=== PATIENT | female | born 1945 | race Caucasian/White ===

== ENCOUNTER 2019-09-15 01:25 | Day surgery (SDC) | payer MEDICARE, OTHER, SELFPAY ==
[2019-08-30 09:57] VITALS: BMI 25.4
[2019-09-15 08:01] VITALS: BP 116/76; PULSE 60; RESP 20; TEMP 36.4; O2SAT 60
[2019-09-15] MEDS: LACTATED RINGERS 1,000 ML 150 ML IV CONT (08:12)
--- NOTE | 2019-09-15 08:28 | WPDANESEPPF ---
Anes - Initial Pre Proc Eval Procedure: Operation Date: 09/15/19 08:30 Proposed Procedures p Esophagogastroduodenoscopy - Jacobo Singletary DO Date/Time: 09/15/19 08:28 Surgeon: Jacobo Singletary DO Pre Op Diagnosis: esophageal obstruction Patient Data Age: 74 Gender: F Height: 5 ft 3 in Weight: 65 kg Last Vital Signs Temp 36.4 C 09/15/19 08:01 Pulse 60 09/15/19 08:01 Resp 20 09/15/19 08:01 BP 116/76 09/15/19 08:01 Pulse Ox 60 L 09/15/19 08:01 Allergies Allergy/AdvReac Type Severity Reaction Status Date / Time Sulfa (Sulfonamide Allergy Unknown brake out Verified 08/30/19 09:59 Antibiotics) in sores in the mouth Home Medications Medication Instructions Recorded Confirmed Type adalimumab 40 mg/0.8 mL 40 mg SUB-Q ONCE 06/01/19 09/15/19 History subcutaneous syringe kit albuterol sulfate 90 mcg/actuation 1 inhalation INHALATION Q4H 06/01/19 09/15/19 History aerosol inhaler cyanocobalamin (vitamin B-12) 500 500 mcg PO 3XW 06/01/19 09/15/19 History mcg tablet folic acid 1 mg tablet 1 mg PO DAILY 06/01/19 09/15/19 History loratadine 10 mg tablet 10 mg PO DAILY PRN 06/01/19 09/15/19 History meloxicam 15 mg tablet 15 mg PO DAILY PRN 06/01/19 09/15/19 History pyridoxine (vitamin B6) 100 mg 100 mg PO DAILY 06/01/19 09/15/19 History tablet rosuvastatin 10 mg tablet 10 mg PO DAILY 06/01/19 09/15/19 History fluticasone 250 mcg-salmeterol 50 1 inhalation INHALATION BID #60 06/22/19 09/15/19 Rx mcg/dose blistr powdr for each inhalation tiotropium bromide 18 mcg capsule 1 cap INHALATION DAILY #60 06/22/19 09/15/19 Rx with inhalation device inhalation omeprazole 40 mg PO QAM 08/30/19 09/15/19 History albuterol sulfate 2.5 mg INHALATION BID 09/12/19 09/15/19 History methotrexate sodium 10 mg PO WEEKLY 09/12/19 09/15/19 History Patient hx anesthesia problems: none Family hx anesthesia problems: none PMFSH Family History Family History Father Family history of diabetes mellitus in first degree relative Sibling Family history of renal cell carcinoma Social History Social History Years smoked: 40 Smoking status: Former smoker Smoking end date: 07/20/04 Alcohol intake: never Gender identity (if verbalized by the patient): Female Anes - Eval Final PreProcedure Day of Procedure 09/15/19 08:28 Patient weight: normal Heart: regular rate and rhythm Lungs: clear to auscultation Airway: Mallampati scale class II Neurological: alert and oriented Last oral intake: >/= 8 hours ASA classification: III Emergent: no Anesthetic plan: proceed Anesthesia type and monitoring: general GIVS and standard monitoring Informed Consent: The patient's anesthetic plan and its attendant risks and benefits were discussed with the patient/family/POA. Questions were solicited and answers provided to the satisfaction of the patient/family/POA.
--- NOTE | 2019-09-15 08:35 | PM.IMHP ---
H&P: HPI History of Present Illness Chief complaint: esophageal obstruction Narrative: Cassie Bone is a 74 year old female presents for EGD today. She reports dysphagia near her gibbs apple to pills and solids for the last two months. She said she can stick her finger in the back of her throat and feel pills to bring it back up. She has hx of esopahegal webbing and stricture in the past. She also reports heartburn despite being on PPI. Denies abnormal weigh tloss, fever or chills Last colonoscopy 2009 and had polyp. She is set up for a colonoscopy. she denies any bowel habit changes, diarrhea, constipation, melena, hematochezia or abdominal pain. Review of Systems Review of Systems: All systems reviewed & are unremarkable except as noted in HPI and below Gastrointestinal: Gastrointestinal: Reports dysphagia and Reports heartburn [facility] Past Medical History Medical History (Updated 09/15/19 @ 08:40 by Karen Napier, [employer] SALES REPRESENTATIVE) Dysphagia GERD (gastroesophageal reflux disease) History of esophageal stricture Hx of adenomatous colonic polyps Osteoporosis Surgical History Surgical History (Updated 09/15/19 @ 08:40 by Karen Napier, [employer] SALES REPRESENTATIVE) Hx of rotator cuff surgery Family History Family History Father Family history of diabetes mellitus in first degree relative Sibling Family history of renal cell carcinoma Social History Social History Years smoked: 40 Smoking status: Former smoker Smoking end date: 07/20/04 Alcohol intake: never Gender identity (if verbalized by the patient): Female Meds Home Medications and Allergies Home Medications Medication Instructions Recorded Confirmed Type adalimumab 40 mg/0.8 mL 40 mg SUB-Q ONCE 06/01/19 09/15/19 History subcutaneous syringe kit albuterol sulfate 90 mcg/actuation 1 inhalation INHALATION Q4H 06/01/19 09/15/19 History aerosol inhaler cyanocobalamin (vitamin B-12) 500 500 mcg PO 3XW 06/01/19 09/15/19 History mcg tablet folic acid 1 mg tablet 1 mg PO DAILY 06/01/19 09/15/19 History loratadine 10 mg tablet 10 mg PO DAILY PRN 06/01/19 09/15/19 History meloxicam 15 mg tablet 15 mg PO DAILY PRN 06/01/19 09/15/19 History pyridoxine (vitamin B6) 100 mg 100 mg PO DAILY 06/01/19 09/15/19 History tablet rosuvastatin 10 mg tablet 10 mg PO DAILY 06/01/19 09/15/19 History fluticasone 250 mcg-salmeterol 50 1 inhalation INHALATION BID #60 06/22/19 09/15/19 Rx mcg/dose blistr powdr for each inhalation tiotropium bromide 18 mcg capsule 1 cap INHALATION DAILY #60 06/22/19 09/15/19 Rx with inhalation device inhalation omeprazole 40 mg PO QAM 08/30/19 09/15/19 History albuterol sulfate 2.5 mg INHALATION BID 09/12/19 09/15/19 History methotrexate sodium 10 mg PO WEEKLY 09/12/19 09/15/19 History Allergies Allergy/AdvReac Type Severity Reaction Status Date / Time Sulfa (Sulfonamide Allergy Unknown brake out Verified 09/15/19 08:31 Antibiotics) in sores in the mouth Vital Signs Vital Signs - 24 hr 09/15/19 08:01 Temperature 36.4 C Pulse Rate 60 Respiratory Rate 20 Blood Pressure 116/76 Pulse Oximetry 60 L Exam Const: General: cooperative, healthy appearing, comfortable, alert and awake Nutritional Appearance: average body habitus Orientation/consciousness: oriented to person, oriented to place, oriented to time and patient oriented x3 Limitations: no limitations HENMT: Head: normal to inspection and normocephalic Mouth: Yes Normal oral and palatal mucosa present and Yes moist mucous membranes Neck: Neck: normal visual inspection, supple and no JVD Carotids: no bruits Resp: Effort & Inspection: normal respiratory effort and no respiratory distress Auscultation: diminished lung sounds Cardio: Rate: regular rate Rhythm: regular rhythm Heart sounds: S1 normal heart sound present, S2 normal heart sound presen
[2019-09-15 09:35] VITALS: BP 120/49; PULSE 66; RESP 17; O2SAT 100
[2019-09-15 09:45] VITALS: BP 128/58; PULSE 55; RESP 19; O2SAT 100
[2019-09-15 09:51] VITALS: BP 141/58; PULSE 50; RESP 15; O2SAT 100
== END 2019-09-15 10:05 | disposition home or self-care (01) ==
PROVIDERS: PCP Nurse Practitioner Adult Health; Visit Provider Internal Medicine Gastroenterology
PROC: 0DJ08ZZ Inspection of Upper Intestinal Tract, Via Natural or Artificial Opening Endoscopic (ICD-10-PCS; CPT 43235; principal; 2019-09-15 08:30)
DX: K21.9 Gastro-esophageal reflux disease without esophagitis (principal); K22.2 Esophageal obstruction; K44.9 Diaphragmatic hernia without obstruction or gangrene; M81.0 Age-related osteoporosis without current pathological fracture; Z87.891 Personal history of nicotine dependence
CPT/HCPCS: 43239; 43249; 87081; 88305; C1726; J2704; J7120

== ENCOUNTER 2019-09-22 01:31 | Day surgery (SDC) | payer MEDICARE, OTHER, SELFPAY ==
[2019-09-16 11:29] VITALS: BMI 24.8
[2019-09-22 06:39] VITALS: BP 129/79; PULSE 69; RESP 18; TEMP 36.4; O2SAT 98; BMI 24.5
--- NOTE | 2019-09-22 06:46 | P.PNAN_ITS ---
Anes - Initial Pre Proc Eval Procedure: Operation Date: 09/22/19 07:30 Proposed Procedures p Screening Colonoscopy - Jacobo Singletary DO Date/Time: 09/22/19 06:46 Surgeon: Jacobo Singletary DO Pre Op Diagnosis: neoplasm screening Patient Data Age: 74 Gender: F Height: 1.6 m Weight: 63 kg Last Vital Signs Temp 36.4 C 09/22/19 06:39 Pulse 69 09/22/19 06:39 Resp 18 09/22/19 06:39 BP 129/79 09/22/19 06:39 Pulse Ox 98 09/22/19 06:39 Allergies Allergy/AdvReac Type Severity Reaction Status Date / Time Sulfa (Sulfonamide Allergy Unknown brake out Verified 09/22/19 06:35 Antibiotics) in sores in the mouth Home Medications Medication Instructions Recorded Confirmed Type adalimumab 40 mg/0.8 mL 40 mg SUB-Q ONCE 06/01/19 09/16/19 History subcutaneous syringe kit albuterol sulfate 90 mcg/actuation 1 inhalation INHALATION Q4H 06/01/19 09/16/19 History aerosol inhaler cyanocobalamin (vitamin B-12) 500 500 mcg PO 3XW 06/01/19 09/16/19 History mcg tablet folic acid 1 mg tablet 1 mg PO DAILY 06/01/19 09/16/19 History loratadine 10 mg tablet 10 mg PO DAILY PRN 06/01/19 09/16/19 History meloxicam 15 mg tablet 15 mg PO DAILY PRN 06/01/19 09/16/19 History pyridoxine (vitamin B6) 100 mg 100 mg PO DAILY 06/01/19 09/16/19 History tablet rosuvastatin 10 mg tablet 10 mg PO DAILY 06/01/19 09/16/19 History fluticasone 250 mcg-salmeterol 50 1 inhalation INHALATION BID #60 06/22/19 09/16/19 Rx mcg/dose blistr powdr for each inhalation tiotropium bromide 18 mcg capsule 1 cap INHALATION DAILY #60 06/22/19 09/16/19 Rx with inhalation device inhalation omeprazole 40 mg PO QAM 08/30/19 09/16/19 History albuterol sulfate 2.5 mg INHALATION BID 09/12/19 09/16/19 History methotrexate sodium 10 mg PO WEEKLY 09/12/19 09/16/19 History esomeprazole magnesium [Nexium] 40 mg PO BID #60 cap 09/15/19 09/16/19 Rx esomeprazole magnesium [Nexium] 40 mg PO DAILY #30 cap 09/15/19 09/16/19 Rx Patient hx anesthesia problems: none Family hx anesthesia problems: none [facility] Past Medical History Medical History (Updated 09/21/19 @ 13:44 by Surjit Liz, DO) 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 Dysphagia GERD (gastroesophageal reflux disease) History of esophageal stricture Hx of adenomatous colonic polyps Lung nodules SHOLA (obstructive sleep apnea) Osteoporosis Rheumatoid arthritis involving multiple sites Surgical History Surgical History (Updated 09/15/19 @ 08:40 by Karen Napier, SPECIAL LIBRARIAN) Hx of rotator cuff surgery Social History Social History Years smoked: 40 Smoking status: Former smoker Smoking end date: 07/20/04 Alcohol intake: never Gender identity (if verbalized by the patient): Female Anes - Eval Final PreProcedure Day of Procedure 09/22/19 06:46 Informed Consent: The patient's anesthetic plan and its attendant risks and benefits were discussed with the patient/family/POA. Questions were solicited and answers provided to the satisfaction of the patient/family/POA.
[2019-09-22] MEDS: LACTATED RINGERS 1,000 ML 150 ML IV CONT (07:25)
--- NOTE | 2019-09-22 07:34 | PM.IMHP ---
H&P: HPI History of Present Illness Chief complaint: neoplasm screening Narrative: This very pleasant lady's being evaluated for screening and surveillance colonoscopy. The patient's history adenomatous colon polyps. Patient's GI review systems only remarkable for rare blood on the tissue during preparation. Allergies sulfa. Past medical history: Hyperlipidemia. Rheumatoid arthritis. COPD. Obstructive sleep apnea. Osteoporosis. GERD. Adenomatous colon polyps. Physical exam revealed a very pleasant lady in no acute distress. General: very pleasant patient in no acute distress. HEENT: Head was normocephalic sclerae is clear mouth without masses neck was supple. Heart: Rate rhythm regular without S3 or S4. Lungs: Decreased breath sounds bilaterally. Forced expiration was prolonged. Abdomen: Soft with no guarding or rigidity. Bowel sounds were active. Neurologic: Cranial nerves 2 through 12 intact. No focal defects. No clonus. Musculoskeletal system: Revealed no joint tenderness or swelling no muscle atrophy. Extremities: Reveal no significant edema. Skin: Warm and dry with normal turgor. Mental status: intact. Patient is alert and oriented. Impression: Colon cancer polyp screening and surveillance. The patient has history adenomatous colon polyps. Per past medical history. Recommendation: Colonoscopy. 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 Dysphagia GERD (gastroesophageal reflux disease) History of esophageal stricture Hx of adenomatous colonic polyps Lung nodules SHOLA (obstructive sleep apnea) Osteoporosis Rheumatoid arthritis involving multiple sites Surgical History Surgical History (Updated 09/15/19 @ 08:40 by Karen Napier, ONCOLOGY ADMIN) Hx of rotator cuff surgery Social History Social History Years smoked: 40 Smoking status: Former smoker Smoking end date: 07/20/04 Alcohol intake: never Gender identity (if verbalized by the patient): Female Meds Home Medications and Allergies Home Medications Medication Instructions Recorded Confirmed Type adalimumab 40 mg/0.8 mL 40 mg SUB-Q ONCE 06/01/19 09/22/19 History subcutaneous syringe kit albuterol sulfate 90 mcg/actuation 1 inhalation INHALATION Q4H 06/01/19 09/16/19 History aerosol inhaler cyanocobalamin (vitamin B-12) 500 500 mcg PO 3XW 06/01/19 09/16/19 History mcg tablet folic acid 1 mg tablet 1 mg PO DAILY 06/01/19 09/22/19 History loratadine 10 mg tablet 10 mg PO DAILY PRN 06/01/19 09/16/19 History meloxicam 15 mg tablet 15 mg PO DAILY PRN 06/01/19 09/22/19 History pyridoxine (vitamin B6) 100 mg 100 mg PO DAILY 06/01/19 09/22/19 History tablet rosuvastatin 10 mg tablet 10 mg PO DAILY 06/01/19 09/22/19 History tiotropium bromide 18 mcg capsule 1 cap INHALATION DAILY #60 06/22/19 09/22/19 Rx with inhalation device inhalation omeprazole 40 mg PO QAM 08/30/19 09/22/19 History albuterol sulfate 2.5 mg INHALATION BID 09/12/19 09/22/19 History methotrexate sodium 10 mg PO WEEKLY 09/12/19 09/22/19 History fluticasone propion-salmeterol INHALATION 09/22/19 History [Advair Diskus] Allergies Allergy/AdvReac Type Severity Reaction Status Date / Time Sulfa (Sulfonamide Allergy Unknown brake out Verified 09/22/19 06:35 Antibiotics) in sores in the mouth Vital Signs Vital Signs - 24 hr 09/22/19 06:39 Temperature 36.4 C Pulse Rate 69 Respiratory Rate 18 Blood Pressure 129/79 Pulse Oximetry 98
[2019-09-22 07:55] VITALS: BP 103/48; PULSE 62; RESP 16; O2SAT 98
[2019-09-22 08:05] VITALS: BP 106/50; PULSE 59; RESP 18; O2SAT 100
[2019-09-22 08:15] VITALS: BP 111/57; PULSE 56; RESP 18; O2SAT 97
== END 2019-09-22 08:26 | disposition home or self-care (01) ==
PROVIDERS: PCP Nurse Practitioner Adult Health; Visit Provider Internal Medicine Gastroenterology
PROC: 0DJD8ZZ Inspection of Lower Intestinal Tract, Via Natural or Artificial Opening Endoscopic (ICD-10-PCS; CPT 45378; principal; 2019-09-22 07:30)
DX: Z12.11 Encounter for screening for malignant neoplasm of colon (principal); D12.0 Benign neoplasm of cecum; D12.2 Benign neoplasm of ascending colon; K57.30 Diverticulosis of large intestine without perforation or abscess without bleeding; K64.8 Other hemorrhoids; J44.9 Chronic obstructive pulmonary disease, unspecified; K21.9 Gastro-esophageal reflux disease without esophagitis; E78.5 Hyperlipidemia, unspecified; G47.33 Obstructive sleep apnea (adult) (pediatric); M81.0 Age-related osteoporosis without current pathological fracture; M06.9 Rheumatoid arthritis, unspecified; Z87.891 Personal history of nicotine dependence
CPT/HCPCS: 45380; 88305; J2704; J7120

== ENCOUNTER 2019-11-02 09:23 | Outpatient (CLI) | payer MEDICARE, OTHER, SELFPAY ==
--- NOTE | ~2019-11-02 | CT_ITS ---
EXAMINATION:CT chest wo con DATE: 11/02/2019 09:49 INDICATION: Lung nodule. TECHNIQUE: Computed tomography (CT) of the chest was performed without intravenous contrast. Automate d exposure control and iterative reconstruction technique were employed. The dose-length product (DLP ) was 72.76 mGy-cm. COMPARISON: Chest CT 05/04/2019 FINDINGS: There is mild scarring at the lung apices. There is mild emphysema. Calcified pulmonary nod ules and calcified hilar and mediastinal lymph nodes are consistent with old granulomatous disease. T here is mild atelectasis in the lungs bilaterally. There are scattered nodules in the lungs measuring up to 4 mm, some of which are new. No pleural effusion. The heart size is normal. No pericardial eff usion. There are suture anchors in right humeral head. There are old healed right rib fractures. Ther e is mild thoracic spondylosis. There is a chronic burst fracture of T11. IMPRESSION: 1. Pulmonary nodules measuring up to 4 mm, some of which are new, probably benign. Noncontrast low-do se chest CT is recommended in 6 months. 2. Mild emphysema. Reviewed, dictated and finalized at location A. IMPRESSION: 1. Pulmonary nodules measuring up to 4 mm, some of which are new, probably don gn. Noncontrast low-dose chest CT is recommended in 6 months. 2. Mild emphysema.
== END 2019-11-02 09:24 | disposition home or self-care (01) ==
PROVIDERS: PCP Nurse Practitioner Adult Health; Visit Provider Nurse Practitioner Family
DX: R91.1 Solitary pulmonary nodule (principal); J43.9 Emphysema, unspecified
CPT/HCPCS: 71250

== ENCOUNTER 2020-01-16 07:57 | Outpatient (CLI) | payer MEDICARE, OTHER, SELFPAY ==
--- NOTE | ~2020-01-16 | CT_ITS ---
EXAMINATION: CT chest wo con EXAM DATE: 01/16/2020 08:20 INDICATION: Lung nodules. COPD. Shortness of breath. TECHNIQUE: Spiral CT of the chest without contrast. Axial, coronal and sagittal images were reviewe d. Coronal maximum intensity pixel images of chest reviewed. The dose-length product (DLP) for this examination was 142.39 mGy-cm. The exposure was tailored according to patient size (auto mA exposur e control), and iterative reconstruction (ASIR) was used as additional dose reduction technique. Comp arison is made to prior examination from 11/02/2019. FINDINGS: Biapical scarring. Bibasilar linear opacities with improvement in the lingula. Scattered sm all nodules, reticulonodular opacities are unchanged and consistent with postinfectious residua. No n ew or suspicious pulmonary nodules. There is mild emphysema. There are no pleural or pericardial eff usions. Tracheobronchial tree is patent. There is no mediastinal, hilar or axillary lymphadenopat hy. There is no pneumothorax. Heart normal in size. There is mild coronary arterial calcificati on, arterial sclerosis. Upper abdomen is unremarkable. There is thoracic spondylosis without osteo blastic or osteolytic lesions identified. Mild chronic compression fractures at superior endplate o f T11 and T9 and T5 IMPRESSION: 1. Stable post infectious residua. 2. Mild emphysema. Reviewed, dictated and finalized at location B.
== END 2020-01-16 07:58 | disposition home or self-care (01) ==
PROVIDERS: PCP Nurse Practitioner Adult Health; Visit Provider Internal Medicine Critical Care Medicine
DX: J44.9 Chronic obstructive pulmonary disease, unspecified (principal); R91.8 Other nonspecific abnormal finding of lung field; J43.9 Emphysema, unspecified
CPT/HCPCS: 71250

== ENCOUNTER 2020-04-09 09:42 | Outpatient (CLI) | payer MEDICARE, OTHER, SELFPAY ==
--- NOTE | ~2020-04-09 | DEXA_ITS ---
Bone Density Report Name: Cassie Bone Age: 75 Sex: Female Ethnicity: White Date of : 1945 Indication: osteopenia; monitoring treatment; height loss; prior fracture; cancer; asthma or emphysema; rheumatoid arthritis; postmenopausal Referring Provider: Aria, Myrna Paige Study: Bone densitometry was performed. Exam Date: April 09, 2020 Accession number: [id number] Bone Density: Region BMD T-score Z-score Classification AP Spine (L1, L2, L3) 0.896 -1.1 1.1 Osteopenia Femoral Neck (Left) 0.540 -2.8 -0.8 Osteoporosis Total Hip (Left) 0.875 -0.5 1.1 Normal Total Hip Bilateral Avg 0.869 -0.6 1.1 Normal Femoral Neck (Right) 0.571 -2.5 -0.5 Osteoporosis Total Hip (Right) 0.861 -0.7 1.0 Normal World Health Organization criteria for BMD impression classify patients as: Normal (T-score at or above -1.0), Osteopenia (T-score between -1.0 and -2.5), or Osteoporosis (T-score at or below -2.5). 10-year Fracture Risk: FRAX not reported because: Some T-score for Spine Total or Hip Total or Femoral Neck at or below -2.5 Treated for osteoporosis Previous Exams: Region Exam Age BMD T-score BMD Change BMD Change Date g/cm2 vs Baseline vs Previous AP Spine(L1, L2, L3) 04/09/2020 75 0.896 -1.1 0.146(19.4%)# 0.014(1.6%) 07/30/2017 72 0.882 -1.2 0.131(17.5%)# 0.019(2.2%) 05/04/2015 70 0.863 -1.4 0.113(15.0%)# 0.016(1.9%)# 12/22/2012 67 0.847 -1.6 0.097(12.9%)# 0.021(2.5%)# 11/19/2010 65 0.827 -1.7 0.076(10.2%)* 0.029(3.6%)* 11/17/2008 63 0.798 -2.0 0.048(6.4%)* 0.001(0.2%) 11/09/2006 61 0.797 -2.0 0.046(6.2%)* 0.046(6.2%)* 06/05/2004 59 0.750 -2.4 Total Hip(Left) 04/09/2020 75 0.875 -0.5 0.141(19.2%)# 0.004(0.5%) 07/30/2017 72 0.871 -0.6 0.137(18.6%)# 0.034(4.1%)* 05/04/2015 70 0.836 -0.9 0.102(13.9%)# 0.004(0.4%)# 12/22/2012 67 0.833 -0.9 0.099(13.4%)# 0.017(2.0%)# 11/19/2010 65 0.816 -1.0 0.082(11.2%)* 0.034(4.4%)* 11/17/2008 63 0.782 -1.3 0.048(6.5%)* -0.019(-2.4%) 11/09/2006 61 0.801 -1.2 0.067(9.1%)* 0.067(9.1%)* 06/05/2004 59 0.734 -1.7 Total Hip(Right) 04/09/2020 75 0.861 -0.7 0.143(19.8%)# -0.036(-4.0%)* 07/30/2017 72 0.897 -0.4 0.179(24.9%)# 0.051(6.0%)* 05/04/2015 70 0.846 -0.8 0.128(17.8%)# 0.017(2.0%)# 12/22/2012 67 0.829 -0.9 0.111(15.4%)# 0.035(4.5%)# 11/19/2010 65 0.794 -1.2 0.075(10.5%)* -0.001(-0.2%) 11/17/2008 63 0.795 -1.2 0.077(10.7%)* 0.023(3.0%) 11/09/2006 61 0.772 -1.4 0.053(7.4%)* 0.053(7.4%)* 06/05/2004 59 0.718 -1.8
== END 2020-04-09 09:43 | disposition home or self-care (01) ==
LOC: ANHIMG 09:46
PROVIDERS: PCP Nurse Practitioner Adult Health; Visit Provider Internal Medicine Rheumatology
DX: M81.0 Age-related osteoporosis without current pathological fracture (principal)
CPT/HCPCS: 77080

== ENCOUNTER 2020-07-17 09:05 | Outpatient (CLI) | payer MEDICARE, OTHER, SELFPAY ==
--- NOTE | ~2020-07-17 | MM_ITS ---
EXAMINATION: MM screening kristy BI w jennifer HISTORY: Screening TECHNIQUE: Craniocaudal and mediolateral oblique 3-D tomosynthesis images were obtained and synthetic 2-D images were generated. CAD analysis was submitted and interpreted. COMPARISON: Comparison to multiple prior studies sequentially, with oldest reviewed study dated 2014. BREAST PARENCHYMAL COMPOSITION: There are scattered areas of fibroglandular density. FINDINGS: There is no evidence of suspicious mass, calcification, or architectural distortion to sugg est malignancy in either breast. There has been no suspicious interval change. IMPRESSION: 1. No mammographic evidence of malignancy. 2. Recommend routine screening mammography in one year. BI-RADS Category 1: Negative Reviewed, dictated and finalized at location A. OPERATOR
== END 2020-07-17 09:06 | disposition home or self-care (01) ==
LOC: ANHIMG 09:08
PROVIDERS: PCP Nurse Practitioner Adult Health; Visit Provider Nurse Practitioner Adult Health
DX: Z12.31 Encounter for screening mammogram for malignant neoplasm of breast (principal)
CPT/HCPCS: 77063; 77067

== ENCOUNTER 2020-08-06 03:50 | Outpatient (CLI) | payer MEDICARE, OTHER, SELFPAY ==
[2020-08-06 16:31] LABS: SARS-CoV-2 RNA PCR Negative
== END 2020-08-06 03:51 | disposition home or self-care (01) ==
LOC: ANHCOVIDDT 03:50
PROVIDERS: PCP Nurse Practitioner Adult Health; Visit Provider Internal Medicine Gastroenterology
DX: Z01.812 Encounter for preprocedural laboratory examination (principal); Z20.822 Contact with and (suspected) exposure to COVID-19
CPT/HCPCS: C9803; U0003; U0005

== ENCOUNTER 2020-08-09 01:35 | Day surgery (SDC) | payer MEDICARE, OTHER, SELFPAY ==
[2020-07-27 10:32] VITALS: BMI 26.5
[2020-08-09 07:50] VITALS: BP 134/68; PULSE 66; RESP 22; TEMP 36.2; O2SAT 97
[2020-08-09] MEDS: LACTATED RINGERS 1,000 ML 150 ML IV CONT (08:02)
--- NOTE | 2020-08-09 08:41 | PM.IMHP ---
H&P: HPI History of Present Illness Date/Time: 08/09/20 08:41 Chief Complaint: Patient here for EGD. Narrative: Reason for visit is EGD. This very pleasant lady's here at the request of the primary physician. Impression: Your very pleasant lady with history esophageal stricture. She does have underlying GERD. There is some concern of the eosinophilic esophagitis. However, the number of eosinophils has never been overly impressive. She may have a next GERD/eosinophilic esophagitis. She has developed recurrent dysphagia. Adenomatous colon polyps. COPD. Rheumatoid arthritis. Lung nodules. SHOLA. Osteoporosis. Recommendation: EGD. History: This very pleasant lady has a history of esophageal stricture. Clinically it appears that she has underlying eosinophilic esophagitis. The number of eosinophils has not been unimpressive. She has responded to dilation. She has developed recurrent stricture formation. She has a history adenomatous colon polyps. She is here for EGD. Physical examination: General: very pleasant patient in no acute distress. HEENT: Head was normocephalic sclerae is clear mouth without masses neck was supple. Heart: Rate rhythm regular without S3 or S4. Lungs: CTA. Abdomen: Soft with no guarding or rigidity. Bowel sounds were active. Neurologic: Cranial nerves 2 through 12 intact. No focal defects. No clonus. Musculoskeletal system: Revealed no joint tenderness or swelling no muscle atrophy. Extremities: Reveal no significant edema. Skin: Warm and dry with normal turgor. Mental status: intact. Patient is alert and oriented. 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 Esophageal stricture GERD (gastroesophageal reflux disease) History of esophageal stricture Lung nodules SHOLA (obstructive sleep apnea) Osteoporosis Rheumatoid arthritis involving multiple sites Surgical History Surgical History (Updated 08/09/20 @ 08:41 by Jacobo Singletary DO) Hx of colonoscopy Hx of esophagogastroduodenoscopy Hx of rotator cuff surgery Family History Family History Father Family history of diabetes mellitus in first degree relative Sibling Family history of renal cell carcinoma Social History Social History Years smoked: 40 Smoking status: Former smoker Tobacco type: cigarettes Smoking end date: 07/20/04 Alcohol intake: never Substance use: never Substance use type: does not use, former substance user, marijuana, crack/cocaine, heroin, amphetamines, hallucinogens, tranquilizers, sedatives, opiates, painkillers, club/exhibit designer drugs, inhalants, IV drugs, methamphetamine, prescription drug, unknown and other Living arrangements: with family Gender identity (if verbalized by the patient): Female Meds Home Medications and Allergies Home Medications Medication Instructions Recorded Confirmed Type adalimumab 40 mg/0.8 mL See Rx Instructions .ROUTE .COMPLEX 06/01/19 08/06/20 History subcutaneous syringe kit albuterol sulfate 90 mcg/actuation 1 inhalation INHALATION Q4H PRN 06/01/19 08/06/20 History aerosol inhaler cyanocobalamin (vitamin B-12) 500 500 mcg PO 3XW 06/01/19 08/06/20 History mcg tablet folic acid 1 mg tablet 1 mg PO DAILY 06/01/19 08/06/20 History meloxicam 15 mg tablet 15 mg PO DAILY PRN 06/01/19 08/06/20 History pyridoxine (vitamin B6) 100 mg 100 mg PO DAILY 06/01/19 08/06/20 History tablet rosuvastatin 10 mg tablet 10 mg PO DAILY 06/01/19 08/06/20 History omeprazole 40 mg PO QAM 08/30/19 08/06/20 History albuterol sulfate 2.5 mg INHALATION BID PRN 09/12/19 08/06/20 History methotrexate sodium 1
--- NOTE | 2020-08-09 09:23 | WPDANESEPPF ---
Anes - Initial Pre Proc Eval Procedure: Operation Date: 08/09/20 09:00 Proposed Procedures p Esophagogastroduodenoscopy - Jacobo Singletary DO Date/Time: 08/09/20 09:23 Surgeon: Jacobo Singletary DO Pre Op Diagnosis: dysphagia Patient Data Age: 75 Gender: F Height: 5 ft 3 in Weight: 70.4 kg Last Vital Signs Temp 97.2 F L 08/09/20 07:50 Pulse 66 08/09/20 07:50 Resp 22 H 08/09/20 07:50 BP 134/68 08/09/20 07:50 Pulse Ox 97 08/09/20 07:50 Allergies Allergy/AdvReac Type Severity Reaction Status Date / Time Sulfa (Sulfonamide Allergy Unknown brake out Verified 08/09/20 07:47 Antibiotics) in sores in the mouth Home Medications Medication Instructions Recorded Confirmed Type adalimumab 40 mg/0.8 mL See Rx Instructions .ROUTE .COMPLEX 06/01/19 08/06/20 History subcutaneous syringe kit albuterol sulfate 90 mcg/actuation 1 inhalation INHALATION Q4H PRN 06/01/19 08/06/20 History aerosol inhaler cyanocobalamin (vitamin B-12) 500 500 mcg PO 3XW 06/01/19 08/06/20 History mcg tablet folic acid 1 mg tablet 1 mg PO DAILY 06/01/19 08/06/20 History meloxicam 15 mg tablet 15 mg PO DAILY PRN 06/01/19 08/06/20 History pyridoxine (vitamin B6) 100 mg 100 mg PO DAILY 06/01/19 08/06/20 History tablet rosuvastatin 10 mg tablet 10 mg PO DAILY 06/01/19 08/06/20 History omeprazole 40 mg PO QAM 08/30/19 08/06/20 History albuterol sulfate 2.5 mg INHALATION BID PRN 09/12/19 08/06/20 History methotrexate sodium 10 mg PO WEEKLY 09/12/19 08/06/20 History Bittermelon PO 02/01/20 08/06/20 History fluticasone 250 mcg-salmeterol 50 1 inhalation INHALATION BID #60 02/01/20 08/06/20 Rx mcg/dose blistr powdr for each inhalation potassium chloride 10 mEq 10 meq PO .3x weekly cap 02/01/20 08/06/20 History capsule,extended release tiotropium bromide 18 mcg capsule 1 cap INHALATION DAILY #60 02/01/20 08/06/20 Rx with inhalation device inhalation montelukast 10 mg PO PRN PRN 07/27/20 08/06/20 History Patient hx anesthesia problems: none Family hx anesthesia problems: none [facility] Past Medical History Medical History (Updated 08/09/20 @ 08:41 by Jacobo Singletary DO) Adenomatous colon polyp 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 Esophageal stricture GERD (gastroesophageal reflux disease) History of esophageal stricture Lung nodules SHOLA (obstructive sleep apnea) Osteoporosis Rheumatoid arthritis involving multiple sites Surgical History Surgical History (Updated 08/09/20 @ 08:41 by Jacobo Singletary DO) Hx of colonoscopy Hx of esophagogastroduodenoscopy Hx of rotator cuff surgery Family History Family History Father Family history of diabetes mellitus in first degree relative Sibling Family history of renal cell carcinoma Social History Social History Years smoked: 40 Smoking status: Former smoker Tobacco type: cigarettes Smoking end date: 07/20/04 Alcohol intake: never Substance use: never Substance use type: does not use, former substance user, marijuana, crack/cocaine, heroin, amphetamines, hallucinogens, tranquilizers, sedatives, opiates, painkillers, club/communications designer drugs, inhalants, IV drugs, methamphetamine, prescription drug, unknown and other Living arrangements: with family Gender identity (if verbalized by the patient): Female Anes - Eval Final PreProcedure Day of Procedure 08/09/20 09:23 Patient weight: normal Heart: regular rate and rhythm Lungs: clear to auscultation Airway: Mallampati scale class II Neurological: alert and oriented Last oral intake: >/= 8 hours ASA classification: III Emergent: no Anesthetic plan: proceed Anesthesia type and monitoring: general GIVS and standard monitoring Informed Consent: The patient's anesthetic plan and its attendant risks and benefits were discussed with the patient/family/POA. Questions were solicite
[2020-08-09 09:42] VITALS: BP 110/58; PULSE 55; RESP 18; O2SAT 100
[2020-08-09 09:52] VITALS: BP 109/66; PULSE 57; RESP 21; O2SAT 100
[2020-08-09 10:02] VITALS: BP 118/70; PULSE 53; RESP 17; O2SAT 100
== END 2020-08-09 10:16 | disposition home or self-care (01) ==
PROVIDERS: PCP Nurse Practitioner Adult Health; Visit Provider Internal Medicine Gastroenterology
PROC: 0DJ08ZZ Inspection of Upper Intestinal Tract, Via Natural or Artificial Opening Endoscopic (ICD-10-PCS; CPT 43235; principal; 2020-08-09 09:00)
DX: K22.2 Esophageal obstruction (principal); K21.00 Gastro-esophageal reflux disease with esophagitis, without bleeding; K31.7 Polyp of stomach and duodenum; K29.80 Duodenitis without bleeding; J44.9 Chronic obstructive pulmonary disease, unspecified; M06.9 Rheumatoid arthritis, unspecified; R91.8 Other nonspecific abnormal finding of lung field; G47.33 Obstructive sleep apnea (adult) (pediatric); M81.0 Age-related osteoporosis without current pathological fracture; Z87.891 Personal history of nicotine dependence
CPT/HCPCS: 43239; 43249; 88305; C1726; J2001; J2704; J7120

== ENCOUNTER → 2020-09-24 00:13 | Outpatient (CLI) | payer MEDICARE, SELFPAY ==
[2020-09-24 18:03] LABS: SARS-CoV-2 RNA PCR Negative
== END ==
PROVIDERS: PCP Nurse Practitioner Adult Health; Visit Provider Internal Medicine Gastroenterology
DX: Z01.812 Encounter for preprocedural laboratory examination (principal); Z20.822 Contact with and (suspected) exposure to COVID-19
CPT/HCPCS: C9803; U0003; U0005

== ENCOUNTER 2020-09-27 01:04 | Day surgery (SDC) | payer MEDICARE, OTHER, SELFPAY ==
[2020-08-28 14:03] VITALS: BMI 28.2
[2020-09-13 10:45] VITALS: BMI 26.2
[2020-09-27 07:44] VITALS: BP 128/68; PULSE 62; RESP 16; TEMP 36.8; O2SAT 95
[2020-09-27] MEDS: LACTATED RINGERS 1,000 ML 150 ML IV CONT (08:01)
--- NOTE | 2020-09-27 08:34 | WPDGICN ---
GI Consult Note Consult date/time: 09/27/20 08:34 HPI: Reason for visit is EGD. This very pleasant lady seen in consultation request of the primary physician. Impression: GERD with esophageal stricture. Adenomatous colon polyps. Lung nodules. SHOLA. Osteoporosis. RA. COPD. Recommendation: EGD. History: This very pleasant lady has a history reflux disease and esophageal stricture. She had noticed a little bit improvement after last dilation. She is here for further dilation. She is asymptomatic with respect to heartburn. She has a history adenomatous colon polyps. Physical examination: General: very pleasant patient in no acute distress. HEENT: Head was normocephalic sclerae is clear mouth without masses neck was supple. Heart: Rate rhythm regular without S3 or S4. Lungs: CTA. Abdomen: Soft with no guarding or rigidity. Bowel sounds were active. Neurologic: Cranial nerves 2 through 12 intact. No focal defects. No clonus. Musculoskeletal system: Revealed no joint tenderness or swelling no muscle atrophy. Extremities: Reveal no significant edema. Skin: Warm and dry with normal turgor. Mental status: intact. Patient is alert and oriented. 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 Esophageal stricture GERD (gastroesophageal reflux disease) History of esophageal stricture Lung nodules SHOLA (obstructive sleep apnea) Osteoporosis Rheumatoid arthritis involving multiple sites Surgical History Surgical History (Updated 08/09/20 @ 08:41 by Jacobo Singletary DO) Hx of colonoscopy Hx of esophagogastroduodenoscopy Hx of rotator cuff surgery Family History Family History Father Family history of diabetes mellitus in first degree relative Sibling Family history of renal cell carcinoma Social History Social History Years smoked: 40 Smoking status: Former smoker Tobacco type: cigarettes Smoking end date: 07/20/04 Alcohol intake: former Substance use: never Substance use type: does not use Living arrangements: with family Gender identity (if verbalized by the patient): Female Spiritual care concerns: No Meds Home Medications and Allergies Home Medications Medication Instructions Recorded Confirmed Type adalimumab 40 mg/0.8 mL See Rx Instructions .ROUTE .COMPLEX 06/01/19 09/27/20 History subcutaneous syringe kit albuterol sulfate 90 mcg/actuation 1 inhalation INHALATION Q4H PRN 06/01/19 09/27/20 History aerosol inhaler cyanocobalamin (vitamin B-12) 500 500 mcg PO 3XW 06/01/19 09/27/20 History mcg tablet folic acid 1 mg tablet 1 mg PO DAILY 06/01/19 09/27/20 History meloxicam 15 mg tablet 15 mg PO DAILY PRN 06/01/19 08/28/20 History pyridoxine (vitamin B6) 100 mg 100 mg PO DAILY 06/01/19 09/27/20 History tablet rosuvastatin 10 mg tablet 10 mg PO DAILY 06/01/19 09/27/20 History omeprazole 40 mg PO QAM 08/30/19 09/27/20 History albuterol sulfate 2.5 mg INHALATION BID PRN 09/12/19 08/28/20 History methotrexate sodium 10 mg PO WEEKLY 09/12/19 09/27/20 History Bittermelon PO 02/01/20 08/06/20 History fluticasone 250 mcg-salmeterol 50 1 inhalation INHALATION BID #60 02/01/20 09/27/20 Rx mcg/dose blistr powdr for each inhalation potassium chloride 10 mEq 10 meq PO .3x weekly cap 02/01/20 09/27/20 History capsule,extended release tiotropium bromide 18 mcg capsule 1 cap INHALATION DAILY #60 02/01/20 09/27/20 Rx with inhalation device inhalation montelukast 10 mg PO PRN PRN 07/27/20 08/28/20 History cholecalciferol (vitamin D3) 10 mcg PO DAILY 08/28/20 09/27/20 History [Vitamin D3] Allergies A
--- NOTE | 2020-09-27 09:17 | WPDANESEPPF ---
Anes - Initial Pre Proc Eval Procedure: Operation Date: 09/27/20 09:00 Proposed Procedures p Esophagogastroduodenoscopy - Jacobo Singletary DO Date/Time: 09/27/20 09:17 Surgeon: Jacobo Singletary DO Pre Op Diagnosis: Esophageal Stricture Patient Data Age: 75 Gender: F Height: 5 ft 3 in Weight: 71.7 kg Last Vital Signs Temp 98.2 F 09/27/20 07:44 Pulse 62 09/27/20 07:44 Resp 16 09/27/20 07:44 BP 128/68 09/27/20 07:44 Pulse Ox 95 09/27/20 07:44 Allergies Allergy/AdvReac Type Severity Reaction Status Date / Time Sulfa (Sulfonamide Allergy Unknown brake out Verified 09/27/20 07:43 Antibiotics) in sores in the mouth Home Medications Medication Instructions Recorded Confirmed Type adalimumab 40 mg/0.8 mL See Rx Instructions .ROUTE .COMPLEX 06/01/19 09/27/20 History subcutaneous syringe kit albuterol sulfate 90 mcg/actuation 1 inhalation INHALATION Q4H PRN 06/01/19 09/27/20 History aerosol inhaler cyanocobalamin (vitamin B-12) 500 500 mcg PO 3XW 06/01/19 09/27/20 History mcg tablet folic acid 1 mg tablet 1 mg PO DAILY 06/01/19 09/27/20 History meloxicam 15 mg tablet 15 mg PO DAILY PRN 06/01/19 08/28/20 History pyridoxine (vitamin B6) 100 mg 100 mg PO DAILY 06/01/19 09/27/20 History tablet rosuvastatin 10 mg tablet 10 mg PO DAILY 06/01/19 09/27/20 History omeprazole 40 mg PO QAM 08/30/19 09/27/20 History albuterol sulfate 2.5 mg INHALATION BID PRN 09/12/19 08/28/20 History methotrexate sodium 10 mg PO WEEKLY 09/12/19 09/27/20 History Bittermelon PO 02/01/20 08/06/20 History fluticasone 250 mcg-salmeterol 50 1 inhalation INHALATION BID #60 02/01/20 09/27/20 Rx mcg/dose blistr powdr for each inhalation potassium chloride 10 mEq 10 meq PO .3x weekly cap 02/01/20 09/27/20 History capsule,extended release tiotropium bromide 18 mcg capsule 1 cap INHALATION DAILY #60 02/01/20 09/27/20 Rx with inhalation device inhalation montelukast 10 mg PO PRN PRN 07/27/20 08/28/20 History cholecalciferol (vitamin D3) 10 mcg PO DAILY 08/28/20 09/27/20 History [Vitamin D3] Patient hx anesthesia problems: none Family hx anesthesia problems: none PMFSH Past Medical History Medical History (Updated 08/09/20 @ 08:41 by Jacobo Singletary DO) Adenomatous colon polyp 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 Esophageal stricture GERD (gastroesophageal reflux disease) History of esophageal stricture Lung nodules SHOLA (obstructive sleep apnea) Osteoporosis Rheumatoid arthritis involving multiple sites Surgical History Surgical History (Updated 08/09/20 @ 08:41 by Jacobo Singletray DO) Hx of colonoscopy Hx of esophagogastroduodenoscopy Hx of rotator cuff surgery Family History Family History Father Family history of diabetes mellitus in first degree relative Sibling Family history of renal cell carcinoma Social History Social History Years smoked: 40 Smoking status: Former smoker Tobacco type: cigarettes Smoking end date: 07/20/04 Alcohol intake: former Substance use: never Substance use type: does not use Living arrangements: with family Gender identity (if verbalized by the patient): Female Spiritual care concerns: No Anes - Eval Final PreProcedure Day of Procedure 09/27/20 09:17 Patient weight: normal Heart: regular rate and rhythm Lungs: clear to auscultation Airway: Mallampati scale class III Neurological: unresponsive Last oral intake: >/= 8 hours ASA classification: III Emergent: no Anesthetic plan: proceed Anesthesia type and monitoring: general GIVS and standard monitoring Informed Consent: The patient's anesthetic plan and its attendant risks and benefits were discussed with the patient/family/POA. Questions were solicited and answers provided to the satisfaction of the patient/family/POA.
[2020-09-27 09:50] VITALS: BP 116/61; PULSE 57; RESP 19; O2SAT 99
[2020-09-27 10:00] VITALS: BP 125/64; PULSE 60; RESP 20; O2SAT 100
[2020-09-27 10:10] VITALS: BP 147/81; PULSE 57; RESP 19; O2SAT 100
== END 2020-09-27 10:20 | disposition home or self-care (01) ==
PROVIDERS: PCP Nurse Practitioner Adult Health; Visit Provider Internal Medicine Gastroenterology
PROC: 0DJ08ZZ Inspection of Upper Intestinal Tract, Via Natural or Artificial Opening Endoscopic (ICD-10-PCS; CPT 43235; principal; 2020-09-27 09:00)
DX: K22.2 Esophageal obstruction (principal); K44.9 Diaphragmatic hernia without obstruction or gangrene; K21.9 Gastro-esophageal reflux disease without esophagitis; J44.9 Chronic obstructive pulmonary disease, unspecified; R91.8 Other nonspecific abnormal finding of lung field; G47.33 Obstructive sleep apnea (adult) (pediatric); M81.0 Age-related osteoporosis without current pathological fracture; M06.89 Other specified rheumatoid arthritis, multiple sites; Z87.891 Personal history of nicotine dependence; Z79.51 Long term (current) use of inhaled steroids
CPT/HCPCS: 43249; C1726; J2704; J7120

== ENCOUNTER → 2020-10-29 03:00 | Outpatient (CLI) | payer MEDICARE, OTHER, SELFPAY ==
[2020-10-29 19:42] LABS: SARS-CoV-2 RNA PCR Negative
== END ==
PROVIDERS: PCP Nurse Practitioner Adult Health; Visit Provider Internal Medicine Gastroenterology
DX: Z01.812 Encounter for preprocedural laboratory examination (principal); Z20.822 Contact with and (suspected) exposure to COVID-19
CPT/HCPCS: C9803; U0003; U0005

== ENCOUNTER 2020-11-01 01:05 | Day surgery (SDC) | payer MEDICARE, OTHER, SELFPAY ==
[2020-10-22 13:28] VITALS: BMI 26.5
[2020-11-01 07:50] VITALS: BP 129/77; PULSE 64; RESP 20; TEMP 36.2; O2SAT 96; BMI 27.9
--- NOTE | 2020-11-01 07:59 | WPDANESEPPF ---
Anes - Initial Pre Proc Eval Procedure: Operation Date: 11/01/20 09:00 Proposed Procedures p Esophagogastroduodenoscopy - Jacobo Singletary DO Date/Time: 11/01/20 07:59 Surgeon: Jacobo Singletary DO Pre Op Diagnosis: esophageal stricture Patient Data Age: 75 Gender: F Height: 5 ft 3 in Weight: 71.5 kg Last Vital Signs Temp 97.1 F L 11/01/20 07:50 Pulse 64 11/01/20 07:50 Resp 20 11/01/20 07:50 BP 129/77 11/01/20 07:50 Pulse Ox 96 11/01/20 07:50 Allergies Allergy/AdvReac Type Severity Reaction Status Date / Time Sulfa (Sulfonamide Allergy Unknown brake out Verified 11/01/20 07:45 Antibiotics) in sores in the mouth Home Medications Medication Instructions Recorded Confirmed Type adalimumab 40 mg/0.8 mL See Rx Instructions .ROUTE .COMPLEX 06/01/19 10/22/20 History subcutaneous syringe kit albuterol sulfate 90 mcg/actuation 1 inhalation INHALATION Q4H PRN 06/01/19 09/27/20 History aerosol inhaler folic acid 1 mg tablet 1 mg PO DAILY 06/01/19 11/01/20 History meloxicam 15 mg tablet 15 mg PO DAILY PRN 06/01/19 10/22/20 History pyridoxine (vitamin B6) 100 mg 100 mg PO DAILY 06/01/19 10/22/20 History tablet rosuvastatin 10 mg tablet 10 mg PO DAILY 06/01/19 10/22/20 History omeprazole 40 mg PO QAM 08/30/19 10/22/20 History albuterol sulfate 2.5 mg INHALATION BID PRN 09/12/19 10/22/20 History methotrexate sodium 10 mg PO WEEKLY 09/12/19 10/22/20 History Bittermelon PO 02/01/20 08/06/20 History fluticasone 250 mcg-salmeterol 50 1 inhalation INHALATION BID #60 02/01/20 10/22/20 Rx mcg/dose blistr powdr for each inhalation potassium chloride 10 mEq 10 meq PO .3x weekly cap 02/01/20 10/22/20 History capsule,extended release tiotropium bromide 18 mcg capsule 1 cap INHALATION DAILY #60 02/01/20 10/22/20 Rx with inhalation device inhalation montelukast 10 mg PO PRN PRN 07/27/20 10/22/20 History cholecalciferol (vitamin D3) 10 mcg PO DAILY 08/28/20 10/22/20 History [Vitamin D3] calcium carbonate [Caltrate 600] 600 mg PO DAILY 10/22/20 10/22/20 History pyridoxine (vitamin B6) [Vitamin 100 mg PO DAILY 11/01/20 11/01/20 History B-6] Patient hx anesthesia problems: none Family hx anesthesia problems: none PMFSH Past Medical History Medical History (Updated 08/09/20 @ 08:41 by Jacobo Singletary DO) Adenomatous colon polyp 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 Esophageal stricture GERD (gastroesophageal reflux disease) History of esophageal stricture Lung nodules SHOLA (obstructive sleep apnea) Osteoporosis Rheumatoid arthritis involving multiple sites Surgical History Surgical History (Updated 08/09/20 @ 08:41 by Jacobo Singletary DO) Hx of colonoscopy Hx of esophagogastroduodenoscopy Hx of rotator cuff surgery Family History Family History Father Family history of diabetes mellitus in first degree relative Sibling Family history of renal cell carcinoma Social History Social History Years smoked: 40 Smoking status: Former smoker Tobacco type: cigarettes Smoking end date: 07/20/04 Alcohol intake: never Substance use: former Substance use type: does not use Living arrangements: with family Gender identity (if verbalized by the patient): Female Spiritual care concerns: No Anes - Eval Final PreProcedure Day of Procedure 11/01/20 07:59 Patient weight: overweight Heart: regular rate and rhythm Lungs: clear to auscultation Airway: Mallampati scale class II Neurological: alert and oriented Last oral intake: >/= 8 hours ASA classification: III Emergent: no Anesthetic plan: proceed Anesthesia type and monitoring: general GIVS and standard monitoring Informed Consent: The patient's anesthetic plan and its attendant risks and benefits were discussed with the patient/family/POA. Questions were solicited and answers provided to t
[2020-11-01] MEDS: LACTATED RINGERS 1,000 ML 150 ML IV CONT (08:08)
--- NOTE | 2020-11-01 08:19 | WPDGICN ---
GI Consult Note Consult date/time: 11/01/20 08:19 HPI: HPI: Reason for visit is EGD. This very pleasant lady seen in consultation request of the primary physician. Impression: GERD with esophageal stricture. Adenomatous colon polyps. Lung nodules. SHOLA. Osteoporosis. RA. COPD. Recommendation: EGD. History: This very pleasant lady has a history reflux disease and esophageal stricture. She had noticed a little bit improvement after last dilation. She is here for further dilation. She is asymptomatic with respect to heartburn. She has a history adenomatous colon polyps. Physical examination: General: very pleasant patient in no acute distress. HEENT: Head was normocephalic sclerae is clear mouth without masses neck was supple. Heart: Rate rhythm regular without S3 or S4. Lungs: CTA. Abdomen: Soft with no guarding or rigidity. Bowel sounds were active. Neurologic: Cranial nerves 2 through 12 intact. No focal defects. No clonus. Musculoskeletal system: Revealed no joint tenderness or swelling no muscle atrophy. Extremities: Reveal no significant edema. Skin: Warm and dry with normal turgor. Mental status: intact. Patient is alert and oriented. 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 Esophageal stricture GERD (gastroesophageal reflux disease) History of esophageal stricture Lung nodules SHOLA (obstructive sleep apnea) Osteoporosis Rheumatoid arthritis involving multiple sites Surgical History Surgical History (Updated 08/09/20 @ 08:41 by Jacobo Singletary DO) Hx of colonoscopy Hx of esophagogastroduodenoscopy Hx of rotator cuff surgery Family History Family History Father Family history of diabetes mellitus in first degree relative Sibling Family history of renal cell carcinoma Social History Social History Years smoked: 40 Smoking status: Former smoker Tobacco type: cigarettes Smoking end date: 07/20/04 Alcohol intake: never Substance use: former Substance use type: does not use Living arrangements: with family Gender identity (if verbalized by the patient): Female Spiritual care concerns: No Meds Home Medications and Allergies Home Medications Medication Instructions Recorded Confirmed Type adalimumab 40 mg/0.8 mL See Rx Instructions .ROUTE .COMPLEX 06/01/19 10/22/20 History subcutaneous syringe kit albuterol sulfate 90 mcg/actuation 1 inhalation INHALATION Q4H PRN 06/01/19 09/27/20 History aerosol inhaler folic acid 1 mg tablet 1 mg PO DAILY 06/01/19 11/01/20 History meloxicam 15 mg tablet 15 mg PO DAILY PRN 06/01/19 10/22/20 History pyridoxine (vitamin B6) 100 mg 100 mg PO DAILY 06/01/19 10/22/20 History tablet rosuvastatin 10 mg tablet 10 mg PO DAILY 06/01/19 10/22/20 History omeprazole 40 mg PO QAM 08/30/19 10/22/20 History albuterol sulfate 2.5 mg INHALATION BID PRN 09/12/19 10/22/20 History methotrexate sodium 10 mg PO WEEKLY 09/12/19 10/22/20 History Bittermelon PO 02/01/20 08/06/20 History fluticasone 250 mcg-salmeterol 50 1 inhalation INHALATION BID #60 02/01/20 10/22/20 Rx mcg/dose blistr powdr for each inhalation potassium chloride 10 mEq 10 meq PO .3x weekly cap 02/01/20 10/22/20 History capsule,extended release tiotropium bromide 18 mcg capsule 1 cap INHALATION DAILY #60 02/01/20 10/22/20 Rx with inhalation device inhalation montelukast 10 mg PO PRN PRN 07/27/20 10/22/20 History cholecalciferol (vitamin D3) 10 mcg PO DAILY 08/28/20 10/22/20 History [Vitamin D3] calcium carbonate [Caltrate 600] 600 mg PO DAILY 10/22/20 10/22/20 History pyridoxine (vitamin B6) [Vitamin 100 mg PO
[2020-11-01 08:52] VITALS: BP 120/63; PULSE 55; RESP 21; O2SAT 98
[2020-11-01 09:02] VITALS: BP 120/63; PULSE 54; RESP 16; O2SAT 99
[2020-11-01 09:12] VITALS: BP 141/77; PULSE 51; RESP 15; O2SAT 99
== END 2020-11-01 09:22 | disposition home or self-care (01) ==
PROVIDERS: PCP Nurse Practitioner Adult Health; Visit Provider Internal Medicine Gastroenterology
PROC: 0DJ08ZZ Inspection of Upper Intestinal Tract, Via Natural or Artificial Opening Endoscopic (ICD-10-PCS; CPT 43235; principal; 2020-11-01 09:00)
DX: K21.9 Gastro-esophageal reflux disease without esophagitis (principal); K22.2 Esophageal obstruction; K44.9 Diaphragmatic hernia without obstruction or gangrene; J44.9 Chronic obstructive pulmonary disease, unspecified; G47.33 Obstructive sleep apnea (adult) (pediatric); M06.9 Rheumatoid arthritis, unspecified; R91.8 Other nonspecific abnormal finding of lung field; M81.0 Age-related osteoporosis without current pathological fracture; Z87.891 Personal history of nicotine dependence; Z79.51 Long term (current) use of inhaled steroids
CPT/HCPCS: 43249; C1726; J2704; J7120

== ENCOUNTER 2020-12-13 14:03 | Outpatient (CLI) | payer MEDICARE, OTHER, SELFPAY ==
--- NOTE | ~2020-12-13 | US_ITS ---
EXAMINATION: US art doppler w press LE BI DATE: 12/13/2020 15:40 INDICATION: Peripheral vascular disease with right lower limb pain TECHNIQUE: Segmental pressures and plethysmographic and Doppler waveforms of the brachial and lower e xtremity arteries were obtained. COMPARISON: None. FINDINGS: Right and left brachial artery pressures of 146 mm Hg and 142 mm Hg, respectively, are concordant (no rmal difference <= 30 mmHg). The right and left high-thigh pressure indices are 1.22 and 1.02, respec tively (normal > 1.2). The right ankle-brachial index (PERCY) is 1.05 (normal >= 0.9-1). The right great toe-brachial index (T BI) is 0.82 (normal >= 0.6-0.8). The right lower extremity segmental pressure gradients are increased between the right dorsalis pedis artery and the right [id number] popliteal artery (normal gradie nts <= 20-30 mmHg between adjacent levels on the same leg or the same levels on the two legs). Arteri al waveforms are biphasic with brisk systolic upstrokes throughout. The left PERCY is 1.10. The left TBI is 0.96. The left lower extremity segmental pressure gradients are increased between the left dorsalis pedis artery and the left [id number] popliteal artery and th e left posterior tibial artery at the same level in the contralateral right dorsalis pedis artery. Ar terial waveforms are biphasic with brisk systolic upstrokes throughout. IMPRESSION: 1. Normal PERCY's and TBI's bilaterally. No significant occlusive disease. Reviewed, dictated and finalized at location A.
== END 2020-12-13 14:04 | disposition home or self-care (01) ==
PROVIDERS: PCP Nurse Practitioner Adult Health; Visit Provider Nurse Practitioner Adult Health
DX: I73.9 Peripheral vascular disease, unspecified (principal)
CPT/HCPCS: 93923

== ENCOUNTER → 2021-01-07 00:38 | Outpatient (CLI) | payer MEDICARE, OTHER, SELFPAY | PROVIDERS: PCP Nurse Practitioner Adult Health; Visit Provider Internal Medicine Gastroenterology | DX: Z01.812 Encounter for preprocedural laboratory examination (principal); Z20.822 Contact with and (suspected) exposure to COVID-19 | CPT/HCPCS: C9803; U0003; U0005 ==

== ENCOUNTER 2021-01-08 14:30 | Outpatient (CLI) | payer MEDICARE, OTHER, SELFPAY ==
[2021-01-08 12:36] LABS: EDCOVIDSCREEN Negative (Negative)
== END 2021-01-08 14:31 | disposition home or self-care (01) ==
LOC: ANHLAB 01-15 16:30
PROVIDERS: PCP Nurse Practitioner Adult Health; Visit Provider Internal Medicine Gastroenterology
DX: Z01.812 Encounter for preprocedural laboratory examination (principal); Z20.822 Contact with and (suspected) exposure to COVID-19
CPT/HCPCS: 36415; 87426; C9803

== ENCOUNTER 2021-01-10 00:49 | Day surgery (SDC) | payer MEDICARE, OTHER, SELFPAY ==
[2020-12-21 15:39] VITALS: BMI 26.5
[2021-01-10 07:19] VITALS: BMI 27.7
[2021-01-10 07:36] VITALS: BP 135/76; PULSE 68; RESP 16; TEMP 36; O2SAT 98
[2021-01-10] MEDS: LACTATED RINGERS 1,000 ML 150 ML IV CONT (07:38)
--- NOTE | 2021-01-10 08:03 | WPDGICN ---
GI Consult Note Consult date/time: 01/10/21 08:03 HPI: Reason for visit EGD. This very pleasant lady seen in consultation request the primary physician. Impression: Here of a lady with a history of GERD and esophageal stricture. She is here for further dilation. Adenomatous colon polyps. COPD. RA. SHOLA. Osteoporosis. Lung nodules. Recommendation: EGD. This very pleasant lady has a history of a proximal and distal esophageal stricture. She is considerably improved, however she does feel things are slow going down at times. She denies any increasing reflux. Physical examination: General: very pleasant patient in no acute distress. HEENT: Head was normocephalic sclerae is clear mouth without masses neck was supple. Heart: Rate rhythm regular without S3 or S4. Lungs: CTA. Abdomen: Soft with no guarding or rigidity. Bowel sounds were active. Neurologic: Cranial nerves 2 through 12 intact. No focal defects. No clonus. Musculoskeletal system: Revealed no joint tenderness or swelling no muscle atrophy. Extremities: Reveal no significant edema. Skin: Warm and dry with normal turgor. Mental status: intact. Patient is alert and oriented. 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 Esophageal stricture GERD (gastroesophageal reflux disease) History of esophageal stricture Lung nodules SHOLA (obstructive sleep apnea) Osteoporosis Rheumatoid arthritis involving multiple sites Surgical History Surgical History (Updated 08/09/20 @ 08:41 by Jacobo Singletary DO) Hx of colonoscopy Hx of esophagogastroduodenoscopy Hx of rotator cuff surgery Family History Family History Father Family history of diabetes mellitus in first degree relative Sibling Family history of renal cell carcinoma Social History Social History Smoking packs per day: 1.5 Smoking cigarettes per day: 30.0 Years smoked: 40 Smoking pack-years: 60.00 Smoking status: Former smoker Tobacco type: cigarettes Smoking end date: 07/20/04 Alcohol intake: former Substance use: former Substance use type: does not use Living arrangements: with family Gender identity (if verbalized by the patient): Female Spiritual care concerns: No Meds Home Medications and Allergies Home Medications Medication Instructions Recorded Confirmed Type adalimumab 40 mg/0.8 mL See Rx Instructions .ROUTE .COMPLEX 06/01/19 12/21/20 History subcutaneous syringe kit albuterol sulfate 90 mcg/actuation 1 inhalation INHALATION Q4H PRN 06/01/19 12/21/20 History aerosol inhaler folic acid 1 mg tablet 1 mg PO DAILY 06/01/19 12/21/20 History pyridoxine (vitamin B6) 100 mg 100 mg PO DAILY 06/01/19 12/21/20 History tablet rosuvastatin 10 mg tablet 10 mg PO DAILY 06/01/19 12/21/20 History omeprazole 40 mg PO QAM 08/30/19 12/21/20 History methotrexate sodium 10 mg PO WEEKLY 09/12/19 12/21/20 History Bittermelon 2 cap PO DAILY 02/01/20 12/21/20 History fluticasone 250 mcg-salmeterol 50 1 inhalation INHALATION BID #60 02/01/20 12/21/20 Rx mcg/dose blistr powdr for each inhalation potassium chloride 10 mEq 10 meq PO .3x weekly cap 02/01/20 12/21/20 History capsule,extended release tiotropium bromide 18 mcg capsule 1 cap INHALATION DAILY #60 02/01/20 12/21/20 Rx with inhalation device inhalation montelukast 10 mg PO PRN PRN 07/27/20 12/21/20 History cholecalciferol (vitamin D3) 10 mcg PO DAILY 08/28/20 12/21/20 History [Vitamin D3] calcium carbonate [Caltrate 600] 600 mg PO DAILY 10/22/20 12/21/20 History mirabegron [Myrbetriq] 50 mg PO DAILY 12/21/20 12/21/20 History Allergie
--- NOTE | 2021-01-10 08:22 | WPDANESEPPF ---
Anes - Initial Pre Proc Eval Procedure: Operation Date: 01/10/21 08:30 Proposed Procedures p Esophagogastroduodenoscopy - Jacobo Singletary DO Date/Time: 01/10/21 08:22 Surgeon: Jacobo Singletary DO Pre Op Diagnosis: esophageal stricture Patient Data Age: 76 Gender: F Height: 1.6 m Weight: 71 kg Last Vital Signs Temp 36.0 C L 01/10/21 07:36 Pulse 68 01/10/21 07:36 Resp 16 01/10/21 07:36 BP 135/76 01/10/21 07:36 Pulse Ox 98 01/10/21 07:36 Allergies Allergy/AdvReac Type Severity Reaction Status Date / Time Sulfa (Sulfonamide Allergy Unknown brake out Verified 01/10/21 07:17 Antibiotics) in sores in the mouth Home Medications Medication Instructions Recorded Confirmed Type adalimumab 40 mg/0.8 mL See Rx Instructions .ROUTE .COMPLEX 06/01/19 12/21/20 History subcutaneous syringe kit albuterol sulfate 90 mcg/actuation 1 inhalation INHALATION Q4H PRN 06/01/19 12/21/20 History aerosol inhaler folic acid 1 mg tablet 1 mg PO DAILY 06/01/19 12/21/20 History pyridoxine (vitamin B6) 100 mg 100 mg PO DAILY 06/01/19 12/21/20 History tablet rosuvastatin 10 mg tablet 10 mg PO DAILY 06/01/19 12/21/20 History omeprazole 40 mg PO QAM 08/30/19 12/21/20 History methotrexate sodium 10 mg PO WEEKLY 09/12/19 12/21/20 History Bittermelon 2 cap PO DAILY 02/01/20 12/21/20 History fluticasone 250 mcg-salmeterol 50 1 inhalation INHALATION BID #60 02/01/20 12/21/20 Rx mcg/dose blistr powdr for each inhalation potassium chloride 10 mEq 10 meq PO .3x weekly cap 02/01/20 12/21/20 History capsule,extended release tiotropium bromide 18 mcg capsule 1 cap INHALATION DAILY #60 02/01/20 12/21/20 Rx with inhalation device inhalation montelukast 10 mg PO PRN PRN 07/27/20 12/21/20 History cholecalciferol (vitamin D3) 10 mcg PO DAILY 08/28/20 12/21/20 History [Vitamin D3] calcium carbonate [Caltrate 600] 600 mg PO DAILY 10/22/20 12/21/20 History mirabegron [Myrbetriq] 50 mg PO DAILY 12/21/20 12/21/20 History Patient hx anesthesia problems: none Family hx anesthesia problems: none [facility] Past Medical History Medical History Adenomatous colon polyp 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 Esophageal stricture GERD (gastroesophageal reflux disease) History of esophageal stricture Lung nodules SHOLA (obstructive sleep apnea) Osteoporosis Rheumatoid arthritis involving multiple sites Surgical History Surgical History Hx of colonoscopy Hx of esophagogastroduodenoscopy Hx of rotator cuff surgery Family History Family History Father Family history of diabetes mellitus in first degree relative Sibling Family history of renal cell carcinoma Social History Social History Smoking packs per day: 1.5 Smoking cigarettes per day: 30.0 Years smoked: 40 Smoking pack-years: 60.00 Smoking status: Former smoker Tobacco type: cigarettes Smoking end date: 07/20/04 Alcohol intake: former Substance use: former Substance use type: does not use Living arrangements: with family Gender identity (if verbalized by the patient): Female Spiritual care concerns: No Anes - Eval Final PreProcedure Day of Procedure 01/10/21 08:22 Patient weight: normal Heart: regular rate and rhythm Lungs: decreased breath sounds Airway: Mallampati scale class II Neurological: alert and oriented Last oral intake: >/= 8 hours ASA classification: IV Emergent: no Anesthetic plan: proceed Anesthesia type and monitoring: general GIVS and standard monitoring Informed Consent: The patient's anesthetic plan and its attendant risks and benefits were discussed with the patient/family/POA. Questions were solicited and answers provided to the satisfaction of the patient/family/POA.
[2021-01-10 09:07] VITALS: BP 134/59; PULSE 60; RESP 17; O2SAT 100
[2021-01-10 09:17] VITALS: BP 141/70; PULSE 62; RESP 18; O2SAT 97
[2021-01-10 09:27] VITALS: BP 142/62; PULSE 57; RESP 22; O2SAT 100
== END 2021-01-10 09:27 | disposition home or self-care (01) ==
PROVIDERS: PCP Nurse Practitioner Adult Health; Visit Provider Internal Medicine Gastroenterology
PROC: 0DJ08ZZ Inspection of Upper Intestinal Tract, Via Natural or Artificial Opening Endoscopic (ICD-10-PCS; CPT 43235; principal; 2021-01-10 08:30)
DX: K22.2 Esophageal obstruction (principal); K44.9 Diaphragmatic hernia without obstruction or gangrene; J44.9 Chronic obstructive pulmonary disease, unspecified; M06.9 Rheumatoid arthritis, unspecified; G47.33 Obstructive sleep apnea (adult) (pediatric); M81.0 Age-related osteoporosis without current pathological fracture; K21.9 Gastro-esophageal reflux disease without esophagitis; Z87.891 Personal history of nicotine dependence; Z79.51 Long term (current) use of inhaled steroids
CPT/HCPCS: 43249; 36415; 87426; C1726; C9803; J2704; J7120

== ENCOUNTER → 2021-03-15 10:35 | Outpatient (CLI) | payer MEDICARE, OTHER, SELFPAY ==
--- NOTE | ~2021-03-15 | CT_ITS ---
EXAMINATION: CT diagnostic chest wo con DATE: 03/15/2021 10:51 INDICATION: R91.8 - Other nonspecific abnormal finding of lung field. Multiple pulmonary nodules. TECHNIQUE: Computed tomography (CT) of the chest was performed without intravenous contrast. Addition al 3D reconstructions utilizing coronal maximum intensity projection (MIP) were performed. Automated exposure control and iterative reconstruction technique were employed. The dose-length product was 24 4.63 mGy-cm. COMPARISON: 01/16/2020 FINDINGS: Again seen is mild emphysema with mild biapical pleural-parenchymal scarring. Unchanged scattered mil d linear discoid atelectasis/scarring in the lingula, right upper, right middle and left lower lobes. No appreciable interval change in size or number of numerous <4 mm scattered calcified and noncalcif ied pulmonary nodules which along with calcified right hilar and mediastinal lymph nodes and a few sc attered hepatic and splenic calcifications are all are likely sequela of old granulomatous disease. N o new or enlarging pulmonary nodules identified. No pneumonia, pulmonary edema or pleural effusion. H eart size is normal. No pericardial effusion. Thoracic aorta is normal in caliber. Mild thoracic dext rocurvature with mild spondylosis. Unchanged mild chronic compression fractures at T5, T9 and T11. IMPRESSION: 1. Mild emphysema with no interval change in multiple tiny calcified and noncalcified pulmonary nodul es consistent with old granulomatous disease. Reviewed, dictated and finalized at location B. IMPRESSION: 1. Mild emphysema with no interval change in multiple tiny calcified and noncal cified pulmonary nodules consistent with old granulomatous disease.
== END ==
PROVIDERS: PCP Nurse Practitioner Adult Health; Visit Provider Nurse Practitioner Family
DX: R91.8 Other nonspecific abnormal finding of lung field (principal); J43.9 Emphysema, unspecified
CPT/HCPCS: 71250

== ENCOUNTER → 2021-05-23 09:32 | Outpatient (CLI) | payer MEDICARE, OTHER, SELFPAY ==
[2021-05-23 22:24] LABS: SARS-CoV-2 RNA PCR Negative
== END ==
PROVIDERS: PCP Nurse Practitioner Adult Health; Visit Provider Nurse Practitioner Adult Health
DX: J44.1 Chronic obstructive pulmonary disease with (acute) exacerbation (principal); Z20.822 Contact with and (suspected) exposure to COVID-19
CPT/HCPCS: C9803; U0003; U0005

== ENCOUNTER 2021-08-05 09:19 | Outpatient (CLI) | payer MEDICARE, OTHER, SELFPAY ==
--- NOTE | ~2021-08-05 | MM_ITS ---
EXAMINATION: MM screening kristy BI w jennifer HISTORY: Screening TECHNIQUE: Craniocaudal and mediolateral oblique 3-D tomosynthesis images were obtained and synthetic 2-D images were generated. CAD analysis was submitted and interpreted. COMPARISON: Comparison to multiple prior studies sequentially, with oldest reviewed study dated 01/02. BREAST PARENCHYMAL COMPOSITION: There are scattered areas of fibroglandular density. FINDINGS: There is no evidence of suspicious mass, calcification, or architectural distortion to sugg est malignancy in either breast. There has been no suspicious interval change. IMPRESSION: 1. No mammographic evidence of malignancy. 2. Recommend routine screening mammography in one year. BI-RADS Category 1: Negative Reviewed, dictated and finalized at location B. AB DEVELOPER
== END 2021-08-05 09:20 | disposition home or self-care (01) ==
LOC: ANHIMG 09:21
PROVIDERS: PCP Nurse Practitioner Adult Health; Visit Provider Nurse Practitioner Obstetrics & Gynecology
DX: Z12.31 Encounter for screening mammogram for malignant neoplasm of breast (principal)
CPT/HCPCS: 77063; 77067

== ENCOUNTER 2021-09-03 08:02 | Outpatient (RCR) | payer MEDICARE, OTHER, SELFPAY ==
[2021-09-03 13:38] VITALS: BP 136/61; PULSE 73; TEMP 37; O2SAT 100
[2021-09-03] MEDS: ACETAMINOPHEN 325 MG TABLET 650 MG PO (13:54)
[2021-09-03] MEDS: FAMOTIDINE 20 MG TABLET PO (13:55)
[2021-09-03] MEDS: diphenhydrAMINE HCl CAP 25 MG CAPSULE PO (13:55)
[2021-09-03 15:24] VITALS: BP 133/63; PULSE 64; O2SAT 97
== END 2021-09-03 16:20 ==
LOC: AMCINF 08:02
PROVIDERS: PCP Nurse Practitioner Adult Health; Referring Provider Nurse Practitioner Adult Health; Visit Provider Internal Medicine Hematology & Oncology
DX: U07.1 COVID-19 (principal); J44.9 Chronic obstructive pulmonary disease, unspecified; D84.9 Immunodeficiency, unspecified
CPT/HCPCS: A9270; M0247; Q0247

== ENCOUNTER 2022-06-03 09:52 | Outpatient (CLI) | payer MEDICARE, OTHER, SELFPAY ==
--- NOTE | ~2022-06-03 | DEXA_ITS ---
Bone Density Report Name: RHIANNON NOLAN Age: 77 Sex: Female Ethnicity: White Date of : 1945 Indication: osteopenia; monitoring treatment; height loss; asthma or emphysema; rheumatoid arthritis; postmenopausal Referring Provider: UNKNOWN, UNKNOWN Study: Bone densitometry was performed. Exam Date: June 03, 2022 Accession number: [id number] Bone Density: Region BMD T-score Z-score Classification AP Spine(L1, L2, L3) 0.930 -0.8 1.6 Normal Femoral Neck (Left) 0.600 -2.2 -0.1 Osteopenia Total Hip (Left) 0.871 -0.6 1.2 Normal Femoral Neck (Right) 0.558 -2.6 -0.5 Osteoporosis Total Hip (Right) 0.852 -0.7 1.1 Normal Total Hip Mean 0.862 -0.7 1.2 Normal World Health Organization criteria for BMD impression classify patients as: Normal (T-score at or above -1.0), Osteopenia (T-score between -1.0 and -2.5), or Osteoporosis (T-score at or below -2.5). 10-year Fracture Risk: FRAX not reported because: Some T-score for Spine Total or Hip Total or Femoral Neck at or below -2.5 Treated for osteoporosis Previous Exams: Region Exam Age BMD T-score BMD Change BMD Change Date g/cm2 vs Baseline vs Previous AP Spine (L1-L3) 06/03/2022 77 0.930 -0.8 0.083 (9.8%)# 0.034 (3.8%)* 04/09/2020 75 0.896 -1.1 0.049 (5.8%)# 0.014 (1.6%) 07/30/2017 72 0.882 -1.2 0.035 (4.1%)# 0.019 (2.2%) 05/04/2015 70 0.863 -1.4 0.016 (1.9%)# 0.016 (1.9%)# 12/22/2012 67 0.847 -1.6 Total Hip(Left) 06/03/2022 77 0.871 -0.6 0.039 (4.6%)# -0.004 (-0.4%) 04/09/2020 75 0.875 -0.5 0.043 (5.1%)# 0.004 (0.5%) 07/30/2017 72 0.871 -0.6 0.038 (4.6%)# 0.034 (4.1%)* 05/04/2015 70 0.836 -0.9 0.004 (0.4%)# 0.004 (0.4%)# 12/22/2012 67 0.833 -0.9 Total Hip(Right) 06/03/2022 77 0.852 -0.7 0.023 (2.8%)# -0.009 (-1.0%) 04/09/2020 75 0.861 -0.7 0.032 (3.8%)# -0.036 (-4.0%) 07/30/2017 72 0.897 -0.4 0.068 (8.2%)# 0.051 (6.0%)* 05/04/2015 70 0.846 -0.8 0.017 (2.0%)# 0.017 (2.0%)# 12/22/2012 67 0.829 -0.9 *Denotes significance at 95% confidence level, LSC for AP Spine = 0.022 g/cm2, LSC for Total Hip = 0.027 g/cm2 # Denotes dissimilar scan types or analysis methods Clinical Information Provided by Patient: Has rheumatoid arthritis Is being treated for osteoporosis Has used the following medications: Vitamin D, Calcium Has the following medical conditions: Asthma or Emphysema Patient maximum height was 64 Menopause Age: 44 Drinks caffeinated beverage
== END 2022-06-03 09:53 | disposition home or self-care (01) ==
PROVIDERS: PCP Nurse Practitioner Adult Health
DX: M81.0 Age-related osteoporosis without current pathological fracture (principal); M85.852 Other specified disorders of bone density and structure, left thigh
CPT/HCPCS: 77080

== ENCOUNTER 2022-07-28 08:54 | Outpatient (CLI) | payer MEDICARE, OTHER, SELFPAY ==
--- NOTE | 2022-07-28 09:12 | ECG_ITS ---
Measurements Intervals [place] Rate: 56 P: 57 MO: 171 QRS: 34 QRSD: 90 T: 34 QT: 420 QTc: 408 Interpretive Statements SINUS BRADYCARDIA MINIMAL Q WAVES- INFERIOR LEADS BASELINE ARTIFACT- I, II, AVR, AVL, AVF, V1-V6 BORDERLINE ECG NO PREVIOUS ECG AVAILABLE FOR COMPARISON Electronically Signed On 07-28-2022 9:55:40 [employer]EL CE[employer] BU[employer]DER by Walt Norwood D.O.
[2022-07-28 09:44] LABS: Hematocrit 39.6 % (37.0-47.0); Hemoglobin 12.7 g/dL (12.0-15.0); Mean Corpuscular HGB Conc 32.1 g/dl (32-36); Mean Corpuscular Hemoglobin 30.9 pg (26-34); Mean Corpuscular Volume 96.4 fl (80-100); Mean Platelet Volume 10.6 fl (7.4-10.4); Platelet Count Result 339 k/mm3 (150-375); Red Blood Count 4.11 M/mm3 (4.2-5.4); White Blood Count 5.4 K/mm3 (4.5-10.0)
[2022-07-28 09:48] LABS: Alanine Aminotransferase 25 U/L (6-35); Albumin Level 4.1 g/dL (3.5-5.1); Alkaline Phosphatase 71 U/L (38-126); Anion Gap 5 mmol/L (8-16); Aspartate Amino Transferase 26 U/L (14-36); Bilirubin,Total 0.5 mg/dL (0.2-1.3); Blood Urea Nitrogen 13 mg/dL (7-17); Calcium 8.6 mg/dL (8.4-10.2); Carbon Dioxide 31 mmol/L (22-30); Chloride 103 mmol/L (98-107); Estimated Glomerular Filt Rate > 60; Glucose 113 mg/dL (65-110); Potassium 3.8 mmol/L (3.4-5.0); Sodium 139 mmol/L (137-145)
== END 2022-07-28 08:55 | disposition home or self-care (01) ==
PROVIDERS: PCP Family Medicine; Visit Provider Obstetrics & Gynecology
DX: D06.9 Carcinoma in situ of cervix, unspecified (principal); E78.00 Pure hypercholesterolemia, unspecified; Z01.818 Encounter for other preprocedural examination
CPT/HCPCS: 36415; 80053; 85027; 86850; 86900; 86901; 93005

== ENCOUNTER 2022-07-29 00:10 | Day surgery (SDC) | payer MEDICARE, OTHER, SELFPAY ==
[2022-07-25 11:40] VITALS: BMI 26.5
--- NOTE | 2022-07-25 12:20 | PC.NURSE ---
Report to the Outpatient Waiting Room, entrance under the green pavilion located off [facility], at time __6:00AM on date ___07/29/22____. Planned Procedure Time: __7:30AM . Time changes happen often and if your time is changed the preop area will call you the afternoon before. - You and your visitor will be asked to self-screen and do not enter if you have any COVID symptoms. - Only one visitor is requested with a max of two and NO children visitors are allowed at this time. - The patient visitor may be requested to leave or wait in car when not with patient due to distancing restrictions. - A mask is optional within the hospital. Patients may have clear liquids (water, carbonated beverages, clear teas, apple juice) until 3 hours prior to surgery with a maximum of 20 ounces. - No food from midnight until time of surgery Take the following medications with a SIP of water the morning of surgery: ____SPIRIVA INHALER, ADVAIR DISCUS; ALBUTEROL INHALER NEEDED Medications to discontinue per physician HOLD ALL VITAMINS/SUPPLEMENTS 3 DAYS PRE-OP Date to take last dose___07/25/22 Please no make-up, nail armenian, hairspray, perfume, deodorant, or body powder the day of surgery. No jewelry (including any body piercings) or valuables the day of surgery, leave them at home. Please take a shower or bath the night before, or the morning of, surgery with an antibacterial soap. Wear comfortable, loose fitting clothing. Children are encouraged to wear pajamas. - Jewelry must be removed prior to entering the operating room. Rings and piercings that are not removed may be cut off. - The hospital will not accept responsibility for valuables. - Please leave all valuables, including medications, at home the day of surgery. If you are going home after surgery, a licensed commercial trailer truck driver must drive you home. - NO public transportation without another adult if you receive anesthesia. - We recommend that an adult stay with you for 24 hours following discharge. - We also recommend that you do not drive, make important decision, drink alcoholic beverages, or take any drugs that were not prescribed by your health care provider for at least 24 hours after your discharge time. Follow any additional instructions given to you from your surgeon. If you or anyone in your household have experienced Covid symptoms in the past week, please notify your surgeon or the nurse liaison at the phone number below for possible testing. Telephone instructions given to __PATIENT and asked if any additional questions and then verbalized understanding. Patient advised to call surgeon office or pre surgery nurse liaison [phone] if any additional questions.
[2022-07-29] VITALS (9 sets, daily range): BP systolic 117–148; BP diastolic 47–73; PULSE 45–68; RESP 12–20; TEMP 36.4–37.2; O2SAT 96–100
[2022-07-29] MEDS: ACETAMINOPHEN 500 MG TABLET 1000 MG PO (06:40)
[2022-07-29] MEDS: LACTATED RINGERS 1,000 ML 30 ML IV CONT ×2 (06:55→10:09)
[2022-07-29] MEDS: KETOROLAC 15 MG/ML VIAL (*BKC) IV PUSH (07:00)
--- NOTE | 2022-07-29 07:26 | WPDANESEPPF ---
Anes - Initial Pre Proc Eval Procedure: Operation Date: 07/29/22 08:30 Proposed Procedures p Total Laparoscopic Hysterectomy with Bilateral Salpingo-Oophorectomy - Kristin Jones MD Date/Time: 07/29/22 07:26 Surgeon: Kristin Jones MD Pre Op Diagnosis: regina grade 3, severe dysplasia Patient Data Age: 77 Gender: F Height: 1.6 m Weight: 68 kg Allergies Allergy/AdvReac Type Severity Reaction Status Date / Time Sulfa (Sulfonamide Allergy Unknown MOUTH/LIP Verified 07/29/22 06:42 Antibiotics) SORES Home Medications Medication Instructions Recorded Confirmed Type adalimumab 40 mg/0.8 mL See Rx Instructions .Route .COMPLEX 06/01/19 07/25/22 History subcutaneous syringe kit (Humira) albuterol sulfate 90 mcg/actuation 1 inhalation inhalation Q4H PRN 06/01/19 07/25/22 History aerosol inhaler (ProAir HFA) Shortness Of Breath folic acid 1 mg tablet 1 mg PO DAILY 06/01/19 07/25/22 History pyridoxine (vitamin B6) 100 mg 100 mg PO 3XW 06/01/19 07/25/22 History tablet rosuvastatin 10 mg tablet (Crestor) 10 mg PO DAILY 06/01/19 07/25/22 History omeprazole 40 mg capsule,delayed 40 mg PO QAM 08/30/19 07/25/22 History release methotrexate sodium 2.5 mg tablet 10 mg PO WEEKLY 09/12/19 07/25/22 History Bittermelon 2 cap PO DAILY 02/01/20 07/25/22 History potassium chloride 10 mEq 10 meq PO .3x weekly 02/01/20 07/25/22 History capsule,extended release cholecalciferol (vitamin D3) 10 10 mcg PO DAILY 08/28/20 07/25/22 History mcg (400 unit) tablet (Vitamin D3) calcium carbonate 600 mg calcium 600 mg PO DAILY 10/22/20 07/25/22 History (1,500 mg) tablet tumeric 100 mg-osman 150 mg-olive 1 cap PO DAILY 12/18/21 07/25/22 History 50 mg-oreg 150 mg-caprylate capsule fluticasone 250 mcg-salmeterol 50 1 inh inhalation BID #60 ea 05/26/22 07/25/22 Rx mcg/dose blistr powdr for inhalation (Advair Diskus) montelukast 10 mg tablet 10 mg PO QHS PRN Sinus Symptoms 07/25/22 07/25/22 History tiotropium bromide 18 mcg capsule 1 cap inhalation QAM 07/25/22 07/29/22 History with inhalation device (Spiriva with HandiHaler) fluticasone 250 mcg-salmeterol 50 1 inh inhalation DAILY 07/29/22 07/29/22 History mcg/dose blistr powdr for inhalation (Advair Diskus) Patient hx anesthesia problems: none Family hx anesthesia problems: none Results Review: All pre-operative results and documents have been reviewed as part of the pre-operative evaluation. [facility] Past Medical History Medical History Adenomatous colon polyp 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 Esophageal stricture GERD (gastroesophageal reflux disease) History of esophageal stricture Lung nodules SHOLA (obstructive sleep apnea) Osteoporosis Rheumatoid arthritis involving multiple sites Surgical History Surgical History Hx of colonoscopy Hx of esophagogastroduodenoscopy Hx of rotator cuff surgery Family History Family History Father Family history of diabetes mellitus in first degree relative Sibling Family history of renal cell carcinoma Social History Social History Smoking packs per day: 1.5 Smoking cigarettes per day: 30.0 Years smoked: 40 Smoking pack-years: 60.00 Smoking status: Former smoker Tobacco type: cigarettes Smoking end date: 01/17/05 Alcohol intake: former Alcohol use details: QUIT 2001 Substance use: never Substance use type: does not use Living arrangements: alone Gender identity (if verbalized by the patient): Female Spiritual care concerns: No Anes - Eval Final PreProcedure Day of Procedure 07/29/22 07:26 Patient weight: overweight Heart: regular rate and rhythm Lungs: clear to auscultation Airway: Mallampati scale class II Neurological: alert and oriented Last
--- NOTE | 2022-07-29 08:25 | WPDHPUPDATE1 ---
History and Physical Update Update Date/Time: 07/29/22 08:25 History and Physical has been reviewed, including an updated exam of the patient. There are NO changes in the patient's condition. Risks, benefits, and alternatives have been discussed and questions answered. Patient agrees to proceed with procedure.
[2022-07-29] MEDS: ceFAZolin 2 GM/D5W 50 ML 2 GM/50 ML BAG IVPB (08:30)
--- NOTE | 2022-07-29 10:20 | W.PM.PROC2 ---
Procedure Note - Detailed Date of Procedure 07/29/22 Pre-op Diagnosis regina grade 3, severe dysplasia Post-op Diagnosis Same Procedure Performed Total laparoscopic hysterectomy and bilateral salpingo-oophorectomy. Surgeon Kristin Jones MD Anesthesia General Description of Procedure This patient was taken to the operating room. She was prepped and draped in the dorsal lithotomy position after induction of general anesthesia. The uterine manipulator and Roderick cup were placed. This was done with a speculum and tenaculum. The speculum was placed. The cervix was grasped with a tenaculum. The stay sutures were placed at 3 and 9:00 a.m.. The stay sutures of 0 Vicryl were brought through the appropriately sized Roderick cup. The tip of the GLADYS manipulator was placed in the intrauterine cavity. The cup was slid into place around the cervix and into the fornices. It was locked into place. The sutures were then wrapped around the handle and tied under tension. A 5 mm skin incision was made in the left upper quadrant the abdomen. A 5 mm trocar was inserted into the intrauterine cavity under direct visualization of the scope. Pneumoperitoneum was achieved. A left lower quadrant 11 mm incision was made with scalpel. An 11 mm trocar was inserted into the anterior abdominal cavity under direct visualization the scope. A 5 mm infraumbilical incision was made with a scalpel and a 5 mm trocar was inserted the intra-abdominal cavity under direct visualization of the scope. Bilateral ureteral lysis was performed. This was done from the pelvic brim down to the uterine artery. This was done with careful dissection using sharp and blunt dissection. The infundibulopelvic ligaments were isolated after identification of the ureters bilaterally. These infundibulopelvic ligaments were cauterized and transected with LigaSure cautery. The para ovarian tissue was cauterized and transected with LigaSure cautery bilaterally. Moving around the ovary into the broad ligament the tissue was cauterized transected with LigaSure cautery. The round ligaments were cauterized transected with LigaSure cautery this was all done in a bilateral fashion. In a stepwise fashion along the lateral aspects of the uterus the round ligament and broad ligaments were cauterized transected down to the level of the uterine arteries. A bladder flap was created in the bladder was moved distally to the end of the cervix and over the Roderick cup. The bilateral uterine arteries were cauterized and transected. Colpotomy was then performed. In a circumferential fashion the vagina was transected using unipolar cautery. The incision was made down on the Roderick cup. The uterus, cervix, fallopian tubes and ovaries were taken out through the vagina. A pneumo occluder was placed in the vagina. The vaginal cuff was closed with a 0 V lock suture in a running fashion. The pelvis was irrigated with copious amounts antibiotic irrigation. The ureters were again examined and found to be intact and flowing freely under the uterine arteries into the bladder. The bladder was intact. It was examined directly. The vagina was irrigated with Betadine solution after removal of the Pneumo occluder. The patient was taken to recovery room. She was stable condition. Sponge lap and needle counts were correct x2. Estimated Blood Loss -50.0 Urine Output -50.0 Drains Yes Packing No Pathology Yes Complications No immediate complications Condition Stable Disposition Floor
[2022-07-29] MEDS: fentaNYL CITRATE INJ (*CRX) 100 MCG/2 ML VIAL 25 MCG IV PUSH (10:38)
--- NOTE | 2022-07-29 11:25 | PC.NURSE ---
This patient, Cassie Bone, was received from PACU on 07/29/22 at 1125. Patient/family oriented to unit policies and routines
[2022-07-29] MEDS: DEXTROSE 5%/0.45% SOD CHL 1,000 ML 125 ML IV CONT (12:03)
[2022-07-29] MEDS: KETOROLAC 30 MG/ML VIAL (*BKC) IV PUSH (12:03)
[2022-07-30 05:05] VITALS: BP 122/49; PULSE 59; RESP 16; TEMP 36.8
--- NOTE | 2022-07-30 07:35 | PM.GYNPNOP ---
VOICE AND DATA TECHNICIAN - A/P Postoperative Procedures: Procedures Operation Date: 07/29/22 08:30 Actual Procedure Side Surgeon p Total Laparoscopic Hysterectomy with Bilateral Salpingo-Oophorectomy Bilateral Kristin Jones MD Postoperative day: 1 Postoperative status: doing well Postoperative plan: see orders Time Spent With Patient Time: Total time spent is greater than 50% in coordination of care (as documented) at patient's floor/unit and/or counseling patient: Time with patient: less than 15 minutes VOICE AND DATA TECHNICIAN- PN:Subj Post-Op Subjective Date/time seen: 07/30/22 07:35 Subjective: patient reports feeling better, patient has no complaints and pain is well controlled Exam Const: General: healthy appearing, comfortable and no acute distress Resp: Auscultation: clear to auscultation bilaterally, no rales, no rhonchi and no wheezes Cardio: Rate: regular rate Heart sounds: no click, no murmurs and no rubs GI: Inspection: non-distended Auscultation: normal bowel sounds Extrem: General: normal to inspection, no pedal edema and no calf tenderness VOICE AND DATA TECHNICIAN - PN: Obj Data Vital Signs Vital Signs: Vital Signs - 24 hr 07/29/22 10:09 07/29/22 10:20 07/29/22 10:35 Temperature 98.9 F Pulse Rate 68 53 L 55 L Respiratory Rate 14 14 16 Blood Pressure 148/73 H 143/59 H 138/57 L Pulse Oximetry 100 100 100 Oxygen Delivery Simple Face Mask Simple Face Mask Nasal Cannula Oxygen Flow Rate 6 6 2 07/29/22 10:50 07/29/22 11:05 07/29/22 11:30 Temperature 97.9 F Pulse Rate 45 L 48 L 51 L Respiratory Rate 12 14 16 Blood Pressure 119/48 L 117/49 L 121/47 L Pulse Oximetry 100 100 100 Oxygen Delivery Nasal Cannula Nasal Cannula Oxygen Flow Rate 2 2 07/29/22 11:30 07/29/22 16:30 07/29/22 16:30 Temperature 98.3 F Pulse Rate 55 L 55 L Respiratory Rate 16 16 Blood Pressure 135/61 Pulse Oximetry 100 98 98 Oxygen Delivery Nasal Cannula Nasal Cannula Oxygen Flow Rate 2.0 2.0 07/29/22 19:40 07/30/22 05:05 Temperature 97.6 F 98.2 F Pulse Rate 57 L 59 L Respiratory Rate 16 16 Blood Pressure 139/62 122/49 L Pulse Oximetry 99 Oxygen Delivery Oxygen Flow Rate Intake/Output Intake/Output: Intake & Output 07/27/22 07/28/22 07/29/22 07/30/22 23:59 23:59 23:59 23:59 Intake Total 1100 Output Total 1080 Balance 20 Meds/Results Medications: Active Medications Generic Name Dose Route Start Last Admin Trade Name Freq PRN Reason Stop Dose Admin Hydrocodone Bitart/Acetaminophen 1 tab 07/29/22 11:12 Hydrocodone/Acetaminophen (*Crx) 5-325 Mg Tablet PO Q3H PRN Pain Rated 5 or Less Hydrocodone Bitart/Acetaminophen 1 tab 07/29/22 11:12 Hydrocodone/Acetaminophen (*Crx) 10-325 Mg Tablet PO Q3H PRN Pain Rated 6 or Greater Albuterol 1 puff 07/29/22 11:12 Albuterol Sulfate (*Sp) Aerosol 1 Puff INHALATION Q4H PRN Shortness Of Breath Calcium Carbonate 500 mg 07/30/22 09:00 Calcium Carbonate (Oscal) 500 Mg Tablet PO 08/29/22 08:59 DAILY ARON Ibuprofen 600 mg 07/29/22 11:12 Ibuprofen 600 Mg Tablet PO Q6H PRN Cramping Ketorolac Tromethamine 30 mg 07/29/22 11:12 07/29/22 12:03 Ketorolac 30 Mg/Ml Vial (*Bkc) IV PUSH 08/03/22 11:11 30 mg Q6H PRN Administration Pain Rated 4-6 Methotrexate 10 mg 08/05/22 09:00 Methotrexate 2.5 Mg Tab (*Chemo) PO WEEKLY ARON Montelukast Sodium 10 mg 07/29/22 11:12 Montelukast Sodium 10 Mg Tablet PO QHS PRN Sinus Symptoms Naloxone HCl 0.1 mg 07/29/22 11:12 Naloxone Hcl 0.4 Mg/Ml Vial IV PUSH Q2M PRN Respiratory rate less than 10 Ondansetron HCl 4 mg 07/29/22 11:12 Ondansetron Inj 4 Mg/2 Ml Vial IV PUSH Q6H PRN Nausea And Vomiting Pyridoxine HCl 100 mg 07/30/22 09:00 Pyridoxine Hcl 50 Mg Tablet PO [id number] ARON Fluticasone/Salmeterol 2 puff 07/29/22 20:00 Fluticasone/Salmeterol 115-21 Mcg Inhaler 1 Puff INHALATION
[2022-07-30 07:50] VITALS: BP 127/62; PULSE 60; RESP 18; TEMP 36.5; O2SAT 97
[2022-07-30] MEDS: HYDROcodone/acetaminophen (*CRX) 5-325 MG TABLET 1 TAB PO (08:20)
[2022-07-30] MEDS: CALCIUM CARBONATE (OSCAL) 500 MG TABLET PO (08:20)
[2022-07-30] MEDS: PYRIDOXINE HCL 50 MG TABLET 100 MG PO (08:20)
[2022-07-30] MEDS: FLUTICASONE/SALMETEROL 115-21 MCG INHALER 1 PUFF 2 PUFF INHALATION (09:53)
[2022-07-30] MEDS: UMECLIDINIUM BROMIDE 62.5 MCG ELLIPTA 1 PUFF INHALATION (09:54)
== END 2022-07-30 12:57 | disposition home or self-care (01) ==
LOC: ANHSURGERY 05:57 → ANHOB2 11:13
PROVIDERS: PCP Family Medicine; Visit Provider Obstetrics & Gynecology
PROC: 0UT9FZZ Resection of Uterus, Via Natural or Artificial Opening With Percutaneous Endoscopic Assistance (ICD-10-PCS; CPT 58571; principal; 2022-07-29 08:30)
DX: N87.9 Dysplasia of cervix uteri, unspecified (principal); D25.1 Intramural leiomyoma of uterus; N83.292 Other ovarian cyst, left side; N83.291 Other ovarian cyst, right side; N83.8 Other noninflammatory disorders of ovary, fallopian tube and broad ligament; J44.9 Chronic obstructive pulmonary disease, unspecified; Z99.81 Dependence on supplemental oxygen; K21.9 Gastro-esophageal reflux disease without esophagitis; G47.33 Obstructive sleep apnea (adult) (pediatric); M81.0 Age-related osteoporosis without current pathological fracture; M06.9 Rheumatoid arthritis, unspecified; Z87.891 Personal history of nicotine dependence; Z79.51 Long term (current) use of inhaled steroids; Z79.620 Long term (current) use of immunosuppressive biologic
CPT/HCPCS: 58571; 88307; 99199; A9270; J0690; J1100; J1170; J1885; J2405; J2704; J2710; J3010; J7030; J7120

== ENCOUNTER 2022-08-14 09:41 | Outpatient (CLI) | payer MEDICARE, OTHER, SELFPAY ==
[2022-08-14 11:20] LABS: Basophils Absolute Auto 0.1 K/mm3 (0.0-0.1); Basophils Percent Auto 0.6 % (0.2-1.2); Eosinophils Absolute Auto 0.3 K/mm3 (0-0.3); Eosinophils Percent Auto 3.6 % (0-4.4); Hematocrit 40.1 % (37.0-47.0); Hemoglobin 12.9 g/dL (12.0-15.0); Immature Granulocyte Absolute 0.04 K/mm3 (0.00-0.031); Immature Granulocyte Percent A 0.5 % (0-0.5); Lymphocytes Absolute Auto 1.89 K/mm3 (0.9-3.2); Lymphocytes Percent Auto 21.9 % (18.3-44.2); Mean Corpuscular HGB Conc 32.2 g/dl (32-36); Mean Corpuscular Volume 93.3 fl (80-100); Mean Platelet Volume 10.5 fl (7.4-10.4); Monocytes Absolute Auto 0.7 K/mm3 (0.1-0.6); Monocytes Percent Auto 8.4 % (2.6-8.5); Neutrophils Absolute Auto 5.6 K/mm3 (1.3-6.7); Platelet Count Result 340 k/mm3 (150-375); White Blood Count 8.6 K/mm3 (4.5-10.0)
[2022-08-14 11:33] LABS: Hemoglobin A1C 6.2 % (<5.7)
[2022-08-14 11:36] LABS: Urine Cotinine NEGATIVE
== END 2022-08-14 09:42 | disposition home or self-care (01) ==
PROVIDERS: PCP Family Medicine; Visit Provider Orthopaedic Surgery
DX: Z01.812 Encounter for preprocedural laboratory examination (principal); M06.9 Rheumatoid arthritis, unspecified
CPT/HCPCS: 80307; 83036; 85025; 86850; 86900; 86901; 87081

== ENCOUNTER 2022-08-27 00:39 | Day surgery (SDC) | payer MEDICARE, OTHER, SELFPAY ==
[2022-08-14 10:21] VITALS: BP 129/71; PULSE 69; RESP 18; TEMP 37.1; O2SAT 99; BMI 27.3
--- NOTE | 2022-08-14 10:33 | PC.NURSE ---
Report to the Outpatient Waiting Room, entrance under the green pavilion located off [facility], at time __10:00AM on date ___08/27/22____. Planned Procedure Time: _12:00PM . Time changes happen often and if your time is changed the preop area will call you the afternoon before. - You and your visitor will be asked to self-screen and do not enter if you have any COVID symptoms. - Only one visitor is requested with a max of two and NO children visitors are allowed at this time. - The patient visitor may be requested to leave or wait in car when not with patient due to distancing restrictions. - A mask is optional within the hospital at this time. Patients may have clear liquids (water, carbonated beverages, clear teas, apple juice) until 3 hours prior to surgery with a maximum of 20 ounces. - No food from midnight until time of surgery Take the following medications with a SIP of water the morning of surgery: __ADVAIR DISKUS, SPIRIVA, HYDROCODONE NEEDED DO NOT STOP ANY OF YOUR OTHER PRESCRIPTION MEDICATIONS PRIOR TO SURGERY ?EXCEPT THE FOLLOWING Medications to discontinue per physician ___HOLD ALL VITAMINS/SUPPLEMENTS 7 DAYS PRE-OP PER DR MARSHALL(PER PATIENT), HOLD MELOXICAM 7 DAYS PRE-OP- LAST DOSE 08/20/22 HOLDING HUMIRA & METHOTREXATE-PER DR MARSHALL/WINDOW MACHINE OPERATOR Please no make-up, nail luxembourgish, hairspray, perfume, deodorant, or body powder the day of surgery. No jewelry (including any body piercings) or valuables the day of surgery, leave them at home. Please take a shower or bath the night before, or the morning of, surgery with an antibacterial soap. Wear comfortable, loose fitting clothing. Children are encouraged to wear pajamas. - Jewelry must be removed prior to entering the operating room. Rings and piercings that are not removed may be cut off. - The hospital will not accept responsibility for valuables. - Please leave all valuables, including medications, at home the day of surgery. If you are going home after surgery, a licensed van cdl driver must drive you home. - NO public transportation without another adult if you receive anesthesia. - We recommend that an adult stay with you for 24 hours following discharge. - We also recommend that you do not drive, make important decision, drink alcoholic beverages, or take any drugs that were not prescribed by your health care provider for at least 24 hours after your discharge time. Follow any additional instructions given to you from your surgeon. If you or anyone in your household have experienced Covid symptoms in the past week, please notify your surgeon or the nurse liaison at the phone number below for possible testing. Telephone instructions given to _PATIENT__and asked if any additional questions and then verbalized understanding. Patient advised to call surgeon office or pre surgery nurse liaison [phone] if any additional questions.
[2022-08-27] VITALS (15 sets, daily range): BP systolic 119–159; BP diastolic 53–77; PULSE 58–100; RESP 14–22; TEMP 36.1–37.4; O2SAT 97–100
--- NOTE | ~2022-08-27 | XR_ITS ---
EXAMINATION: XR knee RT 2V DATE: 08/27/2022 16:17 INDICATION: Total right knee arthroplasty. Postop. TECHNIQUE: 2 views of right knee were obtained. COMPARISON: None. FINDINGS: There is a total right knee arthroplasty with patellar resurfacing. No fracture. There is g as in the knee joint and soft tissues, consistent with recent surgery. IMPRESSION: 1. Total right knee arthroplasty in near-anatomic alignment. Reviewed, dictated and finalized at location A. GLUER
--- NOTE | 2022-08-27 08:14 | PM.IMHP ---
H&P: HPI History of Present Illness Date/Time: 08/27/22 08:14 Chief Complaint: Right knee DJD Narrative: 77-year-old female patient of Dr. Thakur who presents today for right total knee arthroplasty. Patient has a history of rheumatoid arthritis. She has severe osteoarthritis in the medial compartment of the right knee superimposed with rheumatoid arthritis. She has had injections in the past. She has had cortisone as well as viscosupplementation injections in the past all with minimal improvement. She has tried bracing. She is also been on medication for her rheumatoid arthritis. Unfortunately nonsurgical treatment has not worked well for her. Patient feels this point she is ready to proceed with total knee arthroplasty rather continue nonsurgical treatment. Review of Systems Review of Systems: All systems reviewed & are unremarkable except as noted in HPI and below PMFSH Past Medical History Medical History Adenomatous colon polyp 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 Esophageal stricture GERD (gastroesophageal reflux disease) History of esophageal stricture Lung nodules SHOLA (obstructive sleep apnea) Osteoporosis Rheumatoid arthritis involving multiple sites Surgical History Surgical History Hx of colonoscopy Hx of esophagogastroduodenoscopy Hx of rotator cuff surgery Family History Family History Father Family history of diabetes mellitus in first degree relative Sibling Family history of renal cell carcinoma Social History Social History Smoking packs per day: 1.5 Smoking cigarettes per day: 30.0 Years smoked: 40 Smoking pack-years: 60.00 Smoking status: Former smoker Tobacco type: cigarettes Smoking end date: 01/17/05 Alcohol intake: former Alcohol use details: QUIT 2001 Substance use: never Substance use type: does not use Living arrangements: alone Gender identity (if verbalized by the patient): Female Spiritual care concerns: No Meds Home Medications and Allergies Home Medications Medication Instructions Recorded Confirmed Type adalimumab 40 mg/0.8 mL See Rx Instructions .Route .COMPLEX 06/01/19 08/14/22 History subcutaneous syringe kit (Humira) albuterol sulfate 90 mcg/actuation 1 inhalation inhalation Q4H PRN 06/01/19 08/14/22 History aerosol inhaler (ProAir HFA) Shortness Of Breath folic acid 1 mg tablet 1 mg PO DAILY 06/01/19 08/14/22 History pyridoxine (vitamin B6) 100 mg 100 mg PO 3XW 06/01/19 08/14/22 History tablet rosuvastatin 10 mg tablet (Crestor) 10 mg PO DAILY 06/01/19 08/14/22 History omeprazole 40 mg capsule,delayed 40 mg PO QAM 08/30/19 08/14/22 History release methotrexate sodium 2.5 mg tablet 10 mg PO WEEKLY 09/12/19 08/14/22 History Bittermelon 1 cap PO DAILY 02/01/20 08/14/22 History potassium chloride 10 mEq 10 meq PO .3x weekly 02/01/20 08/14/22 History capsule,extended release calcium carbonate 600 mg calcium 600 mg PO DAILY 10/22/20 08/14/22 History (1,500 mg) tablet tumeric 100 mg-osman 150 mg-olive 1 cap PO DAILY 12/18/21 08/14/22 History 50 mg-oreg 150 mg-caprylate capsule fluticasone 250 mcg-salmeterol 50 1 inh inhalation BID #60 ea 05/26/22 08/14/22 Rx mcg/dose blistr powdr for inhalation (Advair Diskus) montelukast 10 mg tablet 10 mg PO QHS PRN Sinus Symptoms 07/25/22 08/14/22 History tiotropium bromide 18 mcg capsule 1 cap inhalation QAM 07/25/22 08/14/22 History with inhalation device (Spiriva with HandiHaler) hydrocodone 5 mg-acetaminophen 325 1 tablet PO Q4H PRN pain #25 tabs 07/30/22 08/14/22 Rx mg tablet benzonatate 200 mg capsule 200 mg PO HS PRN Cough 08/14/22 08/14/22 History cholecalciferol (vitamin D3) 25 25 mcg PO DAILY 08/14/22 08/14/22 History mcg (1,000 unit) tablet me
[2022-08-27] MEDS: ACETAMINOPHEN 500 MG TABLET 1000 MG PO ×2 (10:05→18:30)
[2022-08-27] MEDS: LACTATED RINGERS 1,000 ML 30 ML IV CONT ×2 (10:20→15:59)
--- NOTE | 2022-08-27 11:06 | WPDANESEPPF ---
Anes - Initial Pre Proc Eval Procedure: Operation Date: 08/27/22 12:00 Proposed Procedures p Right Total Knee Arthroplasty - Ferny Crooks MD Date/Time: 08/27/22 11:06 Surgeon: Ferny Crooks MD Pre Op Diagnosis: Rheumatoid Arthritis Rt Knee Patient Data Age: 77 Gender: F Height: 1.6 m Weight: 70.3 kg Last Vital Signs Temp 36.1 C L 08/27/22 10:10 Pulse 65 08/27/22 10:10 Resp 16 08/27/22 10:10 BP 149/64 H 08/27/22 10:10 Pulse Ox 100 08/27/22 10:10 O2 Del Method Room Air 08/27/22 10:10 Allergies Allergy/AdvReac Type Severity Reaction Status Date / Time Sulfa (Sulfonamide Allergy Unknown MOUTH/LIP Verified 08/14/22 10:09 Antibiotics) SORES Home Medications Medication Instructions Recorded Confirmed Type adalimumab 40 mg/0.8 mL See Rx Instructions .Route .COMPLEX 06/01/19 08/14/22 History subcutaneous syringe kit (Humira) albuterol sulfate 90 mcg/actuation 1 inhalation inhalation Q4H PRN 06/01/19 08/14/22 History aerosol inhaler (ProAir HFA) Shortness Of Breath folic acid 1 mg tablet 1 mg PO DAILY 06/01/19 08/14/22 History pyridoxine (vitamin B6) 100 mg 100 mg PO 3XW 06/01/19 08/14/22 History tablet rosuvastatin 10 mg tablet (Crestor) 10 mg PO DAILY 06/01/19 08/14/22 History omeprazole 40 mg capsule,delayed 40 mg PO QAM 08/30/19 08/14/22 History release methotrexate sodium 2.5 mg tablet 10 mg PO WEEKLY 09/12/19 08/14/22 History Bittermelon 1 cap PO DAILY 02/01/20 08/14/22 History potassium chloride 10 mEq 10 meq PO .3x weekly 02/01/20 08/14/22 History capsule,extended release calcium carbonate 600 mg calcium 600 mg PO DAILY 10/22/20 08/14/22 History (1,500 mg) tablet tumeric 100 mg-osman 150 mg-olive 1 cap PO DAILY 12/18/21 08/14/22 History 50 mg-oreg 150 mg-caprylate capsule fluticasone 250 mcg-salmeterol 50 1 inh inhalation BID #60 ea 05/26/22 08/14/22 Rx mcg/dose blistr powdr for inhalation (Advair Diskus) montelukast 10 mg tablet 10 mg PO QHS PRN Sinus Symptoms 07/25/22 08/14/22 History tiotropium bromide 18 mcg capsule 1 cap inhalation QAM 07/25/22 08/14/22 History with inhalation device (Spiriva with HandiHaler) hydrocodone 5 mg-acetaminophen 325 1 tablet PO Q4H PRN pain #25 tabs 07/30/22 08/14/22 Rx mg tablet benzonatate 200 mg capsule 200 mg PO HS PRN Cough 08/14/22 08/14/22 History cholecalciferol (vitamin D3) 25 25 mcg PO DAILY 08/14/22 08/14/22 History mcg (1,000 unit) tablet meloxicam 15 mg tablet 15 mg PO DAILY PRN Pain 08/14/22 08/14/22 History Patient hx anesthesia problems: none Family hx anesthesia problems: none Results Review: All pre-operative results and documents have been reviewed as part of the pre-operative evaluation. [facility] Past Medical History Medical History Adenomatous colon polyp 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 Esophageal stricture GERD (gastroesophageal reflux disease) History of esophageal stricture Lung nodules SHOLA (obstructive sleep apnea) Osteoporosis Rheumatoid arthritis involving multiple sites Surgical History Surgical History Hx of colonoscopy Hx of esophagogastroduodenoscopy Hx of rotator cuff surgery Family History Family History Father Family history of diabetes mellitus in first degree relative Sibling Family history of renal cell carcinoma Social History Social History Smoking packs per day: 1.5 Smoking cigarettes per day: 30.0 Years smoked: 40 Smoking pack-years: 60.00 Smoking status: Former smoker Tobacco type: cigarettes Smoking end date: 01/17/05 Alcohol intake: former Alcohol use details: QUIT 2001 Substance use: never Substance use type: does not use Living arrangements: alone Gender identity (if verbalized by the patient):
[2022-08-27] MEDS: TRANEXAMIC ACID 1,000MG/ISO100 1,000 MG/100 ML BAG 200 MG IVPB (11:30)
--- NOTE | 2022-08-27 11:54 | WPDHPUPDATE1 ---
History and Physical Update Update Date/Time: 08/27/22 11:54 History and Physical has been reviewed, including an updated exam of the patient. There are NO changes in the patient's condition. Risks, benefits, and alternatives have been discussed and questions answered. Patient agrees to proceed with procedure.
[2022-08-27] MEDS: ceFAZolin 2 GM/D5W 50 ML 2 GM/50 ML BAG IVPB (12:00)
[2022-08-27] MEDS: ceFAZolin SODIUM 1 GM VIAL 3 GM (12:45)
[2022-08-27] MEDS: TRANEXAMIC ACID 1,000 MG/10 ML AMPUL 1000 MG IV PUSH (15:02)
[2022-08-27] MEDS: ceFAZolin SODIUM 1 GM VIAL IV PUSH (15:02)
--- NOTE | 2022-08-27 15:55 | W.PM.PROC2 ---
Procedure Note - Detailed Date of Procedure 08/27/22 Pre-op Diagnosis Rheumatoid Arthritis Rt Knee Post-op Diagnosis Same Procedure Performed Right total knee arthroplasty Surgeon Ferny Crooks MD [employer] Sprayer William Anesthesia General Description of Procedure Patient was brought to the operating and general anesthesia was administered. She received 2 g Ancef weight based vancomycin 1 g of tranexamic acid preoperatively in the right knee prepped draped usual fashion. Limb was exsanguinated tourniquet elevated to 250 mmHg. A 6 in longitudinal midline incision was used in a vastus medialis splitting approach utilized. Infrapatellar and suprapatellar fat pads were excised a quadriceps synovectomy carried out. The patella measured 23 mm in thickness was cut to 16.5 mm. Bone quality was good. Protector cap was applied. Guide moses was inserted down the femoral canal after aspiration of canal contents using the 5 degree valgus cutting bushing, 9 mm of bone removed the distal femur. Next the tibial plateau was cut perpendicular to the axis of the tibia which removed 1 mm of bone from the low point of the posteromedial tibial plateau where there was an area of full-thickness cartilage loss. This removed the majority the anteromedial osteophyte. The medial femoral osteophyte was removed as well. Meniscal remnants were excised the PCL recessed. The flexion gap measured 12 mm medially and 14 mm laterally. The femoral sizing guide was applied set at 3? of external rotation which matched [place] line. Posterior referencing pinholes were placed. We applied the size 62.5 cutting block which was the appropriate with that this was going to notch. We applied the 65 made the anterior cut. This confirmed that the 62.5 would notch. We introduced a couple of degrees of flexion the distal femoral cut reapplied the 62.5 cutting block and made the anterior cut. Posterior chamfer cuts were made. The 62.5 fit nicely flush with the anterior cortex and line to line medial to lateral. The tibia was sized to a 67 vanguard placed at proper rotation which gave line to line fit posterolateral to anteromedial referenced off the medial 1/3 of the tibial tubercle and anterior cortex of the tibia. This was punched and we trialed and with the 12 insert the knee and a positive bounce almost coming to full extension with no play mediolaterally. This was a little bit loose though at 90? and 13 was trialed and this seemed very appropriate at 90? with 1 mm medial 2 mm lateral joint space opening with a 13 at 90?. An additional 2 mm of bone removed from the distal femur and chamfer cuts revisited and we trialed again with a 13 insert which had still a barely positive bounce with 1 1/2 mm medial and lateral opening. We trialed with a 12 and the still had a fairly positive bounce but increased play medially laterally so was clear that a posterior capsular release would be necessary and this was performed with this done we trialed with a 13 in the came out to full extension with negative bounce again 1/2 mm medial lateral opening in extension appropriate stability in all positions. [place] flexion was to 135. We had removed little bit of posterior femoral osteophyte medially. Lug holes were drilled. The patella was sized to a 31 thin which restored patella thickness to 23 mm. We had put the tourniquet down earlier at 90 minutes and we re-exsanguinated the limb and we elevated the tourniquet at this time. The bony surfaces were thoroughly irrigated and dried. Step drill was used to make multiple perforations in the medial tibial bone which was dense was this was a skim cut as well as distal femoral surfaces. Bony surfaces were thoroughly irrigated and dried. Two batches of methylmethacrylate were mixed bone gentamicin powder. Cement was applied the 67 tibia and then the 62.5 right CR femoral component cement applied tibia pressurized tibial component fully seated cement applied fe
[2022-08-27] MEDS: fentaNYL CITRATE INJ (*CRX) 100 MCG/2 ML VIAL 25 MCG IV PUSH ×3 (16:37→16:54)
--- NOTE | 2022-08-27 17:18 | SUR.PHASEI ---
Patient meets PACU discharge criteria, unit bed unavailable at this time. Patient placed in extended recovery status at 1715.
[2022-08-27] MEDS: SODIUM CHLORIDE 0.9% IV 1,000 ML 125 ML IV CONT (18:04)
--- NOTE | 2022-08-27 18:12 | ADMGEN ---
This patient, Cassie Bone, was admitted to 2 Medical Room 240-01. Patient/family oriented to hospital policies and general routines including ID bracelet, bed and alarms, visiting hours, pain management, procedures, bathroom and other care routines, personal items, smoking policy, room service/diet, and visiting hours. Information on how to activate the Rapid Response Team has been discussed. Patient/Family are encouraged to report perceived risks to care and to ask questions if they do not understand what they are told or what they should do.
[2022-08-27] MEDS: SENNA/DOCUSATE SODIUM TABLET 2 TAB PO (18:30)
[2022-08-27] MEDS: oxyCODONE HCL (*CRX) 5 MG TAB IR PO ×2 (18:30→22:08)
[2022-08-27] MEDS: KETOROLAC 15 MG/ML VIAL (*BKC) 7.5 MG IV PUSH (20:10)
[2022-08-28] MEDS: ACETAMINOPHEN 500 MG TABLET 1000 MG PO ×3 (00:26→12:57)
[2022-08-28] MEDS: oxyCODONE HCL (*CRX) 5 MG TAB IR PO ×4 (01:54→13:00)
[2022-08-28] MEDS: KETOROLAC 15 MG/ML VIAL (*BKC) 7.5 MG IV PUSH (01:55)
[2022-08-28 03:27] VITALS: BP 120/55; PULSE 58; RESP 21; TEMP 36.4; O2SAT 100
--- NOTE | 2022-08-28 04:25 | PC.NURSE ---
Pt got up to the chair this shift- tolerated well for 2 hours. Ambulated to the bathroom with assist/ walker Tolerated well. Pain medication providing tolerable pain levels. Good sensation to R foot/knee / leg/ neurovascular checks good. Drsg to right knee intact no drainage. Instructions began post op procedure Pt attentive, cooperative.
[2022-08-28 05:33] LABS: Basophils Percent Auto 0.1 % (0.2-1.2); Hematocrit 32.9 % (37.0-47.0); Hemoglobin 10.3 g/dL (12.0-15.0); Immature Granulocyte Percent A 0.7 % (0-0.5); Lymphocytes Absolute Auto 1.21 K/mm3 (0.9-3.2); Lymphocytes Percent Auto 8.6 % (18.3-44.2); Mean Corpuscular HGB Conc 31.3 g/dl (32-36); Mean Corpuscular Hemoglobin 30.8 pg (26-34); Mean Corpuscular Volume 98.5 fl (80-100); Monocytes Absolute Auto 1.4 K/mm3 (0.1-0.6); Monocytes Percent Auto 9.6 % (2.6-8.5); Neutrophils Absolute Auto 11.4 K/mm3 (1.3-6.7); Platelet Count Result 264 k/mm3 (150-375); Red Blood Count 3.34 M/mm3 (4.2-5.4); Red Cell Distribution Width 14.3 % (11.5-14.5); White Blood Count 14.1 K/mm3 (4.5-10.0)
[2022-08-28 05:40] LABS: Anion Gap 4 mmol/L (8-16); Blood Urea Nitrogen 15 mg/dL (7-17); Calcium 7.4 mg/dL (8.4-10.2); Carbon Dioxide 28 mmol/L (22-30); Chloride 105 mmol/L (98-107); Estimated CRCL calculation 65 ml/min; Estimated Glomerular Filt Rate > 60; Glucose 140 mg/dL (65-110); Potassium 4.2 mmol/L (3.4-5.0); Sodium 137 mmol/L (137-145)
[2022-08-28 06:02] VITALS: BP 117/57; PULSE 67; RESP 20; TEMP 36.5; O2SAT 99
--- NOTE | 2022-08-28 07:21 | PM.PNORT ---
Subjective Subjective Date/Time Seen: 08/28/22 07:21 postop day 1 patient is alert. Afebrile vital signs are stable. Neurovascularly she is intact. She has [id number] swelling at the knee. No drainage on the incision. She is able do a straight leg raise. Pain overall is well controlled. Patient has been up multiple times overnight to the restroom. Is having a slight bit of nausea this morning. No bouts of emesis. Plan will be to have the patient work with physical therapy this morning as well as this afternoon and if she continues to do well we will plan on discharging her home this afternoon. Morning labs are noted Objective Data Vital Signs Vital Signs: Vital Signs - 24 hr 08/27/22 10:10 08/27/22 15:59 08/27/22 16:15 Temperature 36.1 C L 37.4 C Pulse Rate 65 100 71 Respiratory Rate 16 14 22 H Blood Pressure 149/64 H 143/69 H 126/58 L Pulse Oximetry 100 97 99 Oxygen Delivery Room Air Simple Face Mask Simple Face Mask Oxygen Flow Rate 6 6 08/27/22 16:30 08/27/22 16:45 08/27/22 17:00 Temperature Pulse Rate 63 62 71 Respiratory Rate 20 16 16 Blood Pressure 129/66 136/60 119/53 L Pulse Oximetry 99 98 100 Oxygen Delivery Simple Face Mask Nasal Cannula Nasal Cannula Oxygen Flow Rate 8 2 2 08/27/22 17:15 08/27/22 17:40 08/27/22 18:21 Temperature Pulse Rate 65 59 L Respiratory Rate 20 15 Blood Pressure 133/57 L 139/60 Pulse Oximetry 100 100 97 Oxygen Delivery Nasal Cannula Nasal Cannula Nasal Cannula Oxygen Flow Rate 2 2 2 08/27/22 17:46 08/27/22 18:01 08/27/22 18:31 Temperature 36.2 C L 37.2 C Pulse Rate 76 81 89 Respiratory Rate 18 18 18 Blood Pressure 143/71 H 159/68 H 143/77 H Pulse Oximetry 99 99 99 Oxygen Delivery Oxygen Flow Rate 08/27/22 20:26 08/27/22 20:00 08/27/22 23:31 Temperature 36.4 C 36.4 C Pulse Rate 63 58 L Respiratory Rate 20 21 H Blood Pressure 146/58 H 120/55 L Pulse Oximetry 99 99 100 Oxygen Delivery Nasal Cannula Oxygen Flow Rate 2 08/28/22 03:27 Temperature 36.4 C Pulse Rate 58 L Respiratory Rate 21 H Blood Pressure 120/55 L Pulse Oximetry 100 Oxygen Delivery Oxygen Flow Rate Intake/Output Intake/Output: Intake & Output 08/25/22 08/26/22 08/27/22 08/28/22 23:59 23:59 23:59 23:59 Intake Total 1270 1500 Output Total 250 Balance 1020 1500 Meds/Results Medications: Active Medications Generic Name Dose Route Start Last Admin Trade Name Freq PRN Reason Stop Dose Admin Acetaminophen 1,000 mg 08/27/22 18:00 08/28/22 05:47 Acetaminophen 500 Mg Tablet PO 1,000 mg Q6H ARON Administration Albuterol 1 puff 08/27/22 17:46 Albuterol Sulfate (*Sp) Aerosol 1 Puff INHALATION Q4H PRN Shortness Of Breath Apixaban 2.5 mg 08/28/22 09:00 Apixaban 2.5 Mg Tablet PO Q12HR ARON Benzonatate 200 mg 08/27/22 17:46 Benzonatate 100 Mg Capsule PO HS PRN Cough Doxycycline Hyclate 100 mg 08/28/22 13:00 Doxycycline Hyclate 100 Mg Tablet PO 09/09/22 12:59 Q12HR ARON Folic Acid 1 mg 08/28/22 09:00 Folic Acid 1 Mg Tablet PO DAILY ARON Cefazolin Sodium 1 gm in 50 mls @ 100 mls/hr 08/27/22 23:00 08/28/22 05:48 Ancef 1 Gm/D5w 50 Ml Pm IVPB 08/28/22 15:29 100 mls/hr Q8H ARON Administration Vancomycin HCl 1,000 mg in 250 mls @ 250 mls/hr 08/27/22 22:00 08/27/22 23:10 Vancomycin 1,000 Mg/D5w 250 Ml IVPB 08/28/22 10:59 Infused Q12H [facility] Infusion Meloxicam 7.5 mg 08/28/22 08:00 Meloxicam 7.5 Mg Tablet PO DAILY@0800 ARON Montelukast Sodium 10 mg 08/27/22 17:46 Montelukast Sodium 10 Mg Tablet PO QHS PRN Sinus Symptoms Morphine Sulfate 2 mg 08/27/22 17:46 Morphine Sulfate (*Crx) 2 Mg/Ml Inj IV PUSH Q1H PRN Pain Rated 7-10 Naloxone HCl 0.1 mg 08/27/22 17:46 Naloxone Hcl 0.4 Mg/Ml Vial IV PUSH Q2M PRN Opiate Reversal Oxycodone HCl 5 mg 08/27/22 18:00 08/28/22 05:47 Oxycodone
--- NOTE | 2022-08-28 07:26 | PM.DS ---
DS: Admitting Diagnosis Discharge Date 08/28 Admitting Diagnosis Right knee DJD DS: Discharge Diagnosis Discharge Diagnosis (1) Right knee DJD: Code(s): M17.11 - Unilateral primary osteoarthritis, right knee Status: Acute DS: Summary Hospital Course Hospital Course: 77-year-old female underwent right total knee arthroplasty on 08/27. Underwent the procedure without complications. Postoperatively she is afebrile vital signs are stable. Neurovascularly she is intact. Her pain is well controlled with scheduled Tylenol as well as oxycodone 5 mg. She is also on meloxicam 7.5 mg. She was up the day of surgery to the restroom multiple times tolerating this well. Her dressing is dry and intact. She does have [id number] swelling at the knee. The patient will be discharged home on 08/28. She was advised to keep leg elevated with the foot higher than the heart to prevent swelling. She should limit sitting in the chair for no more than 30 minutes at a time 3 or 4 times a day. She should her exercises on hourly basis. She has outpatient therapy starting next Thursday. Patient will hold her Humira and methotrexate for another 2 weeks before restarting knees. She is on Eliquis for DVT prophylaxis. She will also go home on a 2 week course of doxycycline. She will also go home on Senokot and MiraLax. Patient was advised any questions or concerns when she goes home she should call the office otherwise we will see her at her appointed dates Time Spent with Patient Time attestation: Total time spent providing and/or coordinating discharge services: DS: Data Data Completed and Pending Labs on day of discharge: Labs from last 24 hours 08/28/22 08/28/22 04:48 04:48 WBC 14.1 H RBC 3.34 L Hgb 10.3 L Hct 32.9 L MCV 98.5 MCH 30.8 MCHC 31.3 L RDW 14.3 Plt Count 264 MPV 11.0 H Immature Gran % (Auto) 0.7 H Neut % (Auto) 81.0 H Lymph % (Auto) 8.6 L [place] % (Auto) 9.6 H Eos % (Auto) 0.0 Baso % (Auto) 0.1 L Lymph # (Auto) 1.21 [place] # (Auto) 1.4 H Eos # (Auto) 0.0 Baso # (Auto) 0.0 Abs Immat Gran (auto) 0.10 H Absolute Neuts (auto) 11.4 H Absolute Nucleated RBC 0.0 Nucleated RBC % 0.0 Sodium 137 Potassium 4.2 Chloride 105 Carbon Dioxide 28 Anion Gap 4 L BUN 15 Creatinine 0.60 L Estim Creat Clear Calc 65 Estimated GFR > 60 Glucose 140 H Calcium 7.4 L Discharge Plan Discharge Patient Disposition: Home, Self-Care Discharge Instructions: VEDA MARSHALL M.D [facility], [place] [address] [address] [place] [id number] POST-OPERATIVE DISCHARGE INSTRUCTIONS TOTAL KNEE ARTHROPLASTY 1. When resting, lie on back with leg elevated above heart to minimize swelling. Significant swelling could indicate a blood clot and if this occurs call the office (or go to the ER) to have a venous ultrasound. 2. Do exercise 5 times a day. 3. Do not sit with leg down except for meals. 4. Wound Care: Nursing will give additional dressings at discharge. Patient to change dressing at home 1 week from surgery, then maintain until seen in office. 5. May shower with dressing in place. 6. Follow weight bearing status instructions. IMPORTANT: Remember not to sit in the chair for more than 30 minutes at a time. As a rule, during the first 14 days after surgery, only sit in the chair to work on the chair knee bending stretch exercise, for meals or for use of the restroom. Sitting in the chair promotes significant swelling in the knee and leg which will make the knee stiff and more painful and which simulates having a blood clot in the veins of the leg. If this type of significant diffuse swelling occurs, an ultrasound at the hospital will be necessary to rule out a blood clot. Be up walking around with the walker for a few minutes every hour while awake and then rest laying on your back on the couch or in bed wit
--- NOTE | 2022-08-28 07:59 | PM.IMCN ---
Assessment and Plan Assessment and plan (1) Right knee DJD: Qualifiers: Osteoarthritis type: primary Qualified Code(s): M17.11 - Unilateral primary osteoarthritis, right knee Code(s): M17.11 - Unilateral primary osteoarthritis, right knee Status: Acute Assessment and Plan: POD1 total knee arthroplasty Management per Ortho Pain management with oral analgesics PT/OT evals Eliquis for DVT prophylaxis. (2) GERD (gastroesophageal reflux disease): Qualifiers: Esophagitis presence: without esophagitis Qualified Code(s): K21.9 - Gastro-esophageal reflux disease without esophagitis Code(s): K21.9 - Gastro-esophageal reflux disease without esophagitis Status: Chronic Assessment and Plan: c/o indigestion with nausea and epigastric pain on exam. GI cocktail x1 Continue PPI PRN mylanta (3) Rheumatoid arthritis involving multiple sites: Qualifiers: Rheumatoid factor presence: unspecified presence Qualified Code(s): M06.9 - Rheumatoid arthritis, unspecified Code(s): M06.9 - Rheumatoid arthritis, unspecified Status: Chronic Assessment and Plan: Chronic, continue pain management as above Holding methotrexate and Humira 2 weeks before and after surgery for wound healing. (4) COPD mixed type: Code(s): J44.9 - Chronic obstructive pulmonary disease, unspecified Status: Chronic Assessment and Plan: chronic, not in acute exacerbation. She wears 2L O2 at HS. Continue home inhalers. Monitor respiratory status. (5) Lung nodules: Code(s): R91.8 - Other nonspecific abnormal finding of lung field Status: Chronic Assessment and Plan: Chronic, patient reports lung nodules for more than 20 years and being monitored with yearly/every other year CT scans. Stable. (6) Hyperlipidemia: Code(s): E78.5 - Hyperlipidemia, unspecified Status: Chronic Assessment and Plan: Chronic, continue statin HPI Data of Consult Consult date: 08/28/22 Requesting Physician: Ferny Crooks MD Primary Care Provider: Patt CurtisMD Consult Narrative Narrative: Cassie Bone is a 77 year old female with COPD on 1L home oxygen therapy, Rheumatoid arthritis, GERD, hyperlipidemia and history of esophageal stricture. She presented to the hospital for elective right total knee arthroplasty on 08/27/[address] Crooks. She reports persistent right knee pain despite conservative management with NSAIDs and steroid injects. This morning, she complains of acid reflux, nausea and one episode of emesis overnight. She has moderate pain to her right knee, as well as swelling. She endorses mild paresthesia to her right foot that she attributes to edema. No paralysis or pallor. No chest pain, SOB, cough, sputum, diarrhea, constipation, or dysuria. Review of Systems Review of Systems: All systems reviewed & are unremarkable except as noted in HPI and below PMFSH Past Medical History Medical History (Updated 08/28/22 @ 14:03 by Geraldine Sharif, TIMBER REPAIRER) Adenomatous colon polyp 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 Esophageal stricture GERD (gastroesophageal reflux disease) Hemorrhoids History of esophageal stricture History of perforated ear drum History of tobacco abuse Hyperlipidemia Intolerance of continuous positive airway pressure (CPAP) ventilation Lung nodules SHOLA (obstructive sleep apnea) Osteoporosis Precancerous changes of the cervix s/p total hysterectomy. Rheumatoid arthritis involving multiple sites Right knee DJD Surgical History Surgical History (Updated 08/28/22 @ 13:41 by Geraldine Sharif, TIMBER REPAIRER) Hx of colonoscopy Hx of esophagogastroduodenoscopy with esophageal dilation x11 Hx of rotator cuff surgery S/P ART-BSO (total abdominal hysterectomy and bilateral salpingo-oophorectomy) 07/2022 Family History Family History (Updated 08/28/22 @ 13:41 by Geraldine Sharif, TIMBER REPAIRER)
[2022-08-28] MEDS: polyethylene glycoL 3350 17 GM POWD.PACK PO (08:12)
[2022-08-28] MEDS: SENNA/DOCUSATE SODIUM TABLET 2 TAB PO (08:12)
[2022-08-28] MEDS: FOLIC ACID 1 MG TABLET PO (08:12)
[2022-08-28] MEDS: CHOLECALCIFEROL 1,000 UNITS TABLET 1000 UNITS PO (08:13)
[2022-08-28] MEDS: MELOXICAM 7.5 MG TABLET PO (08:13)
[2022-08-28] MEDS: PANTOPRAZOLE 40 MG TABLET PO (08:13)
[2022-08-28] MEDS: APIXABAN 2.5 MG TABLET PO (08:14)
[2022-08-28] MEDS: ROSUVASTATIN 10 MG TABLET PO (08:14)
[2022-08-28] MEDS: FLUTICASONE/SALMETEROL 115-21 MCG INHALER 1 PUFF 2 PUFF INHALATION (08:47)
[2022-08-28] MEDS: UMECLIDINIUM BROMIDE 62.5 MCG ELLIPTA 1 PUFF INHALATION (08:56)
[2022-08-28 08:57] VITALS: O2SAT 92
[2022-08-28] MEDS: BELLADONNA ALK/PHENOB ELIX 10 ML, MAG HYDROX/ALUMINUM HYD/SIMETH 30 ML, LIDOCAINE HCL 2... PO (09:37)
[2022-08-28] MEDS: ONDANSETRON INJ 4 MG/2 ML VIAL IV PUSH (09:44)
[2022-08-28 11:31] VITALS: BP 131/69; PULSE 59; RESP 18; TEMP 36.3; O2SAT 99
[2022-08-28] MEDS: DOXYCYCLINE HYCLATE 100 MG TABLET PO (12:57)
[2022-08-28 14:04] VITALS: BP 142/61; PULSE 68; RESP 18; TEMP 36.7; O2SAT 98
== END 2022-08-28 14:58 | disposition home or self-care (01) ==
LOC: ANHSURGERY 09:49 → ANH2MED 17:48
PROVIDERS: PCP Family Medicine; Visit Provider Orthopaedic Surgery
PROC: (CPT 27447; principal; 2022-08-27 12:00)
DX: M06.861 Other specified rheumatoid arthritis, right knee (principal); J44.9 Chronic obstructive pulmonary disease, unspecified; G47.33 Obstructive sleep apnea (adult) (pediatric); K21.9 Gastro-esophageal reflux disease without esophagitis; M81.0 Age-related osteoporosis without current pathological fracture; Z87.891 Personal history of nicotine dependence; Z79.620 Long term (current) use of immunosuppressive biologic
CPT/HCPCS: 27447; 36415; 73560; 80048; 85025; 94640; 97110; 97116; 97161; 97165; 97530; 97535; A9270; C1713; C1776; J0171; J0690; J1100; J1170; J1885; J2270; J2405; J2704; J2710; J2795; J3010; J3370; J7030; J7120

== ENCOUNTER 2022-09-04 09:59 | Outpatient (CLI) | payer MEDICARE, OTHER, SELFPAY ==
--- NOTE | ~2022-09-04 | US_ITS ---
EXAMINATION: US venous doppler [facility] DATE: 09/04/2022 10:50 INDICATION: Shortness of breath TECHNIQUE: Grayscale ultrasound images without and with compression and Doppler ultrasound images of the bilateral lower extremity veins were obtained. COMPARISON: None. FINDINGS: The visualized portions of right common femoral vein, profunda (deep) femoral vein, femoral vein, pop liteal vein, posterior tibial veins, peroneal veins, gastrocnemius vein and greater saphenous vein ou tflow are patent. The visualized portions of left common femoral vein, profunda femoral vein, femoral vein, popliteal v ein, posterior tibial veins, peroneal veins, gastrocnemius vein and greater saphenous vein outflow ar e patent. IMPRESSION: 1. No deep venous thrombosis in either lower limb. Reviewed, dictated and finalized at location D. 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
== END 2022-09-04 10:00 | disposition home or self-care (01) ==
PROVIDERS: PCP Family Medicine; Visit Provider Physician Assistant
DX: R06.02 Shortness of breath (principal); G89.18 Other acute postprocedural pain; R60.0 Localized edema
CPT/HCPCS: 93970

== ENCOUNTER 2022-09-11 08:26 | Outpatient (CLI) | payer MEDICARE, OTHER, SELFPAY ==
--- NOTE | ~2022-09-11 | CT_ITS ---
Clinical Indication: Shortness of breath, recent surgery CT Scan of the Chest with Contrast: Technique: Contiguous sections were acquired throughout the chest after intravenous administration of 100 cc of Omnipaque 350. Dose reduction technique was used on this scan by utilizing automated expos ure control and iterative reconstruction technique. The dose-length product (DLP) was 257.27 mGy-cm. COMPARISON: 03/15/2021 Findings: There is no evidence of any significant mediastinal, hilar or axillary lymphadenopathy. There is no f illing defect in the pulmonary arterial tree to suggest pulmonary embolus. There is no evidence of ao rtic dissection or aneurysm. There is no evidence of pleural or pericardial effusion. There is suggestion of minimal mosaic attenuation pattern of the lungs. No suspicious pulmonary nodul e. Mild emphysema noted. Images through the upper abdomen reveal no abnormalities. Impression: No evidence of pulmonary embolus, aortic dissection, or aortic aneurysm. Minimal mosaic attenuation pattern in the lungs. Correlate for hypoventilatory change, bronchiolitis, hypersensitivity pneumonitis, or chronic interstitial disease. Mild emphysema. Reviewed, dictated and finalized at location . 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 Minimal mosaic attenuation pattern in the lungs. Correlate for hypoventilatory change, bronchiolitis, hypersensitivity pneumonitis, or chronic interstitial di sease. Mild emphysema.
== END 2022-09-11 08:27 | disposition home or self-care (01) ==
PROVIDERS: PCP Family Medicine; Visit Provider Physician Assistant
DX: R06.02 Shortness of breath (principal); J43.9 Emphysema, unspecified
CPT/HCPCS: 71275; Q9967

== ENCOUNTER 2022-10-02 14:59 | Outpatient (CLI) | payer MEDICARE, OTHER, SELFPAY ==
--- NOTE | ~2022-10-02 | MM_ITS ---
EXAMINATION: MM screening kristy BI w jennifer HISTORY: Screening mammogram TECHNIQUE: Craniocaudal and mediolateral oblique 3-D tomosynthesis images were obtained and synthetic 2-D images were generated. CAD analysis was submitted and interpreted. COMPARISON: 08/05/2021, 07/17/2020, 04/07/2019 bilateral screening mammogram examinations BREAST PARENCHYMAL COMPOSITION: There are scattered areas of fibroglandular density. FINDINGS: There is no evidence of suspicious mass, calcification, or architectural distortion to sugg est malignancy in either breast. There has been no suspicious interval change. IMPRESSION: 1. No mammographic evidence of malignancy. 2. Recommend routine screening mammography in one year. BI-RADS Category 1: Negative Reviewed, dictated and finalized at location A.
== END 2022-10-02 15:00 | disposition home or self-care (01) ==
PROVIDERS: PCP Family Medicine; Visit Provider Nurse Practitioner Obstetrics & Gynecology
DX: Z12.31 Encounter for screening mammogram for malignant neoplasm of breast (principal)
CPT/HCPCS: 77063; 77067

== ENCOUNTER 2023-05-20 10:16 | Outpatient (CLI) | payer MEDICARE, OTHER, SELFPAY ==
[2023-05-20 10:20] VITALS: PULSE 67; O2SAT 97
[2023-05-20 10:25] VITALS: PULSE 81; O2SAT 85
[2023-05-20 10:30] VITALS: PULSE 84; O2SAT 88
[2023-05-20 10:35] VITALS: PULSE 85; O2SAT 91
[2023-05-20 10:50] VITALS: PULSE 68; O2SAT 96
--- NOTE | 2023-05-20 11:14 | HOMEO2EVAL ---
Evaluation was performed at [facility] Home Oxygen Evaluation RC: Home Oxygen (O2) Evaluation Start: 05/20/23 11:10 Freq: Status: Active Protocol: RPE Activity Type Activity Date Activity User E-sign Co-sign Detail Recorded Client Recorded Date Recorded By Document 05/20/23 10:20 [email or web address] [email or web address] 05/20/23 11:14 DJO Document 05/20/23 10:25 [email or web address] [email or web address] 05/20/23 11:14 DJO Document 05/20/23 10:30 [email or web address] [email or web address] 05/20/23 11:14 DJO Document 05/20/23 10:35 [email or web address] [email or web address] 05/20/23 11:14 DJO Document 05/20/23 10:50 [email or web address] [email or web address] 05/20/23 11:14 DJO 05/20/23 05/20/23 05/20/23 10:20 10:25 10:30 Home O2 Evaluation [Oxygen] -Test Phase Resting Exercise Exercise -Oxygen Delivery Room Air Room Air Nasal Cannula -Oxygen Flow Rate (L/min) 1 [Pulse Oximetry] -Pulse Oximetry (90-100 %) 97 85 L 88 L [Pulse Rate] -Pulse Rate (60-100 beats/min) 67 81 84 [Evaluation] -Activity Tolerance [Charges] -Treatment Charges O2 Evaluation - Outpatient 05/20/23 05/20/23 10:35 10:50 Home O2 Evaluation [Oxygen] -Test Phase Exercise Resting -Oxygen Delivery Nasal Cannula Room Air -Oxygen Flow Rate (L/min) 2 [Pulse Oximetry] -Pulse Oximetry (90-100 %) 91 96 [Pulse Rate] -Pulse Rate (60-100 beats/min) 85 68 [Evaluation] -Activity Tolerance Good [Charges] -Treatment Charges
--- NOTE | 2023-05-20 17:34 | WPDPFTINT ---
PFT Procedure Performed PFT Procedure Performed Spirometry with Pre/Post Bronchodilator Plethysmography (Lung Vol) Diffusing Cap (DLCO) Flow Vol Loop PFT Interpretation This is a pulmonary function test with pre and post-bronchodilator spirometry, plethysmography and diffusing capacity. The test was performed and results interpreted in accordance with the 2019 and 2005 ATS/ERS Task Force guidelines respectively using the Global Lung Function Initiative-2012 reference equations. Patient demonstrated good effort and cooperation. Reproducibility criteria were met. The quality of the pre bronchodilator spirometry maneuver was Grade B and post bronchodilator spirometry maneuver was Grade A. Findings: Spirometry: There is decreased maximal expiratory airflow at all lung volumes with concave expiratory flow tracing. The contour the inspiratory flow tracing is normal. The pre bronchodilator FVC is 2.00 L, 78% predicted. The pre bronchodilator FEV1 is 1.05 L, 53% predicted. The pre bronchodilator FEV1: FVC ratio is 52%. The post bronchodilator FVC is 2.35 L, representing an 18% increase. The post bronchodilator FEV1 is 0.97 L, representing an 8% decrease. The post bronchodilator FEV1: FVC ratio is 41%. Plethysmography: The total lung capacity is 7.17 L, 146% predicted. The functional residual capacity is 5.82 L, 207% predicted. The residual volume is 5.17 L, 229% predicted. Diffusing capacity: The diffusing capacity unadjusted for hemoglobin and carboxyhemoglobin is 8.0, 41% predicted. The diffusing capacity adjusted for alveolar volume is 3.81, 90% predicted. In comparison to previous pulmonary function testing on 06/22/2017 the post bronchodilator FVC has decreased from 2.84 L to 2.35 L. The post bronchodilator FEV1 is decreased from 1.61 L to 0.97 L. the total lung capacity is unchanged from 6.92 L to 7.17 L. The functional residual capacity has increased from 5.06 L to 5.82 L. The residual volume has increased from 4.13 L to 5.17 L. The diffusing capacity unadjusted for hemoglobin and carboxyhemoglobin as decreased from 9.5 to 8.0. The diffusing capacity adjusted for alveolar volume is unchanged from 3.63 to 3.81. Impression: There is a moderately severe obstructive abnormality with significant improvement after inhaling a single dose of albuterol. The increase in residual volume is consistent with air trapping from an obstructive abnormality. Hyperinflation is present as demonstrated by the increase in functional residual capacity and total lung capacity and is consistent with an obstructive abnormality. The diffusing capacity unadjusted for hemoglobin and carboxyhemoglobin is moderately decreased and normalizes when adjusted for alveolar volume. When compared to previous pulmonary function testing on 06/22/2017 there has been a greater than anticipated time dependent decrease in the FVC, FEV1 and diffusing capacity unadjusted for hemoglobin and carboxyhemoglobin. There has been a greater than anticipated time dependent increase in the total lung capacity, functional residual capacity and residual volume with no significant change in the diffusing capacity adjusted for alveolar volume. Clinical correlation is recommended.
== END 2023-05-20 10:17 | disposition home or self-care (01) ==
PROVIDERS: PCP Family Medicine; Visit Provider Physician Assistant
DX: J44.9 Chronic obstructive pulmonary disease, unspecified (principal)
CPT/HCPCS: 94060; 94618; 94726; 94729

== ENCOUNTER 2023-07-10 10:26 | Outpatient (CLI) | payer MEDICARE, OTHER, SELFPAY ==
--- NOTE | ~2023-07-10 | MR_ITS ---
MRI of the left shoulder Technique: Axial proton-density fat-sat images, coronal proton density fat-sat and T2 fat-sat images, and sagittal T1-weighted and T2 fat-sat images were acquired. Clinical History: Pain Findings: There is mild AC joint degenerative change. Coracoclavicular, coracoacromial, and coracohum eral ligaments are probably intact. There is complete, full-thickness tear involving essentially the entire supraspinatus tendon. Infrasp inatus tendon appears to be intact, with mild to moderate distal tendinosis. Subscapularis tendon is completely torn and retracted to the level of the glenohumeral joint. There is complete medial disloc ation of the biceps tendon. No definite labral tear identified. Inferior glenohumeral ligament is intact. There is minimal glenohumeral joint effusion. No degenerati ve change of the glenohumeral joint seen. No muscle atrophy or edema evident. Impression: Complete, full-thickness tears of the supraspinatus and subscapularis tendons. Medial dislocation of the biceps tendon. Mild AC joint degenerative change. Reviewed, dictated and finalized at location . GER IMMUNOLOGY Impression: Complete, full-thickness tears of the supraspinatus and subscapularis tendons. Medial dislocation of the biceps tendon. Mild AC joint degenerative change.
== END 2023-07-10 10:27 | disposition home or self-care (01) ==
PROVIDERS: PCP Family Medicine; Visit Provider Orthopaedic Surgery
DX: M75.122 Complete rotator cuff tear or rupture of left shoulder, not specified as traumatic (principal); M19.012 Primary osteoarthritis, left shoulder
CPT/HCPCS: 73221

== ENCOUNTER 2023-12-09 08:40 | Outpatient (CLI) | payer MEDICARE, OTHER, SELFPAY ==
--- NOTE | ~2023-12-09 | MM_ITS ---
EXAMINATION: MM screening kristy BI w jennifer HISTORY: Screening TECHNIQUE: Craniocaudal and mediolateral oblique 3-D tomosynthesis images were obtained and synthetic 2-D images were generated. CAD analysis was submitted and interpreted. COMPARISON: Comparison to multiple prior studies sequentially, with oldest reviewed study dated 03/10. BREAST PARENCHYMAL COMPOSITION: Not dense: There are scattered areas of fibroglandular density. FINDINGS: There is no evidence of suspicious mass, calcification, or architectural distortion to sugg est malignancy in either breast. There has been no suspicious interval change. IMPRESSION: 1. No mammographic evidence of malignancy. 2. Recommend routine screening mammography in one year. BI-RADS Category 1: Negative Reviewed, dictated and finalized at location A.
== END 2023-12-09 08:41 | disposition home or self-care (01) ==
PROVIDERS: PCP Family Medicine; Visit Provider Obstetrics & Gynecology
DX: Z12.31 Encounter for screening mammogram for malignant neoplasm of breast (principal)
CPT/HCPCS: 77063; 77067

== ENCOUNTER 2024-01-10 08:36 | Emergency (ER) | payer MEDICARE, OTHER, SELFPAY ==
--- NOTE | 2024-01-10 08:52 | ED.GENADULT ---
HPI - General Adult General Chief complaint: Upper Respiratory Infection Stated complaint: Covid-19 symptoms Time Seen by Provider: 01/10/24 08:52 Source: patient Mode of arrival: ambulatory Limitations: no limitations History of Present Illness HPI narrative: 79-year-old female patient presents to the [facility] with complaints of COVID. Started having symptoms yesterday of a cough, fever of 101-102 and just overall not feeling well. Patient states she took COVID test last night that it was but it did come back positive patient does have history of RA and is on immunosuppressant drugs as well as COPD. Patient states that her of COVID. Patient states she is on oxygen that she wears during exertion due to her COPD. Patient states she just overall is not feeling well. Denies any current shortness of breath or chest pain at this time. Related Data Home Medications Medication Instructions Recorded Confirmed adalimumab 40 mg/0.8 mL See Rx Instructions .Route .COMPLEX 06/01/19 01/10/24 subcutaneous syringe kit (Humira) folic acid 1 mg tablet 1 mg PO DAILY 06/01/19 01/10/24 pyridoxine (vitamin B6) 100 mg 100 mg PO 3XW 06/01/19 01/10/24 tablet rosuvastatin 10 mg tablet (Crestor) 10 mg PO DAILY 06/01/19 01/10/24 omeprazole 40 mg capsule,delayed 40 mg PO QAM 08/30/19 01/10/24 release potassium chloride 10 mEq 10 meq PO .3x weekly 02/01/20 01/10/24 capsule,extended release calcium carbonate 600 mg PO DAILY 10/22/20 01/10/24 cholecalciferol (vitamin D3) 25 25 mcg PO DAILY 08/14/22 01/10/24 mcg (1,000 unit) tablet methotrexate sodium 2.5 mg tablet 10 mg PO WEEKLY 12/17/22 01/10/24 ciprofloxacin HCl 500 mg tablet 500 mg PO BID 01/10/24 01/10/24 fluticasone 250 mcg-salmeterol 50 2 inh inhalation DAILY 01/10/24 01/10/24 mcg/dose blistr powdr for inhalation (Wixela Inhub) Allergies Allergy/AdvReac Type Severity Reaction Status Date / Time Sulfa (Sulfonamide Allergy Mild MOUTH/LIP Verified 01/10/24 09:17 Antibiotics) SORES Review of Systems Review of Systems: CONSTITUTIONAL: Positive fever, denieschills, or sweats. EYES: Denies visual changes, redness, or discharge. ENT: positive rhinorrhea, congestion, denies sore throat, or otalgia. CARDIOVASCULAR: Denies chest pain, palpitations, or edema. RESPIRATORY: positive cough , denies dyspnea. GASTROINTESTINAL: Denies abdominal pain, nausea, vomiting, or diarrhea. GENITOURINARY: Denies dysuria or hematuria. SKIN: Denies rash or itching. MUSCULOSKELETAL: Denies back pain, joint pain, positive myalgia. NEUROLOGIC: Denies headache, numbness, or weakness. PSYCHIATRIC: Denies anxiety or depression. [facility] Past Medical History Medical History Adenomatous colon polyp 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 Esophageal stricture GERD (gastroesophageal reflux disease) Hemorrhoids History of esophageal stricture History of perforated ear drum History of tobacco abuse Hyperlipidemia Intolerance of continuous positive airway pressure (CPAP) ventilation Lung nodules SHOLA (obstructive sleep apnea) Osteoporosis Precancerous changes of the cervix s/p total hysterectomy. Rheumatoid arthritis involving multiple sites Right knee DJD Surgical History Surgical History History of total right knee replacement Hx of colonoscopy Hx of esophagogastroduodenoscopy with esophageal dilation x11 Hx of rotator cuff surgery S/P ART-BSO (total abdominal hysterectomy and bilateral salpingo-oophorectomy) 07/2022 Family History Family History Father Family history of diabetes mellitus in first degree relative Sibling Family history of renal cell carcinoma Mother Cerebrovascular accident Other Cerebrovascular accident Social History Social History (Reviewed 01/10/24 @ 08:53 by YRN Humphrey
[2024-01-10 09:19] VITALS: BP 110/54; PULSE 88; RESP 20; TEMP 37.4; O2SAT 95
== END 2024-01-10 09:32 | disposition home or self-care (01) ==
PROVIDERS: Emergency Provider Nurse Practitioner Family; Referring Provider Emergency Medicine
DX: U07.1 COVID-19 (principal); Z87.891 Personal history of nicotine dependence; J44.9 Chronic obstructive pulmonary disease, unspecified; K21.9 Gastro-esophageal reflux disease without esophagitis; E78.5 Hyperlipidemia, unspecified; M81.0 Age-related osteoporosis without current pathological fracture; M06.9 Rheumatoid arthritis, unspecified; M17.11 Unilateral primary osteoarthritis, right knee; Z96.651 Presence of right artificial knee joint
CPT/HCPCS: 99213; G0463

== ENCOUNTER 2024-05-31 13:12 | Outpatient (CLI) | payer MEDICARE, OTHER, SELFPAY ==
--- NOTE | ~2024-05-31 | XR_ITS ---
CHEST RADIOGRAPH, PA AND LATERAL CLINICAL HISTORY: COPD/SOB . COMPARISON: Reference is made to a CTA of the chest dated 09/11/2022 TECHNIQUE: PA and lateral views of the chest. FINDINGS The cardiomediastinal silhouette is unremarkable. The lungs are clear. Visualized osseous structures and soft tissues are unremarkable. IMPRESSION: No focal infiltrate or effusion. Reviewed, dictated and finalized at location A. 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
[2024-05-31 14:13] LABS: Influenza A QL RT-PCR Negative (Negative); Influenza B QL RT-PCR Negative (Negative); RSV RNA, RT-PCR Positive (Negative); SARS-CoV-2 RNA PCR Negative (Negative)
== END 2024-05-31 13:13 | disposition home or self-care (01) ==
PROVIDERS: Visit Provider Physician Assistant
DX: J44.9 Chronic obstructive pulmonary disease, unspecified (principal)
CPT/HCPCS: 71046; 87637

== ENCOUNTER 2024-11-30 10:09 | Outpatient (CLI) | payer MEDICARE, OTHER, SELFPAY ==
--- NOTE | ~2024-11-30 | DEXA_ITS ---
Bone Density Report Name: RHIANNON NOLAN Age: 79 Sex: Female Ethnicity: White Date of : 1945 Indication: osteopenia; monitoring treatment; height loss; asthma or emphysema; hysterectomy; rheumatoid arthritis; Referring Provider: HENRIQUE, KRISTEN Paige Study: Bone densitometry was performed. Exam Date: November 30, 2024 Accession number: [id number] Bone Density: Region BMD T-score Z-score Classification AP Spine(L1-L4) 1.010 -0.3 2.2 Normal Femoral Neck (Left) 0.672 -1.6 0.6 Osteopenia Total Hip (Left) 0.933 -0.1 1.9 Normal Femoral Neck (Right) 0.626 -2.0 0.2 Osteopenia Total Hip (Right) 0.877 -0.5 1.4 Normal Total Hip Mean 0.905 -0.3 1.7 Normal World Health Organization criteria for BMD impression classify patients as: Normal (T-score at or above -1.0), Osteopenia (T-score between -1.0 and -2.5), or Osteoporosis (T-score at or below -2.5). 10-year Fracture Risk: FRAX not reported because: Treated for osteoporosis Previous Exams: Region Exam Age BMD T-score BMD Change BMD Change Date g/cm2 vs Baseline vs Previous AP Spine (L1-L4) 11/30/2024 79 1.010 -0.3 0.083 (9.0%)# 0.083 (9.0%)# 12/22/2012 67 0.927 -1.1 Total Hip(Left) 11/30/2024 79 0.933 -0.1 0.100 (12.0%)# 0.061 (7.0%)* 06/03/2022 77 0.871 -0.6 0.039 (4.6%)# -0.004 (-0.4%) 04/09/2020 75 0.875 -0.5 0.043 (5.1%)# 0.004 (0.5%) 07/30/2017 72 0.871 -0.6 0.038 (4.6%)# 0.034 (4.1%)* 05/04/2015 70 0.836 -0.9 0.004 (0.4%)# 0.004 (0.4%)# 12/22/2012 67 0.833 -0.9 Total Hip(Right) 11/30/2024 79 0.877 -0.5 0.048 (5.8%)# 0.025 (2.9%) 06/03/2022 77 0.852 -0.7 0.023 (2.8%)# -0.009 (-1.0%) 04/09/2020 75 0.861 -0.7 0.032 (3.8%)# -0.036 (-4.0%) 07/30/2017 72 0.897 -0.4 0.068 (8.2%)# 0.051 (6.0%)* 05/04/2015 70 0.846 -0.8 0.017 (2.0%)# 0.017 (2.0%)# 12/22/2012 67 0.829 -0.9 *Denotes significance at 95% confidence level, LSC for AP Spine = 0.022 g/cm2, LSC for Total Hip = 0.027 g/cm2 # Denotes dissimilar scan types or analysis methods Clinical Information Provided by Patient: Has rheumatoid arthritis Is being treated for osteoporosis Has used the following medications: Vitamin D, Calcium Has the following medical conditions: Asthma or Emphysema, Hysterectomy Patient maximum height was 64 Menopause Age: 44 No regular weight bearing exercise Onset of menses at age 17 Number of children 0 Impression: The patient has low bone mass, based on the Right Femoral Neck T-score. No significant bone loss was observed. Discussion: PATIENT UNDER TREATMENT WITH NO SIGNIFICANT BMD LOSS SINCE LAST EXAM. In an untreated patient, BMD typically declines with age. A lack of decline or gain is usually a sign that treatment is efficacious and fracture risk is reduced. It is important to ask patients whether they are taking their medications and to encourage continued and appropriate compliance with their osteoporosis therapies to reduce fracture risk. It is also important to review their risk factors and encourage appropriate calcium and vitamin D intakes, exercise, fall prevention and other lifestyle measures. Follow-Up: Consider a repeat BMD and Vertebral Fracture Assessment (VFA) exam in 2 years or sooner if medically necessary, to reassess this patient's status. Reported by: SERA on 11/30/2024 10:56:00 AM. Reviewed, dictated and finalized at location A.
--- OUTSIDE RECORDS SUMMARY | 2024-11-30 10:43 | XMS_ITS | Data Portability ---
Author Organization [facility] [place] Address [address] [place] [address] [place] [address] Care Team Providers Care Residential Housekeeper Name Role Phone PATT RIZVI Primary Care Provider Assessment Encounter Date Assessment Date Assessment LastModified by Organization Details LastModified Time 05/15/2023 05/15/2023 Annual gynecological exam performed. Patient will come back in a year unless there are new symptoms. [facility] 05/15/2023 11:29:08 Plan of Treatment Reminders Order Date Submit Date Provider Last Modified By Organization Details Last Modified Time Details Appointments None recorded. Lab None recorded. Referral None recorded. Procedures None recorded. Surgeries None recorded. Imaging MAMMO, screening, digital, bilateral 2022 023 [facility], [address], [place], [address], 4 05:01:15 Medication Orders estradiol 0.5 mg tablet 2022 023 [facility], [address] [place] [address], [address], 3 11:30:34 Patient TargetsNo targets recorded. Patient InstructionsNo instructions recorded. Reason for Referral None Reported. Results Created Date Observation Date Name Description Value Unit Range Abnormal Flag Note LastModifiedBy Organization Detail LastModifiedTime 05/15/2005/15/2023 IMAGE GUIDE D PAP AND HPV REGAR DLESS image guided Pap, HPV regardless of Pap result SEE RESULT S BELOW abnormal CASE REPOR T: Cytol ogy Gynec ologi geraldo Repor t Case: [id number] Autho dre brissa Provi joshua: Rosibel Colon NP Colle cted: 05/15 1426 Order ing Locat ion: [place] Patho logy Recei pao: 05/16 0318 First Scree n: Pascual Humphreys, CT Patho logis t: Mejia Hughes MD Speci men: Shelli sylvester Pap - Image d, Vagin a STATE MENT OF ADEQU ACY: Satis facto ry for evalu ation FINAL DIAGN OSIS: Epith elial Cell Abnor malit y, Squam ous Cell: Atypi geraldo Squam ous Cells of Undet ermin ed Signi viktoriya ce (ASC- US). Elect deni kim by Mejia Hughes MD on 2022 at 10:28 AM ----- ----- ----- ----- ----- ----- ----- ----- ----- ----- ----- ----- ----- ----- ----- ----- ----- ---- HPV RESUL TS: HPV mRNA E6/E7 : Posit genesis - HPV mRNA Detec aníbal HPV GENOT YPE 16 (MICHAEL) : Not Detec aníbal HPV GENOT YPE 18/45 (MICHAEL) : Detec aníbal NOTE: This high risk HPV mRNA assay detec ts fourt een high- risk HPV types (16, 18, 31, 33, 35, 39, 45, 51, 52, 56, 58, 59, 66, 68) witho ut diffe renti ation . This assay can diffe renti ate HPV 16 from HPV 18/45 , but does not diffe renti ate betwe en HPV 18 and HPV 45. A negat genesis HPV 16, 18/45 genot ype assay resul t does not exclu de the possi bilit y of cytol ogic abnor malit ies or of futur e or under lying REGINA 1, REGINA 3 or cance r. COMME NT: This speci men was revie wed by a Cytot echno logis t and/o r Patho logis t (as indic ated in this repor t) after evalu ation using the Thinp rep Imagi ng Syste m. CLINI GERALDO INFOR MATIO N: Menst rual Statu s: LMP (if appli cable ): Clini geraldo Histo ry/Pr eviou s Pap: Type of Neopl krystina (if appli cable ): Signi fican t Clini geraldo Findi ngs: Other Histo ry: Hormo leo (if appli cable ): SHAQUILLE ARROYO FOLLO W-UP: Follo w up as warra nted, based on curre nt guide lines and indiv idual patie nt consi derat ions. Not Available 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 Elect deni kim by Syd Palacios MD on 06/10 at 10:39 AM ----- ----- ----- ----- ----- ----- ----- ----- ----- ----- ----- ----- ----- ----- ----- ----- ----- ---- COMME NT: The patie nt's histo ry of ASCUS on previ ous Pap smear is noted . A p16 immun ohist ochem ical stain , perfo rmed to evalu ate the degre e of dyspl krystina, shows patch y posit ivity and suppo rts above diagn osis. The speci men also shows a liche noid patte rn of derma titis . GMS stain is negat genesis for funga l organ isms. Diagn ostic consi derat ions inclu de liche n planu s, and evolv ing liche n scler osis. Clini geraldo corre latio n is requi red. This case was seen in intra depar tment al revie w with agree ment on the above diagn osis on 06/10. CLINI GERALDO INFOR MATIO N: r87.6 29 MICRO SCOPI C DESCR IPTIO N: A micro scopi c exami natio n was perfo rmed. This test was devel oped and its perfo rmanc e jazzmine cteri stics deter mined by [facility]. It has not been clear ed or appro pao by the U. S. Food and Drug Admin istra tion. The FDA has deter mined that such clear ance or appro rukhsana is not neces ramiro. This test may be used for clini geraldo purpo se. It shoul d not be regar ded as inves tigat ional or for resea rch. This labor atory is certi fied under the Clini geraldo Labor atory Impro vemen t Amend ments of 1987 (CLIA ) as quali fied to perfo rm high compl exity clini geraldo labor atory testi ng. In cases which have decal cifie d tissu es, the resul ts shoul d be inter prete d with cauti on given the possi bilit y of false negat christianne. The posit genesis contr ols demon strat e appro priat e posit genesis stain ing. The known tissu e negat genesis contr ols are negat genesis. The non-i mmune serum contr ol was non-r eacti ve. GROSS DESCR IPTIO N: A. Vagin al Cuff. The speci men is label ed with the patie nt's name, demog lg cs and vagi nal cuff biops y . Recei pao in forma martine is a 0.4 and a 0.6 cm piece of white -arellano tissu e. The entir e speci men is submi tted in one casse tte. Gross ed by John Urias ll Not Available [facility] (Lab) [address], [place], [address], 06/10/2023 11:43:21 10/04/19 23 10/02/2022 MAMMO , scree nga, bilat eral No observ ation record ed. [address], [address], 10/27/2022 05:29:51 12/09/19 24 12/09/2023 MAMMO , scree nga, tomos ynthe sis, bilat eral No observ ation record ed. [address], [place], [address], 10/25/2024 17:06:09 Result Notes None recorded. Problems Name Problem SNOMED Code Status Onset Date Resolution Date Notes Provider Name and Address Organization Details Recorded Time Human papillom avirus deoxyrib onucleic acid detected , high risk on cervical specimen 385040312 Completed 201805/27/2021 Cervical high risk HPV DNA test positive ;Recorde d Elsewher e: No Locat ion: [facility] S ource: EHR Show Jumping Instructor jaci: N Tiffany ce ID: 0001 Ambrose lable Time: 11:07:09 AM Mayela blue [facility] 17:59:21 Screenin g for malignan t neoplasm of rectum Completed 201005/27/2021 Screenin g for malignan t neoplasm s of the rectum;R ecorded Elsewher e: No Locat ion: [facility] S ource: EHR Show Jumping Instructor jaci: N Practi ce ID: 0001 Ambrose lable Time: 08:30:00 AM Mayela Tipton [facility] 1 17:59:59 Evaluati on finding Completed 201805/27/2021 Unsp abnormal cytolog findings in specmn from cervix uteri;Re corded Elsewher e: No Locat ion: [facility] S ource: EHR Show Jumping Instructor jaci: N Practi ce ID: 0001 Ambrose lable Time: 11:00:00 AM Mayela Tipton [facility] 17:59:17 Speciali zed medical examinat ion Completed 201005/27/2021 Gynecolo gical Examinat ion;Jorge rded Elsewher e: No Locat ion: [facility] S ource: EHR Show Jumping Instructor jaci: N Korinati ce ID: 0001 Ambrose lable Time: 08:30:00 AM Mayela [facility] 18:00:[address] Concept Completed 201705/27/2021 Encntr for general adult medical exam w/o abnormal findings ;Recorde d Elsewher e: No Locat ion: [facility] S ource: EHR Show Jumping Instructor jaci: N Practi ce ID: 0001 Ambrose lable Time: 08:30:00 AM Mayela Tipton [facility] 1 18:00:00 Low grade squamous intraepi thelial lesion on cervical Papanico laou smear [id number] 105 Completed 201605/27/2021 Low grade intrepit h lesion cyto smr crvx (LGSIL); Recorded Elsewher e: No Locat ion: [facility] S ource: EHR Show Jumping Instructor jaci: N Practi ce ID: 0001 Ambrose lable Time: 10:45:00 AM Mayela Tipton [facility] 17:59:27 Postmeno pausal bleeding 05632920 Completed 201605/27/2021 Postmeno pausal bleeding ;Recorde d Elsewher e: No Locat ion: [facility] S ource: EHR Show Jumping Instructor jaci: N Korinati ce ID: 0001 Ambrose lable Time: 12:00:00 PM Mayela Tipton [facility] 17:59:28 Atypical squamous cells of undeterm ined signific ance on cervical Papanico laou smear [id number] Completed 201905/27/2021 Atypical squamous cells of undeterm ined signific ance on cytologi c smear of cervix (ASC-US) ;Recorde d Elsewher e: No Locat ion: [facility] S ource: Alta Bates Campuso jaci: N Practi ce ID: 0001 Ambrose lable Time: 09:15:00 AM Mayela Tipton [facility] 17:59:09 Blood leukocyt e number above referenc e range [id number] Completed 201805/27/2021 Elevated white blood cell count, unspecif ied;Jorge rded Elsewher e: No Locat ion: [facility] S ource: Alta Bates Campuso jaci: N Korinati ce ID: 0001 Ambrose lable Time: 10:00:00 AM Mayela Tipton [facility] 1 17:59:25 Screenin g for malignan t neoplasm of cervix Completed 201805/27/2021 Encounte r for screenin g for malignan t neoplasm of cervix;R ecorded Elsewher e: No Locat ion: [facility] S ource: Alta Bates Campuso jaci: N Practi ce ID: 0001 Ambrose lable Time: 09:30:00 AM Mayela Tipton [facility] 17:59:57 Pregnanc y test negative [id number] Completed 201105/27/2021 Pregnanc y examinat ion or test, negative result;R ecorded Elsewher e: No Locat ion: [facility] S ource: EHR Show Jumping Instructor jaci: N Practi ce ID: 0001 Ambrose lable Time: 05:45:00 PM Mayela Tipton [facility] 1 17:59:30 Evaluati on finding Completed 201705/27/2021 Hematuri a, unspecif ied;Jorge rded Elsewher e: No [facility] S ource: EHR Show Jumping Instructor jaci: N Practi ce ID: 0001 Ambrose lable Time: 08:30:00 AM Mayela Tipton [facility] 17:59:16 Dyspareu fermin [id number] Completed 201005/27/2021 Dyspareu fermin;Jorge rded Elsewher e: No Locat ion: [facility] S ource: EHR Show Jumping Instructor jaci: N Practi ce ID: 0001 Ambrose lable Time: 08:30:00 AM Mayela Tipton [facility] 17:59:14 Imaging result abnormal [id number] Completed 201605/27/2021 Abnormal findings on diagnost ic imaging of body structur es;Recor ded Elsewher e: No Locat ion: [facility] S ource: EHR Show Jumping Instructor jaci: N Practi ce ID: 0001 Ambrose lable Time: 02:00:00 PM Mayela Tipton [facility] 17:59:[address] Concept Completed 201805/27/2021 Encntr for face boss exam (general ) (routine ) w/o abn findings ;Recorde d Elsewher e: No Locat ion: [facility] S ource: EHR Show Jumping Instructor jaci: N Practi ce ID: 0001 Ambrose lable Time: 10:00:00 AM Mayela Tipton [facility] 18:00:02 Adult health examinat ion Completed 201005/27/2021 Routine Medical Exam;Rec orded Elsewher e: No Locat ion: [facility] S ource: EHR Show Jumping Instructor jaci: N Practi ce ID: 0001 Ambrose lable Time: 08:30:00 AM [facility] 17:59:06 Human papillom avirus deoxyrib onucleic acid detected , high risk on anal specimen 26464858902 9102 Completed 201805/27/2021 Anal high risk human papillom avirus (HPV) DNA test positive ;Recorde d Elsewher e: No Locat ion: [facility] S ource: EHR Show Jumping Instructor jaci: N Practi ce ID: 0001 Ambrose lable Time: 04:20:50 PM Mayela Tipton [facility] 17:59:19 Low risk human papillom avirus deoxyrib onucleic acid detected in specimen from cervix [id number] 642309 Completed 201705/27/2021 Cervical low risk HPV DNA test positive ;Recorde d Elsewher e: No Locat ion: [facility] S ource: EHR Show Jumping Instructor jaci: N Practi ce ID: 0001 Ambrose lable Time: 09:00:00 AM Mayela Tipton [facility] 17:59:22 Atypical squamous cells on cervical Papanico laou smear cannot exclude high grade squamous intraepi thelial lesion 428124879 Completed 201005/27/2021 Pap Abnormal ASCH;Pra ctice ID: 0001 Mayela Tipton [facility] 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 17:59:[address] Concept Completed 201705/27/2021 Encounte r for general adult medical exam w abnormal findings ;Practic e ID: 0001 Mayela Tipton [facility] 17:59:31 At risk - finding [id number] Completed 201805/27/2021 Oth personal risk factors, not elsewher kathe carson ed;Pract ice ID: 0001 Mayela Tipton su [facility] 17:59:07 Problem Notes None recorded. Procedures Surgical History Date Name Laterality Status Provider Name and Address Organization Details Recorded Time 06/05/20 23 Colposcopy completed Shivam Jones MD [address], [place], [address], [facility] 06/06/2023 10:45:32 06/05/20 23 Colposcopy completed Felicitas Levin [facility] 06/05/2023 12:25:59 09/18/19 23 Date of Last Mammogram completed Esther Ellison [facility] 05/15/2023 11:33:54 07/29/19 23 ROBOTIC ASSISTED HYSTERECTOMY W/BILATERAL SALPINGO-OOPHOREC MORIAH (SURG) completed Desire Sky [facility] 07/30/2022 11:09:39 01/08/20 22 Colposcopy completed Shivam Jones MD [address], [place], [address], [facility] 01/07/2022 12:34:50 01/08/20 22 Colposcopy completed Felicitas Levin [facility] 01/07/2022 12:38:35 07/20/19 22 Most Recent Bone Density completed Esther Ellison [facility] 05/15/2023 11:34:18 06/20/20 21 Colposcopy completed Shivam Jones MD [address], [place], [address], [facility] 06/20/2021 12:28:21 06/20/20 21 Colposcopy completed Felicitas [facility] 06/20/2021 12:04:11 06/20/20 21 Colposcopy completed Felicitas [facility] 01/07/2022 12:38:21 03/20/20 21 Other completed Connie Gibson [facility] [address], [place], [address], [facility] 05/28/2021 12:26:45 12/19/19 21 dual energy X-ray absorptiometry completed Connie Gibson [facility] [address], [place], [address], [facility] 05/28/2021 12:28:24 08/18/19 20 Colposcopy completed Connie Gibson [facility] [address], [place], [address], [facility] 05/28/2021 12:40:02 05/20/20 14 colonoscopy completed Connie Gibson [facility] [address], [place], [address], [facility] 05/28/2021 12:25:25 05/20/19 80 grafting to skin completed Connie Gibson [facility] [address], [place], [address], [facility] 05/28/2021 12:43:57 Other completed Felicitas [facility] 01/07/2022 11:56:46 Imaging Results Imaging Date Name Status LastModified by Organiz ation Details LastModified Time 10/02/2022 MAMMO, screening, bilateral active [place] [id number], [place], [address], 10/27/2022 05:29:51 12/09/2023 MAMMO, screening, tomosynthesis, bilateral completed [place] [id number], [place], [address], 10/25/2024 17:06:09 Procedure Notes None recorded. Medical Equipment None Reported. Allergies Allergen ID Allergen Name Allergen Category Reaction Reaction Severity Criticality Documentation Date Start Date Code Code System Note Provider Name and Address Organization Details Recorded Time 9917 Substance with sulfonami de structure and antibacte rial mechanism of action (substanc e) medicatio n Not available Not available Not available 07/06/2020 34175 8003 SNOMED Comme nt: [facility]; Not Available [facility] 14:14:45 Medications Name Sig Start Date Stop Date Status Note LastModified by Organization Details LastModified Time doxycycli ne hyclate 100 mg capsule 05/15 completed Not Available Not Available Not Available albuterol sulfate 2.5 mg/3 mL (0.083 %) solution for nebulizat ion 05/15 completed Not Available Not Available Not Available azithromy regina 250 mg tablet 2022 active Not Available Not Available Not Avai lable benzonata te 200 mg capsule 05/15 completed Not Available Not Available Not Available hydrocodo ne 5 mg-acetam inophen 325 mg tablet TAKE 1 TABLET BY MOUTH EVERY 6 HOURS 05/15 completed Not Available Not Available Not Available meloxicam 15 mg tablet Take 1 tablet every day by oral route. 05/15 completed Not Available Not Available Not Available fluoroura cil 5 % topical cream 05/15 completed Not Available Not Available Not Available folic acid 20 mg capsule 05/28 completed Prescrib ed Elsewher e: Yes Loca tion: Tim archuleta [facility] odify By: moose galvezunter DateTime : 06/30/20 18 09:00:00 AM Not Available Not Available Not Available Advair Diskus 100 mcg-50 mcg/dose powder for inhalatio n inhale 1 puff by inhalati on route 2 times every day in the morning and evening approxim ately 12 hours apart 05/15 completed Prescrib ed Elsewher e: Yes Loca tion: Tim archuleta [facility] odify By: ami oleary DateTime : 04/28/20 11 02:16:22 PM Not Available Not Available Not Available omeprazol e 40 mg capsule,d elayed release Take 1 capsule every day by oral route. active Not Available Not Available No t Available Nexium 20 mg capsule,d elayed release take 1 capsule by oral route every day 07/06 completed Prescrib ed Elsewher e: Yes [facility] odify By: moose silva DateTime : 01/20/20 17 02:00:00 PM Not Available Not Available Not Available meloxicam 7.5 mg tablet TAKE 1 TABLET BY MOUTH EVERY DAY 05/15 completed Not Available Not Available Not Available oxycodone -acetamin ophen 5 mg-325 mg tablet Take 1 tablet every 6 hours by oral route. 05/15 completed Not Available Not Available Not Available Premarin 0.625 mg/g vaginal cream Insert by vaginal route. 05/15 completed Not Available Not Available Not Available omeprazol e 10 mg capsule,d elayed release take 2 capsule by oral route every day before a meal 01/19 completed Prescrib ed Elsewher e: Yes [facility]oca [facility]ion[facility] odify By: norris silva DateTime : 11/25/19 12 11:45:00 AM Not Available Not Available Not Available methotrex ate sodium 2.5 mg tablet take 1 tablet by oral route every 12 hours for 3 doses given as a course once weekly 05/15 completed Not Available Not Available Not Available aspirin 81 mg chewable tablet chew 1 tablet by oral route every day 12/30 completed Prescrib ed Elsewher e: Yes Loca tion: [facility] odify By: amjames silva DateTime : 01/20/20 17 02:00:00 PM Not Available Not Available Not Available folic acid 1 mg tablet Take 1 tablet every day by oral route. active Not Available Not Available No t Available monteluka st 10 mg tablet Take 1 tablet every day by oral route. 05/15 completed Not Available Not Available Not Available estradiol 0.5 mg tablet Take 1 tablet every day by oral route. 05/15 completed Not Available Not Available Not Available methylpre dnisolone 4 mg tablets in a dose pack 05/15 completed Not Available Not Available Not Available albuterol sulfate HFA 90 mcg/actua tion aerosol inhaler 05/15 completed Not Available Not Available Not Available doxycycli ne hyclate 100 mg tablet TAKE 1 TABLET BY MOUTH EVERY 12 HOURS 05/15 completed Not Available Not Available Not Available Tums 200 mg (as calcium carbonate 500 mg) chewable tablet 11/24 completed Prescrib ed Elsewher e: Yes Loca tion: [facility] odify By: lui silva DateTime : 04/28/20 11 02:16:22 PM Not Available Not Available Not Available oxycodone 5 mg tablet TAKE 1 TABLET BY MOUTH EVERY 4 HOURS NEEDED 05/15 completed Not Available Not Available Not Available Premarin 0.625 mg/gram vaginal cream insert (1G) by vaginal route every day cyclical ly, 3 weeks on and 1 week off 05/15 completed Not Available Not Available Not Available rosuvasta tin 10 mg tablet active Not Available Not Available Not Available Crestor 20 mg tablet take 1 tablet (20MG) by oral route every day active Prescrib ed Elsewher e: Yes Loca tion: [facility] odify By: bert fleming DateTime : 04/29/20 11 08:30:00 AM Not Available Not Available Not Available Fosamax 70 mg/75 mL oral solution take 75 millilit er (70MG) by oral route every week in the morning, at least 30 minutes before the first food, beverage , or medicati on of the day 11/24 completed Prescrib ed Elsewher e: No Locat ion: [facility] odify By: lui silva DateTime : 04/28/20 11 02:16:22 PM Not Available Not Available Not Available Spiriva with [employer] r 18 mcg and inhalatio n capsules inhale 1 capsule (18MCG) by inhalati on route every day active Not Available Not Available No t Available nitrofura ntoin monohydra te/macroc rystals 100 mg capsule 05/15 completed Not Available Not Available Not Available methotrex ate 05/15 completed Not Available Not Available Not Available Humira Pen 40 mg/0.8 mL subcutane ous kit 05/15 completed Not Available Not Available Not Available Humira 20 mg/0.4 mL subcutane ous syringe kit inject 0.8 millilit er by subcutan eous route every 2 weeks 05/15 completed Prescrib ed Elsewher e: Yes Loca tion: Tim archuleta [facility] odify By: ami oleary DateTime : 04/28/20 11 02:16:22 PM Not Available Not Available Not Available Myrbetriq 50 mg tablet,ex tended release active Not Available Not Available Not Available Eliquis 2.5 mg tablet TAKE 1 TABLET BY MOUTH EVERY 12 HOURS 05/15 completed Not Available Not Available Not Available Stimulant Laxative Plus 8.6 mg-50 mg tablet TAKE 2 TABLETS BY MOUTH TWICE DAILY. 05/15 completed Not Available Not Available Not Available Spiriva Respimat 1.25 mcg/actua tion solution for inhalatio n active Not Available Not Available Not Available Trelegy Ellipta 100 mcg-62.5 mcg-25 mcg powder for inhalatio n 05/15 completed Not Available Not Available Not Available Humira(CF ) Pen 40 mg/0.4 mL subcutane ous kit 05/15 completed Not Available Not Available Not Available Wixela Inhub 250 mcg-50 mcg/dose powder for inhalatio n active Not Available Not Available Not Available Vitals Date Recorded Body height Body mass index (BMI) Body weight Systolic blood pressure Diastolic blood pressure Provider Name and Address Organization Details Last Updated DateTime 07/22/2022 157.48 cm 28.2 kg/m2 06640.22 g 138 mm[Hg] 81 mm[Hg] [facility] 3 12:10:16 Date Recorded Body height Body mass index (BMI) Body weight Systolic blood pressure Diastolic blood pressure Provider Name and Address Organization Details Last Updated DateTime 08/05/2022 157.48 cm 28 kg/m2 47923.63 g 147 mm[Hg] 79 mm[Hg] [facility] 3 11:30:13 Date Recorded Body height Body mass index (BMI) Body weight Systolic blood pressure Diastolic blood pressure Provider Name and Address Organization Details Last Updated DateTime 05/15/2023 157.48 cm 28.7 kg/m2 89758 g 144 mm[Hg] 71 mm[Hg] Esther Ellison [facility] 3 11:29:17 Date Recorded Body height Body mass index (BMI) Body weight Systolic blood pressure Diastolic blood pressure Provider Name and Address Organization Details Last Updated DateTime 06/05/2023 157.48 cm 28.7 kg/m2 86471 g 144 mm[Hg] 77 mm[Hg] Felicitas Levin [facility] 3 12:25:35 Social History Question Answer Notes LastModified by Organizat ion Details LastModified Time Tobacco Smoking Status Never [facility]oker [facility] 06/05/2023 11:36:49 Do You Have An Advance Directive? No Information n ot available 01/07/2022 Are You Blind Or Do You Have Difficulty Seeing? No Information n ot available 05/27/2021 What Is Your Level Of Caffeine Consumption? Moderate Information not available 01/07/2022 In The 14 Days Before Symptom Onset, Have You Had Close Contact With A Laboratory-confirm ed COVID-19 While That Case Was Ill? No Information n ot available 01/07/2022 In The 14 Days Before Symptom Onset, Have You Had Close Contact With A Person Who Is Under Investigation For COVID-19 While That Person Was Ill? No Information not available 01/07/2022 Have You Been To An Area Known To Be High Risk For COVID-19? No Information not available 01/07/2022 Are You Deaf Or Do You Have Serious Difficulty Hearing? Yes Information not available 01/07/2022 What Type Of Diet Are You Following? REGULAR Information n ot available 05/27/2021 What Is The Highest Grade Or Level Of School You Have Completed Or The Highest Degree You Have Received? [id number] Information not available 01/07/2022 Do You Use Protection During Sex? No Information not available 01/07/2022 Do You Use Your Seat Belt Or Car Seat Routinely? Yes Information not available 05/27/2021 Do You Have Smoke And Carbon Monoxide Detectors In Your Home? Yes Information not available 05/27/2021 How Much Tobacco Do You Smoke? No Information not available 01/07/2022 Do You Use Sunscreen Routinely? No Information not available 01/07/2022 How Many Years Have You Smoked Tobacco? 40 Information not available 01/07/2022 Have You Used IV Drugs? No Information not available 01/07/2022 Sex: Unknown Functional Status Question Answer Note LastModified by Organizat ion Details LastModified Time Do you use any illicit or recreational drugs? No Information not available 05/27/2021 What is your level of alcohol consumption? None Information not available 01/07/2022 Are you able to walk? YESASSIST Information not available 01/07/2022 What is your occupation? Retired Information not available 01/07/2022 What is your exercise level? Occasional Information not available 05/27/2021 Mental Status Question Answer Note LastModified by Organization D etails LastModified Time Do you feel stressed (tense, restless, nervous, or anxious, or unable to sleep at night)? [id number] Information not available 05/27/2021 Family History Relationship Description Onset Age of this Age Resolved Age Notes LastModified by Organization Details LastModified Time Brother Malignant neoplasm of lung Not available 2020 18:00:18 Brother Malignant tumor of kidney Not available 2022 11:37:07 Brother Diabetes mellitus Not available 2020 18:00:40 Father Diabetes mellitus Not available 2020 18:00:51 Father Heart disease Not available 2020 18:01:09 Mother Diabetes mellitus Not available 2020 18:00:59 Mother Cerebrovascu lar accident Not available 02/2021 18:01:23 Sister Malignant tumor of cervix Not available 2020 [id number]|2024-11-30 10:43:00|2024-11-30 10:42:00|XMS_ITS|BKG DAEMON|External Medical Summaries|[id number]|" Encounter Summary Created on: November 30, 2024 Cassie Bone : 1945 Sex: Female Author Organization [facility] Address [facility] [place] [address] Care Team Providers Care Residential Housekeeper Name Role Phone Alena Thakur Primary Care Provider + Patt Curtis MD Primary Care Provider Myrna Knapp MD Unavailable [phone] Encounter Details Date Type Department Care Team (Late st Contact Info) Description 06/05/2022 Lab Requisition [facility] [address] [place] [id number] David Sagastume MD [address] [place] [address] Social History Tobacco Use Types Packs/Day Years Used Date Smoking Tobacco: Former Cigarettes 1 40 Smokeless Tobacco: Never Comments:QUIT Aug, Alcohol Use Standard Drinks/Week Comments No 0 (1 standard drink = 0.6 oz pur e alcohol) QUIT IN 2001 PHQ-2 Answer Date Recorded PHQ2 TOTAL SCORE 0 05/07/2021 Comments No Sex and Gender Information Value Date Recorded Sex Assigned at Not on file Legal Sex Female 6:03 AM FRAME BANDER Gender Identity Not on file Sexual Orientation Not on file documented as of this encounter Plan of Treatment Upcoming Encounters Date Type Department Care Team (Late st Contact Info) Description 12/14/2024 12:40 PM CDT Office Visit [facility] - Rheumatology [address] [facility] [place] [id number] Myrna Knapp MD [address] [place] [phone] 05/10/2025 11:30 AM CDT Office Visit [facility] - PEST CONTROL APPLICATOR [address] [facility] [address] [place] [address] Aldo Muller MD [address] [facility] [address] [place] [address] documented as of this encounter Procedures Procedure Name Priority Date/Time Associated Diagnosis Comments DERMATOPATHOLOGY Routine 06/04/2022 12:0 0 AM FRAME BANDER documented in this encounter Results * DERMATOPATHOLOGY (06/04/2022 12:00 AM FRAME BANDER) Case Report Dermatopathology Report Case: [id number] Authorizing Provider: David Sagastume MD Collected: 06/04/2022 12:00 AM Ordering Location: [facility] Received: 06/05/2022 01:42 PM Pathologist: Sam Wills MD Specimens: A) - Skin, right mid extensor forearm B) - Skin, right distal mid extensor forearm 2 4:36 PM [facility] D[facility]MAT[facility]Y [facility]AT[facility] Final Diagnosis Specimen A. SKIN, right mid extensor forearm: DERMAL SCAR (L90.5) (see microscopic description) Specimen B. SKIN, right distal mid extensor forearm: ACTINIC KERATOSIS, LICHENOID (L57.0) 2 4:36 PM [facility]MAT[facility] Clinical History A-B: R/O BCC, SCC 2 4:36 PM [facility] DERMAT[facility] Gross Description Specimen A: Received is one formalin filled container labeled with the patient's name and designated right mid extensor forearm. The specimen consists of a shave biopsy measuring [id number]. Jar 0. Specimen B: Received is one formalin filled container labeled with the patient's name and designated right distal mid extensor forearm. The specimen consists of a shave biopsy measuring [id number]. Jar 0. 2 4:36 PM [facility] DERMATOPATH[facility]Y [facility]ORY Microscopic Description Specimen A. SKIN, right mid extensor forearm: There are fibroblasts and collagen bundles oriented parallel to the skin surface with elongated blood vessels, some of which are oriented perpendicular to the skin surface. Squamatization of eccrine glands is present. There is no evidence of epithelial dysplasia or malignancy in multiple deeper sections examined. Specimen B. SKIN, right distal mid extensor forearm: There is focal parakeratosis. The lower half of the epidermis shows disorderly maturation of keratinocytes with nuclear pleomorphism. The dermis shows a band-like, chronic inflammatory infiltrate with occasional apoptotic keratinocytes and some basal vacuolar alteration. 2 4:36 PM [facility] DERMATOPATHOLOGY [facility]ORATORY Disclaimer An external and internal positive and negative controls are appropriate for the histochemical, immunohistochemical and immunofluorescence stain(s) in this case (if any), except where stated explicitly. The performance characteristics of the stain(s) cited in this report were developed and its performance characteristic determined by the Dermatopathology Laboratory at [facility], directed by Dr. Donald Wills. These tests need not be, and therefore are not, approved by the [place] Food and Drug Administration. The tests are used for clinical purposes. Billing Codes Specimen Charges Stain Charges 48870 58910 1 1 2 4:36 PM [facility] D[facility]MAT[facility]Y LABORATORY Embedded Images 2 4:36 PM [facility] DERMATOPATH[facility]Y LABOR[facility]ORY Pathology/Cytology TISSUE SPECIMEN FROM SKIN / Unknown 06/04/2022 06/05/2022 1:42 PM FRAME BANDER Miscellaneous samples (specimen) TISSUE SPECIMEN FROM SKIN / Unknown 06/04/2022 06/05/2022 1:42 PM FRAME BANDER David Sagastume MD LAB - PATHOLOGY/CYTOLOGY ORD ERABLES Final Result DERMATOPATHOLOGY LABORATORY [facility] - Department of Dermatology [facility] [address] [facility] [place] [address], [facility] [phone] documented in this encounter Visit Diagnoses Not on filedocumented in this encounter Care Teams Residential Housekeeper Relationship Specialty Start Date End Date Alena Thakur APRN-HOUSEKEEPING ROOM INSPECTOR [address] [phone] PCP - General 02/17/18 08/06/22 Patt Curtis MD [facility] [place] [phone] PCP - General 08/07/22 Myrna Knapp MD [address] [place] [address] [place] [address] Steam Shovel Operating Engineer Rheumatology 05/18/23 documented as of this encounter "
--- OUTSIDE RECORDS SUMMARY | 2024-11-30 10:43 | XMS_ITS | Clinical Summary ---
Author Organization [facility] Address [address] [place] [id number] Care Team Providers Care Veneer Glue Spreader Name Role Phone Alena Thakur NP Primary Care Provider [phone] Social History Tobacco Use Types Packs/Day Years Used Date Smoking Tobacco: Never Assessed Comments Unknown Sex and Gender Information Value Date Recorded Sex Assigned at Not on file Legal Sex Female 7:10 PM CDT Gender Identity Not on file Sexual Orientation Not on file Plan of Treatment Health Maintenance Due Date Last Done Comments Hepatitis C 1963 Zoster Vaccines (2 of 3) 09/14/2009 07/20/2009 Annual Medicare Wellness Visit 01/07/2012 Dexa Scan (General) 01/07/2012 DTaP, Tdap and Td Vaccines (2 - Td or Tdap) 06/05/2020 06/05/2010 RSV Immunization or 60+ Years (1 - 1-dose 75+ series) 2022 COVID-19 Vaccine ( season) 2024 Pneumococcal Vaccine: 50+ Years Completed 06/13/2019, 08/02/2018, 07/19/2013, Additional history exists Meningococcal B Vaccine Aged Out No l onger eligible based on patient's age to complete this topic Meningococcal Vaccine Aged Out No valente earl eligible based on patient's age to complete this topic RSV Immunizations Under 20 Months Aged Out No longer eligible based on patient's age to complete this topic Insurance MEDICARE [facility] Care Teams Veneer Glue Spreader Relationship Specialty Start Date End Date Alena Thakur NP [facility] [place] [address] PCP - General NURSE PRACTITIONER 12/09/21
--- OUTSIDE RECORDS SUMMARY | 2024-11-30 10:43 | XMS_ITS | Continuity of Care Document ---
Author Name [facility] Organization [facility] Care Team Providers Care Systems Architect Name Role Phone [facility] Unavailable Unavailable Problems Combined list of problems from Department of Defense and Veterans Affairs facilities. It does not include entries that were removed or entered in error. 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 Medication Details Route Status Patient Instructions Prescription Expires Prescription Number Last Dispense Date Ordering Provider Order Date Order Qty Source adalimumab (CF) 40 mg/0.4 mL pen-kit [2PENS] See Instruct ions, # 4 EA, 4 total refill(s ), Hard Stop Ordered 04/06/2025 5 2024 4.0 Ambulat ory Pharmac y adalimumab/ CF 40 MG/0.4 SQ [1 PEN KIT] Obtain advice for OTCs.ref rigerate Check with your doctor before becoming . 09/21/2024 [id number] 4 2023 4 [facility] albuterol 2.5mg/3mL (0.083%) inhalation soln (3mL) See Instruct ions, # 150 mL, 3 total refill(s ), Acute Complet ed 12/17/2023 3 2023 150.0 Ambulat ory Pharmac y albuterol 90 mcg inhaler [8.5g] See Instruct ions, # 8.5 g, 3 total refill(s ), Acute Complet ed 12/17/2023 4 2023 8.5 Ambulat ory Pharmac y albuterol 90 mcg inhaler [8.5g] = 1 puff(s), Inhale, every 4 hr, # 8.5 g, 3 total refill(s ), Hard Stop Inhala tion (breat he in) Ordered 06/08/2025 4 2023 8.5 Ambulat ory Pharmac y azithromyci n 250 mg tablet (6EA) See Instruct ions, # 6 EA, 0 total refill(s ), Hard Stop Complet ed 06/07/2024 3 2023 6.0 Ambulat ory Pharmac y benzonatate 200 mg capsule See Instruct ions, # 30 EA, 2 total refill(s ), Acute Complet ed 07/21/2023 3 2023 30.0 Ambulat ory Pharmac y betamethaso ne dipropionat e 0.05% lotion [60mL] See Instruct ions, # 60 mL, 0 total refill(s ), Hard Stop Complet ed 09/13/2024 4 2024 60.0 Ambulat ory Pharmac y Betamethaso ne Lotion 0.05% Topical For external use. 09/13/2024 [id number] 4 2023 60 [facility] ([facility] ciprofloxac in 500 mg tablet 500 mg, Oral, # 3 EA, 0 total refill(s ), Hard Stop Oral (given by mouth) Complet ed 11/10/2024 4 2024 3.0 Ambulat ory Pharmac y clobetasol 0.05% ointment [30g] See Instruct ions, # 30 g, 2 total refill(s ), Hard Stop Ordered 06/08/2025 4 2023 30.0 Ambulat ory Pharmac y estradiol 0.1 mg/g vaginal cream [42.5g] See Instruct ions, # 42.5 g, 1 total refill(s ), Soft Stop Ordered 5 2024 42.5 Ambulat ory Pharmac y estradiol 0.1 mg/g vaginal cream [42.5g] = 1 appl(s), 0, # 42.5 g, 3 total refill(s ), Hard Stop Complet ed 07/26/2024 4 2024 42.5 Ambulat ory Pharmac y estradiol 0.5 mg oral tablet TAKE ONE TABLET DAILY, # 30 EA, 11 total refill(s ), Acute Complet ed 08/04/20232023 30.0 Ambulat ory Pharmac y fluorouraci l 5% cream [40g] See Instruct ions, # 40 g, 0 total refill(s ), Hard Stop Complet ed 01/27/2024 3 2023 40.0 Ambulat ory Pharmac y fluticasone -salmeterol 250 mcg-50 mcg inhalation powder INHALE 1 PUFF BY MOUTH TWICE A DAY, # 60 EA, 8 total refill(s ), Acute Complet ed 05/25/2023 3 2022 60.0 Ambulat ory Pharmac y folic acid 1 mg tablet See Instruct ions, # 90 EA, 1 total refill(s ), Acute Complet ed 04/29/2023 3 2022 90.0 Ambulat ory Pharmac y folic acid 1 mg tablet 1 mg, Oral, # 90 EA, 3 total refill(s ), Hard Stop Oral (given by mouth) Complet ed 05/05/2024 4 2023 90.0 Ambulat ory Pharmac y folic acid 1 mg tablet = 1 tab(s), Oral, # 90 EA, 3 total refill(s ), Hard Stop Oral (given by mouth) Ordered 04/06/2025 5 2024 90.0 Ambulat ory Pharmac y FORTEO (TERIPARATI DE), 20MCG/DOSE, PEN INJCTR, SUB-Q, NEGRA EULA & CO., 2.4 ml SYRINGE Cancele d [id number] : 2023 0 Pharmac y Data Transac tion Service Facilit y Gemtesa 75 mg tablet = 1 tab(s), Oral, Daily, # 90 EA, 1 total refill(s ), Hard Stop Oral (given by mouth) Ordered 06/22/2025 4 2023 90.0 Ambulat ory Pharmac y Humira (CF) 40 mg/0.4 mL [2PENS] See Instruct ions, # 4 EA, 3 total refill(s ), Hard Stop Discont inued 08/04/2024 4 2024 4.0 Ambulat ory Pharmac y Humira (CF) 40 mg/0.4 mL [2PENS] See dose instruct ions in comments , # 4 EA, 3 total refill(s ), Acute Complet ed 11/04/2023 3 2023 4.0 Ambulat ory Pharmac y HUMIRA(CF) PEN (adalimumab ), 40MG/0.4ML, PEN IJ KIT, SUBCUT, netFactor, 2 ea. KIT Cancele d [id number] : 2023 0 Pharmac y Data Transac tion Service Facilit y HUMIRA(CF) PEN (adalimumab ), 40MG/0.4ML, PEN IJ KIT, SUBCUT, netFactor, 2 ea. KIT Cancele d [id number] : 2023 0 Pharmac y Data Transac tion Service Facilit y HUMIRA(CF) PEN (adalimumab ), 40MG/0.4ML, PEN IJ KIT, SUBCUT, netFactor, 2 ea. KIT Cancele d [id number] : 2023 0 Pharmac y Data Transac tion Service Facilit y HUMIRA(CF) PEN (adalimumab ), 40MG/0.4ML, PEN IJ KIT, SUBCUT, netFactor, 2 ea. KIT Active [id number] 4 2023 4 Pharmac y Data Transac tion Service Facilit y HUMIRA(CF) PEN (adalimumab ), 40MG/0.4ML, PEN IJ KIT, SUBCUT, netFactor, 2 ea. KIT Active [id number] 4 2023 4 Pharmac y Data Transac tion Service Facilit y ketorolac 0.5% eye drops [5mL] See Instruct ions, # 5 mL, 1 total refill(s ), Soft Stop Ordered 5 2024 5.0 Ambulat ory Pharmac y meloxicam 15 mg oral tablet TAKE ONE TABLET BY MOUTH EVERY DAY, # 90 EA, 3 total refill(s ), Acute Complet ed 04/29/2023 2 2022 90.0 Ambulat ory Pharmac y meloxicam 15 mg oral tablet TAKE ONE TABLET DAILY, # 90 EA, 1 total refill(s ), Acute Complet ed 11/04/2023 3 2023 90.0 Ambulat ory Pharmac y meloxicam 15 mg tablet 15 mg, Oral, Daily, # 30 EA, 2 total refill(s ), Hard Stop Oral (given by mouth) Complet ed 07/14/2024 3 2023 30.0 Ambulat ory Pharmac y methotrexat e 2.5 mg tablet See dose instruct ions in comments , # 48 EA, 1 total refill(s ), Acute Complet ed 04/29/2023 3 2022 48.0 Ambulat ory Pharmac y methotrexat e 2.5 mg tablet 10 mg, Oral, every 7 days, # 48 EA, 2 total refill(s ), Hard Stop Oral (given by mouth) Complet ed 05/05/2024 4 2023 48.0 Ambulat ory Pharmac y methotrexat e 2.5 mg tablet See Instruct ions, # 48 EA, 2 total refill(s ), Hard Stop Ordered 04/06/2025 5 2024 48.0 Ambulat ory Pharmac y montelukast 10 mg tablet See Instruct ions, # 30 EA, 5 total refill(s ), Acute Complet ed 12/17/2023 4 2023 30.0 Ambulat ory Pharmac y nitrofurant oin macrocrysta l monohydrate 100mg cap See Instruct ions, Oral, # 10 EA, 0 total refill(s ), Hard Stop Oral (given by mouth) Complet ed 07/05/2024 3 2023 10.0 Ambulat ory Pharmac y NITROFURANT OIN MONO-MACRO (nitrofuran toin monohydrate /macrocryst als), 100 MG, CAPSULE, ORAL, HARIS HYATT HI, 100 ea. BOTTLE Cancele d [id number] : 2023 0 Pharmac y Data Transac tion Service Facilit y ofloxacin 0.3% eye drops [5mL] See Instruct ions, # 5 mL, 1 total refill(s ), Soft Stop Ordered 5 2024 5.0 Ambulat ory Pharmac y Omeprazole (Prilosec Eq.) Capsule Conventiona l 40 mg Oral Take or use exactly as directed .Obtain advice for OTCs.Swa amanw whole. 04/13/2024 [id number] 3 2023 90 [facility] omeprazole DR 40 mg capsule 40 mg, Oral, Daily, # 90 EA, 3 total refill(s ), Hard Stop Oral (given by mouth) Complet ed 04/13/2024 4 2023 90.0 Ambulat ory Pharmac y om[address]ole [address] 40 mg capsule See dose instruct ions in comments , # 90 EA, 1 total refill(s ), Acute Complet ed 01/28/2023 3 2022 90.0 Ambulat ory Pharmac y omep[address]ole [address] 40 mg capsule = 1 cap(s), Oral, Daily, # 90 EA, 3 total refill(s ), Hard Stop Oral (given by mouth) Ordered 05/05/2025 5 2024 90.0 Ambulat ory Pharmac y PAXLOVID (nirmatrelv ir/ritonavi r), 300-100 MG, TAB DS PK, ORAL, PFIZER LABS., 30 ea. BLIST PACK Active [id number] 4 2023 30 Pharmac y Data Transac tion Service Facilit y Paxlovid 300 mg-100 mg Dose Pack [30] See Instruct ions, # 30 EA, 0 total refill(s ), Hard Stop Complet ed 06/08/2024 3 2023 30.0 Ambulat ory Pharmac y prednisoLON E acetate 1% eye drops (suspension ) [5mL] See Instruct ions, Instill 1 drop 3 times per day into surgical eye, starting AFTER surgery, continui ng for 3 weeks, # 5 mL, 1 total refill(s ), Soft Stop Ordered 5 2024 5.0 Ambulat ory Pharmac y rosuvastati n 10 mg tablet 10 mg, Oral, Daily, # 90 EA, 3 total refill(s ), Hard Stop Oral (given by mouth) Complet ed 04/08/2024 4 2023 90.0 Ambulat ory Pharmac y rosuvastati n 10 mg tablet See dose instruct ions in comments , # 90 EA, 1 total refill(s ), Acute Complet ed 05/04/2023 3 2022 90.0 Ambulat ory Pharmac y rosuvastati n 10 mg tablet See Instruct ions, # 90 EA, 3 total refill(s ), Hard Stop Ordered 05/11/2025 5 2024 90.0 Ambulat ory Pharmac y Spiriva Respimat 1.25 mcg inhaler (4g) = 2 puff(s), Inhale, Daily, # 4 g, 5 total refill(s ), Hard Stop Inhala tion (breat he in) Complet ed 02/23/2024 4 2023 4.0 Ambulat ory Pharmac y TIOTROPIUM (MIST) 1.25 MCG INH [4 GM] For inhalati on.Check with your doctor before becoming . 11/22/2024 [id number] 4 2023 12 [facility] tiotropium 1.25 mcg inhaler (4g, 60 inh) = 2 puff(s), Inhale, Daily, # 12 g, 3 total refill(s ), Hard Stop Inhala tion (breat he in) Complet ed 11/22/2024 5 2024 12.0 Ambulat ory Pharmac y tiotropium 18 mcg inhalation capsule INHALE THE CONTENTS OF ONE CAPSULE (USING 2 INHALATI ONS) VIA HANDIHAL ER EVERY DAY DIRECTED , # 90 EA, 1 total refill(s ), Acute Complet ed 02/23/20232022 90.0 Ambulat ory Pharmac y Trelegy Ellipta 100 mcg-62.5 mcg-25 mcg inh [60EA] See dose instruct ions in comments , # 60 EA, 5 total refill(s ), Acute Complet ed 12/17/2023 3 2023 60.0 Ambulat ory Pharmac y Wixela Inhub 250-50 mcg inhaler (60EA) = 1 puff(s), Inhale, BID, # 60 EA, 5 total refill(s ), Hard Stop Inhala tion (breat he in) Complet ed 02/23/2024 4 2023 60.0 Ambulat ory Pharmac y Allergies, Adverse Reactions, Alerts Combined list of allergies from Department of Defense and Veterans Affairs facilities. It does not include entries that were removed or entered in error. Substance Category Reaction Severity Reaction type Status Date Reported Comments Source HYDROCODONE BIT Drug allergy (disorder) active [address] [place] [address] HYDROcodone Propensity to adverse reactions to drug Active NAUSEA
Reactio n(s): Unknown; Note: NAUSEA Unknown Organizati on sulfa drugs Propensity to adverse reactions to drug Active RASH AROUND MOUTH<br/ >Reaction (s): Unknown; Note: RASH AROUND MOUTH Unknown Organizati on SULFA-DRUGS Drug allergy (disorder) active [address] [place] [address] Encounters Combined list of: 1) Encounters from Department of Veterans Affairs facilities going backup to the last 18 months, not all VA inpatient encounters are included; 2) Encounters from the Department of Defense facilities going backup to 280 months. Location Location Details Encounter Type Encounter Number Reason For Visit Attending Provider ADM Date DC Date Status Disposition Source [address] [place] [address] [facility] [facility]Opt ometry) OUTPATIENT [id number] annual TOYIN GRIFFITHS 08/18 Released w/o Limitations [address] [place] [address] [employer] [facility] ([facility]O ptometr y) [facility] OUTPATIENT [id number] [place] needs additio nal testing , aleciain g list. TOYIN GRIFFITHS 12/20 Released w/o Limitations [facility] [employer] ([facility]O ptometr y) [address] [place], [place] [address]B ([facility]Opt ometry) OUTPATIENT [id number] annual exam TOYIN GRIFFITHS 05/31 Released w/o Limitations [facility] [employer] ([facility]O ptometr y) [address] [place], [place] [address]B ([facility]Opt ometry) OUTPATIENT [id number] annual eye exam - [id number] YVETTE CALDERON 03/21 Released w/o Limitations [address] [place], [place] [address]B ([facility]O ptometr y) Procedures Combined list of: 1) Procedures from Department of Veterans Affairs facilities going back up to [facility] 18 months, not all VA non-surgical procedures are included; 2) All procedures from the Department of Defense facilities. Procedure Procedure Type Code Date Perfomer Comments [facility] e Scanning Computerized Ophthalmic Diagnostic Imaging Retina Scanning Computerized Ophthalmic Diagnostic Imaging Retina 05494 015 YVETTE CALDERON DoD Determination Of Refractive State Determination Of Refractive State [id number] 015 YVETTE CALDERON DoD Ophthalmological Prior Patient Start Comprehensive Care Ophthalmological Prior Patient Start Comprehensive Care 97384 015 YVETTE CALDERON DoD Determination Of Refractive State Determination Of Refractive State 70328 013 TOYIN GRIFFITHS DoD Visual Delaney Test Intermediate Examination Visual Delaney Test Intermediate Examination 74519 013 TOYIN GRIFFITHS DoD Scanning Computerized Ophthalmic Diagnostic Imaging Retina Scanning Computerized Ophthalmic Diagnostic Imaging Retina 69291 013 TOYIN GRIFFITHS DoD Ophthalmological Prior Patient Start Comprehensive Care Ophthalmological Prior Patient Start Comprehensive Care 52310 013 TOYIN GRIFFITHS A DoD Scanning Computerized Ophthalmic Diagnostic Imaging Retina Scanning Computerized Ophthalmic Diagnostic Imaging Retina 51240 013 TOYIN GRIFFITHS A DoD Visual Delaney Test Extended Examination Visual Delaney Test Extended Examination 20001 013 TOYIN GRIFFITHS DoD Ophthalmological Prior Patient Start Intermediate Level Care Ophthalmological Prior Patient Start Intermediate Level Care 70209 013 TOYIN GRIFFITHS [facility] Determination Of Refractive State Determination Of Refractive State [address] TOYIN GRIFFITHS [facility] Scanning Computerized Ophthalmic Diagnostic Imaging Retina Scanning Computerized Ophthalmic Diagnostic Imaging Retina 24923 TOYIN GRIFFITHS [facility] Visual Delaney Test Intermediate Examination Visual Delaney Test Intermediate Examination 38861 TOYIN GRIFFITHS Ophthalmological New Patient Start Comprehensive Care Ophthalmological New Patient Start Comprehensive Care 34337 TOYIN GRIFFITHS [facility] OPHTHALMOLOGICAL SERVICES: MEDICAL EXAMINATION AND EVALUATION, WITH INITIATION OR CONTINUATION OF DIAGNOSTIC AND TREATMENT PROGRAM; COMPREHENSIVE, ESTABLISHED PATIENT, 1 OR MORE VISITS [facility] DETERMINATION OF REFRACTIVE STATE [facility] SCANNING COMPUTERIZED OPHTHALMIC DIAGNOSTIC IMAGING, POSTERIOR SEGMENT, WITH INTERPRETATION AND REPORT, UNILATERAL OR BILATERAL; RETINA [facility] DETERMINATION OF REFRACTIVE STATE [facility] No data available for this section Ambulato ry Pharmacy Social History Combined list of available smoking, tobacco, and other social history from Department of Defense and Veterans Affairs facilities. Social History Type Response Date Comment Sourc e This section is an empty social history section. DoD Assessment and Plan Combined list of future care activities from Department of Defense and Veterans Affairs facilities (e.g., assessment and plan notes, appointments, orders, and referrals). Additional future care activities may be listed in the Plan of Care section. Result Assessment and Plan Date Source Assessment and Plan No data available for this section 11/30/2024 Ambulatory Pharmacy Functional Status Combined list of recent functional and cognitive assessments recorded at Department of Defense and Veterans Affairs (VA).VA Functional [place] Measurement (FIM) Scale: 1 = Total Assistance (Subject = 0% +), 2 = Maximal Assistance (Subject = 25% +), 3 = Moderate Assistance (Subject = 50% +), 4 = Minimal Assistance (Subject = 75% +), 5 = Supervision, 6 = Modified [place] (Device), 7 = Complete [place] (Timely, Safely). Assessment Date/Time Source Assessment Type Assessment Skill Assessment Score Assessment Details No data available for this section
--- OUTSIDE RECORDS SUMMARY | 2024-11-30 10:43 | XMS_ITS | Clinical Summary ---
Author Organization [facility] Address [address] [place] [address] Phone Care Team Providers Care Ethical Hacker Name Role Phone Unavailable Primary Care Provider Unavailabl e Medications omeprazole (PriLOSEC) [address] capsule 1 qday 0 08/01/2018 Active tiotropium (SPIRIVA HANDIHALER) 18 MCG per inhalation capsule 1 qday 0 08/01/2018 Active montelukast (SINGULAIR) 10 MG tablet 1 qday 0 08/01/2018 Active fluticasone-salm eterol (ADVAIR DISKUS) 250-50 MCG/DOSE diskus inhaler 1 puff bid 0 08/01/2018 Active folic acid (FOLVITE) 1 MG tablet 1 qday 0 08/01/2018 Active adalimumab (HUMIRA PEN) 40 MG/0.8ML Pen-injector Kit twice a month 0 08/01/2018 Active rosuvastatin (CRESTOR) 10 MG tablet 1 qday 0 08/01/2018 Active Active Problems Problem Noted Date Diagnosed Date Other abnormal findings in urine 08/01/2018 Calculus of kidney 08/01/2018 Other specified rheumatoid arthritis of multiple sites 08/01/2018 Gastro-esophageal reflux disease without esophag itis 08/01/2018 Mixed hyperlipidemia 08/01/2018 Obstructive sleep apnea 08/01/2018 Chronic obstructive pulmonary disease 08/01/2018 Hyperglycemia 08/01/2018 Other specified depressive episode 08/01/2018 Immunizations Immunization Administration Dates Next Due Influenza TIV (IM) 08/02/2018 Pneumococcal Conjugate 13-Valent 08/02/2018 Family History Medical History Relation Comments Diabetes mellitus Father Heart disease Father Cerebrovascular accident Mother Malignant neoplastic disease Relative Malignant neoplastic disease Sibling Kidney disease Neg Hx Kidney stone Neg Hx Relation Status Comments Father Mother Relative Sibling Social History Tobacco Use Types Packs/Day Years Used Date Smoking Tobacco: Former Alcohol Use Standard Drinks/Week Comments No 0 (1 standard drink = 0.6 oz pur e alcohol) Comments Unknown Sex and Gender Information Value Date Recorded Sex Assigned at Not on file Legal Sex Female 8:15 AM MST Gender Identity Not on file Sexual Orientation Not on file Last Filed Vital Signs Vital Sign Reading Time Taken Comments Blood Pressure 132/78 09/15/2018 12:01 AM SANE NURSE Pulse - - Temperature 35.5 C (95.9 F) 09/15/2018 12:01 AM SANE NURSE Respiratory Rate - - Oxygen Saturation - - Inhaled Oxygen Concentration - - Weight 70.3 kg (155 lb) 09/15/2018 12:01 AM SANE NURSE Height 157.5 cm (5' 2 ) 09/15/2018 12:01 AM SANE NURSE Body Mass Index 28.35 09/15/2018 12:01 AM SANE NURSE Plan of Treatment Health Maintenance Due Date Last Done Comments Pneumococcal PPSV23/PCV13 65 + Years / Low and Medium Risk (2 of 3 - PPSV23) 08/02/2019 08/02/2018 Influenza Vaccine (Season Ended) 2025 08/02/19 19
--- OUTSIDE RECORDS SUMMARY | 2024-11-30 10:43 | XMS_ITS | Encounter Summary ---
Author Organization [facility] Address [address] [place] [address] Care Team Providers Care Build And Deployment Engineer Name Role Phone Patt Curtis MD Primary Care Provider [phone] Myrna Knapp MD Unavailable [phone] Reason for Visit * Reason Onset Date Comments MEDICATION REFILL 07/03/2023 Encounter Details Date Type Department Care Team (Late Contact Info) Description 07/03/2023 Refill [facility] - Rheumatology [address] [place] [phone] Parker Kennedy MD [address] [place] [phone] MEDICATION REFILL Social History Tobacco Use Types Packs/Day Years Used Date Smoking Tobacco: Former Cigarettes 1 40 Smokeless Tobacco: Never Comments:QUIT Aug, Alcohol Use Standard Drinks/Week Comments No 0 (1 standard drink = 0.6 oz pur e alcohol) QUIT IN 2001 PHQ-2 Answer Date Recorded PHQ2 TOTAL SCORE 0 11/05/2022 Comments No Sex and Gender Information Value Date Recorded Sex Assigned at Not on file Legal Sex Female 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 Gender Identity Not on file Sexual Orientation Not on file documented as of this encounter Plan of Treatment Upcoming Encounters Date Type Department Care Team (Late Contact Info) Description 12/14/2024 12:40 PM CDT Office Visit [facility] - Rheumatology [address] [place] [address], [place] [address] Myrna Knapp MD [address] [place] [address] [address] [place] [phone] 05/10/2025 11:30 AM CDT Office Visit [facility] - RN MATERNITY [address] [place] [phone] Aldo Muller MD [address] [place] [address] documented as of this encounter Visit Diagnoses Not on filedocumented in this encounter Care Teams Build And Deployment Engineer Relationship Specialty Start Date End Date Patt Curtis MD [facility] [place] [phone] PCP - General 08/07/22 Myrna Knapp MD [address] [place] [address] [address] [place] [phone] Hand Lacer Rheumatology 05/18/23 documented as of this encounter
--- OUTSIDE RECORDS SUMMARY | 2024-11-30 10:43 | XMS_ITS | Clinical Summary ---
Author Organization [facility] Address [address] [facility] [place] [address] Care Team Providers Care Social Work Associate Name Role Phone Patt Curtis MD Primary Care Provider [phone] Myrna Knapp MD Unavailable [phone] Source Comments [facility],non-owned Affiliates and Associated Physician Practices is amultiple site organization consisting of ambulatory clinics and hospital sitesin [place] and [place]. This disclosure is being madepursuant to the Care Everywhere program and may not contain all information available regarding this patient. Last updated 18.[facility] Allergies Active Allergy Reactions Criticality Noted Date Comments Sulfa Drugs Rash Medium 07/21/2012 Other reaction(s): Hives RASH AROUND MOUTH
Reaction(s): Unknown; Note: RASH AROUND MOUTH Medications * Be aware that medications may not be up to date on this document. Alwaysverify current medications with the patient. rosuvastatin (CRESTOR) 10 MG tablet Take 1 (one) tablet by mouth once daily Active fluticasone-salm eterol (ADVAIR) 250-50 MCG/DOSE inhaler Inhale by mouth 2 times daily Active montelukast (SINGULAIR) 10 MG tablet Take 1 (one) tablet by mouth as needed Active vitamin D3 (CHOLECALCIFEROL ) 5000 UNITS capsule Take 1 (one) capsule by mouth once daily Active cyanocobalamin (VITAMIN B-12) 100 MCG tablet Take 1 (one) tablet by mouth every 2 days Active Pyridoxine HCl (VITAMIN B-6 PO) Take 200 mg by mouth once daily Active Bitter Melon 10 % POWD Take 2 capsules by mouth once daily Active albuterol-ipratr opium (DUO-NEB) 0.5-2.5 (3) MG/3ML nebulizer solution ipratropium 0.5 mg-albuterol 3 mg (2.5 mg base)/3 mL nebulization soln Inhale 3 mL every day by nebulization route for 1 day. Active omeprazole (PriLOSEC) 40 MG capsule 09/28/19 24 Active Multiple Vitamins-Mineral s (PRESERVISION AREDS 2 PO) Active betamethasone dipropionate 0.05 % lotion For external use. 09/17/19 24 Active Spiriva Respimat 1.25 MCG/ACT AERS 03/24/20 24 Active Mouthwashes (BIOTENE PBF DRY MOUTH MT) Active Cranberry 50 MG Take 1 tablet by mouth once daily Active adalimumab (Humira) 40 MG/0.4ML injectionIndicat ions:Seropositiv e rheumatoid arthritis (HCC) Inject 0.4 mL subcutaneously every 14 days 1.6 mL 4 04/06/20 24 Active methotrexate 2.5 MG tabletIndication s:Seropositive rheumatoid arthritis (HCC),Trochanter ic bursitis of left hip Take 4 (four) tablets by mouth every 7 days 48 tablet 2 04/06/20 24 Active folic acid (Folvite) 1 MG tabletIndication s:Seropositive rheumatoid arthritis (HCC),Trochanter ic bursitis of left hip Take 1 (one) tablet by mouth once daily 90 tablet 3 04/06/20 24 Active albuterol HFA (Proventil; Ventolin; Proair) 108 (90 Base) MCG/ACT inhaler 06/09/20 24 Active benzonatate (Tessalon) 200 MG capsule Take 1 (one) capsule by mouth 3 times daily as needed for cough 07/28/19 25 Active azithromycin (Zithromax) 250 MG tablet 05/31/20 24 Active clobetasol (Temovate) 0.05 % ointment 06/09/20 24 Active miconazole (Micatin) 2 % cream APPLY TO AFFECTED AREA ON SCALP TWICE DAILY FOR 2 WEEKS 06/17/20 24 Active predniSONE (Deltasone) 10 MG tablet 05/31/20 24 Active estradiol (Estrace) 0.1 MG/GM vaginal cream Insert 1 gram into vaginal two nights per week 42.5 g 5 11/03/19 25 Active estradiol (Estrace) 0.1 MG/GM vaginal cream Insert 1 gram into vaginal two nights per week 42.5 g 5 01/25/20 24 025 Discontin ued(Reord er) Active Problems Problem Noted Date Diagnosed Date 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 Fofana/ Aria on 07/07/18 Rheumatoid arthritis 07/13/2018 longterm current use of immunosuppressive drug 07/13/2018 Therapeutic drug monitoring 07/13/2018 Atypical squamous cells of u ndetermined significance on cytologic smear of cervix (ASC-US) 06/30/2018 COPD (chronic obstructive pulmonary disease) 01/2015 Osteoarthrosis 04/06/2013 Osteoporosis 04/06/2013 Encounters Date Type Department Care Team Description 11/02/2024 11:30 AM CDT Office Visit [facility] - RESTAURANT ASSOCIATE [address] [place] [phone] Aldo Muller MD VAIN I (vaginal intraepithelial neoplasia grade I) (Primary Dx) 11/02/2024 Travel 10/26/2024 Orders Only [facility] - Rheumatology [address] [place] [phone] Myrna Knapp MD 09/02/2024 Orders Only [facility] - Rheumatology [address] [place] [phone] Myrna Knapp MD from Last 3 Months Immunizations Immunization Administration Dates Next Due FLU VACCINE TRI IIV3 SPLIT I M (FLUVIRIN) 04/20/2015,04/22/2014,05/06/2013,2011 INFLUENZA VACCINE 04/22/2019,04/16/2018,04/26/20 16 INFLUENZA VACCINE, ADJUVANTE D, QUADR. (FLUAD QUADRIVALENT; 65Y+) (AIIV4) 05/06/2023 INFLUENZA VACCINE, HIGH-DOSE , QUADR. (FLUZONE HIGH-DOSE QUADRIVALENT; 65Y+), 0.7 ML (HD-IIV4) 04/29/2017 PNEUMOCOCCAL PPV VACCINE 07/19/2013 Family History Medical History Relation Name Comments Cancer - Lung Brother 4 72 Relation Name Status Comments Brother 1 81 Alive Brother 2 58 Alive Brother 3 30 AUTOMOBILE ACCI DENT Brother 4 72 Brother 5 58 KIDNEY CA Father 81 Mother 79 Sister 1 83 Alive Sister 2 82 Alive Sister 3 65 Alive Social History Tobacco Use Types Packs/Day Years Used Date Smoking Tobacco: Former Cigarettes 1 40 Smokeless Tobacco: Never Comments:QUIT Aug, Alcohol Use Standard Drinks/Week Comments No 0 (1 standard drink = 0.6 oz pur e alcohol) QUIT IN 2001 PHQ-2 Answer Date Recorded Patient Health Questionnaire-2 Score 0 10/31/2024 Comments No Sex and Gender Information Value Date Recorded Sex Assigned at Not on file Legal Sex Female 6:03 AM CHART CALCULATOR Gender Identity Not on file Sexual Orientation Not on file Last Filed Vital Signs Vital Sign Reading Time Taken Comments Blood Pressure 122/64 11/02/2024 11:28 AM CDT Pulse 70 04/06/2024 12:28 PM CDT Temperature 36.6 C (97.8 F) 04/06/2024 12:28 PM CDT Respiratory Rate 20 05/21/2023 10:21 AM CDT Oxygen Saturation 96% 04/06/2024 12:28 PM CDT Inhaled Oxygen Concentration - - Weight 70.3 kg (155 lb) 11/02/2024 11:28 AM CDT Height 160 cm (5' 3 ) 11/02/2024 11:28 AM CDT Body Mass Index 27.46 11/02/2024 11:28 AM CDT Plan of Treatment Upcoming Encounters Date Type Department Care Team (Late st Contact Info) Description 12/14/2024 12:40 PM CDT Office Visit [facility] - Rheumatology [address] [facility] [place] [address] Myrna Knapp MD [address] [facility] 2L [place] [phone] 05/10/2025 11:30 AM CDT Office Visit [facility] - RESTAURANT ASSOCIATE [address] [place] [phone] Aldo Muller MD [address] [place] [address] Health Maintenance Due Date Last Done Comments BONE DENSITY TESTING 1945 MEDICARE AWV 12 MONTHS 1945 DTAP/TDAP/TD VACCINES (1 - Tdap) 1966 ZOSTER VACCINE (1 of 2) 1997 PNEUMOCOCCAL VACCINE 50+ (2 of 2 - PCV) 07/19/2014 07/19/2013 Respiratory Syncytial Virus (RSV) Vaccine Pt: or over 60 yrs (1 - 1-dose 75+ series) 2022 COVID-19 VACCINE ( - season) 2024 INFLUENZA VACCINE (Season Ended) 2025 05/06/2023, 04/22/2019, 04/16/2018, Additional history exists SCREENING FOR DIABETES 10/27/2027 , 09/02/2024, 07/06/2024, Additional history exists HEPATITIS C SCREENING Completed 05/02/2022 DEPRESSION SCREENING Completed 11/02/2024, 01/25/2024, 11/05/2022 HEPATITIS B VACCINE Aged Out No longe r eligible based on patient's age to complete this topic HIB VACCINE Aged Out No longer eligi ble based on patient's age to complete this topic HPV VACCINE Aged Out No longer eligi ble based on patient's age to complete this topic MENINGOCOCCAL (Group B) VACCINE SHARED DECISION-MAKING Aged Out No longer eligible based on patient's age to complete this topic MENINGOCOCCAL GROUPS A/C/Y/W VACCINE Aged Out No longer eligible based on patient's age to complete this topic Procedures Procedure Name Priority Date/Time Associated Diagnosis Comments PAP IMAGE-GUIDED RFLX HPV Routine 11/02/2024 12:38 PM CDT VAIN I (vaginal intraepithelial neoplasia grade I) C-REACTIVE PROTEIN 10/26/2024 1: 43 PM CDT URINALYSIS W/MICROSCOPIC REFLEX TO CULTURE 10/26/2024 1:43 PM CDT CBC W AUTO DIFFERENTIAL 10/26/2024 1:43 PM CDT ERYTHROCYTE SEDIMENTATION RATE 10/26/2024 1:43 PM CDT COMPREHENSIVE METABOLIC PANEL 10/26/2024 1:43 PM CDT CULTURE URINE REFLEXED III 10/26/2024 1:43 PM CDT C-REACTIVE PROTEIN 09/02/2024 1: 46 PM CHART CALCULATOR URINALYSIS W/MICROSCOPIC REFLEX TO CULTURE 09/02/2024 1:46 PM CHART CALCULATOR CBC W AUTO DIFFERENTIAL 09/02/2024 1:46 PM CHART CALCULATOR ERYTHROCYTE SEDIMENTATION RATE 09/02/2024 1:46 PM CHART CALCULATOR COMPREHENSIVE METABOLIC PANEL 09/02/2024 1:46 PM CHART CALCULATOR CULTURE URINE REFLEXED III 09/02/2024 1:46 PM CHART CALCULATOR HEPATITIS C AB W/RFLX TO HCV RNA QN PCR Routine 05/02/2022 11:28 AM CDT Seropositive rheumatoid arthritis Need for hepatitis B screening test Need for hepatitis C screening test from Last 3 Months or Most Recently Relevant to Health Maintenance Results * PAP IMAGE-GUIDED RFLX HPV (11/02/2024 12:38 PM CDT) Case Report Gynecologic Cytology Report Case: [id number] Authorizing Provider: Aldo Muller MD Collected: 11/02/2024 12:38 PM Ordering Location: [facility] - Received: 11/02/2024 12:38 PM RESTAURANT ASSOCIATE First Screen: Keon Charles CT(ASCP) Pathologist: Jesus Campbell MD Specimen: THINPREP - IMAGE GUIDED, Vagina 11/12/2024 9:24 AM CDT [facility] LMP N/A 11/12/2024 9:24 AM CDT [facility] Menstrual Status Postmenopausal 10/19 9:24 AM CDT [facility] Specimen Adequacy Satisfactory for evaluation. 11/12/2024 9:24 AM CDT [facility] Categorization Epithelial cell abnormality. 11/12/2024 9:24 AM CDT [facility] Interpretation SPLICER HELPER Low grade squamous intraepithelial lesion (LSIL). 11/12/2024 9:24 AM CDT [facility] at 0924 CDT Pap Footnote The Pap Smear is a screening test. False positive and false negative results occur. Negative results do not preclude abnormalities, thus clinical correlation is required. This specimen was evaluated by the ThinPrep Imaging System along with an additional manual rescreening by a hydraulic hammer operator and/or pathologist. 11/12/2024 9:24 AM CDT [facility] Pathology/Cytolo gy ENTIRE VAGINA / Unknown Collection / Unknown 11/02/2024 12:38 PM CDT 11/02/2024 12:38 PM CDT us Aldo Muller MD LAB - PATHOLOGY/CYTOLOGY ORDERAB LES Final Result [facility] [address] [place], [place] [id number] [place] [address] * CULTURE URINE REFLEXED III (10/26/2024 1:43 PM CDT) Only the most recent of2 resultswithin the time period is included. Reflexive Urine Culture See Below [facility] Comment: NO CULTURE INDICATED Test Performed at: [facility] [address] DONNA MAK MD 10/26/2024 1:43 PM CDT 10/26/2024 1:44 PM CDT Myrna Knapp MD LAB - MICROBIOLOGY ORD ERABLES Final Result Performing Organization Address [facility] Co de Phone Number [address] [address] * (ABNORMAL) URINALYSIS W/MICROSCOPIC REFLEX TO CULTURE (10/26/2024 1:43 PM CDT) Only the most recent of2 resultswithin the time period is included. Color UA DARK YELLOW YELLOW [facility] Appearance CLOUDY(A) CLEAR [facility] Specific Weiser UA 1.027 1.001 - 1.035 [facility] pH UA 5.5 5.0 - 8.0 [facility] Glucose UA NEGATIVE NEGATIVE [facility] Bilirubin UA NEGATIVE NEGATIVE [facility] Ketone UA TRACE(A) NEGATIVE [facility] Blood UA NEGATIVE NEGATIVE [facility] Protein UA TRACE(A) NEGATIVE [facility] Nitrite NEGATIVE NEGATIVE [facility] Leukocyte Esterase NEGATIVE NEGATIVE [facility] WBC UA NONE SEEN < OR = 5 /HPF [facility] RBC UA 10-20(A) < OR = 2 /HPF [facility] Epithelial Cell UA 0-5 < OR = 5 /HPF [facility] Bacteria UA FEW(A) NONE SEEN /HPF [facility] Calcium Oxalate Crystals MANY(A) NONE OR FEW /HPF [facility] Hyaline Casts 0-5(A) NONE SEEN /LPF [facility] Note See Below [facility] Comment: This urine was analyzed for the presence of WBC, RBC, bacteria, casts, and other formed elements. Only those elements seen were reported. Test Performed at: [facility] [address] DONNA MAK MD 10/26/2024 1:43 PM CDT 10/26/2024 1:44 PM CDT Myrna Knapp MD LAB - URINALYSIS ORDER PRAVIN Final Result Performing Organization Address [facility]/ZIP Co de Phone Number [address] [address] * C-REACTIVE PROTEIN (10/26/2024 1:43 PM CDT) Only the most recent of2 resultswithin the time period is included. [facility] C-Reactive Protein 3.3 <8.0 mg/L [facility] Comment: Test Performed at: [facility] [facility] [place] [address] DONNA MAK MD 10/26/2024 1:43 PM CDT 10/26/2024 1:44 PM CDT Myrna Knapp MD LAB - CHEMISTRY ORDERA BLES Final Result Performing Organization Address [facility] de Phone Number [facility] [address] [place] [address] * ERYTHROCYTE SEDIMENTATION RATE (10/26/2024 1:43 PM CDT) Only the most recent of2 resultswithin the time period is included. [facility] Erythrocyte Sedimentation Rate Westergren 14 < OR = 30 mm/h [facility] Comment: Test Performed at: [facility] [address] [address] DONNA MAK MD 10/26/2024 1:43 PM CDT 10/26/2024 1:44 PM CDT Myrna Knapp MD LAB - HEMATOLOGY ORDER PRAVIN Final Result Performing Organization Address City/[facility] Co de Phone Number [facility] [address] [place] [address] * CBC WITH DIFFERENTIAL (10/26/2024 1:43 PM CDT) Only the most recent of2 resultswithin the time period is included. Pathologist [facility] White Blood Cell Count 6.8 3.8 - 10.8 Thousand/u L [facility] RBC 4.05 3.80 - 5.10 Million/uL [facility] Hemoglobin 13.0 11.7 - 15.5 g/dL [facility] Hematocrit 38.5 35.0 - 45.0 % [facility] MCV 95.1 80.0 - 100.0 fL [facility] MCH 32.1 27.0 - 33.0 pg [facility] MCHC 33.8 32.0 - 36.0 g/dL [facility] Comment: For adults, a slight decrease in the calculated MCHC value (in the range of 30 to 32 g/dL) is most likely not clinically significant; however, it should be interpreted with caution in correlation with other red cell parameters and the patient's clinical condition. RDW 13.5 11.0 - 15.0 % [facility] Platelet Count 311 140 - 400 Thousand/u L [facility] MPV 11.0 7.5 - 12.5 fL [facility] Neutrophil Absolute 3407 1500 - 7800 cells/uL [facility] Absolute Bands [facility] Metamyelocytes Absolute [facility] Myelocytes Absolute [facility] Absolute Prolymphocytes [facility] Lymphocytes Absolute 2509 850 - 3900 cells/uL [facility] Absolute Monocytes 660 200 - 950 cells/uL [facility] Eosinophils Absolute 184 15 - 500 cells/uL [facility] Basophils Absolute 41 0 - 200 cells/uL [facility] Absolute Blasts [facility] nRBC Absolute [facility] Granulocytes % 50.1 % [facility] Band Neutrophil [facility] Metamyelocytes [facility] Myelocytes [facility] Promyelocytes [facility] Lymphocytes % 36.9 % [facility] Lymphocyte Reactive [facility] Monocytes % 9.7 % [facility] Eosinophils % 2.7 % [facility] Basophils % 0.6 % [facility] Comment: Test Performed at: [facility] [facility] [employer] [facility] [address] DONNA MAK MD Blasts [facility] nRBC [facility] Comments [facility] Comment: Test Performed at: [employer] [address] DONNA MAK MD 10/26/2024 1:43 PM CDT 10/26/2024 1:44 PM CDT Myrna Knapp MD LAB - HEMATOLOGY ORDER PRAVIN Final Result [facility] [id number] [place] [address] * (ABNORMAL) COMPREHENSIVE METABOLIC PANEL (10/26/2024 1:43 PM CDT) Only the most recent of2 resultswithin the time period is included. Glucose 130(H) 65 - 99 mg/dL [facility] Comment: Fasting reference interval For someone without known diabetes, a glucose value >125 mg/dL indicates that they may have diabetes and this should be confirmed with a follow-up test. BUN 17 7 - 25 mg/dL [facility] Creatinine 0.72 0.60 - 1.00 mg/dL [facility] eGFR by Cystatin C 86 > OR = 60 mL/min/1. 73m2 [facility] BUN/Creatinine Ratio SEE NOTE: 6 - 22 (calc) [facility] Comment: Not Reported: BUN and Creatinine are within reference range. Sodium 141 135 - 146 mmol/L [facility] Potassium 3.7 3.5 - 5.3 mmol/L [facility] Chloride 100 98 - 110 mmol/L [facility] CO2 33(H) 20 - 32 mmol/L [facility] Calcium 9.4 8.6 - 10.4 mg/dL [facility] Protein Total 6.7 6.1 - 8.1 g/dL [facility] Albumin 4.1 3.6 - 5.1 g/dL [facility] Globulin Total 2.6 1.9 - 3.7 g/dL (calc) [facility] Albumin/Globulin Ratio 1.6 1.0 - 2.5 (calc) [facility] Bilirubin Total 0.6 0.2 - 1.2 mg/dL [facility] Alkaline Phosphatase 84 37 - 153 U/L [facility] AST 19 10 - 35 U/L [facility] ALT 24 6 - 29 U/L [facility] Comment: Test Performed at: [facility] [address] [place] [address] DONNA MAK MD 10/26/2024 1:43 PM CDT 10/26/2024 1:44 PM CDT Myrna Knapp MD LAB - CHEMISTRY ORDERA BLE Final Result [facility] [address] [place] [address] * HEPATITIS C AB W/RFLX TO HCV RNA QN PCR (05/02/2022 11:28 AM CDT) Hepatitis C Antibody NON-REACTI VE NON-REACT RICARDO [facility] Signal to Cut-Off 0.03 <1.00 [facility] Comment: HCV antibody was non-reactive. There is no laboratory evidence of HCV infection. In most cases, no further action is required. However, if recent HCV exposure is suspected, a test for HCV RNA (test code 02209) is suggested. For additional information please refer to http://education.[employer]/faq/IDE25w8 (This link is being provided for informational/ educational purposes only.) Test Performed at: [facility] [address] [address] SONDRA MURILLO DO,MPH Blood BLOOD SPECIMEN / Unknown 05/02/2022 11:28 AM CDT 05/02/2022 11:31 AM CDT Francisco Drake MD LAB - CHEMISTRY ORDERABLES Final Result [facility] [id number] [place] [address] from Last 3 Months or Most Recently Relevant to Health Maintenance Insurance MEDICARE MEDICARE [facility] Care Teams Social Work Associate Relationship Specialty Start Date End Date Patt Curtis MD [address] [place] [phone] PCP - General 08/07/22 Myrna Knapp MD [address] [address] [employer] Rheumatology 05/18/23
--- OUTSIDE RECORDS SUMMARY | 2024-11-30 10:43 | XMS_ITS | Encounter Summary ---
Author Organization [facility] Address [address] [facility] [facility] [place] [address] Care Team Providers Care Planner/Scheduler Name Role Phone Alena Thakur Primary Care Provider + Patt Curtis MD Primary Care Provider [phone] Myrna Knapp MD Unavailable [phone] Encounter Details Date Type Department Care Team (Late Contact Info) Description 08/09/2021 Lab Requisition [facility] [address] [place] [phone] David Sagastume MD [address] [place] [address] Social History Tobacco Use Types [...] on file Legal Sex Female 6:03 AM HEARING DOG TRAINER Gender Identity Not on file Sexual Orientation Not on file documented as of this encounter Plan of Treatment Upcoming Encounters Date Type Department Care Team (Late Contact Info) Description 12/14/2024 12:40 PM CDT Office Visit [facility] - [place]umatology [address] [facility] [place] [phone] Myrna Knapp MD [address] [facility] 2L [place] [address] 05/10/2025 11:30 AM CDT Office Visit [facility] - EDUCATIONAL INSTITUTION CURATOR [address] [place] [phone] Aldo Muller MD [address] [facility] [address] [place] [address] documented as of this encounter Procedures Procedure Name Priority Date/Time Associated Diagnosis Comments DERMATOPATHOLOGY Routine 08/07/2021 12:0 0 AM HEARING DOG TRAINER documented in this encounter Results * DERMATOPATHOLOGY (08/07/2021 12:00 AM HEARING DOG TRAINER) Case Report Dermatopathology Report Case: [id number] Authorizing Provider: David Sagastume MD Collected: 08/07/2021 12:00 AM Ordering Location: [facility] Received: 08/09/2021 01:05 PM Pathologist: Mitzy Cordoba MD Specimen: Skin, posterior vertex scalp 2 5:15 PM HEARING DOG TRAINER DERMATOPATHOLOGY LABORATORY Final Diagnosis Specimen A. SKIN, posterior vertex scalp: HYPERPLASTIC (HYPERTROPHIC) ACTINIC KERATOSIS, LICHENOID (L57.0) 2 5:15 PM HEARING DOG TRAINER DERMATOPATHOLOGY LABORATORY Clinical History R/O SCC, Youngblood's disease. 2 5:15 PM HEARING DOG TRAINER DERMATOPATHOLOGY LABORATORY Gross Description Specimen A: Received is one formalin filled container labeled with the patient's name and designated posterior vertex scalp. The specimen consists of a shave biopsy measuring [id number]. Jar 0+. 2 5:15 PM HEARING DOG TRAINER DERMATOPATHOLOGY LABORATORY Microscopic Description Specimen A. SKIN, posterior vertex scalp: There is hyperkeratosis alternating with parakeratosis. There is epidermal hyperplasia with disorderly maturation of keratinocytes with nuclear pleomorphism confined to the lower half of the epidermis. The dermis shows a band-like, chronic inflammatory infiltrate with occasional apoptotic keratinocytes and some basal vacuolar alteration. 2 5:15 PM [facility] DERMATOPATHOLOGY LABORATORY Disclaimer An external and internal positive and negative controls are appropriate for the histochemical, immunohistochemical and immunofluorescence stain(s) in this case (if any), except where stated explicitly. The performance characteristics of the stain(s) cited in this report were developed and its performance characteristic determined by the Dermatopathology Laboratory at [facility], directed by Dr. Donald Wills. These tests need not be, and therefore are not, approved by the [place] Food and Drug Administration. The tests are used for clinical purposes. Billing Codes Specimen Charges Stain Charges 31858 1 2 5:15 PM [facility] DERMATOPATHOLOGY LABORATORY Embedded Images 2 5:15 PM [facility] DERMATOPATHOLOGY LABORATORY Pathology/Cytolog y TISSUE SPECIMEN FROM SKIN / Unknown 08/07/2021 08/09/2021 1:05 PM HEARING DOG TRAINER David Sagastume MD LAB - PATHOLOGY/CYTOLOGY ORD ERABLES Final Result DERMATOPATHOLOGY LABORATORY [facility] - Department of Dermatology [address] [phone] documented in this encounter Visit Diagnoses Not on filedocumented in this encounter Care Teams Planner/Scheduler Relationship Specialty Start Date End Date Alena Thakur APRN-AIR CARRIER OPERATIONS INSPECTOR [address] [phone] PCP - General 02/17/18 08/06/22 Patt Curtis MD [address] [place] [address] [address] [place] [phone] PCP - General 08/07/22 Myrna Knapp MD [address] [place] [address] [place] [address] [employer] Rheumatology 05/18/23 documented as of this encounter
--- OUTSIDE RECORDS SUMMARY | 2024-11-30 10:43 | XMS_ITS | Encounter Summary ---
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 - LABORER CEMENT GUN PLACING [address] [facility] [address] [place] [address] Aldo Muller MD [address] [place] [address] documented as of this encounter Procedures Procedure Name Priority Date/Time Associated Diagnosis Comments DERMATOPATHOLOGY Routine 09/08/2023 3:33 AM MACHINE OPERATOR FARMWORKER documented in this encounter Results * DERMATOPATHOLOGY (09/08/2023 3:33 AM MACHINE OPERATOR FARMWORKER) Case Report Dermatopathology Report Case: [id number] Authorizing Provider: David Sagastume MD Collected: 09/08/2023 03:33 AM Ordering Location: [facility] Received: 09/10/2023 07:40 AM Pathologist: Renee Diana MD Specimens: A) - Skin, post vertex scalp B) - Skin, mid vertex scalp C) - Skin, ant vertex scalp 4 2:13 PM MACHINE OPERATOR FARMWORKER DERMATOPATHOLOGY LABORATORY Final Diagnosis Specimen A. SKIN, post vertex scalp: DERMAL SCAR WITH LYMPHOPLASMACYTIC INFLAMMATION AND IMPETIGINIZED SCALE CRUST (L90.5) (see microscopic description and comment) Specimen B. SKIN, mid vertex scalp: DERMAL SCAR WITH LYMPHOPLASMACYTIC INFLAMMATION AND IMPETIGINIZED SCALE CRUST(L90.5) (see microscopic description and comment) Specimen C. SKIN, ant vertex scalp: FIBROSING GRANULATION TISSUE WITH LYMPHOPLASMACYTIC INFLAMMATION AND IMPETIGINIZED SCALE CRUST (L90.5) (see microscopic description and comment) 4 2:13 PM MACHINE OPERATOR FARMWORKER DERMATOPATHOLOGY LABORATORY Clinical History A-C: R/O SCC vs SCCIS vs HAK 4 2:13 PM MACHINE OPERATOR FARMWORKER DERMATOPATHOLOGY LABORATORY Gross Description Specimen A: Received is one formalin filled container labeled with the patient's name and designated post vertex scalp. The specimen consists of a shave biopsy measuring 8x6x2 mm. Jar 0. Specimen B: Received is one formalin filled container labeled with the patient's name and designated mid vertex scalp. The specimen consists of a shave biopsy measuring 8x7x1 mm. Jar 0. Specimen C: Received is one formalin filled container labeled with the patient's name and designated ant vertex scalp. The specimen consists of a shave biopsy measuring 9x8x2 mm. Jar 0. 4 2:13 PM [facility] DERMATOPATHOLOGY LABORATORY Microscopic Description Specimen A. SKIN, post vertex scalp: There are fibroblasts and collagen bundles oriented parallel to the skin surface with elongated blood vessels, some of which are oriented perpendicular to the skin surface. There is a lymphoplasmacytic infiltrate within the dermis. There is overlying serum with parakeratosis and neutrophils. Specimen B. SKIN, mid vertex scalp: There are fibroblasts and collagen bundles oriented parallel to the skin surface with elongated blood vessels, some of which are oriented perpendicular to the skin surface. There is a lymphoplasmacytic infiltrate within the dermis. There is overlying serum with parakeratosis and neutrophils. Specimen C. SKIN, ant vertex scalp: There are an increased number of fibroblasts, dilated blood vessels, and a mixed inflammatory cell infiltrate containing numerous plasma cells in an edematous stroma. There is overlying serum with parakeratosis and neutrophils. COMMENT: Definitive changes of actinic keratosis and carcinoma are not observed in these specimens. These findings could be seen secondary to recently field therapy, if this is relevant. I also considered the possibility of erosive pustular dermatosis of the scalp. Clinicopathologic correlation is recommended. 4 2:13 PM [facility] DERMATOPATHOLOGY LABORATORY Disclaimer An external and internal positive and negative controls are appropriate for the histochemical, immunohistochemical and immunofluorescence stain(s) in this case (if any), except where stated explicitly. The performance characteristics of the stain(s) cited in this report were developed and its performance characteristic determined by the Dermatopathology Laboratory at [facility], directed by Dr. Donald Wills. These tests need not be, and therefore are not, approved by the [place] Food and Drug Administration. The tests are used for clinical purposes. Billing Codes Specimen Charges Stain Charges 05219 [id number] 1 1 1 4 2:13 PM MACHINE OPERATOR FARMWORKER DERMATOPATHOLOGY LABORATORY Embedded Images 4 2:13 PM MACHINE OPERATOR FARMWORKER DERMATOPATHOLOGY LABORATORY Pathology/Cytology TISSUE SPECIMEN FROM SKIN / Unknown 09/08/2023 3:33 AM MACHINE OPERATOR FARMWORKER 09/10/2023 7:40 AM MACHINE OPERATOR FARMWORKER Miscellaneous samples (specimen) TISSUE SPECIMEN FROM SKIN / Unknown 09/08/2023 3:33 AM MACHINE OPERATOR FARMWORKER 09/10/2023 7:40 AM MACHINE OPERATOR FARMWORKER Miscellaneous samples (specimen) TISSUE SPECIMEN FROM SKIN / Unknown 09/08/2023 3:33 AM MACHINE OPERATOR FARMWORKER 09/10/2023 7:40 AM MACHINE OPERATOR FARMWORKER David Sagastume MD LAB - PATHOLOGY/CYTOLOGY ORD ERABLES Final Result DERMATOPATHOLOGY LABORATORY [facility] - Department of Dermatology [facility] Medicine [address] [facility], 3rd Floor [address] [phone] documented in this encounter Visit Diagnoses Not on filedocumented in this encounter Care Teams Ham Stringer Relationship Specialty Start Date End Date Patt Curtis MD [address] [place] [address] [address] [place] [address] PCP - General 08/07/22 Myrna Knapp MD [address] [place] [address] [place] [address] Therapeutic Sales Specialist Rheumatology 05/18/23 documented as of this encounter
--- OUTSIDE RECORDS SUMMARY | 2024-11-30 10:43 | XMS_ITS | Clinical Summary ---
Author Organization [facility] Address [address], [facility] [address] [place] [address] Phone Care Team Providers Care Adolescent Specialist Name Role Phone Alena Thakur APRN Primary Care Provider [phone] Medications pantoprazole (PROTONIX) 40 MG Tablet Delayed Response Take 1 Tab by mouth 2 times daily. 30 Tab 09/16/2019 Active Social History Tobacco Use Types Packs/Day Years Used Date Smoking Tobacco: Never Assessed Comments Unknown Sex and Gender Information Value Date Recorded Sex Assigned at Not on file Legal Sex Female 10:21 PM CDT Gender Identity Not on file Sexual Orientation Not on file Plan of Treatment Health Maintenance Due Date Last Done Comments DEXA Bone Density 1945 Hepatitis C Virus (HCV) Screening 1945 TdaP Immunization 1945 Pneumococcal Immunization (5 0+ years) (1 of 1 - PCV) 1997 Zoster Immunization (1 of 2) 1997 Respiratory Syncytial Virus (RSV) Immunization (Adult) (1 - 1-dose 75+ series) 2022 Influenza Immunization (#1) 2024 SARS-COV-2 Immunization ( - 2023- season) 2024 Colonoscopy High Risk Discontinued 09/22/2019 Colonoscopy Discontinued 09/22/2019 Colorectal Cancer Screening Discontinued Cologuard Discontinued Hepatitis B Immunization Aged Out No longer eligible based on patient's age to complete this topic Immunochemical Fecal Occult Blood Discontinued Meningococcal Immunization (ACWY) Aged Out No longer eligible based on patient's age to complete this topic Rotavirus Immunization Aged Out No lo nger eligible based on patient's age to complete this topic Procedures Procedure Name Priority Date/Time Associated Diagnosis Comments COLONOSCOPY Routine 09/22/2019 from Last 3 Months or Most Recently Relevant to Health Maintenance Results * COLONOSCOPY (09/22/2019) Jacobo Singletary DO PROCEDURE/MINOR SURGICAL ORDERA BLES Final Result from Last 3 Months or Most Recently Relevant to Health Maintenance Insurance MEDICARE [facility] F[employer]print [facility] Care Teams Adolescent Specialist Relationship Specialty Start Date End Date Alena Thakur APRN PCP - General Advanced Practice Nurse 09/16/19
--- OUTSIDE RECORDS SUMMARY | 2024-11-30 10:43 | XMS_ITS | Encounter Summary ---
Author Organization [facility] Address [address] [place] [address] Care Team Providers Care Membership Assistant Name Role Phone Alena Thakur APRN-CURRICULUM SUPERVISOR Primary Care Provider + Patt Curtis MD Primary Care Provider [phone] Myrna Knapp MD Unavailable [phone] Reason for Visit * Reason Onset Date Comments Refill Request 01/21/2022 Encounter Details Date Type Department Care Team (Late st Contact Info) Description 01/21/2022 Refill [facility] [address] [facility], [facility] [place] [address] Marcelle Zafar MD [address] [place] [address] Refill Request Social History Tobacco Use Types Packs/Day Years [...] on file 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 Gender Identity Not on file Sexual Orientation Not on file documented as of this encounter Miscellaneous Notes * Telephone Encounter - Dyan Cano RN - 01/22/2022 8:52 AM CDT Refill Request Cassie Bone MADIE: 05/07/21 NOV scheduled: Visit date not found LRF: Humira (08/06/21), Folic acid (08/09/21), Meloxicam (03/06/20) Qty Disp: Humira (not listed), Folic acid (90 tab), Meloxicam (90 tab) # of refills: Humira (not listed), Folic acid (3), Meloxicam (1) Labs: 12/21/21 Allergies: Allergies Allergen Reactions â€¢ Sulfa Drugs Rash Other reaction(s): Hives â€¢ Hydrocodone-Acetaminophen Nausea and/or Vomiting Only the one with the red specks â€¢ Leflunomide Urticaria With 20 mg; no issues with 10 mg dose Pended Medication Order: Requested Prescriptions Pending Prescriptions Disp Refills â€¢ meloxicam (MOBIC) 15 MG tablet 90 tablet 1 Sig: Take 1 (one) tablet by mouth nightly as needed â€¢ folic acid (FOLVITE) 1 MG tablet 90 tablet 3 Sig: Take 1 (one) tablet by mouth once daily â€¢ HUMIRA PEN 40 MG/0.8ML injection 4.8 mL 1 Sig: Inject 0.8 mL subcutaneously every 14 days * Telephone Encounter - Natalie Andrea - 01/21/2022 3:23 PM CDT Patient called in requesting a Med refill. Drug type: HUMIRA PEN 40 MG/0.8ML injection Patient would like 60 or 90 day supply so she won't have to drive over as much meloxicam (MOBIC) 15 MG tablet folic acid (FOLVITE) 1 MG tablet Pharmacy: [facility] [address] [facility] [place] [address] [phone] Patient call back number: [phone] documented in this encounter Plan of Treatment Upcoming Encounters Date Type Department Care Team (Late st Contact Info) Description 12/14/2024 12:40 PM CDT Office Visit [facility] - Rheumatology [address] [facility], [place] [phone] Myrna Knapp MD [address] [facility] 2L [place] [address] 05/10/2025 11:30 AM CDT 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 [address] [place] [address] documented as of this encounter Visit Diagnoses Diagnosis Seropositive rheumatoid arthritis (HCC) Rheumatoid arthritis Trochanteric bursitis of left hip Enthesopathy of hip region documented in this encounter Care Teams Membership Assistant Relationship Specialty Start Date End Date Alena Thakur APRN-CLAY [address] [address] PCP - General 02/17/18 08/06/22 Patt Curtis MD [address] [place] [address]. [address] [place] [address] PCP - General 08/07/22 Myrna Knapp MD [address] [place] [address] 2L [place] [phone] Turning Machine Set Up Operator Rheumatology 05/18/23 documented as of this encounter
--- OUTSIDE RECORDS SUMMARY | 2024-11-30 10:43 | XMS_ITS | Continuity of Care Document ---
Author Organization [facility] Address [address] [facility] [place] [address] Phone Care Team Providers Care Cripple Worker Name Role Phone Gary Andrews DO Unavailable Unavailable Allergies, Adverse Reactions, Alerts Substance Reaction Status Criticality Sulfa (Sulfonamide Antibiotics) Rash Active No Information Procedures Procedure Date Offic/outpt E&m [place] [address] 6 Advance Directives Directive Yes / No Effective Date File Name No Information Encounters Encounter Description Practice Location Reason(s) For Visit Diagnoses Date Provider Providers Copied on Encounter [facility] , [address] [facility] [address] [facility], [id number], [place] tel:[phone] MISSY Ramirez No Information Darryl Vega. [address], [place] [address], [id number], [place]. tel:[phone] Referring Provider: Gary Irby, [address] [facility] [place] [address], [place], [address] [place] [address]. tel:[phone] Offic/outpt E&m [address] , [address] [place] [address], [place], [id number], [place] tel:[phone] MISSY Ramirez Dysphagia (chief complaint) Esophagitis, unspecified Darryl Vega. [address], [place], [place], [id number], [place]. tel:[phone] Referring Provider: Gary Irby, [address] [place] [address], [address]. tel:[phone] Family History Family Member Type Diagnosis Age At Onset Problem (finding) Family history of alcoh olism Problem (finding) Family history of strok e Problem (finding) Family history of malignant neoplasm of kidney Problem (finding) No family history of Ca ncer, colon Problem (finding) Family history of osteo arthritis Problem (finding) Family history of malignant neoplasm of lung Problem (finding) Family history of diabetes mellitus type 2 Payers Payer name Insurance type Covered republican ID Authoriza tion(s) Medicare Claims Administrators [id number] [employer] [facility] [id number] Social History Type Description Quantity Date Captured Comments Sex Female Smoking Status No Information Chief Complaint And Reason For Visit No Information Reason For Referral Reason For Referral No Information History Of Present Illness Encounter Date Complaint History Of Prese nt Illness Dysphagia (comments) GI doc told them he didn't know what to do and that she should go to [place]. They looked into it here but they wouldn't take her insurance. She takes her PPI only prn and has an extensive immunologic hx of being on multiple immunosuppressants Dysphagia The difficulty i n swallowing began 2 years ago. The symptoms are severe and occur constantly. The symptoms occur with solids and liquids. The patient has a history of reflux. There is no history of Burt's esophagus. The patient is also experiencing food sticking, forced regurgitation and heartburn. The patient denies anorexia, back pain, chest pain, choking, cough, decreased appetite, early satiety, epigastric pain, hoarseness, nausea, sore throat, vomiting or weight loss. Additional information: she had an EGD in 2012 with mild stricture. EE considred but path was neg. Had another EGD Jun 2015 with marked changes. Tight stricturing throughout and scope couldn't be passed. 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 Functional Status Date Functional Assessmen t No Information Instructions Date Instruction Additional Infor mation No Information Assessments Type Assessment Date No Information Patient Care Teams Name Effective Dates (start - stop) Status Members No Information
== END 2024-11-30 10:10 | disposition home or self-care (01) ==
LOC: ANHIMG 10:23
PROVIDERS: PCP Physician Assistant; Visit Provider Internal Medicine Rheumatology
DX: M05.9 Rheumatoid arthritis with rheumatoid factor, unspecified (principal); M70.62 Trochanteric bursitis, left hip; Z79.899 Other long term (current) drug therapy; M81.0 Age-related osteoporosis without current pathological fracture; M85.852 Other specified disorders of bone density and structure, left thigh; M85.851 Other specified disorders of bone density and structure, right thigh
CPT/HCPCS: 77080

== ENCOUNTER 2025-01-04 13:30 | Outpatient (CLI) | payer MEDICARE, OTHER, SELFPAY ==
--- NOTE | ~2025-01-04 | MM_ITS ---
EXAMINATION: MM screening [facility] BI w jennifer HISTORY: Screening TECHNIQUE: Craniocaudal and mediolateral oblique 3-D tomosynthesis images were obtained and synthetic 2-D images were generated. CAD analysis was submitted and interpreted. COMPARISON: Comparison to multiple prior studies sequentially, with oldest reviewed study dated 03/17. BREAST PARENCHYMAL COMPOSITION: Not dense: There are scattered areas of fibroglandular density. FINDINGS: There is no evidence of suspicious mass, calcification, or architectural distortion to sugg est malignancy in either breast. There has been no suspicious interval change. IMPRESSION: 1. No mammographic evidence of malignancy. 2. Recommend routine screening mammography in one year. BI-RADS Category 1: Negative Reviewed, dictated and finalized at location A.
--- OUTSIDE RECORDS SUMMARY | 2025-01-04 15:19 | XMS_ITS | Continuity of Care Document ---
Author Name [facility] Organization [facility] Care Team Providers Care Motion Picture Critic Name Role Phone [facility] Unavailable Unavailable Problems Combined list of problems [...] with your doctor before becoming . 09/21/2024 [id number] 4 2023 [facility] ([facility]) albuterol 2.5mg/3mL (0.083%) inhalation soln (3mL) See [...] 4 2024 60.0 Ambulat ory Pharmac y ciprofloxac in 500 mg tablet 500 mg, [...] & CO., 2.4 ml SYRINGE Cancele d [id number] : 2023 0 Pharmac y Data Transac [...] (adalimumab ), 40MG/0.4ML, PEN IJ KIT, SUBCUT, BookTour, 2 ea. KIT Cancele d [id number] 4 [id number] : 2023 0 Pharmac y Data Transac tion Service Facilit y HUMIRA(CF) PEN (adalimumab ), 40MG/0.4ML, PEN IJ KIT, SUBCUT, BookTour, 2 ea. KIT Cancele d [id number] : 2023 0 Pharmac y Data Transac tion Service Facilit y HUMIRA(CF) PEN (adalimumab ), 40MG/0.4ML, PEN IJ KIT, SUBCUT, BookTour, 2 ea. KIT Cancele d [id number] : 2023 0 Pharmac y Data Transac tion Service Facilit y HUMIRA(CF) PEN (adalimumab ), 40MG/0.4ML, PEN IJ KIT, SUBCUT, BookTour, 2 ea. KIT Active [id number] 4 2023 4 Pharmac y Data Transac tion Service Facilit y HUMIRA(CF) PEN (adalimumab ), 40MG/0.4ML, PEN IJ KIT, SUBCUT, BookTour, 2 ea. KIT Active [id number] 4 2023 4 Pharmac y Data Transac [...] als), 100 MG, CAPSULE, ORAL, HARIS HYATT ND, 100 ea. BOTTLE Cancele d [id number] 4 [id number] : 2023 0 Pharmac y Data Transac tion Service Facilit y ofloxacin 0.3% eye drops [5mL] See Instruct ions, # 5 mL, 1 total refill(s ), Soft Stop Ordered 5 2024 5.0 Ambulat ory Pharmac y omeprazole DR 40 mg capsule 40 mg, [...] [facility]., 30 ea. BLIST PACK Active [id number] 4 2023 30 Pharmac y Data Transac [...] with your doctor before becoming . 11/22/2024 [id number] 4 2023 12 [facility] ([facility]) tiotropium 1.25 mcg inhaler (4g, 60 inh) [...] HYDROCODONE BIT Drug allergy (disorder) active [address] [place] [address] HYDROcodone Propensity to adverse reactions to drug Active NAUSEA
Reactio n(s): Unknown; Note: NAUSEA Unknown Organizati on sulfa drugs Propensity to adverse reactions to drug Active RASH AROUND MOUTH<br/ >Reaction (s): Unknown; Note: RASH AROUND MOUTH Unknown Organizati on SULFA-DRUGS Drug allergy (disorder) active [address] [place] [address] Encounters Combined list of: 1) Encounters from Department of Veterans Affairs facilities going backup to the last 18 months, not all [place] inpatient encounters are included; 2) Encounters from the Department of [facility] facilities going backup to 280 months. Location Location Details Encounter Type Encounter Number Reason For Visit Attending Provider ADM Date DC Date Status Disposition Source [address] [place] [address])(Opt ometry) OUTPATIENT [id number] annual TOYIN GRIFFITHS 08/18 Released w/o Limitations [address] [place] [address]B ([facility])(O ptometr y) [address] [place], [place] [address]B [facility]Opt [place]metry[place] OUTPATIENT [id number] [place], needs additio nal testing , shruthi g list. TOYIN GRIFFITHS 12/20 Released w/o Limitations [address] [place], [place] [address]B ([facility])(O ptometr y) [address] [place], [place] [address]B [facility]Opt ometry) OUTPATIENT [id number] annual exam TOYIN GRIFFITHS 05/31 Released w/o Limitations [employer] ([facility])(O ptometr y) [employer] ([facility])(Opt ometry) OUTPATIENT [id number] annual eye exam - [id number] YVETTE CALDERON 03/21 Released w/o Limitations [employer] [place] ([facility])(O ptometr y) Procedures Combined list of: 1) Procedures from Department of Veterans Affairs facilities [facility], not all [facility] non-surgical procedures are included; 2) All procedures from the Department of Defense facilities. Procedure Procedure Type Code Date Perfomer Comments Sourc e No data available for this section Ambulato ry Pharmacy OPHTHALMOLOGICAL SERVICES: MEDICAL EXAMINATION AND EVALUATION, WITH INITIATION OR CONTINUATION OF DIAGNOSTIC AND TREATMENT PROGRAM; COMPREHENSIVE, ESTABLISHED PATIENT, 1 OR MORE VISITS 015 DoD DETERMINATION OF REFRACTIVE STATE 013 DoD SCANNING COMPUTERIZED OPHTHALMIC DIAGNOSTIC IMAGING, POSTERIOR SEGMENT, WITH INTERPRETATION AND REPORT, UNILATERAL OR BILATERAL; RETINA 013 DoD DETERMINATION OF REFRACTIVE STATE 013 DoD Scanning Computerized Ophthalmic Diagnostic Imaging Retina Scanning Computerized Ophthalmic Diagnostic Imaging Retina 32410 015 YVETTE CALDERON DoD Determination Of Refractive State Determination Of Refractive State 30170 015 YVETTE CALDERON DoD Ophthalmological Prior Patient Start Comprehensive Care Ophthalmological Prior Patient Start Comprehensive Care 07466 015 YVETTE CALDERON DoD Determination Of Refractive State Determination Of Refractive State 57770 013 TOYIN GRIFFITHS A DoD Visual Delaney Test Intermediate Examination Visual Delaney Test Intermediate Examination 31392 013 TOYIN GRIFFITHS A DoD Scanning Computerized Ophthalmic Diagnostic Imaging Retina Scanning Computerized Ophthalmic Diagnostic Imaging Retina 04481 013 TOYIN GRIFFITHS A DoD Ophthalmological Prior Patient Start Comprehensive Care Ophthalmological Prior Patient Start Comprehensive Care 91845 013 TUNDE TOYIN A DoD Scanning Computerized Ophthalmic Diagnostic Imaging Retina Scanning Computerized Ophthalmic Diagnostic Imaging Retina 33379 013 TUNDE TOYIN A DoD Visual Delaney Test Extended Examination Visual Delaney Test Extended Examination 63105 013 TUNDE TOYIN A DoD Ophthalmological Prior Patient Start Intermediate Level Care Ophthalmological Prior Patient Start Intermediate Level Care 31568 TOYIN NIETO A DoD Determination Of Refractive State Determination Of Refractive State 57959 TOYIN NIETO [facility] Scanning Computerized Ophthalmic Diagnostic Imaging Retina Scanning Computerized Ophthalmic Diagnostic Imaging Retina 49063 TOYIN NIETO [facility] Visual Delaney Test Intermediate Examination Visual Delaney Test Intermediate Examination 87601 TOYIN NIETO [place] Ophthalmological New Patient Start Comprehensive Care Ophthalmological New Patient Start Comprehensive Care 23862 TOYIN NIETO [facility] Social History Combined list of available smoking, tobacco, and other social history from Department of Defense and Veterans Affairs facilities. Social History Type Response Date Comment Sourc e This section is an empty social history section. [facility] Assessment and Plan Combined list of future care activities from Department of Defense and Veterans Affairs facilities (e.g., assessment and plan notes, appointments, orders, and referrals). Additional future care activities may be listed in the Plan of Care section. Result Assessment and Plan Date Source Assessment and Plan No data available for this section 01/04/2025 Ambulatory Pharmacy Functional Status Combined list of recent functional and cognitive assessments recorded at Department of Defense and Veterans Affairs (VA).VA Functional [place] Measurement (FIM) Scale: 1 = Total Assistance (Subject = 0% +), 2 = Maximal Assistance (Subject = 25% +), 3 = Moderate Assistance (Subject = 50% +), 4 = Minimal Assistance (Subject = 75% +), 5 = Supervision, 6 = Modified [place] (Device), 7 = Complete [place] (Timely, Safely). Assessment Date/Time Source Assessment Type Assessment Skill Assessment Score Assessment Details No data available for this section
== END 2025-01-04 13:31 | disposition home or self-care (01) ==
PROVIDERS: PCP Physician Assistant; Visit Provider Physician Assistant
DX: Z12.31 Encounter for screening mammogram for malignant neoplasm of breast (principal)
CPT/HCPCS: 77063; 77067

== ENCOUNTER 2025-01-16 12:53 | Outpatient (CLI) | payer MEDICARE, OTHER, SELFPAY ==
--- NOTE | ~2025-01-16 | XR_ITS ---
EXAMINATION: XR chest 2V Exam Date/Time: 01/16/2025 13:07 CDT HISTORY: Seropositive rheumatoid arthritis. ANNUAL CXR Comparison: 05/31/2024. RESULT: Lines, tubes, and devices: Soft tissue anchors in the right humeral head. Lungs and pleura: No focal consolidation, pleural effusion, or pneumothorax. Hemidiaphragm flattenin g as can be seen with emphysematous change. Granulomas calcifications. Cardiomediastinal silhouette: Stable. Calcified nodes. Other: No acute osseous or upper abdominal finding. Old right rib fractures. IMPRESSION: No acute cardiopulmonary process. Reviewed, dictated and finalized at location K.
--- OUTSIDE RECORDS SUMMARY | 2025-01-16 13:14 | XMS_ITS | Encounter Summary ---
Author Organization [facility] Address [address] [place] [address] Care Team Providers Care Seam Stayer Name Role Phone Alena Thakur Primary Care Provider + Patt Curtis MD Primary Care Provider Myrna Knapp MD Unavailable [phone] Encounter Details Date Type Department Care Team (Late st Contact Info) Description 06/05/2022 Lab Requisition [facility] [address] [place] [id number] David Sagastume MD [address] [place] [address] Social History Tobacco Use Types [...] on file Legal Sex Female 6:03 AM AGRICULTURAL ECONOMICS PROFESSOR Gender Identity Not on file Sexual Orientation Not on file documented as of this encounter Plan of Treatment Upcoming Encounters Date Type Department Care Team (Late st Contact Info) Description 05/10/2025 11:30 AM CDT Office Visit [facility] - MEDICAL OFFICE RECEPTIONIST [address] [place] [phone] Aldo Muller MD [address] [place] [address] 06/28/2025 12:20 PM AGRICULTURAL ECONOMICS PROFESSOR Office Visit [facility] - Rheumatology [address] [place] [address], [place] [address] Myrna Knapp MD [facility] [facility] 2L [place] [address] documented as of this encounter Procedures Procedure Name Priority Date/Time Associated Diagnosis Comments DERMATOPATHOLOGY Routine 06/04/2022 12:0 0 AM AGRICULTURAL ECONOMICS PROFESSOR documented in this encounter Results * DERMATOPATHOLOGY (06/04/2022 12:00 AM AGRICULTURAL ECONOMICS PROFESSOR) Case Report Dermatopathology Report Case: [id number] Authorizing Provider: David Sagastume MD Collected: 06/04/2022 12:00 AM Ordering Location: [facility] Received: 06/05/2022 01:42 PM Pathologist: Sam Wills MD Specimens: A) - Skin, right mid extensor forearm B) - Skin, right distal mid extensor forearm 2 4:36 PM AGRICULTURAL ECONOMICS PROFESSOR DERMATOPATHOLOGY LABORATORY Final Diagnosis Specimen A. SKIN, right mid extensor forearm: DERMAL SCAR (L90.5) (see microscopic description) Specimen B. SKIN, right distal mid extensor forearm: ACTINIC KERATOSIS, LICHENOID (L57.0) 2 4:36 PM AGRICULTURAL ECONOMICS PROFESSOR DERMATOPATHOLOGY LABORATORY at [address]36 AGRICULTURAL ECONOMICS PROFESSOR Clinical History A-B: R/O BCC, SCC 2 4:36 PM AGRICULTURAL ECONOMICS PROFESSOR DERMATOPATHOLOGY LABORATORY Gross Description Specimen A: Received is one formalin filled container labeled with the patient's name and designated right mid extensor forearm. The specimen consists of a shave biopsy measuring 8h1x6se. Jar 0. Specimen B: Received is one formalin filled container labeled with the patient's name and designated right distal mid extensor forearm. The specimen consists of a shave biopsy measuring 3m4h1ry. Jar 0. 2 4:36 PM [facility] DERMATOPATHOLOGY LABORATORY Microscopic Description Specimen A. SKIN, [...] some basal vacuolar alteration. 2 4:36 PM [facility] DERMATOPATHOLOGY LABORATORY Disclaimer An external and internal positive and negative controls are appropriate for the histochemical, immunohistochemical and immunofluorescence stain(s) in this case (if any), except where stated explicitly. The performance characteristics of the stain(s) cited in this report were developed and its performance characteristic determined by the Dermatopathology Laboratory at [facility], directed by Dr. Donald Wills. These tests need not be, and therefore are not, approved by the [place] Food and Drug Administration. The tests are used for clinical purposes. Billing Codes Specimen Charges Stain Charges 13908 90568 1 1 2 4:36 PM AGRICULTURAL ECONOMICS PROFESSOR DERMATOPATHOLOGY LABORATORY Embedded Images 2 4:36 PM [facility] DERMATOPATHOLOGY LABORATORY Pathology/Cytology TISSUE SPECIMEN FROM SKIN / Unknown 06/04/2022 06/05/2022 1:42 PM AGRICULTURAL ECONOMICS PROFESSOR Miscellaneous samples (specimen) TISSUE SPECIMEN FROM SKIN / Unknown 06/04/2022 06/05/2022 1:42 PM AGRICULTURAL ECONOMICS PROFESSOR David Sagastume MD LAB - PATHOLOGY/CYTOLOGY ORD ERABLES Final Result DERMATOPATHOLOGY LABORATORY [facility] - Department of Dermatology [address], [address] [phone] documented in this encounter Visit Diagnoses Not on filedocumented in this encounter Care Teams Seam Stayer Relationship Specialty Start Date End Date Alena ThakurETHEL-CLAY [address] [phone] PCP - General 02/17/18 08/06/22 Patt Curtis MD [facility] [place] [phone] PCP - General 08/07/22 Myrna Knapp MD [address] [place] [address] Heat Treat Supervisor Rheumatology 05/18/23 documented as of this encounter
--- OUTSIDE RECORDS SUMMARY | 2025-01-16 13:14 | XMS_ITS | Encounter Summary ---
Author Organization [facility] Address [address] [place] [address] Care Team Providers Care Funeral Prearrangement Counselor Name Role Phone Alena Thakur APRN-POLICYHOLDER INFORMATION CLERK Primary Care Provider + Patt Curtis MD Primary Care Provider [phone] Myrna Knapp MD Unavailable [phone] Reason for Visit * Reason Onset Date Comments Refill Request 01/21/2022 Encounter Details Date Type Department Care Team (Late st Contact Info) Description 01/21/2022 Refill [facility] - Third Level [address] [facility] [place] [address] Marcelle Zafar MD [address] [place] [address] Refill Request Social History Tobacco Use Types [...] on file Legal Sex Female 6:03 AM ECG TECHNICIAN Gender Identity Not on file Sexual Orientation [...] (1) Labs: 12/21/21 Allergies: Allergies Allergen Reactions ??? Sulfa Drugs Rash Other reaction(s): Hives ??? Hydrocodone-Acetaminophen Nausea and/or Vomiting Only the one with the red specks ??? Leflunomide Urticaria With 20 mg; no issues with 10 mg dose Pended Medication Order: Requested Prescriptions Pending Prescriptions Disp Refills ??? meloxicam (MOBIC) 15 MG tablet 90 tablet 1 Sig: Take 1 (one) tablet by mouth nightly as needed ??? folic acid (FOLVITE) 1 MG tablet 90 tablet 3 Sig: Take 1 (one) tablet by mouth once daily ??? HUMIRA PEN 40 MG/0.8ML injection 4.8 mL [...] (FOLVITE) 1 MG tablet Pharmacy: [facility] [address] [place] [address] [phone] Patient call back number: [phone] documented in this encounter Plan of Treatment Upcoming Encounters Date Type Department Care Team (Late st Contact Info) Description 05/10/2025 11:30 AM CDT Office Visit [facility] - SOCIAL SECURITY SPECIALIST [address] [facility] [address] [place] [address] Aldo Muller MD [address] [facility] [address] [place] [address] 06/28/2025 12:20 PM ECG TECHNICIAN Office Visit [facility] - Rheumatology [address] [facility], [place] [phone] Myrna Knapp MD [address] [facility] 2L [place] [address] documented as of this encounter Visit Diagnoses Diagnosis Seropositive rheumatoid arthritis (HCC) Rheumatoid arthritis Trochanteric bursitis of left hip Enthesopathy of hip region documented in this encounter Care Teams Funeral Prearrangement Counselor Relationship Specialty Start Date End Date Alena Thakur APRN-CLAY [address] [phone] PCP - General 02/17/18 08/06/22 Patt Curtis MD [address] [place] [address]. [address] [place] [phone] PCP - General 08/07/22 Myrna Knapp MD [address] [place] [address] [address]L [place] [phone] Director Telemetry Rheumatology 05/18/23 documented as of this encounter
--- OUTSIDE RECORDS SUMMARY | 2025-01-16 13:14 | XMS_ITS | Clinical Summary ---
Author Organization [facility] Address [address] [place] [address] Care Team Providers Care Public Relations Writer Name Role Phone Patt Curtis MD Primary Care Provider [phone] Myrna Knapp MD Unavailable [phone] Source Comments [facility],non-owned Affiliates and Associated Physician Practices is amultiple site organization consisting of ambulatory clinics and hospital sitesin [place], [place], [place] and [place]. This disclosure is being madepursuant to the Care Everywhere program and may not contain all information available regarding this patient. Last updated 18.[facility] Idea Device Allergies Active Allergy Reactions Criticality Noted Date Comments Sulfa Antibiotics Unknown 05/06/2023 Substance with sulfonamide structure and antibacterial mechanism of action (substance) Sulfa Drugs Rash Medium 07/21/2012 Other reaction(s): [...] 1 tablet by mouth once daily Active albuterol HFA (Proventil; Ventolin; Proair) 108 [...] week 42.5 g 5 11/03/19 25 Active ofloxacin (Ocuflox) 0.3 % ophthalmic solution 11/11/19 25 Active prednisoLONE acetate (Pred Forte) 1 % ophthalmic suspension 11/11/19 25 Active ketorolac (Acular) 0.5 % ophthalmic solution 11/11/19 25 Active adalimumab (Humira) 40 MG/0.4ML injectionIndicat ions:Seropositiv e rheumatoid arthritis (HCC) Inject 0.4 mL subcutaneously every 14 days 1.6 mL 4 12/15/19 25 Active folic acid (Folvite) 1 MG tabletIndication s:Seropositive rheumatoid arthritis (HCC),Trochanter ic bursitis of left hip Take 1 (one) tablet by mouth once daily 90 tablet 3 12/15/19 25 Active methotrexate 2.5 MG tabletIndication s:Seropositive rheumatoid arthritis (HCC),Trochanter ic bursitis of left hip Take 4 (four) tablets by mouth every 7 days (once a week) 48 tablet 2 12/15/19 25 Active Active Problems Problem Noted Date Diagnosed Date 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 07/13/2018 Therapeutic drug monitoring 07/13/2018 Atypical squamous cells of u ndetermined significance on cytologic smear of cervix (ASC-US) 06/30/2018 COPD (chronic obstructive pulmonary disease) 01/2015 Osteoarthrosis 04/06/2013 Osteoporosis 04/06/2013 Encounters Date Type Department Care Team Description 12/14/2024 12:40 PM CDT Office Visit [facility] - Rheumatology [address] [place] [address] [place] [id number] Myrna Knapp MD Seropositive rheumatoid arthritis (HCC) (Primary Dx); Trochanteric bursitis of left hip; Screening-pulmonary TB; Encounter for long-term (current) use of high-risk medication; Encounter for therapeutic drug monitoring 12/14/2024 Travel 11/02/2024 11:30 AM CDT Office Visit [facility] - APPLICATION CONSULTANT [address] [facility] [address] [place] [phone] Aldo Muller MD VAIN I (vaginal intraepithelial neoplasia grade I) (Primary Dx) 11/02/2024 Travel 10/26/2024 Orders Only [facility] - Rheumatology [address] [facility] [place] [address] Myrna Knapp MD from Last 3 Months [...] Former Cigarettes 1 40 Smokeless Tobacco: Never Tobacco Cessation:Counseling Given: Not Answered Comments:QUIT Aug, Alcohol Use Standard Drinks/Week Comments No 0 (1 standard drink = 0.6 oz pur e alcohol) QUIT IN 2001 PHQ-2 Answer Date Recorded Patient Health Questionnaire-2 Score 0 10/31/2024 Comments No Sex and Gender Information Value Date Recorded Sex Assigned at Not on file Legal Sex Female 6:03 AM JUNK [employer] Gender Identity Not on file Sexual Orientation Not on file Last Filed Vital Signs Vital Sign Reading Time Taken Comments Blood Pressure 125/64 12/14/2024 12:24 PM CDT Pulse 64 12/14/2024 12:24 PM CDT Temperature 36.1 C (96.9 F) 12/14/2024 12:24 PM CDT Respiratory Rate 20 05/21/2023 10:21 AM CDT Oxygen Saturation 96% 04/06/2024 12:28 PM CDT Inhaled Oxygen Concentration - - Weight 69.9 kg (154 lb 3.2 oz) 12/14/2024 12:24 PM CDT Height 160 cm (5' 2.99) 12/14/2024 12:24 PM CDT Body Mass Index 27.32 12/14/2024 12:24 PM CDT Plan of Treatment Upcoming Encounters Date Type Department Care Team (Late st Contact Info) Description 05/10/2025 11:30 AM CDT Office Visit [facility] - APPLICATION CONSULTANT [address] [place] [phone] Aldo Muller MD [address] [facility] [address] [place] [address] 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 [address] [place] [address] Health Maintenance Due Date Last Done Comments [...] 04/16/2018, Additional history exists SCREENING FOR DIABETES 01/05/2028 , 10/26/2024, 09/02/2024, Additional history exists HEPATITIS C SCREENING Completed [...] Procedure Name Priority Date/Time Associated Diagnosis Comments QUANTIFERON-TB GOLD PLUS 1-TUBE 01/04/2025 1:03 PM CDT URINALYSIS W/MICROSCOPIC REFLEX TO CULTURE Routine 01/04/2025 1:01 PM CDT Seropositive rheumatoid arthritis (HCC) Encounter for long-term (current) use of high-risk medication Encounter for therapeutic drug monitoring ERYTHROCYTE SEDIMENTATION RATE Routine 01/04/2025 1:01 PM CDT Seropositive rheumatoid arthritis (HCC) Encounter for long-term (current) use of high-risk medication Encounter for therapeutic drug monitoring C-REACTIVE PROTEIN Routine 01/04/2025 1: 01 PM CDT Seropositive rheumatoid arthritis (HCC) Encounter for long-term (current) use of high-risk medication Encounter for therapeutic drug monitoring COMPREHENSIVE METABOLIC PANEL Routine 01/04/2025 1:01 PM CDT Seropositive rheumatoid arthritis (HCC) Encounter for long-term (current) use of high-risk medication Encounter for therapeutic drug monitoring CBC W AUTO DIFFERENTIAL Routine 01/04/2025 1:01 PM CDT Seropositive rheumatoid arthritis (HCC) Encounter for long-term (current) use of high-risk medication Encounter for therapeutic drug monitoring CULTURE URINE 01/04/2025 1:01 PM CDT CULTURE URINE REFLEXED II 01/04/2025 1:01 PM CDT PAP IMAGE-GUIDED RFLX HPV Routine 11/02/2024 12:38 PM CDT VAIN I (vaginal intraepithelial neoplasia grade I) C-REACTIVE PROTEIN 10/26/2024 1: 43 PM CDT URINALYSIS W/MICROSCOPIC REFLEX TO CULTURE 10/26/2024 1:43 PM CDT CBC W AUTO DIFFERENTIAL 10/26/2024 1:43 PM CDT ERYTHROCYTE SEDIMENTATION RATE 10/26/2024 1:43 PM CDT COMPREHENSIVE METABOLIC PANEL 10/26/2024 1:43 PM CDT CULTURE URINE REFLEXED III 10/26/2024 1:43 PM CDT HEPATITIS C AB W/RFLX TO HCV RNA QN PCR Routine 05/02/2022 11:28 AM CDT Seropositive rheumatoid arthritis Need for hepatitis B screening test Need for hepatitis C screening test from Last 3 Months or Most Recently Relevant to Health Maintenance Results * QUANTIFERON-TB GOLD PLUS 1-TUBE (01/04/2025 1:03 PM CDT) Pathologist [facility] QuantiFERON TB Gold Plus NEGATIVE NEGATIVE [facility] Comment: Negative test result. M. tuberculosis complex infection unlikely. NIL 0.03 IU/mL [facility] MITOGEN MINUS NIL RESULT 9.23 IU/mL [facility] TB1-NIL 0.02 IU/mL [facility] TB2-NIL 0.01 IU/mL [facility] Comment: The Nil tube value reflects the background interferon gamma immune response of the patient's blood sample. This value has been subtracted from the patient's displayed TB and Mitogen results. Lower than expected results with the Mitogen tube prevent false-negative Quantiferon readings by detecting a patient with a potential immune suppressive condition and/or suboptimal pre-analytical specimen handling. The TB1 Antigen tube is coated with the M. tuberculosis-specific antigens designed to elicit responses from TB antigen primed CD4+ helper T-lymphocytes. The TB2 Antigen tube is coated with the M. tuberculosis-specific antigens designed to elicit responses from TB antigen primed CD4+ helper and CD8+ cytotoxic T-lymphocytes. For additional information, please refer to https://education.MediaLifTV/faq/AXW086 (This link is being provided for informational/ educational purposes only.) REPORT COMMENT: FASTING:NO Test Performed at: [facility] [id number] [place] [address] DONNA MAK MD 01/04/2025 1:03 PM CDT 01/04/2025 1:04 PM CDT Myrna Knapp MD LAB - CHEMISTRY ORDERA BLES Final Result Performing Organization Address [facility] Co de Phone Number [address] [address] * CULTURE URINE REFLEXED II (01/04/2025 1:01 PM CDT) Reflexive Urine Culture See Below [facility] Comment: CULTURE INDICATED - RESULTS TO FOLLOW Test Performed at: [facility] [address] DONNA MAK MD 01/04/2025 1:01 PM CDT 01/04/2025 1:02 PM CDT Myrna Knapp MD LAB - MICROBIOLOGY ORD ERABLES Final Result Performing Organization Address [facility] Co de Phone Number [address] [address] * (ABNORMAL) URINALYSIS W/MICROSCOPIC REFLEX TO CULTURE (01/04/2025 1:01 PM CDT) Only the most recent of2 resultswithin the time period is included. Color UA DARK YELLOW YELLOW [facility] Appearance CLOUDY(A) CLEAR [facility] Specific [place] UA 1.023 1.001 - 1.035 [facility] pH UA 6.5 5.0 - 8.0 [facility] Glucose UA NEGATIVE NEGATIVE [facility] Bilirubin UA NEGATIVE NEGATIVE [facility] Ketone UA TRACE(A) NEGATIVE [facility] Blood UA NEGATIVE NEGATIVE [facility] Protein UA TRACE(A) NEGATIVE [facility] Nitrite NEGATIVE NEGATIVE [facility] Leukocyte Esterase NEGATIVE NEGATIVE [facility] WBC UA 0-5 < OR = 5 /HPF [facility] RBC UA NONE SEEN < OR = 2 /HPF [facility] Epithelial Cell UA 6-10(A) < OR = 5 /HPF [facility] Bacteria UA NONE SEEN NONE SEEN /HPF [facility] Calcium Oxalate Crystals MANY(A) NONE OR FEW /HPF [facility] Hyaline Casts NONE SEEN NONE SEEN /LPF [facility] Yeast FEW(A) NONE SEEN /HPF [facility] Note See Below [facility] Comment: This urine was analyzed for the presence of WBC, RBC, bacteria, casts, and other formed elements. Only those elements seen were reported. Test Performed at: [facility] [address] DONNA MAK MD Urine MID-STREAM URINE SPECIMEN / Unknown 01/04/2025 1:01 PM CDT 01/04/2025 1:02 PM CDT Myrna Knapp MD LAB - URINALYSIS ORDER PRAVIN Final Result Performing Organization Address [facility] Co de Phone Number [address] [address] * (ABNORMAL) C-REACTIVE PROTEIN (01/04/2025 1:01 PM CDT) Only the most recent of2 resultswithin the time period is included. Pathologist [facility] C-Reactive Protein 9.2(H) <8.0 mg/L [facility] Comment: Test Performed at: [facility] [address] [place] [address] DONNA MAK MD Blood BLOOD SPECIMEN / Unknown 01/04/2025 1:01 PM CDT 01/04/2025 1:02 PM CDT Myrna Knapp MD LAB - CHEMISTRY ORDERA BLES Final Result Performing Organization Address City/[facility]/ZIP Co de Phone Number [address] [address] * CULTURE URINE (01/04/2025 1:01 PM CDT) Pathologist [facility] Culture [facility] Comment: CULTURE, URINE, ROUTINE Micro Number: [id number] Test Status: Final Specimen Source: Urine Specimen Quality: Adequate Result: Mixed genital johny isolated. These superficial bacteria are not indicative of a urinary tract infection. No further organism identification is warranted on this specimen. If clinically indicated, recollect clean-catch, mid-stream urine and transfer immediately to Urine Culture Transport Tube. REPORT COMMENT: FASTING:NO Test Performed at: [facility] [address] DONNA MAK MD 01/04/2025 1:01 PM CDT 01/04/2025 1:02 PM CDT Myrna Knapp MD LAB - MICROBIOLOGY ORD ERABLES Final Result Performing Organization Address City/[facility]/ZIP Co de Phone Number [address] [address] * ERYTHROCYTE SEDIMENTATION RATE (01/04/2025 1:01 PM CDT) Only the most recent of2 resultswithin the time period is included. Pathologist [facility] Erythrocyte Sedimentation Rate Westergren 19 < OR = 30 mm/h [facility] Comment: Test Performed at: [facility] [place] [id number] [place] [address] DONNA MAK MD Blood BLOOD SPECIMEN / Unknown 01/04/2025 1:01 PM CDT 01/04/2025 1:02 PM CDT Myrna Knapp MD LAB - HEMATOLOGY ORDER PRAVIN Final Result Performing Organization Address City/[facility]/ZIP Co de Phone Number [address] [address] * CBC WITH DIFFERENTIAL (01/04/2025 1:01 PM CDT) Only the most recent of2 resultswithin the time period is included. White Blood Cell Count 7.5 3.8 - 10.8 Thousand/u L [facility] RBC 4.09 3.80 - 5.10 Million/uL [facility] Hemoglobin 12.8 11.7 - 15.5 g/dL [facility] Hematocrit 39.0 35.0 - 45.0 % [facility] MCV 95.4 80.0 - 100.0 fL [facility] MCH 31.3 27.0 - 33.0 pg [facility] MCHC 32.8 32.0 - 36.0 g/dL [facility] Comment: For adults, a slight decrease in the calculated MCHC value (in the range of 30 to 32 g/dL) is most likely not clinically significant; however, it should be interpreted with caution in correlation with other red cell parameters and the patient's clinical condition. RDW 13.5 11.0 - 15.0 % [facility] Platelet Count 286 140 - 400 Thousand/u L [facility] MPV 11.1 7.5 - 12.5 fL [facility] Neutrophil Absolute 3488 1500 - 7800 cells/uL [facility] Absolute Bands [facility] Metamyelocytes Absolute [facility] Myelocytes Absolute [facility] Absolute Prolymphocytes [facility] Lymphocytes Absolute 2753 850 - 3900 cells/uL [facility] Absolute Monocytes 818 200 - 950 cells/uL [facility] Eosinophils Absolute 383 15 - 500 cells/uL [facility] Basophils Absolute 60 0 - 200 cells/uL [facility] Absolute Blasts [facility] nRBC Absolute [facility] Granulocytes % 46.5 % [facility] Band Neutrophil [facility] Metamyelocytes [facility] Myelocytes [facility] Promyelocytes [facility] Lymphocytes % 36.7 % [facility] Lymphocyte Reactive [facility] Monocytes % 10.9 % [facility] Eosinophils % 5.1 % [facility] Basophils % 0.8 % [facility] Comment: Test Performed at: [facility] [place] [address] DONNA MAK MD Blasts [facility] nRBC [facility] Comments [facility] Comment: Test Performed at: [facility] [place] [address] DONNA MAK MD Blood BLOOD SPECIMEN / Unknown 01/04/2025 1:01 PM CDT 01/04/2025 1:02 PM CDT Myrna Knapp MD LAB - HEMATOLOGY ORDER PRAVIN Final Result [facility] [address] [place] [address] * COMPREHENSIVE METABOLIC PANEL (01/04/2025 1:01 PM CDT) Only the most recent of2 resultswithin the time period is included. Glucose 96 65 - 99 mg/dL [facility] Comment: Fasting reference interval BUN 18 7 - 25 mg/dL [facility] Creatinine 0.82 0.60 - 1.00 mg/dL [facility] eGFR by Cystatin C 74 > OR = 60 mL/min/1. 73m2 [facility] BUN/Creatinine Ratio SEE NOTE: 6 - 22 (calc) [facility] Comment: Not Reported: BUN and Creatinine are within reference range. Sodium 140 135 - 146 mmol/L [facility] Potassium 4.2 3.5 - 5.3 mmol/L [facility] Chloride 100 98 - 110 mmol/L [facility] CO2 31 20 - 32 mmol/L [facility] Calcium 9.5 8.6 - 10.4 mg/dL [facility] Protein Total 6.6 6.1 - 8.1 g/dL [facility] Albumin 4.2 3.6 - 5.1 g/dL [facility] Globulin Total 2.4 1.9 - 3.7 g/dL (calc) [facility] Albumin/Globulin Ratio 1.8 1.0 - 2.5 (calc) [facility] Bilirubin Total 1.1 0.2 - 1.2 mg/dL [facility] Alkaline Phosphatase 79 37 - 153 U/L [facility] AST 22 10 - 35 U/L [facility] ALT 24 6 - 29 U/L [facility] Comment: Test Performed at: [facility] [address] [place] [address] DONNA MAK MD Blood BLOOD SPECIMEN / Unknown 01/04/2025 1:01 PM CDT 01/04/2025 1:02 PM CDT Myrna Knapp MD LAB - CHEMISTRY ORDERA BLE Final Result [facility] [address] [place] [address] * PAP IMAGE-GUIDED RFLX HPV (11/02/2024 12:38 PM CDT) Case Report Gynecologic Cytology Report Case: [id number] Authorizing Provider: Aldo Muller MD Collected: 11/02/2024 12:38 PM Ordering Location: [facility] - Received: 11/02/2024 12:38 PM APPLICATION CONSULTANT First Screen: Keon Charles CT(ASCP) Pathologist: Jesus Campbell MD Specimen: THINPREP - IMAGE GUIDED, Vagina 11/12/2024 9:24 AM CDT [facility] LMP N/A 11/12/2024 9:24 AM CDT [facility] PATH[facility] Menstrual Status Postmenopausal 10/19 9:24 AM CDT U PATH[facility]Y LAB Specimen Adequacy Satisfactory for evaluation. 11/12/2024 9:24 AM CDT [facility] PATH[facility]Y LAB Categorization Epithelial cell abnormality. 11/12/2024 9:24 AM CDT [facility] PATH[facility] LAB Interpretation LINOLEUM TILE FLOOR LAYER Low grade squamous intraepithelial lesion (LSIL). 11/12/2024 9:24 AM CDT [facility] PATHOLOGY LAB at 0924 CDT Pap Footnote The Pap Smear is a screening test. False positive and false negative results occur. Negative results do not preclude abnormalities, thus clinical correlation is required. This specimen was evaluated by the ThinPrep Imaging System along with an additional manual rescreening by a attendant self service store and/or pathologist. 11/12/2024 9:24 AM CDT [facility] PATHOLOGY LAB Pathology/Cytolo gy ENTIRE VAGINA / Unknown Collection / Unknown 11/02/2024 12:38 PM CDT 11/02/2024 12:38 PM CDT Aldo Muller MD LAB - PATHOLOGY/CYTOLOGY ORDERAB LES Final Result Performing Organization Address City/[facility]/ZIP Co de Phone Number [facility] PATHOLOGY LAB [address] [phone] * CULTURE URINE REFLEXED III (10/26/2024 1:43 PM CDT) Pathologist [facility] Reflexive Urine Culture See Below [facility] Comment: NO CULTURE INDICATED Test Performed at: [facility] [address] DONNA MAK MD 10/26/2024 1:43 PM CDT 10/26/2024 1:44 PM CDT Myrna Knapp MD LAB - MICROBIOLOGY ORD ERABLES Final Result [address] [address] * HEPATITIS C AB W/RFLX TO HCV RNA QN PCR (05/02/2022 11:28 AM CDT) Hepatitis C Antibody NON-REACTI VE NON-REACT RICARDO [facility] Signal to Cut-Off 0.03 <1.00 [facility] Comment: HCV antibody was non-reactive. There is no laboratory evidence of HCV infection. In most cases, no further action is required. However, if recent HCV exposure is suspected, a test for HCV RNA (test code 41321) is suggested. For additional information please refer to http://education.MediaLifTV/faq/TZR18h7 (This link is being provided for informational/ educational purposes only.) Test Performed at: [facility] [id number] [place] [address] SONDRA MURILLO DO,MPH Blood BLOOD SPECIMEN / Unknown 05/02/2022 11:28 AM CDT 05/02/2022 11:31 AM CDT Francisco Drake MD LAB - CHEMISTRY ORDERABLES Final Result Performing Organization Address City/State/[facility] Co de Phone Number [phone] [address] [place] [address] from Last 3 Months or Most Recently Relevant to Health Maintenance Insurance MEDICARE MEDICARE Care Teams Public Relations Writer Relationship Specialty Start Date End Date Patt Curtis MD [address] [place] [address] [address] [place] [address] PCP - General 08/07/22 Myrna Knapp MD [address] [address] Security Administrator Rheumatology 05/18/23
--- OUTSIDE RECORDS SUMMARY | 2025-01-16 13:14 | XMS_ITS | Data Portability ---
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 Both of these tears are mid substance which has a much poor prognosis for attempted repair. I feel that rotator cuff repair would give poor results in this patient for these reasons and fact that there is significant fatty infiltration atrophy particularly of the subscapularis. I have discussed with her that reverse shoulder arthroplasty would be an option that would be expected to improve her active for flexion substantially. I discussed how this works. She would rather avoid surgery if possible. Patient would be at increased risk for cortisone shot in the shoulder as she is on immunosuppressive agents therefore has a higher risk of infection with cortisone injections. I would recommend course of physical therapy for her and instituting a prescription of Mobic which she has tolerated in the past to control pain and inflammation while she goes through physical therapy. If this alleviates her pain improves her function little bit she may be satisfied to live with her residual limitations and if not I would recommend referral to a reverse shoulder arthroplasty specialist for additional consideration. I will see her back in 6 weeks to assess her progress. 30 minutes were spent total care this patient with more than half the time spent in [id number] care reviewing her MRI scan with her and discussing options and explaining her situation. Not available 07/15/2023 19:56:14 09/07/2023 09/07/2023 Impression: Mariaa pelayo has done very well with her knee replacement. She is 1 year out. I recommended that she consider having routine surveillance x-rays done every 5 years and of course if she has any problems in the meantime she will call. Not available 09/12/2023 15:35:15 09/09/2023 09/09/2023 HPI: Patient returns. She is here for follow-up of her left shoulder. She with physical therapy. She is not taking meloxicam. She is just dealing with the pain. She thinks that the therapy helped a little bit. She has little better motion and use of left arm is still very limited most part. Physical exam: Patient has active elevation of the left shoulder to 85 external rotation is to 70 active assisted elevation is to 145. She has moderate weakness with abduction there is crepitus with range of motion of the shoulder. She has mild weakness with external rotation. Impression: Patient has chronic mid substance tearing of the rotator cuff tendon left shoulder. At this point she is content to live with the symptoms. We did talk with her last time she was here that the surgical procedure would be a reverse shoulder arthroplasty and she is going to put this off for now. We would refer her to [facility]ic for this if she decided she wanted do surgery. I did recommended she do her exercises on a regular basis to hopefully get as much function in the left arm as possible. We will see her back as needed. 20 minutes was spent in treatment patient more half of this in [id number] conversation [email or web address] Not available 09/09/2023 12:02:33 Plan of Treatment Reminders Order Date Submit Date Provider Last Modified By Organization Details Last Modified Time Details Appointments None recorded. Lab lipid panel, serum 2024 025 [facility], [address] [place], [address], 5 16:21:07 CMP, serum or plasma 2024 025 [facility], [place], [address], 5 16:21:05 TSH, serum or plasma 2024 025 [facility], [place], [address], 5 16:21:08 CBC w/ auto diff 2024 025 [facility], [address], [address], [place], [address], 5 16:21:07 HbA1c (hemoglobi n A1c), blood 2024 025 [facility], [address], [address], [place], [address], 5 16:21:06 vitamin B12 + folate, serum or blood 2024 025 [facility], [address], [address], [place], [address], 5 16:21:09 lipid panel, serum 2023 024 [facility], [address], [address], [place], [address], 4 10:54:16 CMP, serum or plasma 2023 024 [facility], [address], [address], [place], [address], 4 10:54:19 CK (creatine kinase), total, serum 2023 024 [facility], [address], [address], [place], [address], 4 10:54:20 CBC w/ auto diff 2023 024 [facility], [address], [address], [place], [address], 4 10:54:21 TSH, serum or plasma 2023 024 [facility], [address], [address], [place], [address], 4 10:54:22 Referral None recorded. Procedures None recorded. Surgeries None recorded. Imaging US, duplex, carotid artery - Please call patient to schedule. 2024 025 [facility], [address], [place], [address], 5 12:01:18 XR, knee 2023 024 [email or web address] [facility], [address] [facility] [address], [place], [address], 4 10:03:05 Medication Orders famotidine 40 mg tablet 2024 025 [facility], [address] [place] [address], [address], 5 16:19:56 omeprazole 40 mg capsule,de layed release 2023 024 [facility], [address] [place] [address], [address], 5 16:12:10 meloxicam 15 mg tablet 2022 023 [facility], [address] [place] [address], [address], 5 15:38:22 Patient TargetsNo targets recorded. Patient InstructionsNo instructions recorded. Reason for Referral None Reported. Results Created Date Observation Date Name Description Value Unit Range Abnormal Flag Note LastModifiedBy Organization Detail LastModifiedTime 05/07/2005/08/2024 LIPID PANEL (REFL ) cholesterol, total 192 mg/dL <200 normal Not Available [facility] [address] [place], [address], 05/08/2024 10:54:16 05/07/2005/08/2024 LIPID PANEL (REFL ) HDL cholesterol 89 mg/dL > or = 50 normal Not Available [facility] [address] [place], [address], 05/08/2024 10:54:16 05/07/2005/08/2024 LIPID PANEL (REFL ) triglyceride s 98 mg/dL <150 normal Not Available [facility] [address] [place], [address], 05/08/2024 10:54:16 05/07/2005/08/2024 LIPID PANEL (REFL ) LDL-choleste rol 84 mg/dL _(geraldo c) normal Refer ence range : <100 Marques able range <100 mg/dL for prima ry preve ntion ; <70 mg/dL for patie nts with CHD or diabe tic patie nts with > or = 2 CHD risk facto rs. LDL-C is now calcu lated using the Alexandra beckford-Hop kins marivel cortes n, which is a valid ated novel viviano d yvonne joseph bryanna r accur acy than the Fried indio equat ion in the estim ation of LDL-C . Alexandra beckford SS et al. CHRISTINA. 2013; 310(1 9): 2061- 2068 (http ://ed ucati on.[employer] Le[employer]. com/f aq/FA Q164) Not Available [facility] [address] [place], [address], 05/08/2024 10:54:16 05/07/2005/08/2024 LIPID PANEL (REFL ) chol/HDLC ratio 2.2 (calc ) <5.0 normal Not Available [facility] [address] [place], [address], 05/08/2024 10:54:16 05/07/2005/08/2024 LIPID PANEL (REFL ) non HDL cholesterol 103 mg/dL _(geraldo c) <130 normal For patie nts with diabe mraizol plus 1 major ASCVD risk facto r, treat ing to a non-H DL-C goal of <100 mg/dL (LDL- C of <70 mg/dL ) is consi dered a thera peuti c optio n. Not Available [address], [address], 05/08/2024 10:54:16 05/07/20 24 05/08/2024 COMPR EHENS RICARDO METAB OLIC PANEL glucose 106 mg/dL 65-99 high Fasti ng refer ence inter rukhsana For someo ne witho ut known diabe marizol, a gluco se value betwe en 100 and 125 mg/dL is consi stent with predi abete s and shoul d be confi rmed with a follo w-up test. Not Available [address], [address], 05/08/2024 10:54:19 05/07/20 24 05/08/2024 COMPR EHENS RICARDO METAB OLIC PANEL urea nitrogen (BUN) 19 mg/dL 7-25 normal Not Available [address], [address], 05/08/2024 10:54:19 05/07/20 24 05/08/2024 COMPR EHENS RICARDO METAB OLIC PANEL creatinine 0.90 mg/dL 0.60-1 .00 normal Not Available [address], [address], 05/08/2024 10:54:19 05/07/20 24 05/08/2024 COMPR EHENS RICARDO METAB OLIC PANEL eGFR 66 mL/mi n/1.7 3m2 > or = 60 normal Not Available [address], [address], 05/08/2024 10:54:19 05/07/20 24 05/08/2024 COMPR EHENS RICARDO METAB OLIC PANEL BUN/creatini ne ratio SEE NOTE: (calc ) 6-22 Not Repor aníbal: BUN and Creat inine are withi n refer ence range . Not Available [address], [address], 05/08/2024 10:54:19 05/07/2005/08/2024 COMPR EHENS RICARDO METAB OLIC PANEL sodium 141 mmol/ L 135-14 6 normal Not Available [address], [address], 05/08/2024 10:54:19 05/07/2005/08/2024 COMPR EHENS RICARDO METAB OLIC PANEL potassium 4.2 mmol/ L 3.5-5. 3 normal Not Available [address], [address], 05/08/2024 10:54:19 05/07/2005/08/2024 COMPR EHENS RICARDO METAB OLIC PANEL chloride 103 mmol/ L 98-110 normal Not Available [address], [address], 05/08/2024 10:54:19 05/07/20 24 05/08/2024 COMPR EHENS RICARDO METAB OLIC PANEL carbon dioxide 33 mmol/ L 20-32 high Not Available [address], [address], 05/08/2024 10:54:19 05/07/20 24 05/08/2024 COMPR EHENS RICARDO METAB OLIC PANEL calcium 9.0 mg/dL 8.6-10 .4 normal Not Available [address], [address], 05/08/2024 10:54:19 05/07/20 24 05/08/2024 COMPR EHENS RICARDO METAB OLIC PANEL protein, total 6.5 g/dL 6.1-8. 1 normal Not Available [address] [place], [address], 05/08/2024 10:54:19 05/07/20 24 05/08/2024 COMPR EHENS RICARDO METAB OLIC PANEL albumin 4.1 g/dL 3.6-5. 1 normal Not Available [address], [address], 05/08/2024 10:54:19 05/07/20 24 05/08/2024 COMPR EHENS RICARDO METAB OLIC PANEL globulin 2.4 g/dL_ (calc ) 1.9-3. 7 normal Not Available [address], [address], 05/08/2024 10:54:19 05/07/20 24 05/08/2024 COMPR EHENS RICARDO METAB OLIC PANEL albumin/glob ulin ratio 1.7 (calc ) 1.0-2. 5 normal Not Available [address], [address], 05/08/2024 10:54:19 05/07/20 24 05/08/2024 COMPR EHENS RICARDO METAB OLIC PANEL bilirubin, total 0.5 mg/dL 0.2-1. 2 normal Not Available [address], [address], 05/08/2024 10:54:19 05/07/20 24 05/08/2024 COMPR EHENS RICARDO METAB OLIC PANEL alkaline phosphatase 85 U/L 37-153 normal Not Available [address], [address], 05/08/2024 10:54:19 05/07/20 24 05/08/2024 COMPR EHENS RICARDO METAB OLIC PANEL AST 19 U/L 10-35 normal Not Available [address], [address], 05/08/2024 10:54:19 05/07/20 24 05/08/2024 COMPR EHENS RICARDO METAB OLIC PANEL ALT 26 U/L 6-29 normal Not Available [address] [place], [address], 05/08/2024 10:54:19 05/07/2005/08/2024 CREAT INE KINAS E, TOTAL creatine kinase, total 59 U/L 29-143 normal Not Available [address], [address], 05/08/2024 10:54:20 05/07/2005/08/2024 CBC (INCL UDES DIFF/ PLT) white blood cell count 6.2 thous and/u L 3.8-10 .8 normal Not Available [address], [address], 05/08/2024 10:54:21 05/07/2005/08/2024 CBC (INCL UDES DIFF/ PLT) red blood cell count 4.19 laly on/uL 3.80-5 .10 normal Not Available [address], [address], 05/08/2024 10:54:21 05/07/2005/08/2024 CBC (INCL UDES DIFF/ PLT) hemoglobin 13.3 g/dL 11.7-1 5.5 normal Not Available [address], [address], 05/08/2024 10:54:21 05/07/2005/08/2024 CBC (INCL UDES DIFF/ PLT) hematocrit 40.9 % 35.0-4 5.0 normal Not Available [address], [address], 05/08/2024 10:54:21 05/07/2005/08/2024 CBC (INCL UDES DIFF/ PLT) MCV 97.6 fL 80.0-1 00.0 normal Not Available [address], [address], 05/08/2024 10:54:21 10/19/20 24 05/08/2024 CBC (INCL UDES DIFF/ PLT) MCH 31.7 pg 27.0-3 3.0 normal Not Available [address], [address], 05/08/2024 10:54:21 05/07/20 24 05/08/2024 CBC (INCL UDES DIFF/ PLT) MCHC 32.5 g/dL 32.0-3 6.0 normal For adult s, a sligh t decre ase in the calcu lated MCHC value (in the range of 30 to 32 g/dL) is most likel y not clini cem signi viktoriya t; feroz er, it shoul d be inter prete d with cauti on in [facility] n with other red cell kiley eters and the patie nt's clini geraldo condi tion. Not Available [address], [address], 05/08/2024 10:54:21 05/07/20 24 05/08/2024 CBC (INCL UDES DIFF/ PLT) RDW 13.2 % 11.0-1 5.0 normal Not Available [address], [address], 05/08/2024 10:54:21 05/07/20 24 05/08/2024 CBC (INCL UDES DIFF/ PLT) platelet count 321 thous and/u L 140-40 0 normal Not Available [address], [address], 05/08/2024 10:54:21 05/07/20 24 05/08/2024 CBC (INCL UDES DIFF/ PLT) MPV 11.1 fL 7.5-12 .5 normal Not Available [address], [address], 05/08/2024 10:54:21 05/07/20 24 05/08/2024 CBC (INCL UDES DIFF/ PLT) absolute neutrophils 2784 cells /uL 1500-7 800 normal Not Available [address], [address], 05/08/2024 10:54:21 05/07/20 24 05/08/2024 CBC (INCL UDES DIFF/ PLT) absolute lymphocytes 2536 cells /uL 850-39 00 normal Not Available [address], [address], 05/08/2024 10:54:21 05/07/2005/08/2024 CBC (INCL UDES DIFF/ PLT) absolute monocytes 670 cells /uL 200-95 0 normal Not Available [address], [address], 05/08/2024 10:54:21 05/07/20 24 05/08/2024 CBC (INCL UDES DIFF/ PLT) absolute eosinophils 174 cells /uL 15-500 normal Not Available [address], [address], 05/08/2024 10:54:21 05/07/20 24 05/08/2024 CBC (INCL UDES DIFF/ PLT) absolute basophils 37 cells /uL 0-200 normal Not Available [address], [address], 05/08/2024 10:54:21 05/07/20 24 05/08/2024 CBC (INCL UDES DIFF/ PLT) neutrophils 44.9 % normal Not Available [address], [address], 05/08/2024 10:54:21 05/07/2005/08/2024 CBC (INCL UDES DIFF/ PLT) lymphocytes 40.9 % normal Not Available [address] [place], [address], 05/08/2024 10:54:21 05/07/20 24 05/08/2024 CBC (INCL UDES DIFF/ PLT) monocytes 10.8 % normal Not Available [address], [address], 05/08/2024 10:54:21 05/07/20 24 05/08/2024 CBC (INCL UDES DIFF/ PLT) eosinophils 2.8 % normal Not Available [address], [address], 05/08/2024 10:54:21 05/07/20 24 05/08/2024 CBC (INCL UDES DIFF/ PLT) basophils 0.6 % normal Not Available [address], [address], 05/08/2024 10:54:21 05/07/20 24 05/08/2024 TSH W/REF MALICK TO FT4 TSH w/reflex to FT4 1.57 mIU/L 0.40-4 .50 normal Not Available [address], [address], 05/08/2024 10:54:22 06/29/20 23 XR, shoul joshua No observ ation record ed. [email or web address] [facility] [address], [place], [address], 07/14/2023 18:08:48 07/10/20 23 07/10/2023 MRI, shoul joshua, w/o contr ast No observ ation record ed. [facility] (Imaging) [address], [place], [address], 07/29/2023 13:36:52 07/10/20 23 07/10/2023 MRI, shoul joshua, w/o contr ast No observ ation record ed. [email or web address] [facility] [address], [place], [address], 07/10/2023 13:57:16 09/07/19 24 XR, knee No observ ation record ed. [email or web address] [facility] [place] [address] [facility] [facility] [address], [place], [address], 09/12/2023 15:34:44 12/09/19 24 12/09/2023 MAMMO , scree nga, digit al, bilat eral No observ ation record ed. [email or web address], [place], [address], 12/09/2023 11:51:27 12/02/19 25 11/30/2024 DEXA No observ ation record ed. [address], [place], [address], 01/10/2025 16:07:39 01/06/20 25 01/04/2025 MAMMO , scree nga, digit al, bilat eral No observ ation record ed. [address], [place], [address], 01/10/2025 16:07:10 Result Notes None recorded. Problems Name Problem SNOMED Code Status Onset Date Resolution Date Notes Provider Name and Address Organization Details Recorded Time Chronic obstructi ve pulmonary disease 32064356 Active Not Available [facility] 3 17:46:50 Pain in throat 219738202 Completed Not Available [facility] 3 07:43:38 Mammograp hy abnormal 782014305 Completed 01/10/2025 YRN Marquez [address], [place], [address] , [employer] 5 16:04:28 Impacted cerumen 55613121 Completed Not Available [facility] 3 07:43:38 Pneumonia 370887036 Completed 201901/10/2025 YRN Marquez [address], [place], [address] , [employer] [email or web address] 5 16:04:28 Chest pain 33626218 Completed Not Available [facility] 3 07:43:38 Bronchiti s 75656145 Completed Not Available [facility] 3 07:43:38 Dehydrati on 48308996 Completed Not Available [facility] 3 07:43:38 Depressiv e disorder 35771103 Active Not Available [facility] 3 17:46:50 Sinusitis 15605900 Completed Not Available [facility] 3 07:43:39 Disorder of esophagus 28672284 Completed 201701/10/2025 YRN Marquez [address], [place], [address] , [employer] [facility] 5 16:04:28 Neuropath y 222334513 Active 2020 Not Available [facility] 3 17:46:50 Osteoarth ritis 935538512 Active 2022 Not Available [facility] 3 17:46:50 Contact dermatiti s 02837613 Completed Not Available [facility] 3 07:43:39 Dysphagia 63098935 Completed Not Available [facility] 3 07:43:39 Esophagea l dysphagia 05999675 Completed 201901/10/2025 YRN Marquez [address], [place], [address] , [employer] [facility] 5 16:04:28 Seasonal allergy 972131400 Completed 01/10/2025 YRN Marquez [address], [place], [address] , [employer] [facility] 5 16:04:28 Pain of shoulder region 58638995 Completed Not Available [facility] 3 07:43:39 Hyperlipi demia 66624582 Active Not Available [facility] 3 17:46:51 Stricture of esophagus 41205005 Active 2020 Not Available [facility] 3 17:46:51 Osteoporo sis 34454000 Active 2018 Not Available [facility] 3 17:46:51 Polyp of colon 55578976 Completed 01/10/2025 YNR Marquez [address] [facility], [place], [address] , [facility] 5 16:04:28 Rheumatoi d arthritis 80051533 Active Not Available [facility] 3 17:46:51 Sleep apnea 80931491 Active Not Available [facility] 3 17:46:51 Posterior rhinorrhe a 73728333 Completed 01/10/2025 YRN Marquez [address], [place], [address] , [facility] 5 16:04:28 Candidias is of mouth 27484885 Completed Not Available [facility] 3 07:43:40 Hyperglyc emia 67035335 Active 2020 Not Available [facility] 3 17:46:51 COVID-19 837342978 Completed 202101/10/2025 YRN Marquez [address] [place] [address], [place], [address] , [facility] 5 16:04:29 Fatigue 95189358 Completed Not Available [facility] 3 07:43:40 Urge incontine nce of urine 23438449 Active 2020 Not Available [facility] 3 17:46:51 Dependenc e on supplemen zaire oxygen 07963183227 7 Completed 202001/10/2025 YRN Marquez [address], [place], [address] , [facility] 5 16:04:29 Acid reflux 712688691 Active 2022 Not Available [facility] 3 17:46:51 Acute bronchiti s 33476101 Completed 202201/10/2025 YRN Marquez [address], [place], [address] , [facility] 5 16:04:28 Pain of left shoulder joint 64124057401 870574 Completed 202201/10/[address], [place], [address] , [facility] 5 16:04:28 Osteoarth ritis of right knee joint 33542645913 9100 Completed 202301/10/2025 YRN Marquez [address], [place], [address] , [facility] 5 16:04:28 Partial thickness rotator cuff tear 866616421 Completed 202301/10/[address], [place], [address] , [facility] 5 16:04:28 Adult health examinati on Completed 202301/10/2025 YRN Marquez [address], [place], [address] , [facility] 5 16:04:28 Bilateral stenosis of carotid arteries 054222243 Active [address], [place], [address] , [facility] 5 16:09:20 Gastroeso phageal reflux disease without esophagit is 071254961 Active [address], [place], [address] , [facility] 5 16:11:32 Age-relat ed cataract of left eye 03222161674 022343 Active 2024 YRN Marquez [facility] [facility] [address], [place], [address] , [facility] 16:21:09 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 Procedures Surgical History Date Name Laterality Status Provider Name and Address Organization Details Recorded Time 01/05/20 25 Most Recent Bone Density completed Alondra Hummel RN [facility] 01/10/2025 15:52:49 12/05/19 Most Recent Mammogram completed Alondra uHmmel RN [facility] 01/10/2025 15:52:35 Rotator cuff surgery completed Not Available [facility] 09/17/2022 07:41:21 other completed Not Available [facility] 07/2022 07:41:21 Knee Replacement completed Madiha redman [place] [employer] [facility] 06/29/2023 15:52:01 procedure on shoulder completed RADHA Prather [facility] [employer] [facility] 06/29/2023 15:52:13 Hysterectomy completed Naila Severino RN [facility] 05/05/2024 10:58:43 Imaging Results None recorded. Procedure Notes None recorded. Medical Equipment None Reported. Allergies Allergen ID Allergen Name Allergen Category Reaction Reaction Severity Criticality Documentation Date Start Date Code Code System Note Provider Name and Address Organization Details Recorded Time 35758 Substance with sulfonami de structure and antibacte rial mechanism of action (substanc e) medicatio n Not available Not available Not available 09/17/2022 52563 8003 SNOMED Not Available [facility] 3 07:47:05 15142 leflunomi de medicatio n rash Not available Not available 09/17/2022 23011 RxNorm Not Available [facility] 07:47:05 97143 hydrocodo ne Not available vomiting Not available Not available 09/17/2022 5489 RxNorm Not Available [facility] 07:47:05 31049 prednison e medicatio n Not available Not available Not available 01/10/2025 8640 RxNorm Alondra Hummel RN [facility], [facility] 5 15:36:22 Medications Name Sig Start Date Stop Date Status Note LastModified by Organization Details LastModified Time nystatin 100,000 unit/mL oral suspension Take 5 mL 4 times a day by oral route as directed for 15 days. 06/15 completed prn Not Available Not Available Not Available doxycycline hyclate 100 mg capsule Take 1 capsule twice a day by oral route for 10 days. active Not Available Not Available No t Available Plaquenil 200 mg tablet Take 1 tablet twice a day by oral route. 2012 active Not Available Not Available Not Avai lable ipratropium 0.5 mg-albutero l 3 mg (2.5 mg base)/3 mL nebulizatio n soln Inhale 3 mL every day by nebulizat ion route for 1 day. 05/14 completed Not Available Not Available Not Available Depo-Medrol 40 mg/mL suspension for injection Take 1.5 mL every day by injection route for 1 day. active Not Available Not Available No t Available albuterol sulfate 2.5 mg/3 mL (0.083 %) solution for nebulizatio n Inhale 3 mL 3 times a day by nebulizat ion route. active Not Available Not Available No t Available azithromyci n 250 mg tablet TAKE 2 TABLETS (500 MG) BY ORAL ROUTE ONCE DAILY FOR 1 DAY THEN 1 TABLET (250 MG) BY ORAL ROUTE ONCE DAILY FOR 4 DAYS 06/29 completed Not Available Not Available Not Available benzonatate 200 mg capsule Take 1 capsule 3 times a day by oral route. 06/29 completed Not Available Not Available Not Available hydrocodone 5 mg-acetamin ophen 325 mg tablet TAKE 1 TABLET BY MOUTH EVERY 6 HOURS 08/22 completed Not Available Not Available Not Available meloxicam 15 mg tablet Take 1 tablet every day by oral route. 01/10 completed Not Available Not Available Not Available famotidine 40 mg tablet Take 1 tablet every day by oral route as directed for 90 days. 2024 active Not Available Not Available Not Avai lable Tubersol 5 tub. unit/0.1 mL intradermal injection solution Inject 0.1 mL by intraderm al route. 08/26 completed Not Available Not Available Not Available fluorouraci l 5 % topical cream 06/29 completed Not Available Not Available Not Available methylpredn isolone 4 mg tablet 11/23 completed Not Available Not Available Not Available Nexium 40 mg capsule,del ayed release TAKE 1 CAPSULE DAILY active Not Available Not Available No t Available ciprofloxac in 500 mg tablet 05/05 completed Not Available Not Available Not Available omeprazole 40 mg capsule,del ayed release Take 1 capsule every day by oral route for 90 days. 01/10 completed Not Available Not Available Not Available leflunomide 20 mg tablet Take 1 tablet every day by oral route as directed. 2014 active Not Available Not Available Not Avai lable tramadol 50 mg tablet Take 1 tablet twice a day by oral route as needed for 10 days. 05/14 completed Not Available Not Available Not Available meloxicam 7.5 mg tablet Take 1 tablet every day by oral route. 06/29 completed Not Available Not Available Not Available Tessalon Perles 100 mg capsule Take 1 or 2 CAPSULE 3 TIMES A DAY by oral route. as needed for cough active Not Available Not Available No t Available lorazepam 0.5 mg tablet Take 1 tablet PO 30 mins before MRI- may repeat if necessary 09/07 completed Not Available Not Available Not Available methocarbam ol 750 mg tablet Take 1 tablet twice a day by oral route for 30 days. active Not Available Not Available No t Available methotrexat e sodium 2.5 mg tablet 5 tablets once a week active Not Available Not Available No t Available cephalexin 500 mg capsule Take 1 capsule twice a day by oral route for 7 days. 06/13 completed Not Available Not Available Not Available diclofenac 50 mg-misopros margie 200 mcg tablet,imme d.and delayed release 11/13 completed PRN Not Available Not Available Not Available folic acid 1 mg tablet active Not Available Not Available Not Available montelukast 10 mg tablet Take 1 tablet every day by oral route in the evening for 90 days. active Not Available Not Available No t Available estradiol 0.5 mg tablet 08/22 completed Not Available Not Available Not Available Aspir-81 mg tablet,charley yed release Take 1 tablet every day by oral route. 11/23 completed Not Available Not Available Not Available levofloxaci n 500 mg tablet Take 1 tablet every 24 hours by oral route for 7 days. 07/21 completed Not Available Not Available Not Available estradiol 0.01% (0.1 mg/gram) vaginal cream active Not Available Not Available Not Available levofloxaci n 750 mg tablet Take 1 tablet every day by oral route for 5 days. 05/21 completed Not Available Not Available Not Available methylpredn isolone 4 mg tablets in a dose pack Take as directed on pack. Direction s for Medrol Dosepak: day: 2 tablets before breakfast , 1 tablet after lunch and after supper, and 2 tablets at bedtime.2 day: 1 tablet before breakfast . 1 tablet after lunch and after supper, and 2 tablets at bedtime.3 day: 1 tablet before breakfast , after lunch, after supper and at bedtime.4 day: 1 tablet before breakfast , after lunch and at bedtime.5 day: 1 tablet before breakfast and at bedtime.6 day: 1 tablet before breakfast 05/27 completed Not Available Not Available Not Available albuterol sulfate HFA 90 mcg/actuati on aerosol inhaler active Not Available Not Available Not Available cefdinir 300 mg capsule 09/01 completed Not Available Not Available Not Available fluticasone propionate 50 mcg/actuati on nasal spray,suspe nsion Inhale 2 sprays every day by intranasa l route in the morning for 30 days. 05/14 completed PRN Not Available Not Available Not Available betamethaso ne dipropionat e 0.05 % lotion 01/10 completed Not Available Not Available Not Available doxycycline hyclate 100 mg tablet TAKE 1 TABLET BY MOUTH EVERY 12 HOURS 09/24 completed Not Available Not Available Not Available loratadine 10 mg tablet Take 1 tablet every day by oral route in the morning for 30 days. active Not Available Not Available No t Available naproxen 500 mg tablet Take 1 tablet twice a day by oral route. 12/02 completed PRN Not Available Not Available Not Available oxycodone 5 mg tablet TAKE 1 TABLET BY MOUTH EVERY 4 HOURS NEEDED 09/24 completed Not Available Not Available Not Available Humira 40 mg/0.8 mL subcutaneou s syringe kit inject 2x month 2012 active Not Available Not Available Not Avai lable cyclobenzap rine 5 mg tablet Take 1 or 2 TABLET 3 TIMES A DAY by oral route. as needed for muscle spasms active Not Available Not Available No t Available Premarin 0.625 mg/gram vaginal cream Insert 0.5 applicato rsful every week by vaginal route for 90 days. 05/14 completed Not Available Not Available Not Available Crestor 10 mg tablet Take 1 tablet every day by oral route at bedtime. 2023 active Not Available Not Available Not Avai lable Spiriva with HandiHaler 18 mcg and inhalation capsules Inhale 1 capsule every day by inhalatio n route. 06/29 completed Not Available Not Available Not Available nitrofurant oin monohydrate /macrocryst als 100 mg capsule 05/05 completed Not Available Not Available Not Available folic acid 1,000mg daily 2015 active Not Available Not Available Not Avai lable Advair Diskus 1 puff asneeded active Not Available Not Available No t Available Humira Pen 40 mg/0.8 mL subcutaneou s kit 40 mg twice a month active Not Available Not Available No t Available Voltaren 1 % topical gel 05/14 completed Not Available Not Available Not Available Myrbetriq 50 mg tablet,exte nded release Take 1 tablet every day by oral route for 30 days. 05/27 completed Not Available Not Available Not Available Eliquis 2.5 mg tablet Take 1 tablet every 12 hours by oral route. 09/24 completed Not Available Not Available Not Available Stimulant Laxative Plus 8.6 mg-50 mg tablet TAKE 2 TABLETS BY MOUTH TWICE DAILY. 09/24 completed Not Available Not Available Not Available methotrexat e (PF) 4 tablets every 7 days 11/13 completed Not Available Not Available Not Available Spiriva Respimat 1.25 mcg/actuati on solution for inhalation active Not Available Not Available N ot Available Trelegy Ellipta 100 mcg-62.5 mcg-25 mcg powder for inhalation 06/29 completed Not Available Not Available Not Available Humira(CF) Pen 40 mg/0.4 mL subcutaneou s kit 01/10 completed Not Available Not Available Not Available Wixela Inhub 250 mcg-50 mcg/dose powder for inhalation Inhale 1 puff twice a day by inhalatio n route. 01/10 completed Not Available Not Available Not Available Paxlovid 300 mg (150 mg x 2)-100 mg tablets in a dose pack TK 2 NIRMATREL VIR TS AND 1 RITONAVIR T TOGETHER PO BID FOR 5 DAYS 05/05 completed Not Available Not Available Not Available Vitals Date Recorded Body height Provider Name an d Address Organization Details Last Updated DateTime 09/07/2023 157.48 cm Madiha Cool [facility] 09/07/2023 16:36:13 Date Recorded Body height Provider Name an d Address Organization Details Last Updated DateTime 09/09/2023 157.48 cm Madiha Cool [facility] 09/09/2023 11:20:49 Date Recorded Body height Body mass index (BMI) Body weight Body temperature Heart rate Respiratory rate Oxygen saturation Oxygen saturation in Arterial blood by Pulse oximetry Systolic blood pressure Diastolic blood pressure Provider Name and Address Organization Details Last Updated DateTime 157.48 cm 28.4 kg/m2 98335.9 2 g 97.2 [degF] 67 /min 20 /min 94 % 94 % 124 mm[Hg] 60 mm[Hg] Alondra Hummel RN [facility] 15:44:15 Date Recorded Body height Body mass index (BMI) Body weight Body temperature Heart rate Oxygen saturation Oxygen saturation in Arterial blood by Pulse oximetry Systolic blood pressure Diastolic blood pressure Provider Name and Address Organization Details Last Updated DateTime 157.48 cm 28.3 kg/m2 85107.8 2 g 96.3 [degF] 57 /min 97 % 97 % 148 mm[Hg] 76 mm[Hg] Naila Severino RN [facility] 11:06:33 Date Recorded Body height Provider Name an d Address Organization Details Last Updated DateTime 07/15/2023 157.48 cm Madiha Cool [facility] [employer] [facility] 07/15/2023 09:04:21 Social History Question Answer Notes LastModified by Organization Details LastModified Time Tobacco Smoking Status Former Smoker Not Available [facility] 09/17/2022 07:41:16 Do You Have An Advance Directive? No Information not available 01/10/2025 Are You Blind Or Do You Have Difficulty Seeing? Yes Wears Glasses Information not available 01/10/2025 Is Blood Transfusion Acceptable In An Emergency? Yes Information not available 01/10/2025 What Is Your Level Of Caffeine Consumption? Heavy [id number] Information not available 09/17/2022 How Much Tobacco Do You Chew? None [id number] Information not available 09/17/2022 What Is Your Code Status? Full Code Information not available 01/10/2025 In The 14 Days Before Symptom Onset, Have You Had Close Contact With A Laboratory-confi rmed COVID-19 While That Case Was Ill? No Information not available 01/10/2025 In The 14 Days Before Symptom Onset, Have You Had Close Contact With A Person Who Is Under Investigation For COVID-19 While That Person Was Ill? No Information not available 01/10/2025 Are You Deaf Or Do You Have Serious Difficulty Hearing? Yes Has Hearing Aids Information not available 01/10/2025 Which Illicit Or Recreational Drugs Have You Used? None [id number] Information not available 09/17/2022 Have There Been Any Changes To Your Family Or Social Situation? No Information not available 01/10/2025 Do You Use Insect Repellent Routinely? No Information not available 01/10/2025 Where Do You Live? SingleLevelHouse Information not available 01/10/2025 Do You Have A Medical Power Of Electrical Logger? No Information not available 01/10/2025 How Many Children Do You Have? 0 Information not available 01/10/2025 Do You Have Any Pets? Yes Information not available 01/10/2025 What Is Your Relationship Status? Information not available 01/10/2025 Do You Use Your Seat Belt Or Car Seat Routinely? Yes Information not available 01/10/2025 Do You Have Smoke And Carbon Monoxide Detectors In Your Home? Yes Information not available 01/10/2025 Are You Passively Exposed To Smoke? No Information not available 01/10/2025 Are There Any Smokers In Your House? No Information not available 01/10/2025 Do You Participate In Social Media? Yes Information not available 01/10/2025 Do You Use Sunscreen Routinely? Yes Information not available 01/10/2025 Have You Recently Traveled Abroad? No Information not available 01/10/2025 Do You Have Difficulty Walking Or Climbing Stairs? No Information not available 01/10/2025 Sex: Unknown Functional Status Question Answer Note LastModified by Organizat ion Details LastModified Time What is your level of alcohol consumption? None [id number] Information not available 09/17/2022 Do you or have you ever used smokeless tobacco? Never used smokeless tobacco [id number] Information not available 09/17/2022 Are you currently employed? No Information not available 01/10/2025 Do you have transportation difficulties? No Information not available 01/10/2025 Are you able to walk? YESWOREST Information not available 01/10/2025 Do you have difficulty doing errands alone? No Information not available 01/10/2025 Are you able to care for yourself? Yes Information n ot available 01/10/2025 What is your occupation? Retired [id number] Information not available 09/17/2022 Do you have difficulty dressing or bathing? No Information not available 01/10/2025 Do you or have you ever used e-cigarettes or vape? Never used electronic cigarettes [id number] Information not available 09/17/2022 What is your exercise level? Moderate [id number] Information not available 09/17/2022 Mental Status Question Answer Note LastModified by Organizat ion Details LastModified Time Do you feel stressed (tense, restless, nervous, or anxious, or unable to sleep at night)? [id number] Information not available 01/10/2025 Do you have difficulty concentrating, remembering or making decisions? Yes Information no t available 01/10/2025 Family History Relationship Description Onset Age of this Age Resolved Age Notes LastModified by Organization Details LastModified Time Maternal Grandfather Cerebrovascu lar accident [email or web address] Not available 10:43:01 Maternal Grandfather Heart disease [id number] Not available 09/17/2022 07:41:22 Maternal Grandmother Cerebrovascu lar accident [email or web address] Not available 10:43:01 Mother Cerebrovascu lar accident [email or web address] Not available 10:43:01 Mother Dementia [email or web address] Not availab le 05/05/2024 10:43:01 Mother Alzheimer's disease Not available 2024 15:47:29 Father Myocardial infarction [id number] Not available 09/17/2022 07:41:23 Father Diabetes mellitus [id number] Not available 09/17/2022 07:41:23 Brother Alzheimer's disease [email or web address] Not available 05/05 10:43:01 Brother Family history of malignant neoplasm [email or web address] Not available 05/05 10:43:01 Sister Family history of malignant neoplasm [email or web address] Not available 05/05 10:43:01 Sister Blood coagulation disorder [email or web address] Not available 05/05 10:43:01 Sister Alzheimer's disease Not available 2024 15:47:37 Unspecified Relation Alzheimer's disease Not available 2024 15:47:43 Notes:Sister: MCI Nemendy: Mattie brumfield Cancer Medical History Condition Response ALLERGIES/HAYFEVER Y COPD Y HIGH CHOLESTEROL / HYPERLIPIDEMIA Y FEMALE PROBLEMS / INFECTIONS Y OSTEOPOROSIS Y ARTHRITIS Y ASTHMA Y PULMONARY DISEASE Y USE OF NSAIDS Y Gynecological History Statement/Question Response Most Recent Mammogram 12/04/2024 Most Recent Bone Density 01/04/2025 Obstetrics History GPAL:G 0 P 0 0 0 0 Immunizations Vaccine Type Date Status Note Provider Nam e and Address Organization Details Recorded Time Influenza, high-dose, trivalent, PF 7 completed Not Available [facility] 06/15/2023 17:46:51 Influenza, high-dose, trivalent, PF 9 completed Alondra Hummel RN null, [place] [employer] [facility] 01/10/2025 15:31:24 Influenza, split virus, quadrivalent, preservative 0 completed Not Available [facility] 06/15/2023 17:46:51 TST-PPD intradermal 7 completed Not Available [facility] 06/15/2023 17:46:51 Influenza, high-dose, trivalent, PF 6 completed Alondra Hummel RN null, [place] [employer] [facility] [employer] [facility] 01/10/2025 15:31:24 Influenza, split virus, trivalent, preservative 5 completed Not Available [facility] 06/15/2023 17:46:51 Influenza, split virus, trivalent, preservative 4 completed Not Available [facility] 06/15/2023 17:46:51 Influenza, split virus, trivalent, preservative 3 completed Not Available [facility] 06/15/2023 17:46:51 Influenza, split virus, trivalent, preservative 2 completed Not Available [facility] 06/15/2023 17:46:51 pneumococcal polysaccharide PPV23 0 completed Not Available [facility] 06/15/2023 17:46:51 Tdap 0 completed Not Available [facility] 06/15/2023 17:46:51 zoster live 0 completed Alondra Hummel RN null, [place] [employer] [facility] 01/10/2025 15:31:24 pneumococcal polysaccharide PPV23 5 completed Not Available [facility] 06/15/2023 17:46:51 Pneumococcal conjugate PCV 13 9 completed Not Available [facility] 06/15/2023 17:46:51 pneumococcal polysaccharide PPV23 3 completed Not Available [facility] 06/15/2023 17:46:51 Influenza, high-dose, trivalent, PF 4 completed ELIE Mensah [address] [place] [address], [place], [address], [facility] [employer] [facility] 05/30/2024 17:16:21 Past Encounters Encounter ID Performer Location Encounter Start Date Encounter Closed Date Diagnosis/Indication Diagnosis SNOMED-CT Code Diagnosis ICD10 Code Diagnosis Note [id number] [facility] [place] [address] [place] [address] 11/21/2020 00:00:00 11/21/2020 15:39:04 [id number] Patt Curtis MD [facility] [place] [facility] [place] [address] 05/27/2021 00:00:00 05/27/2021 15:56:53 [id number] Patt Curtis MD [facility] [place] [address] [place] [address] [place] [address] 08/28/2021 00:00:00 08/28/2021 14:14:56 [id number] Patt Curtis MD [facility] [place] [facility] [place] [address] 11/14/2021 00:00:00 11/14/2021 16:06:41 [id number] Ferny Crooks MD [facility] [address] [facility] [address] [place] [address] 05/14/2022 00:00:00 05/19/2022 15:07:29 [id number] Patt Curtis MD [facility] [place] [facility] [place] [address] 07/22/2022 00:00:00 07/22/2022 19:48:12 [id number] Ferny Crooks MD [facility] [address] [place] [address] 08/22/2022 00:00:00 08/31/2022 18:08:49 [id number] Ferny Crooks MD [facility] [address] [place] [address] 09/10/2022 00:00:00 09/10/2022 11:11:02 [id number] Ferny Crooks MD [facility] [address] [place] [address] 09/24/2022 08:50:01 09/24/2022 09:20:51 History of right total knee replacement 0479524080 341925 Z96.651 [id number] Ferny Crooks MD [facility] [address] [place] [address] 10/08/2022 10:38:38 10/08/2022 11:26:50 History of right total knee replacement 8979746256 142782 Z96.391 [id number] Ferny Crooks MD [facility] [address] [place] [address] 06/29/2023 14:53:50 07/15/2023 15:11:10 Pain of left shoulder joint 4719737367 9842427 M25.778 [id number] Ferny Crooks MD [facility] [address] [place] [address] 07/15/2023 08:53:27 07/17/2023 11:39:19 Pain of left shoulder joint 0248762980 0551430 M25.962 [id number] Ferny Crooks MD [facility] [address] [place] [address] 09/07/2023 16:29:36 09/14/2023 10:03:05 Osteoarthritis of right knee joint 6140478479 70998 M17.11 [id number] Ferny Crooks MD [facility] [address] [place] [address] 09/09/2023 11:13:10 09/09/2023 12:04:18 Partial thickness rotator cuff tear 948598580 M75.666 [id number] Dmitry aRmos MD [facility] [address] [place] [address] [place] [address] 05/05/2024 10:41:18 05/05/2024 11:35:21 Administration of influenza vaccine 45197982 Z23 Acid reflux 050368919 K2 1.9 Hyperlipidemia 78087633 E78.5 Chronic ob structive pulmonary disease 42291068 J44.9 Adult heal th examination 316170458 Z00.00 Depressive disorder 3548 9007 F32.A Esophageal dysphagia 408 42251 R13.19 Neuropathy 708284420 G62 .9 Osteoarthritis 323064267 M17.11 Osteoporosis 15670402 M8 1.0 Rheumatoid arthritis 698 65578 M06.9 Seasonal allergy 5576480 04 J30.2 Sleep apnea 77526084 G47 .30 Stricture of esophagus 14012701 K22.2 [id number] Dmitry Ramos MD [facility] [address] [address] 01/10/2025 15:17:17 01/10/2025 17:08:29 Bilateral stenosis of carotid arteries 677103051 I65.23 Taking crestor, hx of 50% blockage Gastroesop hageal reflux disease without esophagitis 303436955 K21.9 Will stop omeprazole due to osteoporos is Neuropathy 474522576 G62 .9 Worsening, declines gabapentin Depressive disorder 3548 9007 F32.A Well controlled Age-relate d cataract of left eye 0053719925 4498715 H25.9 Okay for surgery under conscious sedation Health Concerns Section Related Observation LastModified by Organization Detai ls LastModified Time None Recorded Concern Status LastModified by Organization Details LastModified Time None Recorded Advance Directives Directive N: Payers Insurance Date Sequence Insurance Name Policy Number Policy Nguyen Covered Member ID Nguyen Member ID Guarantor Name 01/07/2025 1 [place] Cassie Bone [id number] Cassie Bone 01/07/2025 2 FOR LIFE ( - MEDICARE SUPPLEMENT) Emmanuel Bone [id number] Cassie Bone Notes Date Note Type Note Provider Name and Address Organization Details Recorded Time 07/15/2023 text/html Patient returns after MRI scan of left shoulder. For chief complaint with her left shoulder is difficulty with active forward flexion. Is very weak and she has to use her right shoulder for most activities that involve reaching. She underwent rotator cuff repair of the right shoulder back in 2012 after a fall at [facility]. One of the tendons could not be repaired as it was too troubled she recalls. MRI scan left shoulder demonstrates moderately severe fatty infiltration upper 60% of the subscapularis muscle belly with atrophy. There is a mid substance tear retracted of the upper subscapularis tendon. There is also a full-thickness midsubstance tear of the supraspinatus tendon. The stump attached to the greater tuberosity still at the supraspinatus footprint extends 13.2 mm medial to the medial edge of the footprint of the supraspinatus insertion so the tear is relatively far medial on the supraspinatus tendon. There is ecog-oq-[id number] atrophy of the supraspinatus and mild fatty infiltration of the supraspinatus. Her past medical history is significant for rheumatoid arthritis. She is on Humira and methotrexate. She does get blood work every 6-8 weeks. She sees a power regulator at [facility] [facility] She has used Mobic 15 mg passed her power regulator has described that for her as recently as October of this year. Ferny Crooks MD [address], [place] [address], [place], [address], [employer] 07/15/2023 19:56:30 09/07/2023 text/html Patient returns. She is now 1 year out after her right total knee arthroplasty and has done exceptionally well. The she has did rheumatoid arthritis which is controlled methotrexate. She is able do all of her normal activities without limitation without discomfort in her right knee she is very pleased. Ferny Crooks MD [address], [address], [place], [address], [employer] 09/12/2023 15:35:26 05/05/2024 text/html quit tobacco 2004. ELIE Genao [address], [address], [place], [address], [employer] 05/30/2024 17:20:32 01/10/2025 text/html Cassie Lizandro is a 9 8 year old female patient here today for a pre-operative clearance She is having a left CE removal with IOL placement on 01/24/[address] Arango in [place]. She is overall healthy. She does annual wellness visits here frequently. She does have COPD. This is managed by pulmonology. She is utilizing Spiriva, Advair and Albuterol. She has RA, this is managed by rheumatology. She takes sohail twice per month. She has osteopenia, her power regulator is managing this. She has had reclast infusion. She has carotid artery stenosis. 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
--- OUTSIDE RECORDS SUMMARY | 2025-01-16 13:14 | XMS_ITS | Clinical Summary ---
Author Organization [facility] Address [address] [place] [address] Care Team Providers Care Professor Of Political Science Name Role Phone Alena Thakur NP Primary Care Provider [phone] Social History Tobacco Use Types Packs/Day Years [...] age to complete this topic Insurance MEDICARE [facility] Care Teams Professor Of Political Science Relationship Specialty Start Date End Date Alena Thakur NP [facility] [place] [address] PCP - General NURSE PRACTITIONER 12/09/21
--- OUTSIDE RECORDS SUMMARY | 2025-01-16 13:15 | XMS_ITS | Encounter Summary ---
Author Organization [facility] Address [address] [facility] [place] [address] Care Team Providers Care Dining Room Coordinator Name Role Phone Patt Curtis MD Primary Care Provider [phone] Myrna Knapp MD Unavailable [phone] Encounter Details Date Type Department Care Team (Late st Contact Info) Description 09/10/2023 Lab Requisition [facility] - DermPath Lab [address] [place] [address] David Sagastume MD [address] [place] [address] Social History Tobacco Use Types [...] on file Legal Sex Female 6:03 AM AUTOMATION AND CONTROLS MANAGER Gender Identity Not on file Sexual Orientation Not on file documented as of this encounter Plan of Treatment Upcoming Encounters Date Type Department Care Team (Late st Contact Info) Description 05/10/2025 11:30 AM CDT Office Visit [facility] - BOILER ENGINEER [address] [facility] [address] [place] [address] Aldo Muller MD [address] [facility] [address] [place] [address] 06/28/2025 12:20 PM AUTOMATION AND CONTROLS MANAGER Office Visit [facility] - Rheumatology [address] [facility], [place] [address] Myrna Knapp MD [address] [place] [address] documented as of this encounter Procedures Procedure Name Priority Date/Time Associated Diagnosis Comments DERMATOPATHOLOGY Routine 09/08/2023 3:33 AM AUTOMATION AND CONTROLS MANAGER documented in this encounter Results * DERMATOPATHOLOGY (09/08/2023 3:33 AM AUTOMATION AND CONTROLS MANAGER) Case Report Dermatopathology Report Case: [id number] Authorizing Provider: David Sagastume MD Collected: 09/08/2023 03:33 AM Ordering Location: [facility] DermPath Lab Received: 09/10/2023 07:40 AM Pathologist: Renee Diana MD Specimens: A) - Skin, post vertex scalp B) - Skin, mid vertex scalp C) - Skin, ant vertex scalp 4 2:13 PM AUTOMATION AND CONTROLS MANAGER DERMATOPATHOLOGY LABORATORY Final Diagnosis Specimen A. SKIN, [...] microscopic description and comment) 4 2:13 PM AUTOMATION AND CONTROLS MANAGER DERMATOPATHOLOGY LABORATORY at 1413 AUTOMATION AND CONTROLS MANAGER Clinical History A-C: R/O SCC vs SCCIS vs HAK 4 2:13 PM AUTOMATION AND CONTROLS MANAGER DERMATOPATHOLOGY LABORATORY Gross Description Specimen A: Received [...] 9x8x2 mm. Jar 0. 4 2:13 PM [facility] DERMATOPATHOLOGY LABORATORY Microscopic Description Specimen A. [...] Clinicopathologic correlation is recommended. 4 2:13 PM [facility] DERMATOPATHOLOGY LABORATORY Disclaimer An external and internal positive and negative controls are appropriate for the histochemical, immunohistochemical and immunofluorescence stain(s) in this case (if any), except where stated explicitly. The performance characteristics of the stain(s) cited in this report were developed and its performance characteristic determined by the Dermatopathology Laboratory at [facility], directed by Dr. Donald Wills. These tests need not be, and therefore are not, approved by the [place] Food and Drug Administration. The tests are used for clinical purposes. Billing Codes Specimen Charges Stain Charges 96665 55458 54795 1 1 1 4 2:13 PM AUTOMATION AND CONTROLS MANAGER DERMATOPATHOLOGY LABORATORY Embedded Images 4 2:13 PM AUTOMATION AND CONTROLS MANAGER DERMATOPATHOLOGY LABORATORY Pathology/Cytology TISSUE SPECIMEN FROM SKIN / Unknown 09/08/2023 3:33 AM AUTOMATION AND CONTROLS MANAGER 09/10/2023 7:40 AM AUTOMATION AND CONTROLS MANAGER Miscellaneous samples (specimen) TISSUE SPECIMEN FROM SKIN / Unknown 09/08/2023 3:33 AM AUTOMATION AND CONTROLS MANAGER 09/10/2023 7:40 AM AUTOMATION AND CONTROLS MANAGER Miscellaneous samples (specimen) TISSUE SPECIMEN FROM SKIN / Unknown 09/08/2023 3:33 AM AUTOMATION AND CONTROLS MANAGER 09/10/2023 7:40 AM AUTOMATION AND CONTROLS MANAGER David Sagastume MD LAB - PATHOLOGY/CYTOLOGY ORD ERABLES Final Result DERMATOPATHOLOGY LABORATORY [facility] - Department of Dermatology [facility] Medicine [facility] [facility], [address]rd Floor [address] [phone] documented in this encounter Visit Diagnoses Not on filedocumented in this encounter Care Teams Dining Room Coordinator Relationship Specialty Start Date End Date Patt Curtis MD [address] [place] [address] [address] [place] [address] PCP - General 08/07/22 Myrna Knapp MD [address] [place] [address] [place] [address] Supervisor Industrial Arts Education Rheumatology 05/18/23 documented as of this encounter
--- OUTSIDE RECORDS SUMMARY | 2025-01-16 13:15 | XMS_ITS | Clinical Summary ---
Author Organization [facility] Address [address] [place] [address] Phone Care Team Providers Care Rehabilitation Physician Name Role Phone Unavailable Primary Care Provider [...] Comments Blood Pressure 132/78 09/15/2018 12:01 AM CYLINDER MACHINE OPERATOR Pulse - - Temperature 35.5 C (95.9 F) 09/15/2018 12:01 AM CYLINDER MACHINE OPERATOR Respiratory Rate - - Oxygen Saturation - - Inhaled Oxygen Concentration - - Weight 70.3 kg (155 lb) 09/15/2018 12:01 AM CYLINDER MACHINE OPERATOR Height 157.5 cm (5' 2) 09/15/2018 12:01 AM CYLINDER MACHINE OPERATOR Body Mass Index 28.35 09/15/2018 12:01 AM CYLINDER MACHINE OPERATOR Plan of Treatment Health Maintenance Due Date Last Done Comments Pneumococcal PPSV23/PCV13 65 + Years / Low and Medium Risk (2 of 3 - PCV20 or PCV21) 08/02/2019 08/02/2018 Influenza Vaccine (Season Ended) 2025 08/02/19 19
--- OUTSIDE RECORDS SUMMARY | 2025-01-16 13:15 | XMS_ITS | Continuity of Care Document ---
Author Organization [facility] Address [address] [facility] [place] [address] Phone Care Team Providers Care Product/Device Technologist Name Role Phone Gary Andrews DO Unavailable Unavailable Allergies, Adverse Reactions, Alerts Substance Reaction Status Criticality Sulfa (Sulfonamide Antibiotics) Rash Active No Information Procedures Procedure Date Offic/outpt E&m [place] [address] 6 Advance Directives Directive Yes / No Effective Date File Name No Information Encounters Encounter Description Practice Location Reason(s) For Visit Diagnoses Date Provider Providers Copied on Encounter [facility] , [address] [facility] [place] [facility], [place], [id number], [place] tel:[phone] MISSY Ramirez No Information Darryl Vega. [address] [facility] [place], [place] [address], [place], [id number], [place]. tel:[phone] Referring Provider: Gary Irby, [address] [facility] [place] [place] [address], [place], [address] [place] [address]. tel:[phone] Offic/outpt E&m [address] , [address], [place], [id number], [place] tel:[phone] MISSY Ramirez Dysphagia (chief complaint) Esophagitis, unspecified Darryl Vega. [address], [address], [place], [place], [id number], [place]. tel:[phone] Referring Provider: Gary Irby, [address] [place] [address], [place], [address]. tel:[phone] Family History Family Member Type Diagnosis Age [...] republican ID Authoriza tion(s) Medicare Claims Administrators [id number] [facility] [id number] Social History Type Description Quantity Date Captured Comments Sex Female Smoking Status No Information Chief Complaint And Reason For Visit No Information Reason For Referral Reason For Referral No Information History Of Present Illness Encounter Date Complaint History Of Prese nt Illness Dysphagia (comments) GI doc told them he didn't know what to do and that she should go to [place]. They looked into it here but they [...]
--- OUTSIDE RECORDS SUMMARY | 2025-01-16 13:15 | XMS_ITS | Encounter Summary ---
Author Organization [facility] Address [address] [facility] [place] [address] Care Team Providers Care Boiler Operator Helper Name Role Phone Alena Thakur Primary Care Provider + Patt Curtis MD Primary Care Provider [phone] Myrna Knapp MD Unavailable [phone] Encounter Details Date Type Department Care Team (Late st Contact Info) Description 08/09/2021 Lab Requisition [facility] Care DermPath Lab [address] [place] [id number] David Sagastume MD [address] [place] [address] Social History Tobacco Use Types [...] on file Legal Sex Female 6:03 AM MEDICAL AFFAIRS SPECIALIST Gender Identity Not on file Sexual Orientation Not on file documented as of this encounter Plan of Treatment Upcoming Encounters Date Type Department Care Team (Late st Contact Info) Description 05/10/2025 11:30 AM CDT Office Visit [facility] - FLOOR MECHANIC [address] [place] [address] Aldo Muller MD [address] [facility] [address] [place] [address] 06/28/2025 12:20 PM MEDICAL AFFAIRS SPECIALIST Office Visit [facility] Group - Rheumatology [address] [place] [address], [place] [address] Myrna Knapp MD [address] [place] [address] [address] [place] [address] documented as of this encounter Procedures Procedure Name Priority Date/Time Associated Diagnosis Comments DERMATOPATHOLOGY Routine 08/07/2021 12:0 0 AM MEDICAL AFFAIRS SPECIALIST documented in this encounter Results * DERMATOPATHOLOGY (08/07/2021 12:00 AM MEDICAL AFFAIRS SPECIALIST) Case Report Dermatopathology Report Case: [id number] Authorizing Provider: David Sagastume MD Collected: 08/07/2021 12:00 AM Ordering Location: [facility] DermPath Lab Received: 08/09/2021 01:05 PM Pathologist: Mitzy Cordoba MD Specimen: Skin, posterior vertex scalp 2 5:15 PM MEDICAL AFFAIRS SPECIALIST DERMATOPATHOLOGY LABORATORY Final Diagnosis Specimen A. SKIN, posterior vertex scalp: HYPERPLASTIC (HYPERTROPHIC) ACTINIC KERATOSIS, LICHENOID (L57.0) 2 5:15 PM MEDICAL AFFAIRS SPECIALIST DERMATOPATHOLOGY LABORATORY at 4[address] MEDICAL AFFAIRS SPECIALIST Clinical History R/O SCC, Youngblood's disease. 2 5:15 PM MEDICAL AFFAIRS SPECIALIST DERMATOPATHOLOGY LABORATORY Gross Description Specimen A: Received is one formalin filled container labeled with the patient's name and designated posterior vertex scalp. The specimen consists of a shave biopsy measuring 23d4x1qk. Jar 0+. 2 5:15 PM MEDICAL AFFAIRS SPECIALIST DERMATOPATHOLOGY LABORATORY Microscopic Description Specimen A. SKIN, posterior vertex scalp: There is hyperkeratosis alternating with parakeratosis. There is epidermal hyperplasia with disorderly maturation of keratinocytes with nuclear pleomorphism confined to the lower half of the epidermis. The dermis shows a band-like, chronic inflammatory infiltrate with occasional apoptotic keratinocytes and some basal vacuolar alteration. 2 5:15 PM [facility] DERMATOPATHOLOGY LABORATORY Disclaimer An external and internal positive and negative controls are appropriate for the histochemical, immunohistochemical and immunofluorescence stain(s) in this case (if any), except where stated explicitly. The performance characteristics of the stain(s) cited in this report were developed and its performance characteristic determined by the Dermatopathology Laboratory at [facility], directed by Dr. Donald Wills. These tests need not be, and therefore are not, approved by the [place] Food and Drug Administration. The tests are used for clinical purposes. Billing Codes Specimen Charges Stain Charges 18016 1 2 5:15 PM [facility] DERMATOPATHOLOGY LABORATORY Embedded Images 2 5:15 PM [facility] DERMATOPATHOLOGY LABORATORY Pathology/Cytolog y TISSUE SPECIMEN FROM SKIN / Unknown 08/07/2021 08/09/2021 1:05 PM MEDICAL AFFAIRS SPECIALIST David Sagastume MD LAB - PATHOLOGY/CYTOLOGY ORD ERABLES Final Result DERMATOPATHOLOGY LABORATORY [facility] Department of Dermatology [address], [address] [phone] documented in this encounter Visit Diagnoses Not on filedocumented in this encounter Care Teams Boiler Operator Helper Relationship Specialty Start Date End Date Alena Thakur APRN-ORACLE SQL DEVELOPER [address] [phone] PCP - General 02/17/18 08/06/22 Patt Curtis MD [address] [place] [address] [address] [place] [address] PCP - General 08/07/22 Myrna Knapp MD [address] [place] [address] [place] [address] Bush Regenerator Rheumatology 05/18/23 documented as of this encounter
--- OUTSIDE RECORDS SUMMARY | 2025-01-16 13:15 | XMS_ITS | Clinical Summary ---
Author Organization [facility] Address [address], [facility] [address] [place] [address] Phone Care Team Providers Care Nurse Midwife/Clinical Instructor Name Role Phone Alena Thakur APRN Primary Care Provider [phone] Medications pantoprazole (PROTONIX) 40 MG Tablet Delayed [...] Immunization ( - 2023- season) 2024 Colonoscopy Discontinued 09/22/2019 Colorectal Cancer Screening Discontinued Retired - Colonoscopy High Risk Discontinued 0 Cologuard Discontinued Hepatitis B Immunization Aged Out [...] Health Maintenance Results * COLONOSCOPY (09/22/2019) Jacobo Swathi Singletary DO PROCEDURE/MINOR SURGICAL ORDERA BLES Final Result from Last 3 Months or Most Recently Relevant to Health Maintenance Insurance MEDICARE [facility] [employer] Care Teams Nurse Midwife/Clinical Instructor Relationship Specialty Start Date End Date Alena Thakur APRN PCP - General Advanced Practice Nurse 09/16/19
--- OUTSIDE RECORDS SUMMARY | 2025-01-16 13:15 | XMS_ITS | Encounter Summary ---
Author Organization [facility] Address [address] [facility] [place] [address] Care Team Providers Care Computer Lab Assistant Name Role Phone Patt Curtis MD Primary Care Provider [phone] Myrna Knapp MD Unavailable [phone] Reason for Visit * Reason Onset Date Comments MEDICATION REFILL 07/03/2023 Encounter Details Date Type Department Care Team (Late Contact Info) Description 07/03/2023 Refill [facility] - Rheumatology [address] [place] [address] Parker Kennedy MD [address] [place] [address] MEDICATION REFILL Social History Tobacco Use [...] on file Legal Sex Female 6:03 AM DIRECTOR AGRICULTURAL SERVICES Gender Identity Not on file Sexual Orientation Not on file documented as of this encounter Plan of Treatment Upcoming Encounters Date Type Department Care Team (Late Contact Info) Description 05/10/2025 11:30 AM CDT Office Visit [facility] - REINFORCING ROD LAYER [address] [place] [phone] Aldo Muller MD [address] [facility] [address] [place] [address] 06/28/2025 12:20 PM DIRECTOR AGRICULTURAL SERVICES Office Visit [facility] - Rheumatology [address] [facility], [place] [address] [place] [address] [place] [address] [address] [place] [address] documented as of this encounter Visit Diagnoses Not on filedocumented in this encounter Care Teams Computer Lab Assistant Relationship Specialty Start Date End Date Patt Curtis MD [facility]. [address] [place] [phone] PCP - General 08/07/22 Myrna Knapp MD [address] [facility] [address]L [place] [address] Shell Plater Rheumatology 05/18/23 documented as of this encounter
== END 2025-01-16 12:54 | disposition home or self-care (01) ==
PROVIDERS: Visit Provider Internal Medicine Rheumatology
DX: Z11.1 Encounter for screening for respiratory tuberculosis (principal); M05.9 Rheumatoid arthritis with rheumatoid factor, unspecified; Z79.899 Other long term (current) drug therapy; Z51.81 Encounter for therapeutic drug level monitoring
CPT/HCPCS: 71046

== ENCOUNTER 2025-02-08 14:25 | Outpatient (CLI) | payer MEDICARE, OTHER, SELFPAY ==
--- NOTE | ~2025-02-08 | US_ITS ---
EXAMINATION: US carotid duplex BI DATE: 02/08/2025 15:17 INDICATION: Carotid occlusion. TECHNIQUE: Grayscale, color Doppler, and pulsed Doppler images of the cervical carotid arteries were obtained. The degree of vessel stenosis is placed in one of the following categories: normal, <50%, 5 0-69%, >=70% but less than near-occlusion, near-occlusion, or total occlusion. Note that percent sten osis relative to normal distal artery lumen diameter is indirectly measured from velocity measurement s as described by Manjit, et al. Radiology 2003; 229:340-346. Notes: Normal: Peak systolic velocity <125 centimeters/sec and no plaque <50%. Peak systolic velocity <125 ( EDV <40; ICA/CCA PSV ratio <2.0; used these factors only a tandem lesions or low cardiac output or co ntralateral disease) 50-69 %: PSV 125-230 (EDV 40-100; ratio 2-4) >= 70% but less than near occlusion: PSV greater than 230 (EDV > 100; ratio> 4.0) Near Occlusion: PSV that is variable; markedly narrowed lumen Occlusion: Absent flow on color/spectral Doppler and no lumen on joseph scale. COMPARISON: None. FINDINGS: RIGHT: The right common carotid artery (CCA) peak systolic velocity (PSV) is 95 cm/s. The right internal car otid artery (ICA) PSV is 97 cm/s. The right ICA end-diastolic velocity (EDV) is 31 cm/s. The right IC A/CCA PSV ratio is 1.0. The external carotid artery (ECA) PSV is 93 cm/s. There is antegrade flow in the right vertebral artery. LEFT: The left CCA PSV is 92 cm/s. The left ICA PSV is 151 cm/s. The left ICA EDV is 42 cm/s. The left ICA/ CCA PSV ratio is 90. The ECA PSV is 8 cm/s. There is antegrade flow in the left vertebral artery. IMPRESSION: 1. Less than 50% stenosis in the right internal carotid artery by sonographic criteria. 2. 50-69% stenosis in the left internal carotid artery by sonographic criteria. Reviewed, dictated and finalized at location A. IMPRESSION: 1. Less than 50% stenosis in the right internal carotid artery by sonographic c riteria. 2. 50-69% stenosis in the left internal carotid artery by sonographic criteria.
--- OUTSIDE RECORDS SUMMARY | 2025-02-08 14:36 | XMS_ITS | Continuity of Care Document ---
Author Name [facility] Organization [facility] Care Team Providers Care Long Distance Billing Operator Name Role Phone [facility] Unavailable Unavailable Problems Combined list of problems [...] with your doctor before becoming . 09/21/2024 [id number] 4 2023 4 [facility] ([facility]) albuterol 2.5mg/3mL (0.083%) inhalation soln (3mL) See Instruct ions, # 180 mL, 3 total refill(s ), Soft Stop Ordered 5 2024 180.0 Ambulat ory Pharmac y albuterol 2.5mg/3mL (0.083%) inhalation soln (3mL) See [...] Hard Stop Inhala tion (breat he in) Discont inued 02/07/2025 4 2024 8.5 Ambulat ory Pharmac y albuterol 90 mcg inhaler [8.5g] See Instruct ions, # 8.5 g, 5 total refill(s ), Soft Stop Ordered 5 2024 8.5 Ambulat ory Pharmac y azithromyci n [...] ed 08/04/20232023 30.0 Ambulat ory Pharmac y famotidine 40 mg tablet = 1 tab(s), Oral, Daily, # 90 EA, 3 total refill(s ), Soft Stop Oral (given by mouth) Ordered 5 2024 90.0 Ambulat ory Pharmac y fluorouraci l 5% [...] 3 2022 60.0 Ambulat ory Pharmac y fluticasone -salmeterol 250-50 mcg inhaler (60EA) See Instruct ions, # 60 EA, 11 total refill(s ), Soft Stop Ordered 5 2024 60.0 Ambulat ory Pharmac y folic acid [...] 5 2024 90.0 Ambulat ory Pharmac y Gemtesa 75 mg tablet = 1 [...] (adalimumab ), 40MG/0.4ML, PEN IJ KIT, SUBCUT, Datamars, 2 ea. KIT Cancele d [id number] : 2023 0 Pharmac y Data Transac tion Service Facilit y HUMIRA(CF) PEN (adalimumab ), 40MG/0.4ML, PEN IJ KIT, SUBCUT, Datamars, 2 ea. KIT Cancele d [id number] : 2023 0 Pharmac y Data Transac tion Service Facilit y HUMIRA(CF) PEN (adalimumab ), 40MG/0.4ML, PEN IJ KIT, SUBCUT, Datamars, 2 ea. KIT Cancele d [id number] : 2023 0 Pharmac y Data Transac [...] montelukast 10 mg tablet See Instruct ions, Oral, # 30 EA, 5 total refill(s ), Soft Stop Oral (given by mouth) Ordered 5 2024 30.0 Ambulat ory Pharmac y montelukast 10 mg tablet See Instruct ions, # 30 EA, 5 total refill(s ), Acute Complet ed 12/17/2023 4 2023 30.0 Ambulat ory Pharmac y nitrofurant oin macrocrysta l monohydrate 100mg cap See Instruct ions, Oral, # 10 EA, 0 total refill(s ), Hard Stop Oral (given by mouth) Complet ed 07/05/2024 3 2023 10.0 Ambulat ory Pharmac y ofloxacin 0.3% eye drops [5mL] See [...] [facility]., 30 ea. BLIST PACK Active [id number] 4 2023 30 Pharmac y Data Transac [...] with your doctor before becoming . 11/22/2024 [id number] 4 2023 12 [facility] ([facility]) tiotropium 1.25 mcg inhaler (4g, 60 inh) = 2 puff(s), Inhale, Daily, # 12 g, 3 total refill(s ), Hard Stop Inhala tion (breat he in) Complet ed 11/22/2024 5 2024 12.0 Ambulat ory Pharmac y tiotropium 1.25 mcg inhaler (4g, 60 inh) See Instruct ions, # 12 g, 3 total refill(s ), Soft Stop Ordered 5 2024 12.0 Ambulat ory Pharmac y [...] HYDROCODONE BIT Drug allergy (disorder) active [address] [place] [address] HYDROcodone Propensity to adverse reactions to drug Active NAUSEA
Reactio n(s): Unknown; Note: NAUSEA Unknown Organizati on sulfa drugs Propensity to adverse reactions to drug Active RASH AROUND MOUTH<br/ >Reaction (s): Unknown; Note: RASH AROUND MOUTH Unknown Organizati on SULFA-DRUGS Drug allergy (disorder) active [address] [place] [address] Encounters Combined list of: 1) Encounters from Department of Veterans Affairs facilities going backup to the last 18 months, not all [place] inpatient encounters are included; 2) Encounters from the Department of Defense facilities going backup to 280 months. Location Location Details Encounter Type Encounter Number Reason For Visit Attending Provider ADM Date DC Date Status Disposition Source [address] [place] [address] [employer] [facility] ([facility]Opt ometry) OUTPATIENT [id number] annual TOYIN GRIFFITHS 08/18 Released w/o Limitations [address] [place] [address] [employer] [facility] ([facility])(O ptometr y) [address] [place] [address] [employer] [facility] ([facility]Opt ometry) OUTPATIENT [id number] [place], needs additio nal testing , shruthi dalton. TOYIN GRIFFITHS 12/20 Released w/o Limitations [employer] ([facility])(O ptometr y) [employer] ([facility])(Opt ometry) OUTPATIENT [id number] annual exam TUNDE TOYIN Bowser 05/31 Released w/o Limitations [employer] ([facility])(O ptometr y) [employer] ([facility])(Opt ometry) OUTPATIENT [id number] annual eye exam - [id number] YVETTE CALDERON 03/21 Released w/o Limitations [employer] ([facility])(O ptometr y) Procedures Combined list of: 1) Procedures from Department of Veterans Affairs facilities [facility], not all [facility] non-surgical procedures [...] Retina Scanning Computerized Ophthalmic Diagnostic Imaging Retina [id number] 015 YVETTE CALDERON A DoD Determination Of Refractive State Determination Of Refractive State 67538 015 YVETTE CALDERON DoD Ophthalmological Prior Patient Start Comprehensive Care Ophthalmological Prior Patient Start Comprehensive Care 36116 015 YVETTE CALDERON A DoD Determination Of Refractive State Determination Of Refractive State 72795 013 TOYIN GRIFFITHS DoD Visual Delaney Test Intermediate Examination Visual Delaney Test Intermediate Examination 47190 013 TOYIN GRIFFITHS DoD Scanning Computerized Ophthalmic Diagnostic Imaging Retina Scanning Computerized Ophthalmic Diagnostic Imaging Retina 63068 013 TOYIN GRIFFITHS DoD Ophthalmological Prior Patient Start Comprehensive Care Ophthalmological Prior Patient Start Comprehensive Care 76912 013 TOYIN GRIFFITHS A DoD Scanning Computerized Ophthalmic Diagnostic Imaging Retina Scanning Computerized Ophthalmic Diagnostic Imaging Retina 90778 TOYIN NIETO [facility] Visual Delaney Test Extended Examination Visual Delaney Test Extended Examination 85096 TOYIN NIETO [facility] Ophthalmological Prior Patient Start Intermediate Level Care Ophthalmological Prior Patient Start Intermediate Level Care 30715 013 TOYIN GRIFFITHS [facility] Determination Of Refractive State Determination Of Refractive State 10953 TOYIN NIETO [facility] Scanning Computerized Ophthalmic Diagnostic Imaging Retina Scanning Computerized Ophthalmic Diagnostic Imaging Retina 20825 013 TOYIN GRIFFITHS DoD Visual Delaney Test Intermediate Examination Visual Delaney Test Intermediate Examination 29593 TOYIN NIETO DoD Ophthalmological New Patient Start Comprehensive Care Ophthalmological New Patient Start Comprehensive Care 00061 TOYIN NIETO [facility] Social History Combined list of available smoking, tobacco, and other social history from Department of Defense and Veterans Affairs facilities. Social History Type Response Date Comment Sourc e This section is an empty social history section. [facility] Assessment and Plan Combined list of future care activities from Department of Defense and Veterans Affairs facilities (e.g., assessment and plan notes, appointments, orders, and referrals). Additional future care activities may be listed in the Plan of Care section. Result Assessment and Plan Date Source Assessment and Plan No data available for this section 02/08/2025 Ambulatory Pharmacy Functional Status Combined list of recent functional and cognitive assessments recorded at Department of Defense and Veterans Affairs (VA).VA Functional Dawes Measurement (FIM) Scale: 1 = Total Assistance (Subject = 0% +), 2 = Maximal Assistance (Subject = 25% +), 3 = Moderate Assistance (Subject = 50% +), 4 = Minimal Assistance (Subject = 75% +), 5 = Supervision, 6 = Modified Dawes (Device), 7 = Complete Dawes (Timely, Safely). Assessment Date/Time Source Assessment Type Assessment Skill Assessment Score Assessment Details No data available for this section
--- OUTSIDE RECORDS SUMMARY | 2025-02-08 14:36 | XMS_ITS | Encounter Summary ---
Author Organization [facility] Address [address] [place] [address] Care Team Providers Care Bridge Engineer Name Role Phone Patt Curtis MD Primary Care Provider [phone] Myrna Knapp MD Unavailable [phone] Reason for Visit * Reason Onset Date Comments MEDICATION REFILL 07/03/2023 Encounter Details Date Type Department Care Team (Late Contact Info) Description 07/03/2023 Refill [facility] - Rheumatology [address] [place] [address] Parker Kennedy MD [address] [place] [address] MEDICATION REFILL Social History Tobacco Use [...] on file 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 Gender Identity Not on file Sexual Orientation Not on file documented as of this encounter Plan of Treatment Upcoming Encounters Date Type Department Care Team (Late Contact Info) Description 05/10/2025 11:30 AM CDT Office Visit [facility] - DIRECTOR TELEMETRY [address] [place] [address] Aldo Muller MD [address] [facility] [address] [place] [address] 06/28/2025 12:20 PM AUTOMOTIVE ACCESSORY INSTALLER Office Visit [facility] - Rheumatology [address] [facility], [place] [address] [place] [address] [place] [address] 2L [place] [address] documented as of this encounter Visit Diagnoses Not on filedocumented in this encounter Care Teams Bridge Engineer Relationship Specialty Start Date End Date Patt Curtis MD [facility] [place] [phone] PCP - General 08/07/22 Myrna Knapp MD [address] [facility] 2L [place] [address] [facility] Rheumatology 05/18/23 documented as of this encounter
--- OUTSIDE RECORDS SUMMARY | 2025-02-08 14:36 | XMS_ITS | Encounter Summary ---
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 Gender Identity Not on file Sexual Orientation Not on file documented as of this encounter Plan of Treatment Upcoming Encounters Date Type Department Care Team (Late st Contact Info) Description 05/10/2025 11:30 AM CDT Office Visit [facility] - LABORER PETROLEUM REFINERY [address] [facility] [address] [place] [address] Aldo Muller MD [address] [facility] [address] [place] [address] 06/28/2025 12:20 PM CREW TEAM MEMBER Office Visit [facility] - Rheumatology [address] [facility], [place] [address] Myrna Knapp MD [address] [place] [address] documented as of this encounter Procedures Procedure Name Priority Date/Time Associated Diagnosis Comments DERMATOPATHOLOGY Routine 09/08/2023 3:33 AM CREW TEAM MEMBER documented in this encounter Results * DERMATOPATHOLOGY (09/08/2023 3:33 AM CREW TEAM MEMBER) Case Report Dermatopathology Report Case: [id number] Authorizing Provider: David Sagastume MD Collected: 09/08/2023 03:33 AM Ordering Location: [facility] DermPath Lab Received: 09/10/2023 07:40 AM Pathologist: Renee Diana MD Specimens: A) - Skin, post vertex scalp B) - Skin, mid vertex scalp C) - Skin, ant vertex scalp 4 2:13 PM CREW TEAM MEMBER DERMATOPATHOLOGY LABORATORY Final Diagnosis Specimen A. SKIN, [...] microscopic description and comment) 4 2:13 PM CREW TEAM MEMBER DERMATOPATHOLOGY LABORATORY at 1413 CREW TEAM MEMBER Clinical History A-C: R/O SCC vs SCCIS vs HAK 4 2:13 PM CREW TEAM MEMBER DERMATOPATHOLOGY LABORATORY Gross Description Specimen A: Received [...] 9x8x2 mm. Jar 0. 4 2:13 PM [facility] DERMATOPATHOLOGY LABORATORY Microscopic Description Specimen A. [...] Clinicopathologic correlation is recommended. 4 2:13 PM [facility] DERMATOPATHOLOGY LABORATORY Disclaimer An external and [...] purposes. Billing Codes Specimen Charges Stain Charges 33716 48050 00723 1 1 1 4 2:13 PM CREW TEAM MEMBER DERMATOPATHOLOGY LABORATORY Embedded Images 4 2:13 PM CREW TEAM MEMBER DERMATOPATHOLOGY LABORATORY Pathology/Cytology TISSUE SPECIMEN FROM SKIN / Unknown 09/08/2023 3:33 AM CREW TEAM MEMBER 09/10/2023 7:40 AM CREW TEAM MEMBER Miscellaneous samples (specimen) TISSUE SPECIMEN FROM SKIN / Unknown 09/08/2023 3:33 AM CREW TEAM MEMBER 09/10/2023 7:40 AM CREW TEAM MEMBER Miscellaneous samples (specimen) TISSUE SPECIMEN FROM SKIN / Unknown 09/08/2023 3:33 AM CREW TEAM MEMBER 09/10/2023 7:40 AM CREW TEAM MEMBER David Sagastume MD LAB - PATHOLOGY/CYTOLOGY ORD ERABLES Final Result DERMATOPATHOLOGY LABORATORY [facility] - Department of Dermatology [facility] Medicine [facility], 3rd Floor [address] [phone] documented in this encounter Visit Diagnoses Not on filedocumented in this encounter Care Teams Diesel Powerplant Mechanic Relationship Specialty Start Date End Date Patt Curtis MD [address] [place] [address] [address] [place] [address] PCP - General 08/07/22 Myrna Knapp MD [address] [place] [address] [place] [address] Endoscopy Rn Rheumatology 05/18/23 documented as of this encounter
--- OUTSIDE RECORDS SUMMARY | 2025-02-08 14:36 | XMS_ITS | Clinical Summary ---
Author Organization [facility] Address [address], [facility] [address] [place] [address] Phone Care Team Providers Care Sanding Machine Operator Or Tender Name Role Phone Alena Thakur APRN Primary Care Provider [phone] Medications pantoprazole (PROTONIX) 40 MG Tablet Delayed [...] Due Date Last Done Comments Hepatitis C Virus (HCV) Screening 1945 TdaP Immunization 1945 Pneumococcal Immunization (5 0+ years) (1 of 1 - PCV) 1997 Zoster Immunization (1 of 2) 1997 Respiratory Syncytial Virus (RSV) Immunization (Adult) (1 - 1-dose 75+ series) 2022 SARS-COV-2 Immunization ( - 2023- season) 2024 Influenza Immunization (#1) 2025 Colonoscopy Discontinued 09/22/2019 Colorectal Cancer Screening Discontinued Cologuard Discontinued Hepatitis B Immunization Aged Out No longer eligible based on patient's age to complete this topic Human Papillomavirus (HPV) Immunization Aged Out No longer eligible b ased on patient's age to complete this topic [...] Recently Relevant to Health Maintenance Insurance MEDICARE Member Subscriber Plan / Payer (Ef fective 2011-Present) Name:Cassie Bone Member ID:[id number] Relation to Subscriber:Self Name:Cassie Bone Subscriber ID:[id number] Payer ID:[id number] Group ID:Not on file Type:Not on file Address: [facility] [address] [facility] [employer] [facility]Mobile[place] [address] [facility] [employer] Care Teams Sanding Machine Operator Or Tender Relationship Specialty Start Date End Date Alena Thakur APRN PCP - General Advanced Practice Nurse 09/16/19
--- OUTSIDE RECORDS SUMMARY | 2025-02-08 14:36 | XMS_ITS | Encounter Summary ---
Author Organization [facility] Address [address] [place] [address] Care Team Providers Care Professor Of Communication Name Role Phone Alena Thakur APRN-SEWING MACHINE OPERATOR PLASTIC ZIPPER Primary Care Provider + Patt Curtis MD Primary Care Provider [phone] Myrna Knapp MD Unavailable [phone] Reason for Visit * Reason Onset Date Comments Refill Request 01/21/2022 Encounter Details Date Type Department Care Team (Late st Contact Info) Description 01/21/2022 Refill [facility] - Third Level [address] 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 Gender Identity Not on file Sexual Orientation [...] (FOLVITE) 1 MG tablet Pharmacy: [facility] [address] [facility] [place] [address] [phone] Patient call back number: [phone] documented in this encounter Plan of Treatment Upcoming Encounters Date Type Department Care Team (Late st Contact Info) Description 05/10/2025 11:30 AM CDT Office Visit [facility] - CLEANING MAID [address] [facility] [address] [place] [address] Aldo Muller MD [address] [facility] [address] [place] [address] 06/28/2025 12:20 PM CUTTING TOOL SHARPENER Office Visit [facility] - Rheumatology [address] [facility], [place] [phone] Myrna Knapp MD [address] [facility] 2L [place] [address] documented as of this encounter Visit Diagnoses Diagnosis Seropositive rheumatoid arthritis (HCC) Rheumatoid arthritis Trochanteric bursitis of left hip Enthesopathy of hip region documented in this encounter Care Teams Professor Of Communication Relationship Specialty Start Date End Date Alena Thakur APRN-CLAY [address] [address] PCP - General 02/17/18 08/06/22 Patt Curtis MD [address] [place] [address]. [address] [place] [address] PCP - General 08/07/22 Myrna Knapp MD [address] [place] [address] 2L [place] [address] Fishing Rod Trimmer Rheumatology 05/18/23 documented as of this encounter
--- OUTSIDE RECORDS SUMMARY | 2025-02-08 14:36 | XMS_ITS | Clinical Summary ---
Author Organization [facility] Address [address] [place] [address] Care Team Providers Care Bottom Ironer Name Role Phone Alena Thakur NP Primary Care Provider [phone] Social History Tobacco Use Types Packs/Day Years [...] age to complete this topic Insurance MEDICARE [facility] Care Teams Bottom Ironer Relationship Specialty Start Date End Date Alena Thakur NP [facility] [place] [address] PCP - General NURSE PRACTITIONER 12/09/21
--- OUTSIDE RECORDS SUMMARY | 2025-02-08 14:36 | XMS_ITS | Encounter Summary ---
Author Organization [facility] Address [address] [facility] [place] [address] Care Team Providers Care Block Cuber Name Role Phone Alena Thakur Primary Care Provider + Patt Curtis MD Primary Care Provider Myrna Knapp MD Unavailable [phone] Encounter Details Date Type Department Care Team (Late st Contact Info) Description 06/05/2022 Lab Requisition 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 Gender Identity Not on file Sexual Orientation Not on file documented as of this encounter Plan of Treatment Upcoming Encounters Date Type Department Care Team (Late st Contact Info) Description 05/10/2025 11:30 AM CDT Office Visit [facility] - MANUFACTURING PROJECT ENGINEER [address] [place] [address] Aldo Muller MD [address] [facility] [address] [place] [address] 06/28/2025 12:20 PM STREETSWEEPER OPERATOR Office Visit [facility] - Rheumatology [address] [place] [address], [place] [address] Myrna Knapp MD [facility] [facility] 2L [place] [address] documented as of this encounter Procedures Procedure Name Priority Date/Time Associated Diagnosis Comments DERMATOPATHOLOGY Routine 06/04/2022 12:0 0 AM STREETSWEEPER OPERATOR documented in this encounter Results * DERMATOPATHOLOGY (06/04/2022 12:00 AM STREETSWEEPER OPERATOR) Case Report Dermatopathology Report Case: [id number] Authorizing Provider: David Sagastume MD Collected: 06/04/2022 12:00 AM Ordering Location: [facility] DermPath Lab Received: 06/05/2022 01:42 PM Pathologist: Sam Wills MD Specimens: A) - Skin, right mid extensor forearm B) - Skin, right distal mid extensor forearm 2 4:36 PM STREETSWEEPER OPERATOR DERMATOPATHOLOGY LABORATORY Final Diagnosis Specimen A. SKIN, right mid extensor forearm: DERMAL SCAR (L90.5) (see microscopic description) Specimen B. SKIN, right distal mid extensor forearm: ACTINIC KERATOSIS, LICHENOID (L57.0) 2 4:36 PM STREETSWEEPER OPERATOR DERMATOPATHOLOGY LABORATORY at 1636 STREETSWEEPER OPERATOR Clinical History A-B: R/O BCC, SCC 2 4:36 PM STREETSWEEPER OPERATOR DERMATOPATHOLOGY LABORATORY Gross Description Specimen A: Received is one formalin filled container labeled with the patient's name and designated right mid extensor forearm. The specimen consists of a shave biopsy measuring [id number]. Jar 0. Specimen B: Received is one formalin filled container labeled with the patient's name and designated right distal mid extensor forearm. The specimen consists of a shave biopsy measuring [id number]. Jar 0. 2 4:36 PM [facility] DERMATOPATHOLOGY LABORATORY Microscopic Description Specimen A. SKIN, [...] some basal vacuolar alteration. 2 4:36 PM [facility] DERMATOPATHOLOGY LABORATORY Disclaimer An external and internal positive and negative controls are appropriate for the histochemical, immunohistochemical and immunofluorescence stain(s) in this case (if any), except where stated explicitly. The performance characteristics of the stain(s) cited in this report were developed and its performance characteristic determined by the Dermatopathology Laboratory at [facility], directed by Dr. Donald Wills. These tests need not be, and therefore are not, approved by the [place] Food and Drug Administration. The tests are used for clinical purposes. Billing Codes Specimen Charges Stain Charges 35244 70101 1 1 2 4:36 PM STREETSWEEPER OPERATOR DERMATOPATHOLOGY LABORATORY Embedded Images 2 4:36 PM [facility] DERMATOPATHOLOGY LABORATORY Pathology/Cytology TISSUE SPECIMEN FROM SKIN / Unknown 06/04/2022 06/05/2022 1:42 PM STREETSWEEPER OPERATOR Miscellaneous samples (specimen) TISSUE SPECIMEN FROM SKIN / Unknown 06/04/2022 06/05/2022 1:42 PM STRE[address]SWEEPER OPERATOR David Sagastume MD LAB - PATHOLOGY/CYTOLOGY ORD ERABLES Final Result DERMATOPATHOLOGY LABORATORY [facility] - Department of Dermatology [address], [address] [phone] documented in this encounter Visit Diagnoses Not on filedocumented in this encounter Care Teams Block Cuber Relationship Specialty Start Date End Date Alena ThakurETHEL-CLAY [address] [phone] PCP - General 02/17/18 08/06/22 Patt Curtis MD [facility] [place] [address] PCP - General 08/07/22 Myrna Knapp MD [address] [place] [address] Claims Service Representative Rheumatology 05/18/23 documented as of this encounter
--- OUTSIDE RECORDS SUMMARY | 2025-02-08 14:36 | XMS_ITS | Encounter Summary ---
Author Organization [facility] Address [address] [place] [address] Care Team Providers Care Service Desk Specialist Name Role Phone Patt Curtis MD Primary Care Provider Myrna Knapp MD Unavailable [phone] Encounter Details Date Type Department Care Team (Late Contact Info) Description 02/03/2025 Orders Only [facility] - Rheumatology [address] [place] [address], [facility] [address] Myrna Knapp MD [address] [place] [address] [place] [address] Seropositive rheumatoid arthritis (HCC); Encounter for long-term (current) use of high-risk medication; Encounter for therapeutic drug monitoring Social History Tobacco Use Types Packs/Day Years [...] on file 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 Gender Identity Not on file Sexual Orientation Not on file documented as of this encounter Plan of Treatment Upcoming Encounters Date Type Department Care Team (Late Contact Info) Description 05/10/2025 11:30 AM CDT Office Visit [facility] - POULTRY SERVICE TECHNICIAN [address] [facility] [address] [place] [id number] Aldo Muller MD [address] [place] [address] 06/28/2025 12:20 PM SPORTS EQUIPMENT SUPERVISOR Office Visit [facility] - Rheumatology [address] [facility] [place] [address] Myrna Knapp MD [address] [place] [address] [address] [place] [address] documented as of this encounter Visit Diagnoses Diagnosis Seropositive rheumatoid arthritis (HCC) Rheumatoid arthritis Encounter for long-term (current) use of high-risk medication Encounter for long-term (current) use of other medications Encounter for therapeutic drug monitoring documented in this encounter Care Teams Service Desk Specialist Relationship Specialty Start Date End Date Patt Curtis MD [address] [place] [address] PCP - General 08/07/22 Myrna Knapp MD [address] [place] [address] [address] [place] [address] Packing Attendant Rheumatology 05/18/23 documented as of this encounter
--- OUTSIDE RECORDS SUMMARY | 2025-02-08 14:36 | XMS_ITS | Data Portability ---
Author Organization [facility], Main Office Address [address] [place] [address] Assessment Encounter Date Assessment Date Assessment LastModified [...] more than half the time spent in [id number] care reviewing her MRI scan with her [...] treatment patient more half of this in [id number] conversation [email or web address] Not available 09/09/2023 12:02:33 Plan of Treatment Reminders Order Date Submit Date Provider Last Modified By Organization Details Last Modified Time Details Appointments None recorded. Lab lipid panel, serum 2024 025 [email or web address] [facility], [address] [place], [address], 5 08:53:37 CMP, serum or plasma 2024 025 [email or web address] [employer], [address], [address], 5 08:53:38 TSH, serum or plasma 2024 025 [email or web address] [employer], [address], [place], [address], 5 08:53:38 CBC w/ auto diff 2024 025 [place] [address] [facility], [address], [address], [place], [address], 5 08:53:38 HbA1c (hemoglobi n A1c), blood 2024 025 [place] [address] [facility], [address], [address], [place], [address], 5 08:53:37 vitamin B12 + folate, serum or blood 2024 025 [place] [address] [facility], [address], [address], [place], [address], 5 08:53:38 lipid panel, serum 2023 024 [facility], [address], [address], [place], [address], 4 10:54:16 CMP, serum or plasma 2023 024 [facility], [address], [address], [place], [address], 4 10:54:19 CK (creatine kinase), total, serum 2023 024 [facility], [address], [address], [place], [address], 4 10:54:20 CBC w/ auto diff 2023 024 [facility], [address], [address], [place], [address], 4 10:54:21 TSH, serum or plasma 2023 024 [employer] [facility], [address], [address], [place], [address], 4 10:54:22 Referral None recorded. Procedures None recorded. Surgeries None recorded. Imaging US, duplex, carotid artery - Please call patient to schedule. 2024 025 [facility], [address], [place], [address], 5 12:01:18 XR, knee 2023 024 [email or web address] [facility] [place], [address] [facility] [address], [place], [address], 4 10:03:05 Medication Orders famotidine 40 mg tablet 2024 025 [facility], [address] [place] [address], [address], 5 16:19:56 omeprazole 40 mg capsule,de layed release 2023 024 [facility], [address] [place] [address], [address], 5 16:12:10 meloxicam 15 mg tablet 2022 023 [facility], [address] [place] [address], [address], 5 15:38:22 Patient TargetsNo targets recorded. Patient InstructionsNo instructions recorded. Reason for Referral None Reported. Results Created Date Observation Date Name Description Value Unit Range Abnormal Flag Note LastModifiedBy Organization Detail LastModifiedTime 05/07/2005/08/2024 LIPID PANEL (REFL ) cholesterol, total 192 mg/dL <200 normal Not Available [facility] [address] [place], [address], 05/08/2024 10:54:16 05/07/20 05/08/2024 LIPID PANEL (REFL ) HDL cholesterol 89 mg/dL > or = 50 normal Not Available [facility] [id number] [place] [address], [address], 05/08/2024 10:54:16 05/07/20 24 05/08/2024 LIPID PANEL (REFL ) triglyceride s 98 mg/dL <150 normal Not Available [facility] [id number] [place] [address], [address], 05/08/2024 10:54:16 05/07/20 24 05/08/2024 LIPID PANEL (REFL ) LDL-choleste rol 84 mg/dL _(geraldo c) normal Refer ence range : <100 Marques able range <100 mg/dL for prima ry preve ntion ; <70 mg/dL for patie nts with CHD or diabe tic patie nts with > or = 2 CHD risk facto rs. LDL-C is now calcu lated using the Alexandra n-Hop kins calcu sophia n, which is a valid ated novel metho d provi ding bryanna r accur acy than the Fried indio equat ion in the estim ation of LDL-C . Alexandra beckford SS et al. CHRISTINA. 2013; 310(1 9): 2061- 2068 (http ://ed ucati on.Qu Tapan PubNative. com/f aq/FA Q164) Not Available [facility] [address] [place], [address], 05/08/2024 10:54:16 05/07/20 24 05/08/2024 LIPID PANEL (REFL ) chol/HDLC ratio 2.2 (calc ) <5.0 normal Not Available [facility] [id number] [place] [address], [address], 05/08/2024 10:54:16 05/07/20 24 05/08/2024 LIPID PANEL (REFL ) non HDL cholesterol 103 mg/dL _(geraldo c) <130 normal For patie nts with diabe marizol plus 1 major ASCVD risk facto r, treat ing to a non-H DL-C goal of <100 mg/dL (LDL- C of <70 mg/dL ) is consi dered a thera peuti c optio n. Not Available [address], [address], 05/08/2024 10:54:16 05/07/20 24 05/08/2024 COMPR EHENS RICARDO METAB OLIC PANEL glucose 106 mg/dL 65-99 high Fasti ng refer ence inter rukhsana For someo ne witho ut known diabe marizol, a gluco se value betwe en 100 and 125 mg/dL is consi stent with predi abete s and shoul d be confi rmed with a follo w-up test. Not Available [address], [address], 05/08/2024 10:54:19 05/07/2005/08/2024 COMPR EHENS RICARDO METAB OLIC PANEL urea nitrogen (BUN) 19 mg/dL 7-25 normal Not Available [address] [address] [place], [address], 05/08/2024 10:54:19 05/07/20 24 05/08/2024 COMPR EHENS RICARDO METAB OLIC PANEL creatinine 0.90 mg/dL 0.60-1 .00 normal Not Available [address], [address], 05/08/2024 10:54:19 05/07/20 24 05/08/2024 COMPR EHENS RICARDO METAB OLIC PANEL eGFR 66 mL/mi n/1.7 3m2 > or = 60 normal Not Available [address], [address], 05/08/2024 10:54:19 05/07/20 24 05/08/2024 COMPR EHENS RICARDO METAB OLIC PANEL BUN/creatini ne ratio SEE NOTE: (calc ) 6-22 Not Repor aníbal: BUN and Creat inine are withi n refer ence range . Not Available [address] [address] [place], [address], 05/08/2024 10:54:19 05/07/20 24 05/08/2024 COMPR EHENS RICARDO METAB OLIC PANEL sodium 141 mmol/ L 135-14 6 normal Not Available [address] [address] [place], [address], 05/08/2024 10:54:19 05/07/20 24 05/08/2024 COMPR EHENS RICARDO METAB OLIC PANEL potassium 4.2 mmol/ L 3.5-5. 3 normal Not Available [facility] [address] [address] [place], [address], 05/08/2024 10:54:19 05/07/20 24 05/08/2024 COMPR EHENS RICARDO METAB OLIC PANEL chloride 103 mmol/ L 98-110 normal Not Available [address] [address] [place], [address], 05/08/2024 10:54:19 05/07/20 24 05/08/2024 COMPR EHENS RICARDO METAB OLIC PANEL carbon dioxide 33 mmol/ L 20-32 high Not Available [address] [address] [place], [address], 05/08/2024 10:54:19 05/07/20 24 05/08/2024 COMPR EHENS RICARDO METAB OLIC PANEL calcium 9.0 mg/dL 8.6-10 .4 normal Not Available [address] [address] [place], [address], 05/08/2024 10:54:19 05/07/20 24 05/08/2024 COMPR EHENS RICARDO METAB OLIC PANEL protein, total 6.5 g/dL 6.1-8. 1 normal Not Available [address] [address] [place], [address], 05/08/2024 10:54:19 05/07/20 24 05/08/2024 COMPR EHENS RICARDO METAB OLIC PANEL albumin 4.1 g/dL 3.6-5. 1 normal Not Available [address], [address], 05/08/2024 10:54:19 05/07/20 24 05/08/2024 COMPR EHENS RICARDO METAB OLIC PANEL globulin 2.4 g/dL_ (calc ) 1.9-3. 7 normal Not Available [address], [address], 05/08/2024 10:54:19 05/07/20 24 05/08/2024 COMPR EHENS RICARDO METAB OLIC PANEL albumin/glob ulin ratio 1.7 (calc ) 1.0-2. 5 normal Not Available [address], [address], 05/08/2024 10:54:19 05/07/20 24 05/08/2024 COMPR EHENS RICARDO METAB OLIC PANEL bilirubin, total 0.5 mg/dL 0.2-1. 2 normal Not Available [address], [address], 05/08/2024 10:54:19 05/07/20 24 05/08/2024 COMPR EHENS RICARDO METAB OLIC PANEL alkaline phosphatase 85 U/L 37-153 normal Not Available [address], [address], 05/08/2024 10:54:19 05/07/20 24 05/08/2024 COMPR EHENS RICARDO METAB OLIC PANEL AST 19 U/L 10-35 normal Not Available [address], [address], 05/08/2024 10:54:19 05/07/20 24 05/08/2024 COMPR EHENS RICARDO METAB OLIC PANEL ALT 26 U/L 6-29 normal Not Available [address], [address], 05/08/2024 10:54:19 05/07/2005/08/2024 CREAT INE KINAS E, TOTAL creatine kinase, total 59 U/L 29-143 normal Not Available [address], [address], 05/08/2024 10:54:20 05/07/20 24 05/08/2024 CBC (INCL UDES DIFF/ PLT) white blood cell count 6.2 thous and/u L 3.8-10 .8 normal Not Available [address], [address], 05/08/2024 10:54:21 05/07/20 24 05/08/2024 CBC (INCL UDES DIFF/ PLT) red blood cell count 4.19 laly on/uL 3.80-5 .10 normal Not Available [address], [address], 05/08/2024 10:54:21 05/07/20 24 05/08/2024 CBC (INCL UDES DIFF/ PLT) hemoglobin 13.3 g/dL 11.7-1 5.5 normal Not Available [address], [address], 05/08/2024 10:54:21 05/07/20 24 05/08/2024 CBC (INCL UDES DIFF/ PLT) hematocrit 40.9 % 35.0-4 5.0 normal Not Available [address], [address], 05/08/2024 10:54:21 05/07/20 24 05/08/2024 CBC (INCL UDES DIFF/ PLT) MCV 97.6 fL 80.0-1 00.0 normal Not Available [address], [address], 05/08/2024 10:54:21 05/07/20 24 05/08/2024 CBC (INCL UDES DIFF/ PLT) MCH 31.7 pg 27.0-3 3.0 normal Not Available [address], [address], 05/08/2024 10:54:21 05/07/20 24 05/08/2024 CBC (INCL UDES DIFF/ PLT) MCHC 32.5 g/dL 32.0-3 6.0 normal For adult s, a sligh t decre ase in the calcu lated MCHC value (in the range of 30 to 32 g/dL) is most likel y not clini cem miryami viktoriya t; feroz er, it shoul d be inter prete d with cauti on in virtua [facility] n with other red cell kiley eters and the patie nt's clini geraldo condi tion. Not Available [address], [address], 05/08/2024 10:54:21 05/07/20 24 05/08/2024 CBC (INCL UDES DIFF/ PLT) RDW 13.2 % 11.0-1 5.0 normal Not Available [address], [address], 05/08/2024 10:54:21 05/07/2005/08/2024 CBC (INCL UDES DIFF/ PLT) platelet count 321 thous and/u L 140-40 0 normal Not Available [address], [address], 05/08/2024 10:54:21 05/07/2005/08/2024 CBC (INCL UDES DIFF/ PLT) MPV 11.1 fL 7.5-12 .5 normal Not Available [address], [address], 05/08/2024 10:54:21 1005/08/2024 CBC (INCL UDES DIFF/ PLT) absolute neutrophils 2784 cells /uL 1500-7 800 normal Not Available [address], [address], 05/08/2024 10:54:21 05/07/2005/08/2024 CBC (INCL UDES DIFF/ PLT) absolute lymphocytes 2536 cells /uL 850-39 00 normal Not Available [address], [address], 05/08/2024 10:54:21 05/07/2005/08/2024 CBC (INCL UDES DIFF/ PLT) absolute monocytes 670 cells /uL 200-95 0 normal Not Available [address] [place], [address], 05/08/2024 10:54:21 05/07/2005/08/2024 CBC (INCL UDES DIFF/ PLT) absolute eosinophils 174 cells /uL 15-500 normal Not Available [address] [address] [place], [address], 05/08/2024 10:54:21 05/07/2005/08/2024 CBC (INCL UDES DIFF/ PLT) absolute basophils 37 cells /uL 0-200 normal Not Available [address], [address], 05/08/2024 10:54:21 05/07/20 24 05/08/2024 CBC (INCL UDES DIFF/ PLT) neutrophils 44.9 % normal Not Available [address], [address], 05/08/2024 10:54:21 05/07/20 24 05/08/2024 CBC (INCL UDES DIFF/ PLT) lymphocytes 40.9 % normal Not Available [address] [place], [address], 05/08/2024 10:54:21 05/07/20 24 05/08/2024 CBC (INCL UDES DIFF/ PLT) monocytes 10.8 % normal Not Available [address], [address], 05/08/2024 10:54:21 05/07/20 24 05/08/2024 CBC (INCL UDES DIFF/ PLT) eosinophils 2.8 % normal Not Available [address], [address], 05/08/2024 10:54:21 05/07/20 24 05/08/2024 CBC (INCL UDES DIFF/ PLT) basophils 0.6 % normal Not Available [address], [address], 05/08/2024 10:54:21 05/07/20 24 05/08/2024 TSH W/REF MALICK TO FT4 TSH w/reflex to FT4 1.57 mIU/L 0.40-4 .50 normal Not Available [address], [address], 05/08/2024 10:54:22 01/19/20 25 01/19/2025 LIPID PANEL , STAND MILAGRO cholesterol, total 192 mg/dL <200 normal Not Available [address], [address], 01/19/2025 22:40:33 01/19/20 25 01/19/2025 LIPID PANEL , STAND [place] HDL cholesterol 86 mg/dL > or = 50 normal Not Available [address], [address], 01/19/2025 22:40:33 01/19/20 25 01/19/2025 LIPID PANEL , STAND [place] triglyceride s 113 mg/dL <150 normal Not Available [address], [address], 01/19/2025 22:40:33 01/19/20 25 01/19/2025 LIPID PANEL , STAND [place] LDL-choleste rol 85 mg/dL _(geraldo c) normal Refer ence range : <100 Marques able range <100 mg/dL for prima ry preve ntion ; <70 mg/dL for patie nts with CHD or diabe tic patie nts with > or = 2 CHD risk facto rs. LDL-C is now calcu lated using the Alexandra n-Hop kins calcu sophia n, which is a valid ated novel metho d provi ding bryanna r accur acy than the Fried indio equat ion in the estim ation of LDL-C . Alexandra beckford SS et al. CHRISTINA. 2013; 310(1 9): 2061- 2068 (http ://ed ucati on.Tail. com/f aq/FA Q164) Not Available [facility] [place] [address] [place], [address], 01/19/2025 22:40:33 01/19/20 25 01/19/2025 LIPID PANEL , STAND [place] chol/HDLC ratio 2.2 (calc ) <5.0 normal Not Available [facility] [place] [address] [place], [address], 01/19/2025 22:40:33 01/19/20 25 01/19/2025 LIPID PANEL , STAND [place] non HDL cholesterol 106 mg/dL _(geraldo c) <130 normal For patie nts with diabe marizol plus 1 major ASCVD risk facto r, treat ing to a non-H DL-C goal of <100 mg/dL (LDL- C of <70 mg/dL ) is consi dered a thera peuti c optio n. Not Available [facility] [address] [place], [address], 01/19/2025 22:40:33 01/19/2001/19/2025 COMPR EHENS RICARDO METAB OLIC PANEL (REFL ) glucose 110 mg/dL 65-99 high Fasti ng refer ence inter rukhsana For someo ne witho ut known diabe marizol, a gluco se value betwe en 100 and 125 mg/dL is consi stent with predi abete s and shoul d be confi rmed with a follo w-up test. Not Available [address], [address], 01/19/2025 22:40:34 01/19/20 25 01/19/2025 COMPR EHENS RICARDO METAB OLIC PANEL (REFL ) urea nitrogen (BUN) 16 mg/dL 7-25 normal Not Available [address], [address], 01/19/2025 22:40:34 01/19/20 25 01/19/2025 COMPR EHENS RICARDO METAB OLIC PANEL (REFL ) creatinine 0.74 mg/dL 0.60-1 .00 normal Not Available [address], [address], 01/19/2025 22:40:34 01/19/20 25 01/19/2025 COMPR EHENS RICARDO METAB OLIC PANEL (REFL ) eGFR 83 mL/mi n/1.7 3m2 > or = 60 normal Not Available [address], [address], 01/19/2025 22:40:34 01/19/20 25 01/19/2025 COMPR EHENS RICARDO METAB OLIC PANEL (REFL ) BUN/creatini ne ratio SEE NOTE: (calc ) 6-22 Not Repor aníbal: BUN and Creat inine are withi n refer ence range . Not Available [address], [address], 01/19/2025 22:40:34 01/19/20 25 01/19/2025 COMPR EHENS RICARDO METAB OLIC PANEL (REFL ) sodium 139 mmol/ L 135-14 6 normal Not Available [address], [address], 01/19/2025 22:40:34 01/19/20 25 01/19/2025 COMPR EHENS RICARDO METAB OLIC PANEL (REFL ) potassium 4.3 mmol/ L 3.5-5. 3 normal Not Available [address], [address], 01/19/2025 22:40:34 01/19/20 25 01/19/2025 COMPR EHENS RICARDO METAB OLIC PANEL (REFL ) chloride 103 mmol/ L 98-110 normal Not Available [address], [address], 01/19/2025 22:40:34 01/19/20 25 01/19/2025 COMPR EHENS RICARDO METAB OLIC PANEL (REFL ) carbon dioxide 27 mmol/ L 20-32 normal Not Available [address], [address], 01/19/2025 22:40:34 01/19/20 25 01/19/2025 COMPR EHENS RICARDO METAB OLIC PANEL (REFL ) calcium 9.1 mg/dL 8.6-10 .4 normal Not Available [address], [address], 01/19/2025 22:40:34 01/19/20 25 01/19/2025 COMPR EHENS RICARDO METAB OLIC PANEL (REFL ) protein, total 6.7 g/dL 6.1-8. 1 normal Not Available [address], [address], 01/19/2025 22:40:34 01/19/20 25 01/19/2025 COMPR EHENS RICARDO METAB OLIC PANEL (REFL ) albumin 4.3 g/dL 3.6-5. 1 normal Not Available [address], [address], 01/19/2025 22:40:34 01/19/20 25 01/19/2025 COMPR EHENS RICARDO METAB OLIC PANEL (REFL ) globulin 2.4 g/dL_ (calc ) 1.9-3. 7 normal Not Available [address], [address], 01/19/2025 22:40:34 01/19/20 25 01/19/2025 COMPR EHENS RICARDO METAB OLIC PANEL (REFL ) albumin/glob ulin ratio 1.8 (calc ) 1.0-2. 5 normal Not Available [address], [address], 01/19/2025 22:40:34 01/19/20 25 01/19/2025 COMPR EHENS RICARDO METAB OLIC PANEL (REFL ) bilirubin, total 0.7 mg/dL 0.2-1. 2 normal Not Available [address], [address], 01/19/2025 22:40:34 01/19/20 25 01/19/2025 COMPR EHENS RICARDO METAB OLIC PANEL (REFL ) alkaline phosphatase 75 U/L 37-153 normal Not Available [address], [address], 01/19/2025 22:40:34 01/19/20 25 01/19/2025 COMPR EHENS RICARDO METAB OLIC PANEL (REFL ) AST 20 U/L 10-35 normal Not Available [address], [address], 01/19/2025 22:40:34 01/19/20 25 01/19/2025 COMPR EHENS RICARDO METAB OLIC PANEL (REFL ) ALT 22 U/L 6-29 normal Not Available [address], [address], 01/19/2025 22:40:34 01/19/20 25 01/19/2025 CBC (INCL UDES DIFF/ PLT) white blood cell count 7.1 thous and/u L 3.8-10 .8 normal Not Available [address], [address], 01/19/2025 22:40:36 01/19/20 25 01/19/2025 CBC (INCL UDES DIFF/ PLT) red blood cell count 3.97 laly on/uL 3.80-5 .10 normal Not Available [address], [address], 01/19/2025 22:40:36 01/19/20 25 01/19/2025 CBC (INCL UDES DIFF/ PLT) hemoglobin 12.5 g/dL 11.7-1 5.5 normal Not Available [address], [address], 01/19/2025 22:40:36 01/19/20 25 01/19/2025 CBC (INCL UDES DIFF/ PLT) hematocrit 38.7 % 35.0-4 5.0 normal Not Available [address], [address], 01/19/2025 22:40:36 01/19/20 25 01/19/2025 CBC (INCL UDES DIFF/ PLT) MCV 97.5 fL 80.0-1 00.0 normal Not Available [address], [address], 01/19/2025 22:40:36 01/19/20 25 01/19/2025 CBC (INCL UDES DIFF/ PLT) MCH 31.5 pg 27.0-3 3.0 normal Not Available [address], [address], 01/19/2025 22:40:36 01/19/20 25 01/19/2025 CBC (INCL UDES DIFF/ PLT) MCHC 32.3 g/dL 32.0-3 6.0 normal For adult s, a sligh t decre ase in the calcu lated MCHC value (in the range of 30 to 32 g/dL) is most likel y not clini cem signi viktoriya t; feroz er, it shoul d be inter prete d with cauti on in virtua [facility] n with other red cell kiley eters and the patie nt's clini geraldo condi tion. Not Available [address], [address], 01/19/2025 22:40:36 01/19/20 25 01/19/2025 CBC (INCL UDES DIFF/ PLT) RDW 13.3 % 11.0-1 5.0 normal Not Available [facility] [address], [address], 01/19/2025 22:40:36 01/19/20 25 01/19/2025 CBC (INCL UDES DIFF/ PLT) platelet count 324 thous and/u L 140-40 0 normal Not Available [facility] [address], [address], 01/19/2025 22:40:36 01/19/20 25 01/19/2025 CBC (INCL UDES DIFF/ PLT) MPV 11.0 fL 7.5-12 .5 normal Not Available [address], [address], 01/19/2025 22:40:36 01/19/20 25 01/19/2025 CBC (INCL UDES DIFF/ PLT) absolute neutrophils 3074 cells /uL 1500-7 800 normal Not Available [facility] [address], [address], 01/19/2025 22:40:36 01/19/20 25 01/19/2025 CBC (INCL UDES DIFF/ PLT) absolute lymphocytes 3032 cells /uL 850-39 00 normal Not Available [facility] [address], [address], 01/19/2025 22:40:36 01/19/20 25 01/19/2025 CBC (INCL UDES DIFF/ PLT) absolute monocytes 731 cells /uL 200-95 0 normal Not Available [address], [address], 01/19/2025 22:40:36 01/19/20 25 01/19/2025 CBC (INCL UDES DIFF/ PLT) absolute eosinophils 220 cells /uL 15-500 normal Not Available [address], [address], 01/19/2025 22:40:36 01/19/20 25 01/19/2025 CBC (INCL UDES DIFF/ PLT) absolute basophils 43 cells /uL 0-200 normal Not Available [address], [address], 01/19/2025 22:40:36 01/19/20 25 01/19/2025 CBC (INCL UDES DIFF/ PLT) neutrophils 43.3 % normal Not Available [address], [address], 01/19/2025 22:40:36 01/19/20 25 01/19/2025 CBC (INCL UDES DIFF/ PLT) lymphocytes 42.7 % normal Not Available [address], [address], 01/19/2025 22:40:36 01/19/20 25 01/19/2025 CBC (INCL UDES DIFF/ PLT) monocytes 10.3 % normal Not Available [facility] [address], [address], 01/19/2025 22:40:36 01/19/20 25 01/19/2025 CBC (INCL UDES DIFF/ PLT) eosinophils 3.1 % normal Not Available [facility] [address], [address], 01/19/2025 22:40:36 01/19/20 25 01/19/2025 CBC (INCL UDES DIFF/ PLT) basophils 0.6 % normal Not Available [address], [address], 01/19/2025 22:40:36 01/19/20 25 01/19/2025 VITAM IN B12/F OLATE , SERUM PANEL vitamin B12 1138 pg/mL 200-11 00 high Not Available [address], [address], 01/19/2025 22:40:37 01/19/20 25 01/19/2025 VITAM IN B12/F OLATE , SERUM PANEL folate, serum >24.0 NG/mL normal Refer ence Range Low: <3.4 Borde rline : 3.4-5 .4 Stephie l: >5.4 Not Available [address], [address], 01/19/2025 22:40:37 01/19/20 25 01/19/2025 TSH W/REF MALICK TO FT4 TSH w/reflex to FT4 1.34 mIU/L 0.40-4 .50 normal Not Available [address], [address], 01/19/2025 22:40:38 01/19/20 25 01/19/2025 HEMOG LOBIN A1C hemoglobin A1C 6.6 %_of_ total _HGB <5.7 high For someo ne witho ut known diabe marizol, a hemog lobin A1c value of 6.5% or great er indic ates that they may have diabe marizol and this shoul d be confi rmed with a follo w-up test. For someo ne with known diabe marizol, a value <7% indic ates that their diabe marizol is well contr olled and a value great er than or equal to 7% indic ates subop timal contr ol. A1c targe ts shoul d be indiv idual ized based on durat ion of diabe marizol, age, comor bid condi tions , and other consi derat ions. Curre ntly, no conse nsus exist s regar ding use of hemog lobin A1c for diagn osis of diabe marizol for child samanta. Not Available [facility] [address] [address] , [place], [address], 01/19/2025 22:40:39 06/29/20 23 XR, shoul joshua No observ ation record ed. [email or web address] [facility] [place] [address], [place], [address], 07/14/2023 18:08:48 07/10/20 23 07/10/2023 MRI, shoul joshua, w/o contr ast No observ ation record ed. [facility] (Imaging) [address], [place], [address], 07/29/2023 13:36:52 07/10/20 23 07/10/2023 MRI, shoul joshua, w/o contr ast No observ ation record ed. [email or web address] [address], [place], [address], 07/10/2023 13:57:16 09/07/19 24 XR, knee No observ ation record ed. [email or web address] [facility] [place] [address], [place], [address], 09/12/2023 15:34:44 12/09/19 24 12/09/2023 MAMMO , scree nga, digit al, bilat eral No observ ation record ed. [email or web address], [place], [address], 12/09/2023 11:51:27 12/02/19 25 11/30/2024 DEXA No observ ation record ed. [facility] [address], [place], [address], 01/10/2025 16:07:39 01/06/20 25 01/04/2025 MAMMO , scree nga, digit al, bilat eral No observ ation record ed. [facility] [address], [place], [address], 01/10/2025 16:07:10 Result Notes None recorded. Problems Name Problem SNOMED Code Status Onset Date Resolution Date Notes Provider Name and Address Organization Details Recorded Time Chronic obstructi ve pulmonary disease 49998117 Active Not Available [facility] 17:46:50 Pain in throat 173876176 Completed Not Available [facility] 07:43:38 Mammograp hy abnormal [id number] Completed 01/10/2025 YRN Marquez [address], [place], [address] , abeo 5 16:04:28 Impacted cerumen 62264259 Completed Not Available [facility] 3 07:43:38 Chest pain 01299138 Completed Not Available [facility] 3 07:43:38 Bronchiti s 94278124 Completed Not Available [facility] 07:43:38 Dehydrati on 25145119 Completed Not Available [facility] 3 07:43:38 Depressiv e disorder 15900401 Active Not Available [facility] 17:46:50 Sinusitis 11820800 Completed Not Available [facility] [facility] 3 07:43:39 Contact dermatiti s 90300920 Completed Not Available [facility] 3 07:43:39 Dysphagia 09578940 Completed Not Available [facility] 3 07:43:39 Seasonal allergy 304493056 Completed 01/10/2025 YRN Marquez [address], [place], [address] , [employer] 5 16:04:28 Pain of shoulder region 05356729 Completed Not Available [facility] 3 07:43:39 Hyperlipi demia 22644535 Active Not Available [facility] 3 17:46:51 Polyp of colon 71924504 Completed 01/10/2025 YRN Marquez [address], [place], [address] , [employer] 5 16:04:28 Rheumatoi d arthritis 19845860 Active Not Available [facility] 3 17:46:51 Sleep apnea 26407869 Active Not Available [facility] 3 17:46:51 Posterior rhinorrhe a 26114390 Completed 01/10/2025 YRN Marquez [address], [place], [address] , [employer] 5 16:04:28 Candidias is of mouth 96260747 Completed Not Available [facility] 3 07:43:40 Fatigue 08886760 Completed Not Available [facility] 3 07:43:40 Disorder of esophagus 39508158 Completed 201701/10/2025 YRN Marquez [address], [place], [address] , [employer] 5 16:04:28 Osteoporo sis 31811603 Active 2018 Not Available [facility] 3 17:46:51 Pneumonia 688442469 Completed 201901/10/2025 YRN Marquez [employer] [address], [place], [address] , [employer] 5 16:04:28 Esophagea l dysphagia 32187936 Completed 201901/10/2025 YRN Marquez [address], [place], [address] , [employer] 5 16:04:28 Stricture of esophagus 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 Active 2020 Not Available [facility] 3 17:46:51 Hyperglyc emia 40538180 Active 2020 Not Available [facility] 3 17:46:51 Dependenc e on supplemen zaire oxygen 56023930288 7 Completed 202001/10/2025 YRN Marquez [address], [place], [address] , [employer] [facility] 5 16:04:29 Neuropath y 557902705 Active 2020 Not Available [facility] 3 17:46:50 Urge incontine nce of urine 29472048 Active 2020 Not Available [facility] 3 17:46:51 COVID-19 676712626 Completed 202101/10/[address], [place], [address] , [employer] [facility] 5 16:04:29 Osteoarth ritis 269847716 Active 2022 Not Available [facility] 3 17:46:50 Acid reflux 260628692 Active 2022 Not Available [facility] 3 17:46:51 Acute bronchiti s 73335071 Completed 202201/10/[address], [place], [address] , [employer] [facility] 5 16:04:28 Pain of left shoulder joint 73861772941 750592 Completed 202201/10/[address], [place], [address] , [employer] [facility] 5 16:04:28 Osteoarth ritis of right knee joint 41074593905 9100 Completed 202301/10/2025 YRN Marquez [address], [place], [address] , [employer] [facility] 5 16:04:28 Partial thickness rotator cuff tear 529759929 Completed 202301/10/2025 YRN Marquez [address], [place], [address] , [employer] [facility] 5 16:04:28 Adult health examinati on Completed 202301/10/2025 YRN Marquez [address], [place], [address] , [employer] 5 16:04:28 Bilateral stenosis of carotid arteries 940069963 Active 2024 YRN Marquez [address], [place], [address] , [employer] 5 16:09:20 Gastroeso phageal reflux disease without esophagit is 693069375 Active 2024 YRN Marquez [address], [place], [address] , [employer] 5 16:11:32 Age-relat ed cataract of left eye 63475677444 830423 Active 2024 YRN Marquez [address], [place], [address] , [employer] [facility] 5 16:21:09 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 Procedures Surgical History Date Name Laterality Status Provider Name and Address Organization Details Recorded Time 01/05/20 25 Most Recent Bone Density completed Alondra Hummel RN [facility] [employer] [facility] 01/10/2025 15:52:49 12/05/19 25 Most Recent Mammogram completed Alondra Hummel RN [facility] [employer] [facility] 01/10/2025 15:52:35 Rotator cuff surgery completed Not Available [facility] 09/17/2022 07:41:21 other completed Not Available [facility] 07/2022 07:41:21 Knee Replacement completed RADHA Cerna [facility] 06/29/2023 15:52:01 procedure on shoulder completed RADHA Prather [facility] 06/29/2023 15:52:13 Hysterectomy completed Naila Severino RN [facility] 05/05/2024 10:58:43 Imaging Results None recorded. Procedure Notes None recorded. Medical Equipment None Reported. Allergies Allergen ID Allergen Name Allergen Category Reaction Reaction Severity Criticality Documentation Date Start Date Code Code System Note Provider Name and Address Organization Details Recorded Time 12020 Substance with sulfonami de structure and antibacte rial mechanism of action (substanc e) medicatio n Not available Not available Not available 09/17/2022 66009 8003 SNOMED Not Available [facility] 3 07:47:05 97913 leflunomi de medicatio n rash Not available Not available 09/17/2022 61479 RxNorm Not Available [facility] 3 07:47:05 71984 hydrocodo ne Not available vomiting Not available Not available 09/17/2022 5489 RxNorm Not Available [facility] 3 07:47:05 14824 prednison e medicatio n Not available Not available Not available 01/10/2025 8640 RxNorm Alondra Hummel RN [facility] 5 15:36:22 Medications Name Sig Start Date [...] Details Last Updated DateTime 09/07/2023 157.48 cm RADHA Prather [place] [employer] [facility] 09/07/2023 16:36:13 Date Recorded Body height Provider Name an d Address Organization Details Last Updated DateTime 09/09/2023 157.48 cm RADHA Prather [place] [employer] [facility] [employer] [facility] 09/09/2023 11:20:49 Date Recorded Body height Body mass index (BMI) Body weight Body temperature Heart rate Respiratory rate Oxygen saturation Oxygen saturation in Arterial blood by Pulse oximetry Pain severity - 0-10 verbal numeric rating [Score] - Reported Systolic And Diastolic Provider Name and Address Organization Details Last Updated DateTime 5 157.48 cm 28.4 kg/m2 35331.9 2 g 97.2 [degF] 67 /min 20 /min 94 % 94 % 0 124/60 mm[Hg] Alondra Hummel RN [facility] [employer] [facility] 5 15:44:15 Date Recorded Body height Body mass index (BMI) Body weight Body temperature Heart rate Oxygen saturation Oxygen saturation in Arterial blood by Pulse oximetry Systolic And Diastolic Provider Name and Address Organization Details Last Updated DateTime 4 157.48 cm 28.3 kg/m2 11067.8 2 g 96.3 [degF] 57 /min 97 % 97 % 148/76 mm[Hg] Naila Severino RN [facility] [employer] [facility] 4 11:06:33 Date Recorded Body height Provider Name an d Address Organization Details Last Updated DateTime 07/15/2023 157.48 cm RADHA Prather [facility] [employer] [facility] 07/15/2023 09:04:21 Social History Question Answer Notes LastModified by Organization Details LastModified Time Tobacco Smoking Status Former Smoker Not Available [facility] 09/17/2022 07:41:16 Do You Have An Advance Directive? No Information not available 01/10/2025 Are You Blind Or Do You Have Difficulty Seeing? Yes Wears Glasses Information not available 01/10/2025 Is Blood Transfusion Acceptable In An Emergency? Yes Information not available 01/10/2025 What Is Your Level Of Caffeine Consumption? Heavy [id number] Information not available 09/17/2022 How Much Tobacco Do You Chew? None [id number] [id number] Information not available 09/17/2022 What Is Your Code Status? Full Code Information not available 01/10/2025 In The 14 Days Before Symptom Onset, Have You Had Close Contact With A Laboratory-confi ed COVID-19 While That Case Was Ill? [...] Recreational Drugs Have You Used? None [id number].[id number] [id number] Information not available 09/17/2022 Have There Been Any Changes To Your Family Or Social Situation? No Information not available 01/10/2025 Do You Use Insect Repellent Routinely? No Information not available 01/10/2025 Where Do You Live? SingleLevelHouse Information not available 01/10/2025 Do You Have A Medical Power Of Lang Interpreter? No Information not available 01/10/2025 How Many [...] is your level of alcohol consumption? None [id number] Information not available 09/17/2022 Do you or have you ever used smokeless tobacco? Never used smokeless tobacco [id number] Information not available 09/17/2022 Are you currently employed? No Information not available 01/10/2025 Do you have transportation difficulties? No Information not available 01/10/2025 Are you able to walk? YESWOREST Information not available 01/10/2025 Do you have difficulty doing errands alone? No Information not available 01/10/2025 Are you able to care for yourself? Yes Information n ot available 01/10/2025 What is your occupation? Retired [id number] Information not available 09/17/2022 Do you have difficulty dressing or bathing? No Information not available 01/10/2025 Do you or have you ever used e-cigarettes or vape? Never used electronic cigarettes MIGRATION.[id number] Information not available 09/17/2022 What is your exercise level? Moderate [id number] Information not available 09/17/2022 Mental Status Question Answer Note LastModified by Organizat ion Details LastModified Time Do you feel stressed (tense, restless, nervous, or anxious, or unable to sleep at night)? [id number] Information not available 01/10/2025 Do you have difficulty concentrating, remembering or making decisions? Yes Information no t available 01/10/2025 Family History Relationship Description Onset Age of this Age Resolved Age Notes LastModified by Organization Details LastModified Time Maternal Grandfather Cerebrovascu lar accident [email or web address] Not available 10:43:01 Maternal Grandfather Heart disease [id number].937 [id number] Not available 09/17/2022 07:41:22 Maternal Grandmother Cerebrovascu lar accident [email or web address] Not available 10:43:01 Mother Cerebrovascu lar accident [email or web address] Not available 10:43:01 Mother Dementia [email or web address] Not availab le 05/05/2024 10:43:01 Mother Alzheimer's disease Not available 2024 15:47:29 Father Myocardial infarction [id number].885 [id number] Not available 09/17/2022 07:41:23 Father Diabetes mellitus MIGRATION.317 [id number] Not available 09/17/2022 07:41:23 Brother Alzheimer's disease [email or web address] Not available 05/05 10:43:01 Brother Family history of malignant neoplasm [email or web address] Not available 05/05 10:43:01 Sister Family history of malignant neoplasm [email or web address] Not available 05/05 10:43:01 Sister Blood coagulation disorder [email or web address] Not available 05/05 10:43:01 Sister Alzheimer's disease Not available 2024 15:47:37 Unspecified Relation Alzheimer's disease Not available 2024 15:47:43 Notes:Sister: MCI Suri: Mattie brumfield Cancer Medical History Condition Response [...] high-dose, trivalent, PF 7 completed Not Available [facility] 06/15/2023 17:46:51 Influenza, high-dose, trivalent, PF 9 completed ELIZABETH Henry, [facility] [employer] 01/10/2025 15:31:24 Influenza, split virus, quadrivalent, preservative 0 completed Not Available [facility] 06/15/2023 17:46:51 TST-PPD intradermal 7 completed Not Available [facility] 06/15/2023 17:46:51 Influenza, high-dose, trivalent, PF 6 completed ELIZABETH Henry, [facility] 01/10/2025 15:31:24 Influenza, split virus, trivalent, preservative 5 completed Not Available [facility] 06/15/2023 17:46:51 Influenza, split virus, trivalent, preservative 4 completed Not Available [facility] 06/15/2023 17:46:51 Influenza, split virus, trivalent, preservative 3 completed Not Available [facility] 06/15/2023 17:46:51 Influenza, split virus, trivalent, preservative 2 completed Not Available [facility] 06/15/2023 17:46:51 pneumococcal polysaccharide PPV23 0 completed Not Available [facility] 06/15/2023 17:46:51 Tdap 0 completed Not Available [facility] 06/15/2023 17:46:51 zoster live 0 completed Alondra Hummel RN [facility] 01/10/2025 15:31:24 pneumococcal polysaccharide PPV23 5 completed Not Available [facility] 06/15/2023 17:46:51 Pneumococcal conjugate PCV 13 9 completed Not Available [facility] 06/15/2023 17:46:51 pneumococcal polysaccharide PPV23 3 completed Not Available [facility] 06/15/2023 17:46:51 Influenza, high-dose, trivalent, PF 4 completed ELIE Mensah [address] [place] [address], [address], [facility] 05/30/2024 17:16:21 Past Encounters Encounter ID Performer Location Encounter Start Date Encounter Closed Date Diagnosis/Indication Diagnosis SNOMED-CT Code Diagnosis ICD10 Code Diagnosis Note [id number] [facility] [place] [address] [place] [address] 11/21/2020 00:00:00 11/21/2020 15:39:04 [id number] Patt Curtis MD [facility] [place] [address] [place] [address] 05/27/2021 00:00:00 05/27/2021 15:56:53 [id number] Patt Curtis MD [facility] [place] [address] [place] [address] 08/28/2021 00:00:00 08/28/2021 14:14:56 [id number] Patt Curtis MD [facility] [address] [facility] [address] , [place] [address] 11/14/2021 00:00:00 11/14/2021 16:06:41 [id number] Ferny Crooks MD [facility] [place] [address] [place] [address] 05/14/2022 00:00:00 05/19/2022 15:07:29 [id number] Patt Curtis MD [facility] [address] [facility] [address] , [place] [address] 07/22/2022 00:00:00 07/22/2022 19:48:12 [id number] Ferny Crooks MD [facility] [place] [address] [facility] [address] [place] [address] 08/22/2022 00:00:00 08/31/2022 18:08:49 [id number] Ferny Crooks MD [facility] [place] [address] [place] [address] 09/10/2022 00:00:00 09/10/2022 11:11:02 [id number] Ferny Crooks MD [facility] [place] [address] [place] [address] 09/24/2022 08:50:01 09/24/2022 09:20:51 History of right total knee replacement 3309949365 929996 Z96.651 [id number] Ferny Crooks MD [facility] [place] [address] [place] [address] 10/08/2022 10:38:38 10/08/2022 11:26:50 History of right total knee replacement 3604301553 558256 Z96.544 [id number] Ferny Crooks MD [facility] [place] [address] [place] [address] 06/29/2023 14:53:50 07/15/2023 15:11:10 Pain of left shoulder joint 7873385398 1603775 M25.302 [id number] Ferny Crooks MD [facility] [place] [address] [place] [address] 07/15/2023 08:53:27 07/17/2023 11:39:19 Pain of left shoulder joint 8651291788 2289940 M25.344 [id number] Ferny Crooks MD [facility] [place] [address] [place] [address] 09/07/2023 16:29:36 09/14/2023 10:03:05 Osteoarthritis of right knee joint 1493043639 73053 M17.11 [id number] Ferny Crooks MD [facility] [place] [address] [place] [address] 09/09/2023 11:13:10 09/09/2023 12:04:18 Partial thickness rotator cuff tear 458544693 M75.445 [id number] Dmitry Ramos MD [facility] [address] [facility] [place] [address] 05/05/2024 10:41:18 05/05/2024 11:35:21 Administration of influenza vaccine 68588571 Z23 Acid reflux 788353875 K2 1.9 Hyperlipidemia 42913605 E78.5 Chronic ob structive pulmonary disease 31865359 J44.9 Adult heal th examination 926523536 Z00.00 Depressive disorder 3548 9007 F32.A Esophageal dysphagia 408 92511 R13.19 Neuropathy 850355982 G62 .9 Osteoarthritis 705920918 M17.11 Osteoporosis 35606233 M8 1.0 Rheumatoid arthritis 698 35230 M06.9 Seasonal allergy 0387903 04 J30.2 Sleep apnea 14975319 G47 .30 Stricture of esophagus 25269517 K22.2 [id number] Dmitry Ramos MD [facility] [address] [place] [address] 01/10/2025 15:17:17 01/10/2025 17:08:29 Bilateral stenosis of carotid arteries 494001255 I65.23 Taking crestor, hx of 50% blockage Gastroesop hageal reflux disease without esophagitis 064072733 K21.9 Will stop omeprazole due to osteoporos is Neuropathy 879800972 G62 .9 Worsening, declines gabapentin Depressive disorder 3548 9007 F32.A Well controlled Age-relate d cataract of left eye 4146033659 0205736 H25.9 Okay for surgery under conscious sedation Health Concerns Section Related Observation LastModified by Organization Detai ls LastModified Time None Recorded Concern Status LastModified by Organization Details LastModified Time None Recorded Advance Directives Directive N: Payers Insurance Date Sequence Insurance Name Policy Number Policy Nguyen Covered Member ID Nguyen Member ID Guarantor Name 01/07/2025 1 [place] Cassie Bone [id number] Cassie Bone 01/07/2025 2 FOR LIFE ( - MEDICARE SUPPLEMENT) Emmanuel Lizandro [id number] Cassie Bone Notes Date Note Type Note [...] back in 2012 after a fall at [facility]. One of the tendons could not [...] medial on the supraspinatus tendon. There is [id number]-iz-wousjqnf atrophy of the supraspinatus and mild fatty infiltration of the supraspinatus. Her past medical history is significant for rheumatoid arthritis. She is on Humira and methotrexate. She does get blood work every 6-8 weeks. She sees a rn community at [facility]. She has used Mobic 15 mg passed her rn community has described that for her as recently as October of this year. Ferny Crooks MD [address], [facility] [address] [address], [place], [address], [employer] 07/15/2023 19:56:30 09/07/2023 text/html Patient returns. She is now 1 year out after her right total knee arthroplasty and has done exceptionally well. The she has did rheumatoid arthritis which is controlled methotrexate. She is able do all of her normal activities without limitation without discomfort in her right knee she is very pleased. Ferny Crooks MD [address], [employer], [place], [address], [employer] 09/12/2023 15:35:26 05/05/2024 text/html quit tobacco 2004. ELIE Genao [address], [place], [address], [employer] 05/30/2024 17:20:32 01/10/2025 text/html Cassie Bone is a [age] year old female patient here today for a pre-operative clearance She is having a left CE removal with IOL placement on 01/24/[address] Arango in [place]. She is overall healthy. She does annual wellness visits here frequently. She does have COPD. This is managed by pulmonology. She is utilizing Spiriva, Advair and Albuterol. She has RA, this is managed by rheumatology. She takes sohail twice per month. She has osteopenia, her rn community is managing this. She has had reclast infusion. She has carotid artery stenosis. Flu shot: OVID vaccines:Tdap:Pneumo fermin vaccines: x 4Singrix: 2009Mammogram: 01/04/25 normalDEXA scan 11/2024, osteopeniaColonoscop y: due, has referral already YRN Marquez [address] [facility], [facility] [address], [place], [address], [place] [facility] 01/10/2025 16:24:47 OBGyn Episode No OBEpisode recorded.
--- OUTSIDE RECORDS SUMMARY | 2025-02-08 14:36 | XMS_ITS | Clinical Summary ---
Author Organization [facility] Address [address] [place] [address] Care Team Providers Care Line Prep Cook Name Role Phone Patt Curtis MD Primary Care Provider [phone] Myrna Knapp MD Unavailable [phone] Source Comments [facility],non-owned Affiliates and Associated Physician Practices is amultiple site organization consisting of ambulatory clinics and hospital sitesin [place] and [place]. This disclosure is being madepursuant to the Care Everywhere program and may not contain all information available regarding this patient. Last updated 18.[facility] [email or web address] Allergies Active Allergy Reactions Criticality Noted Date [...] 08/03/2018 Senile osteoporosis 07/29/2018 Overview (07/29/2018): Per Dominique orders written by Dr. 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 07/13/2018 Therapeutic drug monitoring 07/13/2018 Atypical squamous cells of u ndetermined significance on cytologic smear of cervix (ASC-US) 06/30/2018 COPD (chronic obstructive pulmonary disease) 01/2015 Osteoarthrosis 04/06/2013 Osteoporosis 04/06/2013 Encounters Date Type Department Care Team Description 02/03/2025 Orders Only [facility] - Rheumatology [address] [place] [phone] Myrna Knapp MD Seropositive rheumatoid arthritis (HCC); Encounter for long-term (current) use of high-risk medication; Encounter for therapeutic drug monitoring 12/14/2024 12:40 PM CDT Office Visit [facility] - Rheumatology [address] [place] [address] Myrna Knapp MD Seropositive rheumatoid arthritis (HCC) (Primary Dx); Trochanteric bursitis of left hip; Screening-pulmonary TB; Encounter for long-term (current) use of high-risk medication; Encounter for therapeutic drug monitoring 12/14/2024 Travel from Last 3 Months Immunizations Immunization Administration [...] on file Legal Sex Female 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 LDR RN [address] [place] [phone] Aldo Muller MD [address] [facility] [address] [place] [address] 06/28/2025 12:20 PM RUBBER GASKET INSPECTOR TRIMMER [facility]ology [address] [facility], [place] [address] Myrna Knapp MD [address] [address] Health Maintenance Due Date Last Done Comments BONE DENSITY TESTING 1945 MEDICARE AWV 12 MONTHS 1945 DTAP/TDAP/TD VACCINES (1 - Tdap) 1966 ZOSTER VACCINE (1 of 2) 1997 PNEUMOCOCCAL VACCINE 50+ (2 of 2 - PCV) 07/19/2014 07/19/2013 Respiratory Syncytial Virus (RSV) Vaccine Pt: or over 60 yrs (1 - 1-dose 75+ series) 2022 COVID-19 VACCINE (1 - season) 2024 INFLUENZA VACCINE (#1) 2025 3, 04/22/2019, 04/16/2018, Additional history exists SCREENING FOR DIABETES 01/05/2028 5, 10/26/2024, 09/02/2024, Additional history exists HEPATITIS C [...] URINE REFLEXED II 01/04/2025 1:01 PM CDT HEPATITIS C AB W/RFLX TO HCV RNA QN PCR Routine 05/02/2022 11:28 AM CDT Seropositive rheumatoid arthritis Need for hepatitis B screening test Need for hepatitis C screening test from Last 3 Months or Most Recently Relevant to Health Maintenance Results * QUANTIFERON-TB GOLD PLUS 1-TUBE (01/04/2025 1:03 PM CDT) [facility] QuantiFERON TB Gold Plus NEGATIVE NEGATIVE [facility] [...] T-lymphocytes. For additional information, please refer to https://education.HubSpot.BlackDuck/faq/AUT511 (This link is being provided for informational/ educational purposes only.) REPORT COMMENT: FASTING:NO Test Performed at: [facility] [address] [place] [address] DONNA MAK MD 01/04/2025 1:03 PM CDT 01/04/2025 1:04 PM CDT us Myrna Knapp MD LAB - CHEMISTRY ORDERMague MILES Final Result [address] [address] * CULTURE URINE REFLEXED II (01/04/2025 1:01 PM CDT) [facility] Reflexive Urine Culture See Below [facility] Comment: CULTURE INDICATED - RESULTS TO FOLLOW Test Performed at: [facility] [address] DONNA MAK MD 01/04/2025 1:01 PM CDT 01/04/2025 1:02 PM CDT Myrna Knapp MD LAB - MICROBIOLOGY ORD ERABLES Final Result Performing Organization Address [facility] de Phone Number [address] [address] * (ABNORMAL) URINALYSIS W/MICROSCOPIC REFLEX TO CULTURE (01/04/2025 1:01 PM CDT) Color UA DARK YELLOW YELLOW [facility] Appearance CLOUDY(A) CLEAR [facility] Specific Garland UA 1.023 1.001 - 1.035 [facility] pH [...] elements seen were reported. Test Performed at: [facility] [address] DONNA MAK MD Urine MID-STREAM URINE SPECIMEN / Unknown 01/04/2025 1:01 PM CDT 01/04/2025 1:02 PM CDT Myrna Knapp MD LAB - URINALYSIS ORDER PRAVIN Final Result Performing Organization Address [facility] Co de Phone Number [address] [address] * (ABNORMAL) C-REACTIVE PROTEIN (01/04/2025 1:01 PM CDT) C-Reactive Protein 9.2(H) <8.0 mg/L [facility] Comment: Test Performed at: [facility] [address] [facility] [place] [address] DONNA MAK MD Blood BLOOD SPECIMEN / Unknown 01/04/2025 1:01 PM CDT 01/04/2025 1:02 PM CDT Myrna Knapp MD LAB - CHEMISTRY ORDERA BLES Final Result Performing Organization Address [facility] de Phone Number [address] [address] * CULTURE URINE (01/04/2025 1:01 PM CDT) Culture [facility] Comment: CULTURE, URINE, ROUTINE Micro Number: [id number] Test Status: Final Specimen Source: Urine Specimen Quality: Adequate Result: Mixed genital johny isolated. These superficial bacteria are not indicative of a urinary tract infection. No further organism identification is warranted on this specimen. If clinically indicated, recollect clean-catch, mid-stream urine and transfer immediately to Urine Culture Transport Tube. REPORT COMMENT: FASTING:NO Test Performed at: [facility] [address] DONNA MAK MD 01/04/2025 1:01 PM CDT 01/04/2025 1:02 PM CDT Myrna Knapp MD LAB - MICROBIOLOGY ORD ERABLES Final Result Performing Organization Address [facility] Co de Phone Number [address] [address] * ERYTHROCYTE SEDIMENTATION RATE (01/04/2025 1:01 PM CDT) Erythrocyte Sedimentation Rate Westergren 19 < OR = 30 mm/h [facility] Comment: Test Performed at: [facility] [address] [facility] [place] [address] DONNA MAK MD Blood BLOOD SPECIMEN / Unknown 01/04/2025 1:01 PM CDT 01/04/2025 1:02 PM CDT us Myrna Knapp MD LAB - HEMATOLOGY ORDER PRAVIN Final Result [facility] [address] [place] [address] * CBC WITH DIFFERENTIAL (01/04/2025 1:01 PM CDT) White Blood Cell Count 7.5 3.8 - [...] 0.8 % [facility] Comment: Test Performed at: [facility] [place] [address] DONNA MAK MD Blasts [facility] nRBC [facility] Comments [facility] Comment: Test Performed at: [facility] [address] [place] [address] DONNA MAK MD Blood BLOOD SPECIMEN / Unknown 01/04/2025 1:01 PM CDT 01/04/2025 1:02 PM CDT Myrna Knapp MD LAB - HEMATOLOGY ORDER PRAVIN Final Result Performing Organization Address [facility] Co de Phone Number [facility] [address] [place] [address] * COMPREHENSIVE METABOLIC PANEL (01/04/2025 1:01 PM CDT) [facility] Glucose 96 65 - 99 mg/dL [facility] [...] 29 U/L [facility] Comment: Test Performed at: [facility] [id number] [place] [address] DONNA MAK MD Blood BLOOD SPECIMEN / Unknown 01/04/2025 1:01 PM CDT 01/04/2025 1:02 PM CDT Myrna Knapp MD LAB - CHEMISTRY ORDERA BLES Final Result Performing Organization Address [facility]/ZIP Co de Phone Number [facility] [address] [place] [address] * HEPATITIS C AB W/RFLX TO HCV RNA QN PCR (05/02/2022 11:28 AM CDT) Hepatitis C Antibody NON-REACTI VE NON-REACT RICARDO [facility] Signal to Cut-Off 0.03 <1.00 [facility] Comment: HCV antibody was non-reactive. There is no laboratory evidence of HCV infection. In most cases, no further action is required. However, if recent HCV exposure is suspected, a test for HCV RNA (test code 34636) is suggested. For additional information please refer to http://education.SafeRent/faq/SGD62r0 (This link is being provided for informational/ educational purposes only.) Test Performed at: [facility] [address] [place] [address] SONDRA MURILLO DO,MPH Blood BLOOD SPECIMEN / Unknown 05/02/2022 11:28 AM CDT 05/02/2022 11:31 AM CDT Francisco Drake MD LAB - CHEMISTRY ORDERABLES Final Result [facility] [address] [place] [address] from Last 3 Months or Most Recently Relevant to Health Maintenance Insurance MEDICARE MEDICARE Care Teams Line Prep Cook Relationship Specialty Start Date End Date Patt Curtis MD [address] [place] [address] PCP - General 08/07/22 Myrna Knapp MD [address] [place] [address] Environmental Sciences Professor Rheumatology 05/18/23
--- OUTSIDE RECORDS SUMMARY | 2025-02-08 14:36 | XMS_ITS | Clinical Summary ---
Author Organization [facility] Address [address] [place] [address] Phone Care Team Providers Care Cork Wirer Name Role Phone Unavailable Primary Care Provider [...] Comments Blood Pressure 132/78 09/15/2018 12:01 AM HOUSE PARENT Pulse - - Temperature 35.5 C (95.9 F) 09/15/2018 12:01 AM HOUSE PARENT Respiratory Rate - - Oxygen Saturation - - Inhaled Oxygen Concentration - - Weight 70.3 kg (155 lb) 09/15/2018 12:01 AM HOUSE PARENT Height 157.5 cm (5' 2) 09/15/2018 12:01 AM HOUSE PARENT Body Mass Index 28.35 09/15/2018 12:01 AM HOUSE PARENT Plan of Treatment Health Maintenance Due Date Last Done Comments Pneumococcal PPSV23/PCV13 65 + Years / Low and Medium Risk (2 of 3 - PCV20 or PCV21) 08/02/2019 08/02/2018 Influenza Vaccine (#1) 2025 08/02/2018
--- OUTSIDE RECORDS SUMMARY | 2025-02-08 14:37 | XMS_ITS | Encounter Summary ---
Author Organization [facility] Address [address] [facility] [place] [address] Care Team Providers Care Precision Lens Technician Name Role Phone Alena Thakur Primary Care Provider + Patt Curtis MD Primary Care Provider [phone] Myrna Knapp MD Unavailable [phone] Encounter Details Date Type Department Care Team (Late st Contact Info) Description 08/09/2021 Lab Requisition [facility] Care DermPath Lab [address] [place] [phone] David Sagastume MD [address] [place] [address] Social History Tobacco Use Types [...] on file Legal Sex Female 6:03 AM LIBRARIAN SPECIAL LIBRARY Gender Identity Not on file Sexual Orientation Not on file documented as of this encounter Plan of Treatment Upcoming Encounters Date Type Department Care Team (Late st Contact Info) Description 05/10/2025 11:30 AM CDT Office Visit [facility] - REPTILE KEEPER [address] [place] [phone] Aldo Muller MD [address] [facility] [address] [address] [place] [address] 06/28/2025 12:20 PM LIBRARIAN SPECIAL LIBRARY Office Visit [facility] - Rheumatology [address] [place] [address], [place] [address] Myrna Knapp MD [address] [place] [address] [address] [place] [address] documented as of this encounter Procedures Procedure Name Priority Date/Time Associated Diagnosis Comments DERMATOPATHOLOGY Routine 08/07/2021 12:0 0 AM LIBRARIAN SPECIAL LIBRARY documented in this encounter Results * DERMATOPATHOLOGY (08/07/2021 12:00 AM LIBRARIAN SPECIAL LIBRARY) Case Report Dermatopathology Report Case: [id number] Authorizing Provider: David Sagastume MD Collected: 08/07/2021 12:00 AM Ordering Location: [facility] D[facility] Lab Received: 08/09/2021 01:05 PM Pathologist: Mitzy Cordoba MD Specimen: Skin, posterior vertex scalp 2 5:15 PM LIBRARIAN SPECIAL LIBRARY DERMATOPATHOLOGY LABORATORY Final Diagnosis Specimen A. SKIN, posterior vertex scalp: HYPERPLASTIC (HYPERTROPHIC) ACTINIC KERATOSIS, LICHENOID (L57.0) 2 5:15 PM LIBRARIAN SPECIAL LIBRARY DERMATOPATHOLOGY LABORATORY at [address] LIBRARIAN SPECIAL LIBRARY Clinical History R/O SCC, Youngblood's disease. 2 5:15 PM LIBRARIAN SPECIAL LIBRARY DERMATOPATHOLOGY LABORATORY Gross Description Specimen A: Received is one formalin filled container labeled with the patient's name and designated posterior vertex scalp. The specimen consists of a shave biopsy measuring 48k9x5wk. Jar 0+. 2 5:15 PM [employer] [employer] DERMATOPATHOLOGY LABORATORY Microscopic Description Specimen A. SKIN, posterior vertex scalp: There is hyperkeratosis alternating with parakeratosis. There is epidermal hyperplasia with disorderly maturation of keratinocytes with nuclear pleomorphism confined to the lower half of the epidermis. The dermis shows a band-like, chronic inflammatory infiltrate with occasional apoptotic keratinocytes and some basal vacuolar alteration. 2 5:15 PM [facility] DERMATOPATHOLOGY LABORATORY Disclaimer An external and internal positive and negative controls are appropriate for the histochemical, immunohistochemical and immunofluorescence stain(s) in this case (if any), except where stated explicitly. The performance characteristics of the stain(s) cited in this report were developed and its performance characteristic determined by the Dermatopathology Laboratory at [facility], directed by Dr. Donald Wills. These tests need not be, and therefore are not, approved by the [place] Food and Drug Administration. The tests are used for clinical purposes. Billing Codes Specimen Charges Stain Charges 18512 1 2 5:15 PM [facility] DERMATOPATHOLOGY LABORATORY Embedded Images 2 5:15 PM [facility] DERMATOPATHOLOGY LABORATORY Pathology/Cytolog y TISSUE SPECIMEN FROM SKIN / Unknown 08/07/2021 08/09/2021 1:05 PM LIBRARIAN SPECIAL LIBRARY David Sagastume MD LAB - PATHOLOGY/CYTOLOGY ORD ERABLES Final Result DERMATOPATHOLOGY LABORATORY [facility] Department of Dermatology [address] [phone] documented in this encounter Visit Diagnoses Not on filedocumented in this encounter Care Teams Precision Lens Technician Relationship Specialty Start Date End Date Alena Thakur APRN-SALES AMBASSADOR [address] [phone] PCP - General 02/17/18 08/06/22 Patt Curtis MD [address] [place] [address] [address] [place] [address] PCP - General 08/07/22 Myrna Knapp MD [address] [place] [address] [place] [address] Install Technician Rheumatology 05/18/23 documented as of this encounter
--- OUTSIDE RECORDS SUMMARY | 2025-02-08 14:37 | XMS_ITS | Continuity of Care Document ---
Author Organization [facility] Address [address] [facility] [place] [address] Phone Care Team Providers Care Metal Polisher Name Role Phone Gary Andrews DO Unavailable Unavailable Allergies, Adverse Reactions, Alerts Substance Reaction Status Criticality Sulfa (Sulfonamide Antibiotics) Rash Active No Information Procedures Procedure Date Offic/outpt E&m [place] [address] 6 Advance Directives Directive Yes / No Effective Date File Name No Information Encounters Encounter Description Practice Location Reason(s) For Visit Diagnoses Date Provider Providers Copied on Encounter [facility] , [address] [facility] [address] [facility], [place], [id number], [place] tel:[phone] MISSY Ramirez No Information Darryl Vega. [address] [facility] [place], [place] [address], [place], [id number], [place]. tel:[phone] Referring Provider: Gary Irby, [address] [facility] [address] [place] [address], [place], [address] [place] [address]. tel:[phone] Offic/outpt E&m [address] , [address] [place], [place], [id number], [place] tel:[phone] MISSY Ramirez Dysphagia (chief complaint) Esophagitis, unspecified Darryl Vega. [address], [address], [place], [place], [id number], [place]. tel:[phone] Referring Provider: Gary Irby, [address] [place] [address], [place], [address]. tel:[phone] Family History Family Member Type Diagnosis Age [...] 2 Payers Payer name Insurance type Covered green party ID Authoriza tion(s) Medicare Claims Administrators [id number] [id number] Social History Type Description Quantity Date Captured Comments Sex Female Smoking Status No Information Chief Complaint And Reason For Visit No Information Reason For Referral Reason For Referral No Information History Of Present Illness Encounter Date Complaint History Of Prese nt Illness Dysphagia (comments) GI doc told them he didn't know what to do and that she should go to [facility]. They looked into it here but they [...]
== END 2025-02-08 14:26 | disposition home or self-care (01) ==
DX: I65.23 Occlusion and stenosis of bilateral carotid arteries (principal)
CPT/HCPCS: 93880

== ENCOUNTER 2025-03-01 12:34 | Outpatient (CLI) | payer MEDICARE, OTHER, SELFPAY ==
--- OUTSIDE RECORDS SUMMARY | 2025-03-01 12:37 | XMS_ITS | Encounter Summary ---
Author Organization [facility] Address [address] [facility] [place] [address] Care Team Providers Care Disease Intervention Specialist Name Role Phone Patt Curtis MD Primary Care Provider [phone] Myrna Knapp MD Unavailable [phone] Reason for Visit * Reason Onset Date Comments MEDICATION REFILL 07/03/2023 Encounter Details Date Type Department Care Team (Late Contact Info) Description 07/03/2023 Refill [facility] - Rheumatology [address] [place] [address] Parker Kennedy MD [address] [place] [address] MEDICATION REFILL Social History Tobacco Use [...] on file Legal Sex Female 6:03 AM FLEXIBLE SHAFT WINDER Gender Identity Not on file Sexual Orientation Not on file documented as of this encounter Plan of Treatment Upcoming Encounters Date Type Department Care Team (Late Contact Info) Description 05/10/2025 11:30 AM CDT Office Visit [facility] - FIELD CLINICAL ENGINEER [address] [place] [phone] Aldo Muller MD [address] [facility] [address] [place] [address] 06/28/2025 12:20 PM FLEXIBLE SHAFT WINDER Office Visit [facility] - Rheumatology [address] [facility], [place] [address] [place] [address] [place] [address] [address] [place] [address] documented as of this encounter Visit Diagnoses Not on filedocumented in this encounter Care Teams Disease Intervention Specialist Relationship Specialty Start Date End Date Patt Curtis MD [facility] [place] [phone] PCP - General 08/07/22 Myrna Knapp MD [address] [facility] [address]L [place] [address] Practical Ministries Professor Rheumatology 05/18/23 documented as of this encounter
--- OUTSIDE RECORDS SUMMARY | 2025-03-01 12:37 | XMS_ITS | Clinical Summary ---
Author Organization [facility] Address [address] [place] [address] Care Team Providers Care School Age Program Associate Name Role Phone Alena Thakur NP Primary Care Provider [phone] Social History Tobacco Use Types Packs/Day Years [...] Insurance MEDICARE [facility] Care Teams School Age Program Associate Relationship Specialty Start Date End Date Alena Thakur NP [facility] [place] [address] PCP - General NURSE PRACTITIONER 12/09/21
--- OUTSIDE RECORDS SUMMARY | 2025-03-01 12:37 | XMS_ITS | Clinical Summary ---
Author Organization [facility] Address [address] [place] [address] Phone Care Team Providers Care Mental Health Worker Name Role Phone Unavailable Primary Care Provider [...] Comments Blood Pressure 132/78 09/15/2018 12:01 AM MARBLE CLEANER Pulse - - Temperature 35.5 C (95.9 F) 09/15/2018 12:01 AM MARBLE CLEANER Respiratory Rate - - Oxygen Saturation - - Inhaled Oxygen Concentration - - Weight 70.3 kg (155 lb) 09/15/2018 12:01 AM MARBLE CLEANER Height 157.5 cm (5' 2) 09/15/2018 12:01 AM MARBLE CLEANER Body Mass Index 28.35 09/15/2018 12:01 AM MARBLE CLEANER Plan of Treatment Health Maintenance Due Date Last Done Comments Pneumococcal PPSV23/PCV13 65 + Years / Low and Medium Risk (2 of 3 - PCV20 or PCV21) 08/02/2019 08/02/2018 Influenza Vaccine (#1) 2025 08/02/2018
--- OUTSIDE RECORDS SUMMARY | 2025-03-01 12:37 | XMS_ITS | Continuity of Care Document ---
Author Organization [facility] Address [address] [facility] [place] [address] Phone Care Team Providers Care Analytical Chemist Name Role Phone Gary Andrews DO Unavailable Unavailable Allergies, Adverse Reactions, Alerts Substance Reaction Status Criticality Sulfa (Sulfonamide Antibiotics) Rash Active No Information Procedures Procedure Date Offic/outpt E&m [place] [address] 6 Advance Directives Directive Yes / No Effective Date File Name No Information Encounters Encounter Description Practice Location Reason(s) For Visit Diagnoses Date Provider Providers Copied on Encounter [facility] , [address] [facility] [place] [facility], [place], [id number], [place] tel:[phone] MISSY Ramirez No Information Darryl Vega. [address] [facility] [place], [place] [address], [place], [id number], [place]. tel:[phone] Referring Provider: Gary Irby, [address] [facility] [place] [address], [place], [address] [place] [address]. tel:[phone] Offic/outpt E&m [address] , [address] [place], [place], [address], [place] tel:[phone] MISSY Ramirez Dysphagia (chief complaint) Esophagitis, unspecified Darryl Vega. [address], [address], [place], [place], [id number], [place]. tel:[phone] Referring Provider: Gary Irby, [address] [place] [address], [place], [address]. tel:[phone] Family History Family Member Type Diagnosis Age [...] party ID Authoriza tion(s) Medicare Claims Administrators [id number] [facility]ub [facility] [id number] Social History Type Description Quantity Date Captured Comments Sex Female Smoking Status No Information Chief Complaint And Reason For Visit No Information Reason For Referral Reason For Referral No Information History Of Present Illness Encounter Date Complaint History Of Prese nt Illness Dysphagia (comments) GI doc told them he didn't know what to do and that she should go to [place]. They looked into it here but they [...]
--- OUTSIDE RECORDS SUMMARY | 2025-03-01 12:37 | XMS_ITS | Encounter Summary ---
Author Organization [facility] Address [address] [place] [address] Care Team Providers Care Telegraph Inspector Name Role Phone Alena Thakur APRN-SAUTE CHEF Primary Care Provider + Patt Curtis MD Primary Care Provider [phone] Myrna Knapp MD Unavailable [phone] Reason for Visit * Reason Onset Date Comments Refill Request 01/21/2022 Encounter Details Date Type Department Care Team (Late st Contact Info) Description 01/21/2022 Refill [facility] - Third Level [address] [facility] [place] [address] Marcelle Zafar MD [address] [place] [address] Refill Request Social History Tobacco Use Types [...] on file Legal Sex Female 6:03 AM HRIS SPECIALIST Gender Identity Not on file Sexual [...] (FOLVITE) 1 MG tablet Pharmacy: [facility] [address] [facility] [place] [address] [phone] Patient call back number: [phone] documented in this encounter Plan of Treatment Upcoming Encounters Date Type Department Care Team (Late st Contact Info) Description 05/10/2025 11:30 AM CDT Office Visit [facility] - IRRIGATOR GRAVITY FLOW [address] [facility] [address] [place] [address] Aldo Muller MD [address] [facility] [address] [place] [address] 06/28/2025 12:20 PM HRIS SPECIALIST Office Visit [facility] - Rheumatology [address] [facility], [place] [address] Myrna Knapp MD [address] [facility] 2L [place] [address] documented as of this encounter Visit Diagnoses Diagnosis Seropositive rheumatoid arthritis (HCC) Rheumatoid arthritis Trochanteric bursitis of left hip Enthesopathy of hip region documented in this encounter Care Teams Telegraph Inspector Relationship Specialty Start Date End Date Alena Thakur APRN-CLAY [address] [address] PCP - General 02/17/18 08/06/22 Patt Curtis MD [address] [place] [address]. [address] [place] [address] PCP - General 08/07/22 Myrna Knapp MD [address] [place] [address] 2L [place] [address] Insulation Machine Operator Rheumatology 05/18/23 documented as of this encounter
--- OUTSIDE RECORDS SUMMARY | 2025-03-01 12:37 | XMS_ITS | Encounter Summary ---
Author Organization [facility] Address [address] [place] [address] Care Team Providers Care Platen Builder Up Name Role Phone Patt Curtis MD Primary Care Provider [phone] Myrna Knapp MD Unavailable [phone] Encounter Details Date Type Department Care Team (Late st Contact Info) Description 09/10/2023 Lab Requisition [facility] - DermPath Lab [address] [place] [phone] David Sagastume MD [address] [place] [address] Social History Tobacco Use Types [...] on file Legal Sex Female 6:03 AM MANAGER WATER WASTEWATER Gender Identity Not on file Sexual Orientation Not on file documented as of this encounter Plan of Treatment Upcoming Encounters Date Type Department Care Team (Late st Contact Info) Description 05/10/2025 11:30 AM CDT Office Visit [facility] - ENVIRONMENTAL MANAGER [address] [facility] [address] [place] [address] Aldo Muller MD [address] [facility] [address] [place] [address] 06/28/2025 12:20 PM MANAGER WATER WASTEWATER Office Visit [facility] - Rheumatology [address] [facility], [place] [address] Myrna Knapp MD [address] [place] [address] documented as of this encounter Procedures Procedure Name Priority Date/Time Associated Diagnosis Comments DERMATOPATHOLOGY Routine 09/08/2023 3:33 AM MANAGER WATER WASTEWATER documented in this encounter Results * DERMATOPATHOLOGY (09/08/2023 3:33 AM MANAGER WATER WASTEWATER) Case Report Dermatopathology Report Case: [id number] Authorizing Provider: David Sagastume MD Collected: 09/08/2023 03:33 AM Ordering Location: [facility] DermPath Lab Received: 09/10/2023 07:40 AM Pathologist: Renee Diana MD Specimens: A) - Skin, post vertex scalp B) - Skin, mid vertex scalp C) - Skin, ant vertex scalp 4 2:13 PM MANAGER WATER WASTEWATER DERMATOPATHOLOGY LABORATORY Final Diagnosis Specimen A. SKIN, [...] microscopic description and comment) 4 2:13 PM MANAGER WATER WASTEWATER DERMATOPATHOLOGY LABORATORY at 1413 MANAGER WATER WASTEWATER Clinical History A-C: R/O SCC vs SCCIS vs HAK 4 2:13 PM MANAGER WATER WASTEWATER DERMATOPATHOLOGY LABORATORY Gross Description Specimen A: Received [...] 9x8x2 mm. Jar 0. 4 2:13 PM [facility] DERMATOPATHOLOGY LABORATORY Microscopic Description Specimen [...] Clinicopathologic correlation is recommended. 4 2:13 PM [facility] DERMATOPATHOLOGY LABORATORY Disclaimer An external and internal positive and negative controls are appropriate for the histochemical, immunohistochemical and immunofluorescence stain(s) in this case (if any), except where stated explicitly. The performance characteristics of the stain(s) cited in this report were developed and its performance characteristic determined by the Dermatopathology Laboratory at [facility], directed by Dr. Donald Wills. These tests need not be, and therefore are not, approved by the [place] Food and Drug Administration. The tests are used for clinical purposes. Billing Codes Specimen Charges Stain Charges 22784 54199 46422 1 1 1 4 2:13 PM MANAGER WATER WASTEWATER DERMATOPATHOLOGY LABORATORY Embedded Images 4 2:13 PM MANAGER WATER WASTEWATER DERMATOPATHOLOGY LABORATORY Pathology/Cytology TISSUE SPECIMEN FROM SKIN / Unknown 09/08/2023 3:33 AM MANAGER WATER WASTEWATER 09/10/2023 7:40 AM MANAGER WATER WASTEWATER Miscellaneous samples (specimen) TISSUE SPECIMEN FROM SKIN / Unknown 09/08/2023 3:33 AM MANAGER WATER WASTEWATER 09/10/2023 7:40 AM MANAGER WATER WASTEWATER Miscellaneous samples (specimen) TISSUE SPECIMEN FROM SKIN / Unknown 09/08/2023 3:33 AM MANAGER WATER WASTEWATER 09/10/2023 7:40 AM MANAGER WATER WASTEWATER David Sagastume MD LAB - PATHOLOGY/CYTOLOGY ORD ERABLES Final Result DERMATOPATHOLOGY LABORATORY [facility] - Department of Dermatology [facility] Medicine [facility], 3rd Floor [address] [phone] documented in this encounter Visit Diagnoses Not on filedocumented in this encounter Care Teams Platen Builder Up Relationship Specialty Start Date End Date Patt Curtis MD [address] [place] [address] [address] [place] [address] PCP - General 08/07/22 Myrna Knapp MD [address] [place] [address] [place] [address] Pest Control Pilot Rheumatology 05/18/23 documented as of this encounter
--- OUTSIDE RECORDS SUMMARY | 2025-03-01 12:37 | XMS_ITS | Clinical Summary ---
Author Organization [facility] Address [address] [facility] [place] [address] Care Team Providers Care Transportation Driver Name Role Phone Patt Curtis MD Primary Care Provider [phone] Myrna Knapp MD Unavailable [phone] Source Comments [facility],non-owned Affiliates and Associated Physician Practices is amultiple site organization consisting of ambulatory clinics and hospital sitesin [place], [place], [place] and [place]. This disclosure is being madepursuant to the Care Everywhere program and may not contain all information available regarding this patient. Last updated 18.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 07/13/2018 Therapeutic drug monitoring 07/13/2018 Atypical squamous cells of u ndetermined significance on cytologic smear of cervix (ASC-US) 06/30/2018 COPD (chronic obstructive pulmonary disease) 01/2015 Osteoarthrosis 04/06/2013 Osteoporosis 04/06/2013 Encounters Date Type Department Care Team Description 02/03/2025 Orders Only [facility] - Rheumatology [address] [place] [address] Myrna Knapp MD Seropositive rheumatoid arthritis (HCC); Encounter for long-term (current) use of high-risk medication; Encounter for therapeutic drug monitoring 12/14/2024 12:40 PM CDT Office Visit [facility] - Rheumatology [address] [place] [address] Myrna Knapp MD Seropositive rheumatoid arthritis (HCC) [...] on file Legal Sex Female 6:03 AM TELLER HEAD Gender Identity Not on file Sexual Orientation [...] 11:30 AM CDT [facility] SERVICE LINE COORDINATOR [address] [facility] [address] [place] [address] Aldo Muller MD [address] [facility] [address] [place] [address] 06/28/2025 12:20 PM TELLER HEAD [facility] [address] [facility], [place] [address] Myrna Knapp MD [address] DIV [place] [address] Health Maintenance Due Date Last [...] GOLD PLUS 1-TUBE (01/04/2025 1:03 PM CDT) [facility] QuantiFERON TB Gold Plus NEGATIVE NEGATIVE [facility] [...] T-lymphocytes. For additional information, please refer to https://education.Hoods.Deckerton/faq/KPM647 (This link is being provided for informational/ educational purposes only.) REPORT COMMENT: FASTING:NO Test Performed at: [facility] [address] [place] [address] DONNA MAK MD 01/04/2025 1:03 PM CDT 01/04/2025 1:04 PM CDT us Myrna Knapp MD LAB - CHEMISTRY ORDERMague MILES Final Result [address] [address] * CULTURE URINE REFLEXED II (01/04/2025 1:01 PM CDT) [facility] Reflexive Urine Culture See Below [facility] Comment: CULTURE INDICATED - RESULTS TO FOLLOW Test Performed at: [facility] [address] DONNA MAK MD 01/04/2025 1:01 PM CDT 01/04/2025 1:02 PM CDT Myrna Knapp MD LAB - MICROBIOLOGY ORD ERABLES Final Result Performing Organization Address [facility] de Phone Number [address] [address] * (ABNORMAL) URINALYSIS W/MICROSCOPIC REFLEX TO CULTURE (01/04/2025 1:01 PM CDT) Color UA DARK YELLOW YELLOW [facility] Appearance CLOUDY(A) CLEAR [facility] Specific [place] UA 1.023 1.001 - 1.035 [facility] pH [...] elements seen were reported. Test Performed at: [facility] [address] DONNA MAK MD Urine MID-STREAM URINE SPECIMEN / Unknown 01/04/2025 1:01 PM CDT 01/04/2025 1:02 PM CDT Myrna Knapp MD LAB - URINALYSIS ORDER PRAVIN Final Result Performing Organization Address [facility] Co de Phone Number [address] [address] * (ABNORMAL) C-REACTIVE PROTEIN (01/04/2025 1:01 PM CDT) C-Reactive Protein 9.2(H) <8.0 mg/L [facility] Comment: Test Performed at: [facility] [address] [facility] [place] [address] DONNA MAK MD Blood BLOOD SPECIMEN / Unknown 01/04/2025 1:01 PM CDT 01/04/2025 1:02 PM CDT Myrna Knapp MD LAB - CHEMISTRY ORDERA BLES Final Result Performing Organization Address [facility] de Phone Number [address] [address] * CULTURE URINE (01/04/2025 1:01 PM CDT) Culture [facility] Comment: CULTURE, URINE, ROUTINE Micro Number: [id number] Test Status: Final Specimen Source: Urine Specimen Quality: Adequate Result: Mixed genital johny isolated. These superficial bacteria are not indicative of a urinary tract infection. No further organism identification is warranted on this specimen. If clinically indicated, recollect clean-catch, mid-stream urine and transfer immediately to Urine Culture Transport Tube. REPORT COMMENT: FASTING:NO Test Performed at: [facility] [address] DONNA MAK MD 01/04/2025 1:01 PM CDT 01/04/2025 1:02 PM CDT Myrna Knapp MD LAB - MICROBIOLOGY ORD ERABLES Final Result Performing Organization Address [facility] Co de Phone Number [address] [address] * ERYTHROCYTE SEDIMENTATION RATE (01/04/2025 1:01 PM CDT) Erythrocyte Sedimentation Rate Westergren 19 < OR = 30 mm/h [facility] Comment: Test Performed at: [facility] [address] [facility] [place] [address] DONNA MAK MD Blood BLOOD SPECIMEN / Unknown 01/04/2025 1:01 PM CDT 01/04/2025 1:02 PM CDT us Myrna Knapp MD LAB - HEMATOLOGY ORDER PRAVIN Final Result [facility] [address] [place] [address] * CBC WITH DIFFERENTIAL (01/04/2025 1:01 PM [...] 0.8 % [facility] Comment: Test Performed at: [facility] [place] [address] DONNA MAK MD Blasts [facility] nRBC [facility] Comments [facility] Comment: Test Performed at: [facility] [address] [place] [address] DONNA MAK MD Blood BLOOD SPECIMEN / Unknown 01/04/2025 1:01 PM CDT 01/04/2025 1:02 PM CDT Myrna Knapp MD LAB - HEMATOLOGY ORDER PRAVIN Final Result Performing Organization Address [facility] Co de Phone Number [facility] [address] [place] [address] * COMPREHENSIVE METABOLIC PANEL (01/04/2025 1:01 PM CDT) [facility] Glucose 96 65 - 99 mg/dL [facility] [...] 29 U/L [facility] Comment: Test Performed at: [employer] [employer] [id number] [place] [address] DONNA MAK MD Blood BLOOD SPECIMEN / Unknown 01/04/2025 1:01 PM CDT 01/04/2025 1:02 PM CDT Myrna Knapp MD LAB - CHEMISTRY ORDERA BLES Final Result Performing Organization Address [facility]/ZIP Co de Phone Number [facility] [address] [place] [address] * HEPATITIS C AB W/RFLX TO HCV RNA QN PCR (05/02/2022 11:28 AM CDT) Hepatitis C Antibody NON-REACTI VE NON-REACT RICARDO [facility] Signal to Cut-Off 0.03 <1.00 [facility] Comment: HCV antibody was non-reactive. There is no laboratory evidence of HCV infection. In most cases, no further action is required. However, if recent HCV exposure is suspected, a test for HCV RNA (test code 19578) is suggested. For additional information please refer to http://education.MyRefers/faq/FKN84d3 (This link is being provided for informational/ educational purposes only.) Test Performed at: [facility] [address] [place] [address] SONDRA MURILLO DO,MPH Blood BLOOD SPECIMEN / Unknown 05/02/2022 11:28 AM CDT 05/02/2022 11:31 AM CDT Francisco Drake MD LAB - CHEMISTRY ORDERABLES Final Result [facility] [address] [place] [address] from Last 3 Months or Most Recently Relevant to Health Maintenance Insurance MEDICARE MEDICARE Care Teams Transportation Driver Relationship Specialty Start Date End Date Patt Curtis MD [address] [place] [address] PCP - General 08/07/22 Myrna Knapp MD [address] [place] [address] Duster Tender Rheumatology 05/18/23
--- OUTSIDE RECORDS SUMMARY | 2025-03-01 12:37 | XMS_ITS | Encounter Summary ---
Author Organization [facility] Address [address] [facility] [place] [address] Care Team Providers Care Poker Prop Player Name Role Phone Alena Thakur Primary Care Provider + Patt Curtis MD Primary Care Provider [phone] Myrna Knapp MD Unavailable [phone] Encounter Details Date Type Department Care Team (Late st Contact Info) Description 06/05/2022 Lab Requisition [facility] Care DermPath Lab [address] [place] [address] David Saagstume MD [address] [place] [address] Social History Tobacco Use Types [...] on file Legal Sex Female 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 - Rheumatology [address] [place] [address], [place] [address] Myrna Knapp MD [facility] [facility] 2L [place] [address] documented as of this encounter Procedures Procedure Name Priority Date/Time Associated Diagnosis Comments DERMATOPATHOLOGY Routine 06/04/2022 12:0 0 AM TRANSFORMER INSPECTOR documented in this encounter Results * DERMATOPATHOLOGY (06/04/2022 12:00 AM TRANSFORMER INSPECTOR) Case Report Dermatopathology Report Case: [id number] Authorizing Provider: David Sagastume MD Collected: 06/04/2022 12:00 AM Ordering Location: [facility] DermPath Lab Received: 06/05/2022 01:42 PM Pathologist: Sam Wills MD Specimens: A) - Skin, right mid extensor forearm B) - Skin, right distal mid extensor forearm 2 4:36 PM TRANSFORMER INSPECTOR DERMATOPATHOLOGY LABORATORY Final Diagnosis Specimen A. SKIN, right mid extensor forearm: DERMAL SCAR (L90.5) (see microscopic description) Specimen B. SKIN, right distal mid extensor forearm: ACTINIC KERATOSIS, LICHENOID (L57.0) 2 4:36 PM TRANSFORMER INSPECTOR DERMATOPATHOLOGY LABORATORY at 1636 TRANSFORMER INSPECTOR Clinical History A-B: R/O BCC, SCC 2 4:36 PM TRANSFORMER INSPECTOR DERMATOPATHOLOGY LABORATORY Gross Description Specimen A: Received is one formalin filled container labeled with the patient's name and designated right mid extensor forearm. The specimen consists of a shave biopsy measuring 2p6k6jm. Jar 0. Specimen B: Received is one formalin filled container labeled with the patient's name and designated right distal mid extensor forearm. The specimen consists of a shave biopsy measuring 1f4g9hl. Jar 0. 2 4:36 PM [facility] DERMATOPATHOLOGY LABORATORY Microscopic Description Specimen A. [...] some basal vacuolar alteration. 2 4:36 PM [facility] DERMATOPATHOLOGY LABORATORY Disclaimer An external and internal positive and negative controls are appropriate for the histochemical, immunohistochemical and immunofluorescence stain(s) in this case (if any), except where stated explicitly. The performance characteristics of the stain(s) cited in this report were developed and its performance characteristic determined by the Dermatopathology Laboratory at [facility], directed by Dr. Donald Wills. These tests need not be, and therefore are not, approved by the [place] Food and Drug Administration. The tests are used for clinical purposes. Billing Codes Specimen Charges Stain Charges 98328 [address] 1 1 2 4:36 PM TRANSFORMER INSPECTOR DERMATOPATHOLOGY LABORATORY Embedded Images 2 4:36 PM [facility] DERMATOPATHOLOGY LABORATORY Pathology/Cytology TISSUE SPECIMEN FROM SKIN / Unknown 06/04/2022 06/05/2022 1:42 PM TRANSFORMER INSPECTOR Miscellaneous samples (specimen) TISSUE SPECIMEN FROM SKIN / Unknown 06/04/2022 06/05/2022 1:42 PM TRANSFORMER INSPECTOR David Sagastume MD LAB - PATHOLOGY/CYTOLOGY ORD ERABLES Final Result DERMATOPATHOLOGY LABORATORY [facility] - Department of Dermatology [address], [address] [phone] documented in this encounter Visit Diagnoses Not on filedocumented in this encounter Care Teams Poker Prop Player Relationship Specialty Start Date End Date Alena ThakurETHEL-CLAY [address] [phone] PCP - General 02/17/18 08/06/22 Patt Curtis MD [facility] [place] [phone] PCP - General 08/07/22 Myrna Knapp MD [address] [place] [address] Straight Truck Driver Rheumatology 05/18/23 documented as of this encounter
--- OUTSIDE RECORDS SUMMARY | 2025-03-01 12:37 | XMS_ITS | Encounter Summary ---
Author Organization 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 Sex Female 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 Gender Identity Not on file Sexual Orientation Not on file documented as of this encounter Plan of Treatment Upcoming Encounters Date Type Department Care Team (Late st Contact Info) Description 05/10/2025 11:30 AM CDT Office Visit [facility] [address] [place] [phone] Aldo Muller MD [address] [place] [address] 06/28/2025 12:20 PM SPRAY PAINTER Office Visit [facility] - Rheumatology [address] [place] [address], [place] [address] Myrna Knapp MD [address] [place] [address] [address] [place] [address] documented as of this encounter Procedures Procedure Name Priority Date/Time Associated Diagnosis Comments DERMATOPATHOLOGY Routine 08/07/2021 12:0 0 AM SPRAY PAINTER documented in this encounter Results * DERMATOPATHOLOGY (08/07/2021 12:00 AM SPRAY PAINTER) Case Report Dermatopathology Report Case: [id number] Authorizing Provider: David Sagastume MD Collected: 08/07/2021 12:00 AM Ordering Location: [facility] DermPath Lab Received: 08/09/2021 01:05 PM Pathologist: Mitzy Cordoba MD Specimen: Skin, posterior vertex scalp 2 5:15 PM SPRAY PAINTER DERMATOPATHOLOGY LABORATORY Final Diagnosis Specimen A. SKIN, posterior vertex scalp: HYPERPLASTIC (HYPERTROPHIC) ACTINIC KERATOSIS, LICHENOID (L57.0) 2 5:15 PM SPRAY PAINTER DERMATOPATHOLOGY LABORATORY at [address] SPRAY PAINTER Clinical History R/O SCC, Youngblood's disease. 2 5:15 PM SPRAY PAINTER DERMATOPATHOLOGY LABORATORY Gross Description Specimen A: Received is one formalin filled container labeled with the patient's name and designated posterior vertex scalp. The specimen consists of a shave biopsy measuring 01l1a2kg. Jar 0+. 2 5:15 PM SPRAY PAINTER DERMATOPATHOLOGY LABORATORY Microscopic Description Specimen A. SKIN, posterior vertex scalp: There is hyperkeratosis alternating with parakeratosis. There is epidermal hyperplasia with disorderly maturation of keratinocytes with nuclear pleomorphism confined to the lower half of the epidermis. The dermis shows a band-like, chronic inflammatory infiltrate with occasional apoptotic keratinocytes and some basal vacuolar alteration. 2 5:15 PM [facility] DERMATOPATHOLOGY LABORATORY Disclaimer An external and internal positive and negative controls are appropriate for the histochemical, immunohistochemical and immunofluorescence stain(s) in this case (if any), except where stated explicitly. The performance characteristics of the stain(s) cited in this report were developed and its performance characteristic determined by the Dermatopathology Laboratory at [facility], directed by Dr. Donald Wills. These tests need not be, and therefore are not, approved by the [place] Food and Drug Administration. The tests are used for clinical purposes. Billing Codes Specimen Charges Stain Charges 75977 1 2 5:15 PM [facility] DERMATOPATHOLOGY LABORATORY Embedded Images 2 5:15 PM [facility] DERMATOPATHOLOGY LABORATORY Pathology/Cytolog y TISSUE SPECIMEN FROM SKIN / Unknown 08/07/2021 08/09/2021 1:05 PM SPRAY PAINTER David Sagastume MD LAB - PATHOLOGY/CYTOLOGY ORD ERABLES Final Result DERMATOPATHOLOGY LABORATORY [facility] Department of Dermatology [address], [address] [phone] documented in this encounter Visit Diagnoses Not on filedocumented in this encounter Care Teams Drywall Hanger Helper Relationship Specialty Start Date End Date Alena Thakur APRN-SOYFREEZE OPERATOR [address] [phone] PCP - General 02/17/18 08/06/22 Patt Curtis MD [address] [place] [address] [address] [place] [address] PCP - General 08/07/22 Myrna Knapp MD [address] [place] [address] [place] [address] User Experience Analyst Rheumatology 05/18/23 documented as of this encounter
--- OUTSIDE RECORDS SUMMARY | 2025-03-01 12:37 | XMS_ITS | Continuity of Care Document ---
Author Name [facility] Organization [facility] Care Team Providers Care Car Repairman Name Role Phone [facility] Unavailable Unavailable Problems Combined list of problems [...] 5 2024 4.0 Ambulat ory Pharmac y albuterol 2.5mg/3mL (0.083%) [...] total refill(s ), Hard Stop Ordered 06/08/2025 5 2024 30.0 Ambulat ory Pharmac y estradiol 0.1 [...] ed 08/04/20232023 30.0 Ambulat ory Pharmac y evolocumab 140 mg/mL Inj-Pen [2 mL=2 pens] See Instruct ions, Inject 1mL subcutan eously (under the skin) every 2 weeks as directed , # 6 mL, 0 total refill(s ), Soft Stop Ordered 5 2024 6.0 Ambulat ory Pharmac y famotidine 40 mg [...] (adalimumab ), 40MG/0.4ML, PEN IJ KIT, SUBCUT, Travel Appeal, 2 ea. KIT Cancele d [id number] : 2023 0 Pharmac y Data Transac tion Service Facilit y HUMIRA(CF) PEN (adalimumab ), 40MG/0.4ML, PEN IJ KIT, SUBCUT, Travel Appeal, 2 ea. KIT Cancele d [id number] : 2023 0 Pharmac y Data Transac [...] r), 300-100 MG, TAB DS PK, ORAL, [employer] 30 ea. BLIST PACK Active [id number] 2023 30 Pharmac y Data Transac [...] 4 2023 4.0 Ambulat ory Pharmac y tiotropium 1.25 mcg [...] Combined list of allergies from [facility] facilities. It does not include entries that were removed or entered in error. Substance Category Reaction Severity Reaction type Status Date Reported Comments Source HYDROCODONE BIT Drug allergy (disorder) active [address] [place] [address] HYDROcodone Propensity to adverse reactions to drug Active NAUSEA
Reactio n(s): Unknown; Note: NAUSEA Unknown Organizati on sulfa drugs Propensity to adverse reactions to drug Active RASH AROUND MOUTH<br/ >Reaction (s): Unknown; Note: RASH AROUND MOUTH Unknown Organizati on SULFA-DRUGS Drug allergy (disorder) active [address] [place] [address] Encounters Combined list of: 1) Encounters from [facility] facilities going backup to the last 18 months, not all [place] inpatient encounters are included; 2) Encounters from the [facility] of [facility] facilities going backup to 280 months. Location Location Details Encounter Type Encounter Number Reason For Visit Attending Provider ADM Date DC Date Status Disposition Source [address] [place] [address] [employer] ([facility]Opt ometry) OUTPATIENT [id number] annual TOYIN GRIFFITHS 08/18 Released w/o Limitations [address] [place] [address] [employer] ([facility])(O ptometr y) [address] [place] [address] [employer] ([facility])(Opt ometry) OUTPATIENT [id number] [place], needs additio nal testing , bringin g list. TOYIN GRIFFITHS 12/20 Released w/o Limitations [address] [place] [address] [employer] ([facility])(O ptometr y) [address] [place] [address] [employer] ([facility])(Opt ometry) OUTPATIENT [id number] annual exam TOYIN GRIFFITHS 05/31 Released w/o Limitations [address] [place] [address] [employer] ([facility])(O ptometr y) [address] [place] [address] [employer] ([facility])(Opt ometry) OUTPATIENT [id number] annual eye exam - [id number] YVETTE CALDERON 03/21 Released w/o Limitations [facility] [employer] ([facility])(O ptometr y) Procedures Combined list of: 1) Procedures from [facility] facilities going back up to thelast 18 months, not all [facility] non-surgical procedures [...] Retina Scanning Computerized Ophthalmic Diagnostic Imaging Retina [id number] YVETTE CALDERON A DoD Determination Of Refractive State Determination Of Refractive State 51370 015 YVETTE CALDERON A DoD Ophthalmological Prior Patient Start Comprehensive Care Ophthalmological Prior Patient Start Comprehensive Care [id number] [phone] YVETTE CALDERON A DoD Determination Of Refractive State Determination Of Refractive State 46907 013 GRIFFITHS, TOYIN A DoD Visual Delaney Test Intermediate Examination Visual Delaney Test Intermediate Examination 14450 013 GRIFFITHS, TOYIN A DoD Scanning Computerized Ophthalmic Diagnostic Imaging Retina Scanning Computerized Ophthalmic Diagnostic Imaging Retina 45571 013 GRIFFITHS, TOYIN A DoD Ophthalmological Prior Patient Start Comprehensive Care Ophthalmological Prior Patient Start Comprehensive Care 54755 013 GRIFFITHS, TOYIN A DoD Scanning Computerized Ophthalmic Diagnostic Imaging Retina Scanning Computerized Ophthalmic Diagnostic Imaging Retina 95998 013 GRIFFITHS, TOYIN A DoD Visual Delaney Test Extended Examination Visual Delaney Test Extended Examination 56150 013 GRIFFITHS, TOYIN A DoD Ophthalmological Prior Patient Start Intermediate Level Care Ophthalmological Prior Patient Start Intermediate Level Care 34225 013 GRIFFITHS, TOYIN A DoD Determination Of Refractive State Determination Of Refractive State 99543 013 GRIFFITHS, TOYIN A DoD Scanning Computerized Ophthalmic Diagnostic Imaging Retina Scanning Computerized Ophthalmic Diagnostic Imaging Retina 26468 013 GRIFFITHS, TOYIN A DoD Visual Delaney Test Intermediate Examination Visual Delaney Test Intermediate Examination [address] [place] TOYIN GRIFFITHS [facility] Ophthalmological New Patient Start Comprehensive Care Ophthalmological New Patient Start Comprehensive Care [address] [place] TOYIN GRIFFITHS [facility] Social History Combined list of available smoking, tobacco, and other social history from Department of Defense and Veterans Affairs facilities. Social History Type Response Date Comment Sourc e This section is an empty social history section. [facility] Assessment and Plan Combined list of future care activities from Department of Defense and Veterans Affairs facilities (e.g., assessment and plan notes, appointments, orders, and referrals). Additional future care activities may be listed in the Plan of Care section. Result Assessment and Plan Date Source Assessment and Plan No data available for this section 03/01/2025 Ambulatory Pharmacy Functional Status Combined list of recent functional and cognitive assessments recorded at [facility] ([facility]).VA Functional Export Measurement (FIM) Scale: 1 = Total Assistance (Subject = 0% +), 2 = Maximal Assistance (Subject = 25% +), 3 = Moderate Assistance (Subject = 50% +), 4 = Minimal Assistance (Subject = 75% +), 5 = Supervision, 6 = Modified Export (Device), 7 = Complete Export (Timely, Safely). Assessment Date/Time Source Assessment Type Assessment Skill Assessment Score Assessment Details No data available for this section
--- OUTSIDE RECORDS SUMMARY | 2025-03-01 12:37 | XMS_ITS | Clinical Summary ---
Author Organization [facility] Address [address], [facility] [address] [place] [address] Phone Care Team Providers Care Amusement Centre Manager Name Role Phone Alena Thakur APRN Primary Care Provider [phone] Medications pantoprazole (PROTONIX) 40 MG Tablet Delayed [...] Payer (Ef fective 2011-Present) Name:Cassie Bone Member ID:[id number] Relation to Subscriber:Self Name:Cassie Bone Subscriber ID:[id number] Payer ID:[id number] Group ID:Not on file Type:Not on file Address: [facility] [address] [email or web address] [email or web address] [place] [address] [facility] Tripping Care Teams Amusement Centre Manager Relationship Specialty Start Date End Date Alena Thakur APRN PCP - General Advanced Practice Nurse 09/16/19
--- NOTE | 2025-03-01 12:49 | ECHO_ITS ---
Patient Info Name: Cassie Bone Age: 80 years : 1945 Gender: Female Ht: 63 in Wt: 150 lbs BSA: 1.76 m2 HR: 63 bpm BP: 143 / 79 mmHg Technical Quality: Fair Exam Date: 03/01/2025 1:03 PM Patient Status: O Admit Date: 03/01/2025 Exam Type: CA echo doppler color flow Complete two-dimensional, color flow and Doppler transthoracic echocardiogram is performed. Budget Accountant: Lizzette Brooks Attending Provider: Adrienne DELGADILLO Summary 1. Complete two-dimensional, color flow and Doppler transthoracic echocardiogram is performed. 2. Left ventricular chamber dimension is normal. 3. Left ventricular systolic function is normal, estimated at 60-65. 4. There is mild concentric increased left ventricular wall thickness. 5. The left ventricular diastolic function is normal. 6. E/e' 9 is minimally elevated. 7. There is mild tricuspid valve regurgitation. 8. No pulmonary hypertension, estimated pulmonary arterial systolic pressure is 34 mmHg. Left Ventricle E/e' 9 is minimally elevated. Left ventricular chamber dimension is normal. Left ventricular systolic function is normal, estimated at 60-65. There is mild concentric increased left ventricular wall thickness. The left ventricular diastolic function is normal. Right Ventricle Right ventricular chamber dimension is normal. Right ventricular systolic function is normal and with normal TAPSE 1.9 cm. Left Atria Left atrial chamber dimension is normal. Right Atria Right atrial chamber dimension is normal. Aortic Valve The aortic valve is trileaflet. There is no aortic valve stenosis. There is no aortic valve regurgitation. Pulmonic Valve There is no pulmonic regurgitation. Mitral Valve There is no mitral valve stenosis. There is no mitral valve regurgitation. Tricuspid Valve There is mild tricuspid valve regurgitation. No pulmonary hypertension, estimated pulmonary arterial systolic pressure is 34 mmHg. Pericardium/Pleural There is no pericardial effusion. Inferior Vena Cava Normal inferior vena cava with >50% collapse upon inspiration consistent with normal right atrial pressure, 5 mmHg. Aorta The aortic root size at the sinus of Valsalva is normal. Left Ventricular Outflow Tract Name Value Normal LVOT 2D LVOT Diameter 1.8 cm LVOT Doppler LVOT Peak Velocity 76 cm/s LVOT Peak Gradient 2 mmHg LVOT Mean Gradient 1 mmHg LVOT VTI 17 cm LVOT VTI/AV VTI Ratio 0.7 LVOT Stroke Volume 41 ml LVOT CO 8.4 l/min LVOT CI 4.8 l/min/m2 Pulmonic Valve Name Value Normal PV Doppler PV Peak Velocity 78 cm/s PV Peak Gradient 2 mmHg Mitral Valve Name Value Normal MV Diastolic Function MV E Peak Velocity 84 cm/s MV A Peak Velocity 73 cm/s MV E/A 1.2 MV Decel Time (PW) 192 ms MV Annular TDI MV E/e' (Septal) 10.4 MV E/e' (Lateral) 8.7 MV E/e' (Average) 9.6 Tricuspid Valve Name Value Normal TV Regurgitation Doppler TR Peak Velocity 270 cm/s TR Peak Gradient 29 mmHg Estimated PAP/RSVP RA Pressure 5 mmHg <=5 PA Systolic Pressure 34 mmHg <36 RV Systolic Pressure 34 mmHg <36 TV Annular TDI TV Lateral Syeda s' Velocity 11.0 cm/s >=9.5 Aorta Name Value Normal Ascending Aorta Ao Root Diameter (MM) 3.3 cm Ao Root Diam Index (MM) 1.9 cm/m2 Aortic Valve Name Value Normal AV Doppler AV Peak Velocity 108 cm/s AV Peak Gradient 5 mmHg AV Mean Gradient 3 mmHg AV VTI 25 cm AV Area (Cont Eq VTI) 1.7 cm2 >=3.0 AV Area (Cont Eq Rocky) 1.7 cm2 AV DI (Rocky) 0.70 AV Regurgitation 2D LVOT Area 2.4 cm2 Ventricles Name Value Normal LV Dimensions 2D/MM IVS Diastolic Thickness (2D) 1.2 cm 0.6-1.0 LVID Diastole (2D) 3.8 cm 3.8-5.2 LVIW Diastolic Thickness (2D) 1.0 cm 0.6-0.9 LVID Systole (2D) 2.3 cm 2.2-3.5 LVOT Diameter 1.8 cm LV Mass (2D Cubed) 130.86 g 67.00-162.00 LV Mass Index (2D Cubed) 75 g/m2 43-95 Relative Wall Thickness (2D) 0.51 <=0.42 LV Fractional Shortening/Ejection Fraction 2D/MM LV Fractional Shortening (2D) 39 % 27-45 LV EF (2D Teichholz) 70 % LV Diastolic Volume (4C MOD) 88 ml LV EF (4C MOD) 51 % LV Diastolic Volume (2C MOD) 83 ml LV EF (2C MOD) 52 % LV Diastolic Volume (BP MOD) 86 ml 46-106 LV Diastolic Volume Index (BP MOD) 49 ml/m2 29-61 LV Systolic Volume (BP MOD) 43 ml 14-42 LV Systolic Volume Index (BP MOD) 24 ml/m2 8-24 LV EF (BP MOD) 51 % 54-74 LV Diastolic Length (4C) 7.7 cm LV Systolic Length (4C) 6.3 cm LV Stroke Volume (4C MOD) 45 ml RV Dimensions 2D/MM RVID Diastole (2D) 3.7 cm 2.1-3.5 Atria Name Value Normal LA Dimensions LA Dimension (MM) 3.2 cm 2.7-3.8 LA Volume (4C A-L) 34 ml LA Volume (BP A-L) 36 ml RA Dimensions RA Systolic Major Milton Length (4C) 4.5 cm 2.2-2.8 RA Area (4C) 14.6 cm2 <=18.0 Report Signatures
== END 2025-03-01 12:35 | disposition home or self-care (01) ==
LOC: ANHCARD 12:35
PROVIDERS: Visit Provider Physician Assistant
DX: R93.1 Abnormal findings on diagnostic imaging of heart and coronary circulation (principal); R06.02 Shortness of breath; R09.02 Hypoxemia
CPT/HCPCS: 93306